=== PATIENT | female | born 1960 | race Caucasian/White ===

== ENCOUNTER → 2017-08-13 09:32 | Outpatient (CLI) | payer BC, SELFPAY ==
[2017-08-13 12:37] LABS: AST(SGOT) 30 U/L (15-37); Alanine Aminotransfer ALT/SGPT 33 U/L (13-56); Albumin, Serum 3.1 g/dL (3.2-5.0); Alkaline Phosphatase 60 U/L (45-117); Anion Gap 9 (5-15); BUN 27 mg/dL (7-18); BUN/Creat Ratio 25.5 RATIO (10-20); Bilirubin, Direct 0.12 mg/dL (0.00-0.30); Calcium,Total 9.6 mg/dL (8.5-10.1); Chloride 101 mmol/L (98-107); Cholesterol 169 mg/dL (200); Creatinine, Serum 1.06 mg/dL (0.55-1.02); EST Glomerular Filtration Rate 57 mL/min (>60); Est Glom Filt Rate - Afr Amer 69 mL/min (>60); Globulin 4.3 g/dL (2.2-4.2); Glucose 114 mg/dL (74-106); High Density Lipoprotein 41 mg/dL; Protein, Total 7.4 g/dL (6.4-8.2); Sodium Level 136 mmol/L (136-145); Triglycerides 311 mg/dL; Very Low Density Lipoprotein 62 mg/dL (5-40)
[2017-08-13 12:42] LABS: Hemoglobin A1c 8.9 % (4.2-6.3)
== END ==
PROVIDERS: Visit Provider Family Medicine
DX: E11.9 Type 2 diabetes mellitus without complications (principal)
CPT/HCPCS: 36415; 80048; 80061; 80076; 82043; 82570; 83036

== ENCOUNTER → 2018-07-22 12:45 | Outpatient (CLI) | payer BC, SELFPAY ==
[2018-07-24 10:36] LABS: HPV Reflexed? NOT INDICATED
== END ==
PROVIDERS: Family Provider Family Medicine; PCP Family Medicine; Referring Provider Family Medicine; Visit Provider Family Medicine
DX: Z12.4 Encounter for screening for malignant neoplasm of cervix (principal)
CPT/HCPCS: 88175; G0145

== ENCOUNTER → 2020-07-30 10:46 | Outpatient (CLI) | payer BC, SELFPAY ==
[2020-07-30 12:55] LABS: AST(SGOT) 14 U/L (15-37); Alanine Aminotransfer ALT/SGPT 18 U/L (13-56); Anion Gap 7 (5-15); BUN 24 mg/dL (7-18); BUN/Creat Ratio 14.9 RATIO (10-20); Chloride 106 mmol/L (98-107); Cholesterol 184 mg/dL (200); Creatinine, Serum 1.61 mg/dL (0.55-1.02); EST Glomerular Filtration Rate 35 mL/min (>60); Est Glom Filt Rate - Afr Amer 42 mL/min (>60); Glucose 109 mg/dL (74-106); High Density Lipoprotein 53 mg/dL; Potassium 4.5 mmol/L (3.5-5.1); Sodium Level 140 mmol/L (136-145); Thyroid Stim Hormone (TSH) 1.75 uIU/mL (0.358-3.74); Triglycerides 218 mg/dL; Very Low Density Lipoprotein 44 mg/dL (5-40)
== END ==
PROVIDERS: PCP Family Medicine; Referring Provider Family Medicine; Visit Provider Family Medicine
DX: E11.69 Type 2 diabetes mellitus with other specified complication (principal)
CPT/HCPCS: 36415; 80048; 80061; 84443; 84450; 84460

== ENCOUNTER → 2020-08-09 11:19 | Outpatient (CLI) | payer BC, SELFPAY | PROVIDERS: PCP Family Medicine; Visit Provider Family Medicine | DX: L03.313 Cellulitis of chest wall (principal) | CPT/HCPCS: 87070; 87077; 87205 ==

== ENCOUNTER → 2020-08-26 14:21 | Outpatient (CLI) | payer BC, SELFPAY | PROVIDERS: PCP Family Medicine; Referring Provider Surgery; Visit Provider Surgery | DX: L03.818 Cellulitis of other sites (principal); L02.818 Cutaneous abscess of other sites | CPT/HCPCS: 87070; 87075; 87205 ==

== ENCOUNTER → 2021-05-02 09:57 | Outpatient (CLI) | payer BC, SELFPAY ==
[2021-05-02 13:36] LABS: AST(SGOT) 13 U/L (15-37); Alanine Aminotransfer ALT/SGPT 20 U/L (13-56); Anion Gap 8 (5-15); BUN 50 mg/dL (7-18); BUN/Creat Ratio 18.5 RATIO (10-20); Calcium,Total 8.7 mg/dL (8.5-10.1); Chloride 111 mmol/L (98-107); Cholesterol 164 mg/dL (200); Creatinine, Serum 2.71 mg/dL (0.55-1.02); EST Glomerular Filtration Rate 19 mL/min (>60); Est Glom Filt Rate - Afr Amer 23 mL/min (>60); Glucose 82 mg/dL (74-106); High Density Lipoprotein 36 mg/dL; Potassium 4.4 mmol/L (3.5-5.1); Sodium Level 138 mmol/L (136-145); Thyroid Stim Hormone (TSH) 1.77 uIU/mL (0.358-3.74); Triglycerides 334 mg/dL; Very Low Density Lipoprotein 67 mg/dL (5-40)
== END ==
PROVIDERS: PCP Family Medicine; Visit Provider Family Medicine
DX: E11.9 Type 2 diabetes mellitus without complications (principal)
CPT/HCPCS: 36415; 80048; 80061; 84443; 84450; 84460

== ENCOUNTER 2021-09-05 09:21 | Outpatient (CLI) | payer BC, SELFPAY ==
[2021-09-05 12:22] LABS: ALB/GLOB Ratio 0.8 RATIO (0.9-2.4); AST(SGOT) 17 U/L (15-37); Alanine Aminotransfer ALT/SGPT 23 U/L (13-56); Albumin, Serum 3.2 g/dL (3.2-5.0); Alkaline Phosphatase 78 U/L (45-117); Anion Gap 8 (5-15); BUN 47 mg/dL (7-18); BUN/Creat Ratio 12.8 RATIO (10-20); Calcium,Total 9.6 mg/dL (8.5-10.1); Chloride 111 mmol/L (98-107); Creatinine, Serum 3.66 mg/dL (0.55-1.02); EST Glomerular Filtration Rate 14 mL/min (>60); Est Glom Filt Rate - Afr Amer 16 mL/min (>60); Globulin 3.9 g/dL (2.2-4.2); Glucose 120 mg/dL (74-106); Potassium 4.4 mmol/L (3.5-5.1); Protein, Total 7.1 g/dL (6.4-8.2); Sodium Level 140 mmol/L (136-145)
[2021-09-05 12:32] LABS: Vitamin D,25 Hydroxy 21.1 ng/mL
== END 2021-09-05 23:59 | disposition home or self-care (01) ==
LOC: BIMLAB 09:22
PROVIDERS: PCP Family Medicine; Referring Provider Nurse Practitioner Family; Visit Provider Nurse Practitioner Family
DX: I12.9 Hypertensive chronic kidney disease with stage 1 through stage 4 chronic kidney disease, or unspecified chronic kidney disease (principal); E11.22 Type 2 diabetes mellitus with diabetic chronic kidney disease; N18.4 Chronic kidney disease, stage 4 (severe); Z79.4 Long term (current) use of insulin
CPT/HCPCS: 36415; 80053; 82306

== ENCOUNTER → 2021-09-19 | Outpatient (CLI) | payer BC, SELFPAY ==
--- NOTE | 2021-09-19 15:00 | US_ITS ---
STUDY: RENAL ULTRASOUND - COMPLETE REASON FOR EXAM: Female, 60 years old. CKD STAGE 4 TECHNIQUE: Ultrasound evaluation of the kidneys was performed with real-time and static amor-scale imaging. COMPARISON: Comparison is made with prior examination dated 03/17/2016. FINDINGS: RIGHT KIDNEY: Normal location of the right kidney, which is normal in size. The right kidney measures 13.5 cm x 5.8 cm x 5.9 cm. There is a normal cortex of the right kidney. The renal cortex measures 1.6 cm. There is no right renal mass or cyst. There are no right renal calculi. There is no right hydronephrosis. DISTAL RIGHT URETER: There is non-visualization of the distal right ureter. There is no demonstrated right ureterovesical junction calculus. There is a visualized right ureteral jet. LEFT KIDNEY: Normal location of the left kidney, which is normal in size. The left kidney measures 12.6 cm x 5.3 cm x 5.6 cm. There is a normal cortex of the left kidney. The renal cortex measures 1.7 cm. There is no left renal mass or cyst. There are no left renal calculi. There is no left hydronephrosis. DISTAL LEFT URETER: There is non-visualization of the distal left ureter. There is no demonstrated left ureterovesical junction calculus. There is a visualized left ureteral jet. BLADDER: The distended urinary bladder has a volume of 183 ml. There is a normal wall thickness of the distended urinary bladder. There is no demonstrated mass within the urinary bladder. There are no demonstrated bladder calculi. US/Kidney and Bladder IMPRESSION: Normal ultrasound of the kidneys and urinary bladder. Electronically Signed: Matias Ashford MD at 15:48 EDT ,
[2021-09-19 16:19] LABS: Hematocrit 36.2 % (37-47); Hemoglobin 11.7 g/dL (12.0-15.0); Mean Corp Hgb Conc 32.3 g/dL (32-36); Mean Corpuscular Hgb 27.1 pg (27.0-32.0); Mean Platelet Vol. 10.8 fl (6.2-12.0); Platelet Count 334 K/mm3 (150-450); RBC Distribution Width CV 14.1 % (11.6-14.6); RBC Distribution Width SD 43.3 fl (35.1-43.9); Red Blood Count 4.31 M/mm3 (4.2-5.4); White Blood Count 11.1 K/mm3 (4.4-11.0)
[2021-09-19 16:49] LABS: Protein, Urine (Random) 208.1 mg/dL (<11.9); Protein:Creat Ratio 6735 mg/g CRE (0-200)
[2021-09-19 16:50] LABS: Albumin, Serum 3.3 g/dL (3.2-5.0); BUN 53 mg/dL (7-18); BUN/Creat Ratio 15.1 RATIO (10-20); Calcium,Total 9.9 mg/dL (8.5-10.1); Chloride 107 mmol/L (98-107); Creatinine, Serum 3.52 mg/dL (0.55-1.02); EST Glomerular Filtration Rate 14 mL/min (>60); Est Glom Filt Rate - Afr Amer 17 mL/min (>60); Glucose 106 mg/dL (74-106); Phosphorus 4.5 mg/dL (2.5-4.9); Potassium 4.4 mmol/L (3.5-5.1); Sodium Level 136 mmol/L (136-145)
[2021-09-19 16:56] LABS: Vitamin D,25 Hydroxy 20.7 ng/mL
[2021-09-20 08:04] LABS: PTHIN 26.9 pg/mL (18.4-80.1)
[2021-09-21 17:07] LABS: Anti-dsDNA Ab <1 IU/mL (0-9)
[2021-09-21 18:07] LABS: Cytoplasmic Ab (C-ANCA) <1:20 titer (Neg:<1:20); PROEL- A/G Ratio 0.8 (0.7-1.7); PROEL- Albumin 3.3 g/dL (2.9-4.4); PROEL- Alpha-1 Globulin 0.3 g/dL (0.0-0.4); PROEL- Alpha-2 Globulin 1.4 g/dL (0.4-1.0); PROEL- Beta Globulin 1.1 g/dL (0.7-1.3); PROEL- Gamma Globulin 1.3 g/dL (0.4-1.8); PROEL- TOTAL PROTEIN 7.3 g/dL (6.0-8.5)
[2021-09-21 20:41] LABS: Complement C3 163 mg/dL (82-167); Perinuclear Ab (P-ANCA) <1:20 titer (Neg:<1:20)
== END | disposition home or self-care (01) ==
PROVIDERS: PCP Family Medicine; Visit Provider Internal Medicine Nephrology
DX: N18.4 Chronic kidney disease, stage 4 (severe) (principal)
CPT/HCPCS: 36415; 76770; 80069; 82306; 82570; 83970; 84156; 84165; 85027; 86160; 86225; 86256

== ENCOUNTER → 2021-12-28 | Outpatient (CLI) | payer BC, SELFPAY ==
[2021-12-28 10:26] LABS: Protein, Urine (Random) 274.7 mg/dL (<11.9); Protein:Creat Ratio 5933 mg/g CRE (0-200)
[2021-12-28 10:42] LABS: Anion Gap 8 (5-15); BUN 55 mg/dL (7-18); BUN/Creat Ratio 13.6 RATIO (10-20); Calcium,Total 10.9 mg/dL (8.5-10.1); Chloride 105 mmol/L (98-107); Creatinine, Serum 4.03 mg/dL (0.55-1.02); EST Glomerular Filtration Rate 12 mL/min (>60); Est Glom Filt Rate - Afr Amer 15 mL/min (>60); Glucose 156 mg/dL (74-106); Potassium 4.6 mmol/L (3.5-5.1); Sodium Level 135 mmol/L (136-145)
== END | disposition home or self-care (01) ==
PROVIDERS: PCP Family Medicine; Visit Provider Internal Medicine Nephrology
DX: N18.4 Chronic kidney disease, stage 4 (severe) (principal)
CPT/HCPCS: 36415; 80048; 82570; 84156

== ENCOUNTER → 2022-04-17 | Outpatient (CLI) | payer BC, SELFPAY ==
[2022-04-17 10:19] LABS: Protein, Urine (Random) 301.1 mg/dL (<11.9); Protein:Creat Ratio 4856 mg/g CRE (0-200)
[2022-04-17 10:39] LABS: Anion Gap 8 (5-15); BUN 65 mg/dL (7-18); BUN/Creat Ratio 16.1 RATIO (10-20); Chloride 110 mmol/L (98-107); Creatinine, Serum 4.03 mg/dL (0.55-1.02); EST Glomerular Filtration Rate 12 mL/min (>60); Est Glom Filt Rate - Afr Amer 15 mL/min (>60); Glucose 121 mg/dL (74-106); Potassium 4.6 mmol/L (3.5-5.1); Sodium Level 137 mmol/L (136-145)
== END | disposition home or self-care (01) ==
LOC: LAB 09:33
PROVIDERS: PCP Family Medicine; Referring Provider Internal Medicine Nephrology; Visit Provider Internal Medicine Nephrology
DX: N18.4 Chronic kidney disease, stage 4 (severe) (principal)
CPT/HCPCS: 36415; 80048; 82570; 84156

== ENCOUNTER → 2022-05-31 | Outpatient (CLI) | payer BC, SELFPAY ==
[2022-05-31 11:06] LABS: ALB/GLOB Ratio 0.7 RATIO (0.9-2.4); AST(SGOT) 12 U/L (15-37); Alanine Aminotransfer ALT/SGPT 19 U/L (13-56); Albumin, Serum 3.3 g/dL (3.2-5.0); Alkaline Phosphatase 69 U/L (45-117); Anion Gap 7 (5-15); BUN 55 mg/dL (7-18); BUN/Creat Ratio 15.4 RATIO (10-20); Calcium,Total 11.1 mg/dL (8.5-10.1); Chloride 112 mmol/L (98-107); Cholesterol 150 mg/dL (200); Creatinine, Serum 3.56 mg/dL (0.55-1.02); EST Glomerular Filtration Rate 14 mL/min (>60); Est Glom Filt Rate - Afr Amer 17 mL/min (>60); Globulin 4.8 g/dL (2.2-4.2); Glucose 96 mg/dL (74-106); High Density Lipoprotein 35 mg/dL; Potassium 4.1 mmol/L (3.5-5.1); Protein, Total 8.1 g/dL (6.4-8.2); Sodium Level 138 mmol/L (136-145); Triglycerides 220 mg/dL; Very Low Density Lipoprotein 44 mg/dL (5-40)
[2022-05-31 12:48] LABS: PTHIN 27.7 pg/mL (18.4-80.1)
[2022-05-31 12:49] LABS: Vitamin D,25 Hydroxy 27.6 ng/mL
== END | disposition home or self-care (01) ==
LOC: LAB 09:36
PROVIDERS: PCP Family Medicine; Referring Provider Nurse Practitioner Family; Visit Provider Nurse Practitioner Family
DX: E11.9 Type 2 diabetes mellitus without complications (principal); E55.9 Vitamin D deficiency, unspecified
CPT/HCPCS: 36415; 80053; 80061; 82306; 83970

== ENCOUNTER → 2022-06-12 | Outpatient (CLI) | payer BC, SELFPAY ==
--- NOTE | 2022-06-12 12:00 | RAD_ITS ---
STUDY: X-RAY CHEST REASON FOR EXAM: Female, 61 years old. Renal transplant clearance TECHNIQUE: Single frontal view of the chest. COMPARISON: None. FINDINGS: The lungs are clear and expanded. There is no demonstrated pleural abnormality. Normal size heart. Normal mediastinum and jerry. Normal visualized pulmonary arteries. Normal visualized aortic arch and descending thoracic aorta. Normal visualized thoracic spine. Normal visualized ribs, clavicles, and shoulders. There is no demonstrated abnormality of the visualized soft tissue structures of the upper abdomen. RAD/Chest PA and Lateral IMPRESSION: Normal x-ray examination of the chest. Electronically Signed: Trey Bonilla MD at 23:44 EST ,
== END | disposition home or self-care (01) ==
PROVIDERS: PCP Family Medicine; Referring Provider Family Medicine; Visit Provider Family Medicine
DX: Z01.818 Encounter for other preprocedural examination (principal)
CPT/HCPCS: 71046

== ENCOUNTER → 2022-06-12 | Outpatient (CLI) | payer BC, SELFPAY ==
[2022-06-16 18:43] LABS: HPV HC, High Risk Negative
== END | disposition home or self-care (01) ==
LOC: LABSPEC 15:09
PROVIDERS: PCP Family Medicine; Visit Provider Family Medicine
DX: Z12.4 Encounter for screening for malignant neoplasm of cervix (principal)
CPT/HCPCS: 87624; 88175; G0145

== ENCOUNTER → 2022-06-21 | Outpatient (CLI) | payer BC, SELFPAY ==
--- NOTE | 2022-06-21 09:02 | BI_ITS ---
MAMMOGRAPHY - BILATERAL SCREENING REASON FOR EXAM: Female, 61 years old. Routine annual screening examination. PERTINENT HISTORY: Grandmother with breast cancer. Aunt with breast cancer. TECHNIQUE: Digital bilateral breast didier (3D mammographic acquisition) in the CC and MLO projections. 2-D mediolateral oblique (MLO) and craniocaudad (CC) views of both breasts were obtained. CAD: Full Field Digital Mammography with Computer Added Detection was performed. COMPARISON: Comparison is made with prior examination of 02/17/2015. FINDINGS: Breast Composition: There are scattered areas of fibroglandular density. There are no dominant masses or suspicious calcifications. No other significant abnormalities are identified. There has been no significant change since the prior study. BI/SCRN MAMM (CAD)W/DIDIER BILAT IMPRESSION: Stable bilateral screening mammogram. Yearly follow-up mammogram recommended. (A) ASSESSMENT CATEGORY: BIRADS Category 1: Negative. A letter regarding these results will be sent to the patient by the facility within 30 days. Approximately 10% of breast cancers are not detected by mammography. A normal mammogram should not delay biopsy of a clinically suspicious abnormality. [id number] Electronically Signed: Matias Ashford MD at 10:37 EST ,
== END | disposition home or self-care (01) ==
PROVIDERS: PCP Family Medicine; Referring Provider Family Medicine; Visit Provider Family Medicine
DX: Z12.31 Encounter for screening mammogram for malignant neoplasm of breast (principal); Z80.3 Family history of malignant neoplasm of breast
CPT/HCPCS: 77063; 77067

== ENCOUNTER → 2022-07-21 | Outpatient (CLI) | payer BC, SELFPAY ==
[2022-07-21 10:27] LABS: Hematocrit 36.8 % (37-47); Mean Corp Hgb Conc 32.6 g/dL (32-36); Mean Corpuscular Hgb 27.8 pg (27.0-32.0); Mean Corpuscular Volume 85.4 fL (81-99); Mean Platelet Vol. 10.7 fl (6.2-12.0); Platelet Count 289 K/mm3 (150-450); RBC Distribution Width CV 14.6 % (11.6-14.6); RBC Distribution Width SD 45.7 fl (35.1-43.9); Red Blood Count 4.31 M/mm3 (4.2-5.4); White Blood Count 9.2 K/mm3 (4.4-11.0)
[2022-07-21 10:47] LABS: Albumin, Serum 3.2 g/dL (3.2-5.0); BUN 51 mg/dL (7-18); BUN/Creat Ratio 12.6 RATIO (10-20); Calcium,Total 11.8 mg/dL (8.5-10.1); Chloride 103 mmol/L (98-107); Creatinine, Serum 4.05 mg/dL (0.55-1.02); EST Glomerular Filtration Rate 12 mL/min (>60); Est Glom Filt Rate - Afr Amer 15 mL/min (>60); Glucose 181 mg/dL (74-106); Potassium 4.7 mmol/L (3.5-5.1); Sodium Level 137 mmol/L (136-145)
[2022-07-21 10:54] LABS: PTHIN 26.5 pg/mL (18.4-80.1)
[2022-07-21 10:57] LABS: Vitamin D,25 Hydroxy 26.5 ng/mL
== END | disposition home or self-care (01) ==
LOC: LAB 09:51
PROVIDERS: PCP Family Medicine; Referring Provider Internal Medicine Nephrology; Visit Provider Internal Medicine Nephrology
DX: N18.4 Chronic kidney disease, stage 4 (severe) (principal)
CPT/HCPCS: 36415; 80069; 82306; 82570; 83970; 84156; 85027

== ENCOUNTER → 2022-07-27 | Outpatient (CLI) | payer BC, SELFPAY ==
[2022-07-27 11:05] LABS: PTHIN 30.6 pg/mL (18.4-80.1)
[2022-07-28 17:07] LABS: Free Kappa Light Chains 122.8 mg/L (3.3-19.4); Free Lambda Light Chains 69.3 mg/L (5.7-26.3); Immunoglobulin A 283 mg/dL (87-352); Immunoglobulin G 1333 mg/dL (586-1602); Immunoglobulin M 76 mg/dL (26-217); PROEL- A/G Ratio 0.8 (0.7-1.7); PROEL- Albumin 3.2 g/dL (2.9-4.4); PROEL- Alpha-1 Globulin 0.3 g/dL (0.0-0.4); PROEL- Alpha-2 Globulin 1.2 g/dL (0.4-1.0); PROEL- Beta Globulin 1.1 g/dL (0.7-1.3); PROEL- Gamma Globulin 1.3 g/dL (0.4-1.8); PROEL- Globulin, Total 3.8 g/dL (2.2-3.9)
== END | disposition home or self-care (01) ==
PROVIDERS: PCP Family Medicine; Referring Provider Internal Medicine Nephrology; Visit Provider Internal Medicine Nephrology
DX: N18.5 Chronic kidney disease, stage 5 (principal)
CPT/HCPCS: 36415; 82784; 83883; 83970; 84165; 86334

== ENCOUNTER → 2022-11-22 | Outpatient (CLI) | payer BC, SELFPAY ==
[2022-11-22 10:59] LABS: PTHIN 48.3 pg/mL (18.4-80.1)
[2022-11-23 16:09] LABS: Free Kappa Light Chains 143.7 mg/L (3.3-19.4); Free Lambda Light Chains 126.3 mg/L (5.7-26.3); Immunoglobulin A 294 mg/dL (87-352); Immunoglobulin G 1769 mg/dL (586-1602); Immunoglobulin M 66 mg/dL (26-217); PROEL- A/G Ratio 0.8 (0.7-1.7); PROEL- Albumin 3.3 g/dL (2.9-4.4); PROEL- Alpha-1 Globulin 0.3 g/dL (0.0-0.4); PROEL- Alpha-2 Globulin 1.1 g/dL (0.4-1.0); PROEL- Gamma Globulin 1.6 g/dL (0.4-1.8); PROEL- Globulin, Total 3.9 g/dL (2.2-3.9); PROEL- TOTAL PROTEIN 7.2 g/dL (6.0-8.5)
== END | disposition home or self-care (01) ==
PROVIDERS: PCP Family Medicine; Referring Provider Internal Medicine Nephrology; Visit Provider Internal Medicine Nephrology
DX: N18.5 Chronic kidney disease, stage 5 (principal)
CPT/HCPCS: 36415; 82784; 83883; 83970; 84165; 86334

== ENCOUNTER → 2022-11-27 | Outpatient (CLI) | payer BC, SELFPAY ==
[2022-11-27 10:57] LABS: ALB/GLOB Ratio 0.6 RATIO (0.9-2.4); AST(SGOT) 14 U/L (15-37); Alanine Aminotransfer ALT/SGPT 16 U/L (13-56); Albumin, Serum 3.3 g/dL (3.2-5.0); Alkaline Phosphatase 59 U/L (45-117); Anion Gap 3 (5-15); BUN 60 mg/dL (7-18); BUN/Creat Ratio 14.6 RATIO (10-20); Calcium,Total 10.7 mg/dL (8.5-10.1); Chloride 111 mmol/L (98-107); Creatinine, Serum 4.11 mg/dL (0.55-1.02); EST Glomerular Filtration Rate 12 mL/min (>60); Est Glom Filt Rate - Afr Amer 14 mL/min (>60); Globulin 5.4 g/dL (2.2-4.2); Glucose 100 mg/dL (74-106); Potassium 4.7 mmol/L (3.5-5.1); Protein, Total 8.7 g/dL (6.4-8.2); Sodium Level 138 mmol/L (136-145); Vitamin D,25 Hydroxy 33.7 ng/mL
== END | disposition home or self-care (01) ==
LOC: LAB 10:06
PROVIDERS: PCP Family Medicine; Referring Provider Nurse Practitioner Family; Visit Provider Nurse Practitioner Family
DX: E83.52 Hypercalcemia (principal)
CPT/HCPCS: 36415; 80053; 82306

== ENCOUNTER → 2023-01-24 | Outpatient (CLI) | payer BC, SELFPAY ==
--- NOTE | 2023-01-24 15:50 | RAD_ITS ---
INDICATION: pain, left facial trauma EXAMINATION/TECHNIQUE: X-RAY - XR Nasal Bones Min 3 Views COMPARISON: None. FINDINGS: SOFT TISSUES: No soft tissue swelling. No free air. No radiopaque foreign body. BONES: No fracture. NASAL SEPTUM: Midline. RAD/Nasal Bones min 3 Views IMPRESSION: No evidence of a nasal bone fracture. Electronically Signed: Jose Alejandro Castro DO at 23:17 EDT ,
== END | disposition home or self-care (01) ==
LOC: MTRAD 15:47
PROVIDERS: PCP Family Medicine; Referring Provider Family Medicine; Visit Provider Family Medicine
DX: S09.93XA Unspecified injury of face, initial encounter (principal)
CPT/HCPCS: 70160

== ENCOUNTER → 2023-02-12 | Outpatient (CLI) | payer BC, SELFPAY ==
[2023-02-12 10:27] LABS: Hematocrit 38.2 % (37-47); Hemoglobin 12.3 g/dL (12.0-15.0); Mean Corp Hgb Conc 32.2 g/dL (32-36); Mean Corpuscular Hgb 28.7 pg (27.0-32.0); Mean Corpuscular Volume 89.3 fL (81-99); Mean Platelet Vol. 10.8 fl (6.2-12.0); Platelet Count 294 K/mm3 (150-450); RBC Distribution Width CV 14.4 % (11.6-14.6); RBC Distribution Width SD 46.2 fl (35.1-43.9); Red Blood Count 4.28 M/mm3 (4.2-5.4)
[2023-02-12 10:54] LABS: PTHIN 52.9 pg/mL (18.4-80.1)
[2023-02-12 10:57] LABS: Vitamin D,25 Hydroxy 37.3 ng/mL
[2023-02-12 11:12] LABS: Albumin, Serum 3.3 g/dL (3.2-5.0); BUN 53 mg/dL (7-18); Calcium,Total 10.6 mg/dL (8.5-10.1); Chloride 110 mmol/L (98-107); Creatinine, Serum 4.41 mg/dL (0.55-1.02); EST Glomerular Filtration Rate 11 mL/min (>60); Est Glom Filt Rate - Afr Amer 13 mL/min (>60); Glucose 103 mg/dL (74-106); Phosphorus 4.9 mg/dL (2.5-4.9); Potassium 4.5 mmol/L (3.5-5.1); Sodium Level 138 mmol/L (136-145)
[2023-02-12 11:44] LABS: Protein, Urine (Random) 244.8 mg/dL (<11.9); Protein:Creat Ratio 5287 mg/g CRE (0-200)
[2023-02-15 12:09] LABS: Vitamin D 1,25-Dihydroxy 23.6 pg/mL (24.8-81.5)
== END | disposition home or self-care (01) ==
LOC: LAB 10:08
PROVIDERS: PCP Family Medicine; Referring Provider Internal Medicine Nephrology; Visit Provider Internal Medicine Nephrology
DX: N18.5 Chronic kidney disease, stage 5 (principal)
CPT/HCPCS: 36415; 80069; 82306; 82570; 82652; 83970; 84156; 85027

== ENCOUNTER → 2023-04-16 | Outpatient (CLI) | payer BC, SELFPAY ==
[2023-04-16 11:20] LABS: Protein, Urine (Random) 303.1 mg/dL (<11.9); Protein:Creat Ratio 6422 mg/g CRE (0-200)
[2023-04-16 11:27] LABS: BUN 74 mg/dL (7-18); BUN/Creat Ratio 15.1 RATIO (10-20); Calcium,Total 10.3 mg/dL (8.5-10.1); Chloride 111 mmol/L (98-107); EST Glomerular Filtration Rate 10 mL/min (>60); Est Glom Filt Rate - Afr Amer 12 mL/min (>60); Glucose 105 mg/dL (74-106); Phosphorus 6.5 mg/dL (2.5-4.9); Potassium 4.8 mmol/L (3.5-5.1); Sodium Level 136 mmol/L (136-145)
== END | disposition home or self-care (01) ==
LOC: LAB 09:23
PROVIDERS: PCP Family Medicine; Referring Provider Internal Medicine Nephrology; Visit Provider Internal Medicine Nephrology
DX: N18.4 Chronic kidney disease, stage 4 (severe) (principal)
CPT/HCPCS: 36415; 80069; 82570; 84156

== ENCOUNTER → 2023-06-21 | Outpatient (CLI) | payer BC, SELFPAY ==
[2023-06-21 11:20] LABS: Hematocrit 36.1 % (37-47); Hemoglobin 11.4 g/dL (12.0-15.0); Mean Corp Hgb Conc 31.6 g/dL (32-36); Mean Corpuscular Hgb 28.2 pg (27.0-32.0); Mean Corpuscular Volume 89.4 fL (81-99); Mean Platelet Vol. 10.5 fl (6.2-12.0); Platelet Count 292 K/mm3 (150-450); RBC Distribution Width CV 13.9 % (11.6-14.6); RBC Distribution Width SD 45.4 fl (35.1-43.9); Red Blood Count 4.04 M/mm3 (4.2-5.4); White Blood Count 13.5 K/mm3 (4.4-11.0)
[2023-06-21 11:53] LABS: Albumin, Serum 3.1 g/dL (3.2-5.0); BUN 63 mg/dL (7-18); BUN/Creat Ratio 13.4 RATIO (10-20); Calcium,Total 11.1 mg/dL (8.5-10.1); Chloride 112 mmol/L (98-107); EST Glomerular Filtration Rate 10 mL/min (>60); Est Glom Filt Rate - Afr Amer 12 mL/min (>60); Glucose 69 mg/dL (74-106); Phosphorus 4.5 mg/dL (2.5-4.9); Potassium 4.3 mmol/L (3.5-5.1); Sodium Level 136 mmol/L (136-145)
--- OUTSIDE RECORDS SUMMARY | 2023-06-21 13:04 | XMS RPT_ITS | CCD ---
Author Name Unknown Address [facility] [address] [place] [address] Organization [facility] Care Team Providers Care Director Of Veterans Affairs Name Role Phone Pcp, No Primary Care Provider Unavailabl e Unavailable Primary Care Provider Unavailabl e FATICA, BRITTNEY Referring Unavailable FATICA, BRITTNEY Referring Unavailable FATICA, BRITTNEY Referring Unavailable POGGIO, MAREK D Referring Unavailable POGGIO, MAREK D Referring Unavailable MUKESHPHOENIX Referring Unavailabl e FATICA, BRITTNEY Referring Unavailable FATICA, BRITTNEY Referring Unavailable FATICA, BRITTNEY Referring Unavailable CRTALICGEENA Attending Unavailable FATICA, BRITTNEY Referring Unavailable MUKESH, PHOEN[place] Jimenez Referring Unavailabl e MUKESHJESSIE CLOUDKAMACY Jimenez Referring Unavailabl e Mukesh WILKINSON, [place] Jimenez Primary Care Provider SHER FONSECA Attending Unavailable SHER FONSECA Referring Unavailable MUKESHJESSIE CLOUDKAMACY Jimenez Primary Care Unavailabl e Medications Current Medications Medication Drug Class(es) Dates Sig (Normalized) Sig (Original) allopurinol 100 mg oral tablet (17 sources) Xanthine Oxidase Inhibitor Start: 06-02-2023 take 1 tablet by mouth once daily allopurinol (Zyloprim) 100 mg tablet Take 1 tablet (100 mg) by mouth once daily. 0 06/02/2023 Active Completed/Discontinued Medications Medication Drug Class(es) Dates Sig (Normalized) Sig (Original) calcium chloride 0.0014 meq/ml / potassium chloride 0.004 meq/ml / sodium chloride 0.103 meq/ml / sodium lactate 0.028 meq/ml injectable solution (2 sources) Start: 06-15-2023 End: 06-16-2023 lactated Ringer's infusion candesartan cilexetil 32 mg / hydroCHLOROthiazide 12.5 mg oral tablet (15 sources) Thiazide Diuretic, Angiotensin 2 Receptor Felisha Start: 04-25-2007 candesartan/hydr ochlorothiazid(A TACAND HCT 32 MG-12.5 MG TAB) glimepiride 2 mg oral tablet (11 sources) Sulfonylurea take 1 tablet by mouth once daily at breakfast glimepiride (AMARYL) 2 mg tablet Take 2 mg by mouth daily with breakfast. 0 Active Problems Active Problems Problem Classification Problem Date Documented Da te Episodic/Chronic Acute and unspecified renal failure (1 source) Unspecified kidney failure; Translations: [Renal failure, unspecified chronicity] Onset: 05-10-2022 Chronic Administrative/social admission (3 sources) Patient encounter status; Translations: [Dietary counseling and surveillance] Episodic Chronic kidney disease (8 sources) Chronic kidney disease stage 4; Translations: [Chronic kidney disease, stage 4 (severe)] Onset: 05-10-2022 Chronic Diabetes mellitus with complications (2 sources) Type 2 diabetes mellitus; Translations: [Type 2 diabetes mellitus with unspecified complications] Onset: 05-10-2022 Chronic Essential hypertension (1 source) Hypertensive disorder; Translations: [Essential (primary) hypertension] Chronic Other nutritional; endocrine; and metabolic disorders (1 source) Severe obesity; Translations: [Morbid (severe) obesity due to excess calories] Chronic Other nutritional; endocrine; and metabolic disorders (1 source) Morbid (severe) obesity due to excess calories; Translations: [Class 3 severe obesity in adult, unspecified BMI, unspecified obesity type, unspecified whether serious comorbidity present (HCC)] Onset: 05-10-2022 Chronic Residual codes; unclassified (1 source) Awaiting transplantation; Translations: [Awaiting organ transplant status] Chronic Past or Other Problems Problem Classification Problem Date Documented Date Episodic/Chronic Calculus of urinary tract (20 sources) Kidney stone; Translations: [Calculus of kidney] Onset: 04-10-2005 04-10-2005 Episodic Genitourinary symptoms and ill-defined conditions (15 sources) Extravasation of urine; Translations: [Extravasation of urine] Onset: 04-28-2005 04-28-2005 Episodic Immunizations and screening for infectious disease (1 source) Encounter for screening for infections with a predominantly sexual mode of transmission; Translations: [Screening for venereal disease] Onset: 05-10-2022 Episodic Other diseases of kidney and ureters (15 sources) Hydronephrosis; Translations: [Unspecified hydronephrosis] Onset: 04-10-2005 04-10-2005 Episodic Other screening for suspected conditions (not mental disorders or infectious disease) (1 source) Encounter for screening for cardiovascular disorders; Translations: [Encounter for screening for cardiovascular disorders] Onset: 08-09-2022 Episodic Results Test Name Value Interpretation Reference Range Facil ity Vital Signs Date Time Vital Sign Value Performing Clinician Facility 06-15-2023 16:20-0500 Diastolic blood pressure 80 mm[Hg] Sher Thomae DO Work Phone: [facility] 06-15-2023 16:20-0500 Heart rate 77 /min Sher Thomae DO Work Phone: [facility] 06-15-2023 16:20-0500 Respiratory rate 18 /min Sher Thomae DO Work Phone: [facility] 06-15-2023 16:20-0500 SaO2% (BldA) [Mass fraction] 96 % Sher Thomae DO Work Phone: [facility] 06-15-2023 16:20-0500 Systolic blood pressure 170 mm[Hg] Sher Thomae DO Work Phone: [facility] 06-15-2023 15:47-0500 Body temperature 97.9 [degF] Sher Thomae DO Work Phone: [facility] 06-15-2023 13:44-0500 Body height 162.6 cm Sher Thomae DO Work Phone: [facility] 06-15-2023 13:44-0500 Body mass index (BMI) [Ratio] 40.53 kg/m2 Sher Thomae DO Work Phone: [facility] 06-15-2023 13:44-0500 Body weight 107.1 kg Sher Thomae DO Work Phone: [facility] 05-10-2022 12:54-0500 Body height 162.6 cm [facility] Work Phone: [facility] 05-10-2022 12:54-0500 Body temperature 98.6 [degF] [facility] Work Phone: [facility] 05-10-2022 12:54-0500 Body weight 105.92 kg [facility] Work Phone: [facility] 05-10-2022 12:54-0500 Diastolic blood pressure 62 mm[Hg] [facility] Work Phone: [facility] 05-10-2022 12:54-0500 Heart rate 74 /min [facility] Work Phone: [facility] 05-10-2022 12:54-0500 SaO2% (BldA) [Mass fraction] 99 % [facility] Work Phone: [facility] 05-10-2022 12:54-0500 Systolic blood pressure 142 mm[Hg] [facility] Work Phone: [facility] 05-10-2022 12:52-0500 Body height 162.6 cm [facility] Work Phone: [facility] 05-10-2022 12:52-0500 Body temperature 98.6 [degF] [facility] Work Phone: [facility] 05-10-2022 12:52-0500 Body weight 105.92 kg [facility] Work Phone: [facility] 05-10-2022 12:52-0500 Diastolic blood pressure 62 mm[Hg] [facility] Work Phone: [facility] 05-10-2022 12:52-0500 Heart rate 74 /min [facility] Work Phone: [facility] 05-10-2022 12:52-0500 SaO2% (BldA) [Mass fraction] 99 % [facility] Work Phone: [facility] 05-10-2022 12:52-0500 Systolic blood pressure 142 mm[Hg] [facility] Work Phone: [facility] 05-10-2022 10:0500 Body height 162.[address] Work Phone: [facility] 05-10-2022 10:0500 Body weight 104.[address] Work Phone: [facility] Encounters Encounter Date Encounter Type Care Provider Facility Start: 06-15-2023 End: 06-16-2023 ambulatory SHER FONSECA [facility] Start: 06-15-2023 End: 06-15-2023 Subsequent hospital visit by physician Sher Fonseca DO Work Phone: [facility] Procedures Date Procedure Procedure Detail Performing Clinician Start: 06-15-2023 DISCHARGE PATIENT SHER FONSECA Start: 06-15-2023 PLACE IN OUTPATIENT/HOSPITAL AMBULATORY SURGERY SHER FONSECA Start: 06-15-2023 Colonoscopy flx dx w /collj spec when pfrmd Sher Fonseca DO Work Phone: Start: 06-15-2023 Colonoscopy Sher fournier DO Work Phone: Start: 08-09-2022 Myocardial spect mul tiple studies Marek Roberson MD Work Phone: Start: 05-10-2022 Antibody screen BRITTNEY DE LA CRUZ Plan of Treatment Date Care Activity Detail Author Start: 06-13-2028 Screening for malignant neoplasm of colon [facility] Start: 01-19-2023 Covid-19 Vaccine ( season) Covid-19 Vaccine ( season) [facility] Start: 01-19-2023 Influenza vaccination [facility] Start: 2022 Hepatitis B Vaccine (1 of 3 - Risk 3-dose series) Hepatitis B Vaccine (1 of 3 - Risk 3-dose series) [facility] Start: 2022 RSV Vaccine (1 - 1-dose 60+ series) RSV Vaccine (1 - 1-dose 60+ series) [facility] Start: 05-21-2022 DEPRESSION ASSESSMENT DEPRESSION ASSESSMENT [facility] Start: 01-19-2022 Influenza vaccination INFLUENZA (#1) [facility] Start: 07-13-2021 COVID-19 VACCINE (4 - Booster for Moderna series) COVID-19 VACCINE (4 - Booster for Moderna series) [facility] Start: 05-21-2021 DEPRESSION ASSESSMENT DEPRESSION ASSESSMENT [facility] Start: 2012 Zoster Vaccines (1 of 2) Zoster Vaccines (1 of 2) [facility] Start: 10-18-2007 COLOGUARD (FIT-DNA) COLOGUARD (FIT-DNA) [facility] Start: 10-18-2007 Colonoscopy COLONOSCOPY [facility] Start: 10-18-2007 COLORECTAL CANCER SCREENING COLORECTAL CANCER SCREENING [facility] Start: 10-18-[address] COLONOGRAPHY [facility] Start: 10-18-2007 FECAL OCCULT BLOOD FECAL OCCULT BLOOD [facility] Start: 10-18-2007 SIGMOIDOSCOPY SIGMOIDOSCOPY [facility] Start: 2002 Mammography [facility] Start: 2002 Screening for malignant neoplasm of breast Mammogram [facility] Start: 1992 HPV TESTING HPV TESTING [facility] Start: 1984 DTaP/Tdap/Td Vaccines (1 - Tdap) DTaP/Tdap/Td Vaccines (1 - Tdap) [facility] Start: 10-18-1983 PAP TESTING PAP TESTING [facility] Start: 10-18-1983 Screening for malignant neoplasm of cervix [facility] Start: 1981 Hepatitis A Vaccine (1 of 2 - Risk 2-dose series) Hepatitis A Vaccine (1 of 2 - Risk 2-dose series) [facility] Start: 1981 SHINGRIX VACCINE (1 of 2) SHINGRIX VACCINE (1 of 2) [facility] Start: 1981 Urine microalbumin profile [facility] Start: 1980 ANNUAL PCP TEAM CHRONIC DISEASE VISIT ANNUAL PCP TEAM CHRONIC DISEASE VISIT [facility] Start: 1980 Hepatitis B surface antibody level LDL CHOLESTEROL [facility] Start: 1980 HEPATITIS C SCREENING HEPATITIS C SCREENING [facility] Start: 1980 Hepatitis C screening Hepatitis C Screening [facility] Start: 1980 HIV SCREENING HIV SCREENING [facility] Start: 1974 Adult depression screening assessment DEPRESSION SCREENING [facility] Start: 1972 3 comp foot exam completed DIABETIC FOOT EXAM [facility] Start: 1972 Hepatitis B screening URINE ALBUMIN:CREATININE RATIO [facility] Start: 1972 Hepatitis C antibody, confirmatory test DILATED RETINAL EXAM [facility] Start: 1968 PNEUMOCOCCAL (1 - PCV) PNEUMOCOCCAL (1 - PCV) [facility] Start: 1968 Pneumococcal vaccination Pneumococcal Vaccine (1 - PCV) [facility] Start: 10-18-1967 Hemoglobin A1c/Hemoglobin.total in Blood HBA1C [facility] Start: 10-18-1963 HEPATITIS A (1 of 2 - Risk 2-dose series) HEPATITIS A (1 of 2 - Risk 2-dose series) [facility] Start: 10-18-1963 MMR Vaccines (1 of 1 - Standard series) MMR Vaccines (1 of 1 - Standard series) [facility] Start: 04-19-1963 COVID-19 VACCINE (#1) COVID-19 VACCINE (#1) [facility] Start: 1962 HIV screening HIV Screening [facility] Start: 1962 Lipid panel Lipid Panel [facility] Start: 1962 Screening for malignant neoplasm of colon [facility] Start: 1962 Yearly Adult Physical Yearly Adult Physical [facility] End: 05-11-2022 ALLOGEN SOT REC RPT [facility] Immunizations Immunization Date Immunization Notes Care Provider Mallory stacy 02-18-2018 influenza, seasonal, injectable Clara Treviño RN [facility] 02-18-2018 influenza virus vacc ine, unspecified formulation Edward Nieto RN [facility] 02-12-2017 influenza, injectabl e, quadrivalent, contains preservative Clara Treviño RN [facility] 02-07-2016 influenza, seasonal, injectable Clara Treviño RN [facility] Payers Date Payer Category Payer Unknown [id number] 2022 Unknown [id number] 1960 Unknown [id number] Social History Date Type Detail Facility Start: 05-10-2022 End: 06-15-2023 Tobacco smoking status NHIS Never smoked tobacco [facility] Start: 02-26-2006 End: 05-10-2022 Alcohol intake Current drinker of alcohol (finding) [facility] Start: 1960 Sex Assigned At Not on file [facility] Start: 05-10-2022 End: 06-15-2023 Tobacco use and exposure Smokeless tobacco non-user [facility] Start: 05-10-2022 Education 13 [facility] Start: 05-10-2022 End: 06-15-2023 History of Social function [facility] Start: 05-10-2022 End: 06-15-2023 Tobacco use panel [facility] National Score (1-100), lower number is lower risk 51 [facility] Start: 06-15-2023 Alcohol intake Lifetime non-d asim (finding) [facility] Work Phone: Start: 06-05-2023 End: 06-15-2023 Exposure to SARS-CoV-2 (event) Not sure [facility] Clinical Notes 01-12-2022 to 06-15-2023 Discharge InstructionsSher Fonseca DO - 06/15/2023 2:40 PM ESTDajude Fonseca, DO - 06/15/2023 2:40 PM ESTTelephone Encounter - Edward Nieto RN - 04/02/2023 11:24 AM EST Note Date & Type Note Facility 06-15-2023 Hospital Discharge instructions Shakira Sykes RN - 06/15/2023 4:04 PM EST Patient Instructions after a Colonoscopy The anesthetics, sedatives or narcotics which were given to you today will be acting in your body for the next 24 hours, so you might feel a little sleepy or groggy. This feeling should slowly wear off. Carefully read and follow the instructions. You received sedation today: - Do not drive or operate any machinery or power tools of any kind. - No alcoholic beverages today, not even beer or wine. - Do not make any important decisions or sign any legal documents. - No over the counter medications that contain alcohol or that may cause drowsiness. - Do not make any important decisions or sign any legal documents. While it is common to experience mild to moderate abdominal distention, gas, or belching after your procedure, if any of these symptoms occur following discharge from the GI Lab or within one week of having your procedure, call the [facility] to be advised whether a visit to your nearest Urgent Care or Emergency Department is indicated. Take this paper with you if you go. - If you develop an allergic reaction to the medications that were given during your procedure such as difficulty breathing, rash, hives, severe nausea, vomiting or lightheadedness. - If you experience chest pain, shortness of breath, severe abdominal pain, fevers and chills. -If you develop signs and symptoms of bleeding such as blood in your spit, if your stools turn black, tarry, or bloody - If you have not urinated within 8 hours following your procedure. - If your IV site becomes painful, red, inflamed, or looks infected. Your physician recommends the additional following instructions: -You have a contact number available for emergencies. The signs and symptoms of potential delayed complications were discussed with you. You may return to normal activities tomorrow. -Resume your previous diet. -Continue your present medications. -We are waiting for your pathology results. -Your physician has recommended a repeat colonoscopy (date to be determined after pending pathology results are reviewed) for surveillance based on pathology results. -The findings and recommendations have been discussed with you. -The findings and recommendations were discussed with your family. - Please see Medication Reconciliation Form for new medication/medications prescribed. If you experience any problems or have any questions following discharge from the GI Lab, please call: Nurse Signature Date Patient/Responsible [employer] Signature Date documented in this encounter [facility] Work Phone: 06-15-2023 History and physical note History Of Present Illness Florina Corbin is a 62 y.o. female presenting with for colon cancer screening for transplant evaluation. Past Medical History Past Medical History: Diagnosis Date Delayed emergence from general anesthesia Diabetes mellitus (CMS/HCC) Hyperlipidemia Hypertension Nephrolithiasis PONV (postoperative nausea and vomiting) Surgical History Past Surgical History: Procedure Laterality Date ANTERIOR CRUCIATE LIGAMENT REPAIR KIDNEY STONE SURGERY WISDOM TOOTH EXTRACTION Social History She reports that she has never smoked. She has never used smokeless tobacco. She reports that she does not drink alcohol and does not use drugs. Family History No family history on file. Allergies No Known Allergies Review of Systems Pre-sedation Evaluation: ASA Classification - ASA 2 - Patient with mild systemic disease with no functional limitations Mallampati Score - II (hard and soft palate, upper portion of tonsils anduvula visible) Physical Exam Vitals and nursing note reviewed. Constitutional: Appearance: Normal appearance. HENT: Head: Normocephalic. Mouth/Throat: Mouth: Mucous membranes are moist. Pharynx: Oropharynx is clear. Eyes: Conjunctiva/sclera: Conjunctivae normal. Pupils: Pupils are equal, round, and reactive to light. Cardiovascular: Pulses: Normal pulses. Heart sounds: Normal heart sounds. Pulmonary: Effort: Pulmonary effort is normal. Breath sounds: Normal breath sounds. Abdominal: General: Abdomen is flat. Bowel sounds are normal. Palpations: Abdomen is soft. Musculoskeletal: Cervical back: Normal range of motion and neck supple. Skin: General: Skin is warm and dry. Neurological: General: No focal deficit present. Mental Status: She is alert and oriented to person, place, and time. Psychiatric: Behavior: Behavior normal. Last Recorded Vitals Blood pressure (!) 185/89, pulse 79, temperature 36.2 C (97.2 F), temperature source Temporal, resp. rate 14, height 1.626 m (5' 4 ), weight 107 kg (236 lb 1.8 oz), SpO2 98 %. 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 amitriptyline (Elavil) 25 mg tablet Take 1 tablet (25 mg) by mouth once daily at bedtime. amLODIPine (Norvasc) 10 mg tablet Take 1 tablet (10 mg) by mouth once daily. desipramine (Norpramin) 10 mg tablet Take 1 tablet (10 mg) by mouth. Farxiga 10 mg Take 1 tablet (10 mg) by mouth once daily. furosemide (Lasix) 40 mg tablet Januvia 100 mg tablet Take 1 tablet (100 mg) by mouth once daily. metoprolol tartrate (Lopressor) 75 mg tablet Take 1 tablet (75 mg) by mouth. NovoLIN 70/30 U-100 Insulin 100 unit/mL (70-30) injection simvastatin (Zocor) 20 mg tablet Take 1 tablet (20 mg) by mouth once daily at bedtime. telmisartan (MIcarDIS) 80 mg tablet Take 1 tablet (80 mg) by mouth once daily. aspirin 81 mg EC tablet Take 1 tablet (81 mg) by mouth once daily. Current Facility-Administered Medications Medication Dose Route Frequency Provider Last Rate Last Admin lactated Ringer's infusion 20 mL/hr intravenous Continuous Sher Fonseca DO 20 mL/hr at 06/15/23 1436 20 mL/hr at 06/15/23 1436 Sher Fonseca DO [facility] Work Phone: 06-15-2023 History and physical note History Of Present Illness Florina Corbin is a 62 y.o. female presenting with for colon cancer screening for transplant evaluation. Past Medical History Past Medical History: Diagnosis Date Delayed emergence from general anesthesia Diabetes mellitus (CMS/HCC) Hyperlipidemia Hypertension Nephrolithiasis PONV (postoperative nausea and vomiting) Surgical History Past Surgical History: Procedure Laterality Date ANTERIOR CRUCIATE LIGAMENT REPAIR KIDNEY STONE SURGERY WISDOM TOOTH EXTRACTION Social History She reports that she has never smoked. She has never used smokeless tobacco. She reports that she does not drink alcohol and does not use drugs. Family History No family history on file. Allergies No Known Allergies Review of Systems Pre-sedation Evaluation: ASA Classification - ASA 2 - Patient with mild systemic disease with no functional limitations Mallampati Score - II (hard and soft palate, upper portion of tonsils anduvula visible) Physical Exam Vitals and nursing note reviewed. Constitutional: Appearance: Normal appearance. HENT: Head: Normocephalic. Mouth/Throat: Mouth: Mucous membranes are moist. Pharynx: Oropharynx is clear. Eyes: Conjunctiva/sclera: Conjunctivae normal. Pupils: Pupils are equal, round, and reactive to light. Cardiovascular: Pulses: Normal pulses. Heart sounds: Normal heart sounds. Pulmonary: Effort: Pulmonary effort is normal. Breath sounds: Normal breath sounds. Abdominal: General: Abdomen is flat. Bowel sounds are normal. Palpations: Abdomen is soft. Musculoskeletal: Cervical back: Normal range of motion and neck supple. Skin: General: Skin is warm and dry. Neurological: General: No focal deficit present. Mental Status: She is alert and oriented to person, place, and time. Psychiatric: Behavior: Behavior normal. Last Recorded Vitals Blood pressure (!) 185/89, pulse 79, temperature 36.2 C (97.2 F), temperature source Temporal, resp. rate 14, height 1.626 m (5' 4 ), weight 107 kg (236 lb 1.8 oz), SpO2 98 %. 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 amitriptyline (Elavil) 25 mg tablet Take 1 tablet (25 mg) by mouth once daily at bedtime. amLODIPine (Norvasc) 10 mg tablet Take 1 tablet (10 mg) by mouth once daily. desipramine (Norpramin) 10 mg tablet Take 1 tablet (10 mg) by mouth. Farxiga 10 mg Take 1 tablet (10 mg) by mouth once daily. furosemide (Lasix) 40 mg tablet Januvia 100 mg tablet Take 1 tablet (100 mg) by mouth once daily. metoprolol tartrate (Lopressor) 75 mg tablet Take 1 tablet (75 mg) by mouth. NovoLIN 70/30 U-100 Insulin 100 unit/mL (70-30) injection simvastatin (Zocor) 20 mg tablet Take 1 tablet (20 mg) by mouth once daily at bedtime. telmisartan (MIcarDIS) 80 mg tablet Take 1 tablet (80 mg) by mouth once daily. aspirin 81 mg EC tablet Take 1 tablet (81 mg) by mouth once daily. Current Facility-Administered Medications Medication Dose Route Frequency Provider Last Rate Last Admin lactated Ringer's infusion 20 mL/hr intravenous Continuous Sher Fonseca DO 20 mL/hr at 06/15/23 1436 20 mL/hr at 06/15/23 1436 Sher Fonseca DO documented in this encounter [facility] Work Phone: 04-02-2023 Miscellaneous Notes Nurse called and spoke with Florina for updates. Pt states that nobody called her for an appt. Nurse explained that perhaps you should call the appointment line at [facility] and provided pt with the appointment line number and hospital number to [facility]. Florina verbalized her understanding and says that she has not started dialysis as of yet. Edward Nieto RN documented in this encounter [facility] 08-23-2022 Note HNO ID: [id number] Author: MERCEDEZ Bishop Service: ? Author Type: Professor Of Anthropology Type: Progress Notes Filed: 08/23/2022 2:52 PM Note Text: Psychosocial Abstract: Social Supports: Pt's will be primary support and pt's sister will be backup support. Financial Concerns: [place] Compliance: Pt is not dialysis dependent at this time. Pt reports compliance with taken all medication as prescribed. Mental Health: No mental health concerns at this time. Substance Use: No current concerns regarding ETOH abuse, street drug use or tobacco use. SIPAT: 13 At this time, pt is a suitable psychosocial candidate. MERCEDEZ Bishop-S Transplant Professor Of Anthropology [facility] 08-23-2022 Miscellaneous Notes KRISTEN returned phone call from pt's sister Maci ([phone]) regarding backup support. KRISTEN reviewed the follow up care sequence, including lab work twice a week and weekly post transplant clinic appointments. KRISTEN also discussed the need to have a caregiver full time paramedic for 2 weeks post transplant. Maci verbalized understanding. Maci stated she does work, however, there will be no issues with her taking time off in order to assist with caregiver/transportation support. Maci stated she has enough personal time and sick time in order to help the pt.. Maci stated she will absolutely help the pt post transplant. Maci verified her commitment to help with backup support. At this time, pt is a suitable psychosocial candidate. ANH Bishop Transplant Professor Of Anthropology documented in this encounter [facility] 08-17-2022 Miscellaneous Notes SW called pt in preparation of selection committee. SW reminded pt that her backup support still needs to be verified. SW requested that she have her backup support contact SW. Pt verbalized understanding. SW will await phone call. ANH Bishop Transplant Professor Of Anthropology documented in this encounter [facility] 08-16-2022 Note HNO ID: [id number] Author: Deneen Castro RPh Service: ? Author Type: Pharmacist Type: Progress Notes Filed: 08/16/2022 5:05 PM Note Text: I have reviewed the patient?s medication profile and there are no identified medication issues that would preclude transplant in this patient. Deneen Castro RPh [facility] 08-16-2022 History of Present illness Narrative I have reviewed the patient s medication profile and there are no identified medication issues that would preclude transplant in this patient. Deneen Castro RPh documented in this encounter [facility] 08-09-2022 Note HNO ID: [id number] Author: Lima Pinto RN Service: Radiology Author Type: Registered Nurse Type: Progress Notes Filed: 08/09/2022 10:57 AM Note Text: RADIOLOGY SERVICE PROGRESS NOTE SERVICE DATE: 08/09/2022 SERVICE TIME: 10:57 AM PATIENT IDENTITY VERIFICATION COMPLETED USING TWO (2) STANDARD IDENTIFIERS: Name and Date of confirmed by patient verbally and Name and Date of confirmed by identification band PATIENT GENDER DATA: female ALLERGIES: Reviewed and unchanged MEDICATIONS REVIEWED BY: Armament Installer PROCEDURE TYPE: NM STRESS: 0.4 mg of Lexiscan was administered IV at 1055 by Lima Pinto RN. Reversal agent used: None. Expiration date: 19Dec2025 Lot#: [id number] IV SITE: Ambulatory: A Saline lock was inserted per protocol POST EXAM PIV STATUS: Discontinued PATIENT DISCHARGED TO: Ambulatory patient, left NM department area. A Diagnostic radioactive procedure has taken place, with no further precautions necessary other than routine body substance precautions. More information regarding radiation safety can be found using this link: [email or web address]%20Nuclear%20Me dicine%20Procedures.[email or web address] SIGNATURE: Lima Pinto RN PATIENT NAME: Florina Corbin DATE: August 09, 2022 TIME: 10:57 AM PAGER/CONTACT #: [facility] 08-09-2022 Note HNO ID: [id number] Author: RT Julia(R) Service: Nuclear Medicine Author Type: Pest Control Applicator Type: Progress Notes Filed: 08/09/2022 10:57 AM Note Text: RADIOLOGY SERVICE PROGRESS NOTE SERVICE DATE: 08/09/2022 SERVICE TIME: 9:45 AM PATIENT IDENTITY VERIFICATION COMPLETED USING TWO (2) STANDARD IDENTIFIERS: Name and Date of confirmed by patient verbally FALL SCREENING: Has the patient had 2 falls in the last year or 1 fall with injury or currently using an Ambulatory Assistive Device (Walker, Cane, Wheelchair, Crutches, etc.)? No PATIENT GENDER DATA: .female : No ALLERGIES: Reviewed and unchanged MEDICATIONS REVIEWED: Yes PATIENT RELEVANT IMPLANT DATA REVIEWED: Not Applicable IV SITE: Ambulatory: A peripheral IV was started in the Right antecubital site with a Angio cath: 22 gauge. POST EXAM PIV STATUS: Discontinued PROCEDURE TYPE: NM Stress: 16.8mCi [id number] was administered IV for Rest Imaging at 0944 by RT Jessie(R). 33 mCi [id number]-Kekyont was administered IV for Stress Imaging at 1055 by heather. PATIENT DISCHARGED TO: Ambulatory patient, left NM department area. A Diagnostic radioactive procedure has taken place, with no further precautions necessary other than routine body substance precautions. More information regarding radiation safety can be found using this link: [email or web address] %[email or web address]-%20Diagnostic%20Nuclear%20Me dicine%20Procedures.pdf SIGNATURE: RT Jessie(R) PATIENT NAME: Florina Corbin DATE: August 09, 2022 TIME: 9:45 AM PAGER/CONTACT #: [phone] [facility] 08-09-2022 History of Present illness Narrative RADIOLOGY SERVICE PROGRESS NOTE SERVICE DATE: 08/09/2022 SERVICE TIME: 9:45 AM PATIENT IDENTITY VERIFICATION COMPLETED USING TWO (2) STANDARD IDENTIFIERS: Name and Date of confirmed by patient verbally FALL SCREENING: Has the patient had 2 falls in the last year or 1 fall with injury or currently using an Ambulatory Assistive Device (Walker, Cane, Wheelchair, Crutches, etc.)? No PATIENT GENDER DATA: .female : No ALLERGIES: Reviewed and unchanged MEDICATIONS REVIEWED: Yes PATIENT RELEVANT IMPLANT DATA REVIEWED: Not Applicable IV SITE: Ambulatory: A peripheral IV was started in the Right antecubital site with a Angio cath: 22 gauge. POST EXAM PIV STATUS: Discontinued PROCEDURE TYPE: NM Stress: 16.8mCi [id number]-Kcdjclg was administered IV for Rest Imaging at 0944 by RT Jessie(R). 33 mCi [id number]-Tbjzruy was administered IV for Stress Imaging at 1055 by heather. PATIENT DISCHARGED TO: Ambulatory patient, left NM department area. A Diagnostic radioactive procedure has taken place, with no further precautions necessary other than routine body substance precautions. More information regarding radiation safety can be found using this link: [email or web address] [email or web address]-%20Diagnostic%20N uclear%20Medicine%20Procedures.p df SIGNATURE: Nadine Jaffe (R) PATIENT NAME: Florina Corbin DATE: August 09, 2022 TIME: 9:45 AM PAGER/CONTACT #: [phone] RADIOLOGY SERVICE PROGRESS NOTE SERVICE DATE: 08/09/2022 SERVICE TIME: 10:57 AM PATIENT IDENTITY VERIFICATION COMPLETED USING TWO (2) STANDARD IDENTIFIERS: Name and Date of confirmed by patient verbally and Name and Date of confirmed by identification band PATIENT GENDER DATA: female ALLERGIES: Reviewed and unchanged MEDICATIONS REVIEWED BY: Armament Installer PROCEDURE TYPE: NM STRESS: 0.4 mg of Lexiscan was administered IV at 1055 by Lima Pinto RN. Reversal agent used: None. Expiration date: 19Dec2025 Lot#: [id number] IV SITE: Ambulatory: A Saline lock was inserted per protocol POST EXAM PIV STATUS: Discontinued PATIENT DISCHARGED TO: Ambulatory patient, left NM department area. A Diagnostic radioactive procedure has taken place, with no further precautions necessary other than routine body substance precautions. More information regarding radiation safety can be found using this link: [email or web address]%20N uclear%20Medicine%20Procedures.p df SIGNATURE: Lima Pinto RN PATIENT NAME: Florina Corbin DATE: August 09, 2022 TIME: 10:57 AM PAGER/CONTACT #: documented in this encounter [facility] 05-10-2022 Note HNO ID: [id number] Author: Ayush Adler APRN.PACKING INSPECTOR Service: ? Author Type: Nurse Practitioner Type: Progress Notes Filed: 05/10/2022 2:48 PM Note Text: [facility] Transplant Evaluation CC: Consultation for Kidney transplant evaluation. Referred by: [facility] [id number] [place] [id number] I will communicate with the referring provider by letter and/or shared electronic medical record. HPI: 61yo female here for ktxp evaluation. CKD IV sec possibly DM/HTN. eGFR 12, CR 1.3 BUN 16. Long standing diabetes since 2011 insulin dependent for 2 years. Hx kidney stone extraction in 2004, HLD, hematuria, cellulitis, obesity, anxiety, abscess and migraines. Pre emptive eGFR 18 T2DM most recent a1c 7.5 (August 2021) LD-Not at this time UOP-WNL Cardiovascular Disease: Denies Peripheral Arterial Disease: (TIA non-embolic, CVA non-embolic, amputation, carotid artery stenosis, abnormal PVRs, claudication history, decreased pulses, etc.):No Stroke: NO Claudication: NO Carotid Artery Stenosis: NO DM: Yes Diagnosed at age 40's, Type 2, and Therapies: insulin injections (Insulin start date: 2019) Prior transplant: No CKD: Yes: Cause of CKD: DM Advanced CKD, not on dialysis, current GFR: 18 Living Donors: No Residual UO: WNL Hypercoagulable (history of DVT/PE, miscarriages, prior use of anticoagulation, etc.):Other Malignancy (including skin cancer): No PAST MEDICAL HISTORY Diagnosis Date Calculus of kidney Diabetes mellitus without mention of complication Diabetes mellitus PAST SURGICAL HISTORY Procedure Laterality Date LITHOTRIPSY XTRCORP SHOCK WAVE 04/14/2005 REPAIR OF KNEE Current Outpatient Medications Medication Sig SITagliptin phosphate (JANUVIA) 100 mg tablet Take 100 mg by mouth once daily. dapagliflozin (FARXIGA) 10 mg tablet Take by mouth daily with breakfast. amLODIPine (NORVASC) 10 mg tablet Take 10 mg by mouth once daily. telmisartan (MICARDIS) 80 mg tablet Take 80 mg by mouth once daily. simvastatin (ZOCOR) 20 mg tablet Take 20 mg by mouth daily at bedtime. glimepiride (AMARYL) 2 mg tablet Take 2 mg by mouth daily with breakfast. aspirin, enteric coated (ASPIRIN, ENTERIC COATED) 81 mg EC tablet Take 81 mg by mouth once daily. furosemide (LASIX) 40 mg tablet Take 40 mg by mouth twice daily. insulin detemir (LEVEMIR FLEXPEN SUBCUTANEOUS) Inject subcutaneously. METOPROLOL 50 MG TAB Take one(1) tablet twice daily. ALLOPURINOL 100 MG TAB Take one(1) tablet PO daily with Food candesartan/hydrochlorothiazid(A TACAND HCT 32 MG-12.5 MG TAB) (Patient not taking: Reported on 05/10/2022) ACTOS 30 MG TAB Take one(1) tablet daily. (Patient not taking: Reported on 05/10/2022) GLUCOPHAGE 1,000 MG TAB Take 1 tab twice daily (Patient not taking: Reported on 05/10/2022) GLUCOTROL XL 10 MG TAB Take 1 tab twice daily (Patient not taking: Reported on 05/10/2022) No current facility-administered medications for this visit. FAMILY HISTORY Problem Relation Age of Onset Cancer Mother pancreatic Kidney Disease Father Heart Father Diabetes Father No family status information on file. Social History Tobacco Use Smoking status: Never Smokeless tobacco: Never Substance Use Topics Alcohol use: Yes Comment: occasional Drug use: No Pre-transplant testing: Cardiac: EKG: Today CXR: Today CT A/P 05/10/2022 MILD-MODERATE AORTIC AND ILIAC VASCULAR CALCIFICATION, DESCRIBED. NO ACUTE PROCESS IN THE ABDOMEN OR PELVIS. US Renal 09/19/2021 FINDINGS: RIGHT KIDNEY: Normal location of the right kidney, which is normal in size. The right kidney measures 13.5 cm x 5.8 cm x 5.9 cm. There is a normal cortex of the right kidney. The renal cortex measures 1.6 cm. There is no right renal mass or cyst. There are no right renal calculi. There is no right hydronephrosis. DISTAL RIGHT URETER: There is non-visualization of the distal right ureter. There is no demonstrated right ureterovesical junction calculus. There is a visualized right ureteral jet. LEFT KIDNEY: Normal location of the left kidney, which is normal in size. The left kidney measures 12.6 cm x 5.3 cm x 5.6 cm. There is a normal cortex of the left kidney. The renal cortex measures 1.7 cm. There is no left renal mass or cyst. There are no left renal calculi. There is no left hydronephrosis. DISTAL LEFT URETER: There is non-visualization of the distal left ureter. There is no demonstrated left ureterovesical junction calculus. There is a visualized left ureteral jet. BLADDER: The distended urinary bladder has a volume of 183 ml. There is a normal wall thickness of the distended urinary bladder. There is no demonstrated mass within the urinary bladder. There are no demonstrated bladder calculi. PAP Test: Needs Mammogram: Needs Colonoscopy: Needs Sensitizations: Prior transplant: No Blood (more content not included)... [facility] 05-10-2022 Note HNO ID: [id number] Author: MERCEDEZ Bishop Service: ? Author Type: Professor Of Anthropology Type: Progress Notes Filed: 05/16/2022 1:02 PM Note Text: PSYCHOSOCIAL EVALUATION FOR KIDNEY TRANSPLANT (Assessment Via Telephone) Social Supports: Pt's will be primary support. Pt's backup support needs to be verified. Financial Concerns: [place] Compliance: Pt is not dialysis dependent at this time. Pt reports compliance with taken all medication as prescribed. Mental Health: No mental health concerns at this time. Substance Use: No current concerns regarding ETOH abuse, street drug use or tobacco use. SIPAT: 13 At this time, pt is not yet a suitable psychosocial candidate. __ REFERRAL: Florina Corbin was referred to Social Work for a psychosocial evaluation to establish if she would be a suitable candidate to receive a kidney transplant. Pt is not dialysis dependent at this time. DIALYSIS START DATE: N/A This social work psychosocial evaluation was completed with Florina Corbin via telephone on May 10, 2022. Pt's Jean Paul was also on the call. Pt was at at the time of this assessment. Race/Gender: White / Female [place] Citizen: Yes IDENTIFYING INFORMATION/LIVING SITUATION Florina Corbin resides at [address] [place] [address]. This home is about 1hr [place] 18min (73 miles) away from . Pt has lived in this [facility] home for the past 34yrs.. Pt denies any architectural barriers in the home. Pt reports she is independent with all ADL's, she has a drivers licenses and a vehicle. Pt denies receiving any home health care or home health aide services at this time. Others in household are: Pt's . Jean Paul-age 64; reports being in good health and he works full time paramedic as a material science vehicle calibration engineer. Jean Paul reports he is independent with all ADL's, he has a drivers licenses and a vehicle. There are 2 licensed drivers in the home and 2 working vehicles. Caregiver responsibilities: None Pets in the home: None TRANSPLANT LODGING PLANS FOR PATIENTS WHO LIVE 2.5 OR MORE HOURS AWAY FROM [facility]: Do you have the financial means to stay in the area for four weeks or more post-transplant? N/A COMPREHENSION OF MEDICAL SITUATION Florina Corbin reports that her kidney disease is due to type 2 diabetes. Pt stated she has been a diabetic for at least 20yrs.. Florina Corbin was able to recall information that was presented to her today during the kidney transplant educational class. Florina Corbin has basic knowledge of the transplant process, the risks of transplant, and transplant medications. Missed doctor appointments: Pt currently has a CC No Show rate of 0% (0 of 17.) Missed/shortened/rescheduled dialysis appointments: N/A Knowledge of medications: Pt was able to tell SW the name and purpose of her medication. Medication Compliance: Pt stated she takes all medication as prescribed and she uses a pill box organizer that she arranges once a week. Pt is insulin dependent, she checks her sugars once every morning and she doesn't recall her last A1C. Have you ever stopped taking any medication because you lost your insurance you could not afford it? Denies Have you stopped taking medication because you felt you didn't need it or because of side-effects? Denies Do you have any moral, jehovah's witness, or ethical views against transplants or blood transfusions: No Have you ever been transplanted, evaluated, or listed at another center: No Potential donor: None identified at this time. SUBSTANCE USE/ABUSE Alcohol: Pt stated she may have 1-2 alcohol drinks a year. Pt denies any past alcohol abuse / over use. Tobacco: Pt denies ever using. Exposure to second hand smoke: No Illegal substances: Pt denies ever using. Over the Counter Medications: None Opioids/Controlled Substances: None CAGE Questionnaire Have you ever felt you should cut down on your drinking? No Have people annoyed you by criticizing your drinking? No Have you ever felt bad or guilty about your drinking? No Have you ever had a drink first thing in the morning to steady your nerves or to get rid of a hangover (eye ingot header)? No LEGAL ENCOUNTERS Currently on probation or parole: No Past or current warrants for arrest: No Substance related legal problems: No Valid drivers license: Yes History of any legal issues not previously mentioned: No MENTAL HEALTH HISTORY Affect: Appropriate/Consistent Alert: Alert Orientation: person, place and time Cognitive Function: Cognition appears relatively intact Mood: Euthymic Are you having thoughts that you would be better off , or of hurting yourself in some way? Denies Current mental health diagnoses / current feelings of anxiety or depression: Pt denies any current or past mental health diagnoses. Pt denies any current symptoms/feel (more content not included)... [facility] 05-10-2022 Note HNO ID: [id number] Author: Marek Roberson MD Service: ? Author Type: Physician Type: Progress Notes Filed: 05/10/2022 3:27 PM Note Text: [facility] Transplant Evaluation CC: Consultation for Kidney transplant evaluation. Referred by: [facility] [id number] [place] [id number] I will communicate with the referring provider by letter and/or shared electronic medical record. HPI: 61yo female here for ktxp evaluation. CKD IV sec possibly DM/HTN. eGFR 12, CR 1.3 BUN 16. Long standing diabetes since 2011 insulin dependent for 2 years. Hx kidney stone extraction in 2004, HLD, hematuria, cellulitis, obesity, anxiety, abscess and migraines. Pre emptive eGFR 18 T2DM most recent a1c 7.5 (August 2021) LD-Not at this time UOP-WNL Cardiovascular Disease: none Peripheral Arterial Disease: (TIA non-embolic, CVA non-embolic, amputation, carotid artery stenosis, abnormal PVRs, claudication history, decreased pulses, etc.):No Stroke: NO Claudication: NO Carotid Artery Stenosis: NO DM: Yes Diagnosed at age 40's, Type 2, and Therapies: insulin injections (Insulin start date: 2019) Prior transplant: No CKD: Yes: Cause of CKD: DM Advanced CKD, not on dialysis, current GFR: 18 Living Donors: No Residual UO: WNL Hypercoagulable (history of DVT/PE, miscarriages, prior use of anticoagulation, etc.):No Malignancy (including skin cancer): No PAST MEDICAL HISTORY Diagnosis Date Calculus of kidney Diabetes mellitus without mention of complication Diabetes mellitus PAST SURGICAL HISTORY Procedure Laterality Date LITHOTRIPSY XTRCORP SHOCK WAVE 04/14/2005 REPAIR OF KNEE Current Outpatient Medications Medication Sig SITagliptin phosphate (JANUVIA) 100 mg tablet Take 100 mg by mouth once daily. dapagliflozin (FARXIGA) 10 mg tablet Take by mouth daily with breakfast. amLODIPine (NORVASC) 10 mg tablet Take 10 mg by mouth once daily. telmisartan (MICARDIS) 80 mg tablet Take 80 mg by mouth once daily. simvastatin (ZOCOR) 20 mg tablet Take 20 mg by mouth daily at bedtime. glimepiride (AMARYL) 2 mg tablet Take 2 mg by mouth daily with breakfast. aspirin, enteric coated (ASPIRIN, ENTERIC COATED) 81 mg EC tablet Take 81 mg by mouth once daily. furosemide (LASIX) 40 mg tablet Take 40 mg by mouth twice daily. insulin detemir (LEVEMIR FLEXPEN SUBCUTANEOUS) Inject subcutaneously. METOPROLOL 50 MG TAB Take one(1) tablet twice daily. candesartan/hydrochlorothiazid(A TACAND HCT 32 MG-12.5 MG TAB) (Patient not taking: Reported on 05/10/2022) ALLOPURINOL 100 MG TAB Take one(1) tablet PO daily with Food ACTOS 30 MG TAB Take one(1) tablet daily. (Patient not taking: Reported on 05/10/2022) GLUCOPHAGE 1,000 MG TAB Take 1 tab twice daily (Patient not taking: Reported on 05/10/2022) GLUCOTROL XL 10 MG TAB Take 1 tab twice daily (Patient not taking: Reported on 05/10/2022) No current facility-administered medications for this visit. FAMILY HISTORY Problem Relation Age of Onset Cancer Mother pancreatic Kidney Disease Father Heart Father Diabetes Father No family status information on file. Social History Tobacco Use Smoking status: Never Smokeless tobacco: Never Substance Use Topics Alcohol use: Yes Comment: occasional Drug use: No Pre-transplant testing: Cardiac: EKG: Today CXR: Today CT A/P 05/10/2022 In process US Renal 09/19/2021 FINDINGS: RIGHT KIDNEY: Normal location of the right kidney, which is normal in size. The right kidney measures 13.5 cm x 5.8 cm x 5.9 cm. There is a normal cortex of the right kidney. The renal cortex measures 1.6 cm. There is no right renal mass or cyst. There are no right renal calculi. There is no right hydronephrosis. DISTAL RIGHT URETER: There is non-visualization of the distal right ureter. There is no demonstrated right ureterovesical junction calculus. There is a visualized right ureteral jet. LEFT KIDNEY: Normal location of the left kidney, which is normal in size. The left kidney measures 12.6 cm x 5.3 cm x 5.6 cm. There is a normal cortex of the left kidney. The renal cortex measures 1.7 cm. There is no left renal mass or cyst. There are no left renal calculi. There is no left hydronephrosis. DISTAL LEFT URETER: There is non-visualization of the distal left ureter. There is no demonstrated left ureterovesical junction calculus. There is a visualized left ureteral jet. BLADDER: The distended urinary bladder has a volume of 183 ml. There is a normal wall thickness of the distended urinary bladder. There is no demonstrated mass within the urinary bladder. There are no demonstrated bladder calculi. PAP Test: Needs Mammogram: Needs Colonoscopy: Needs Sensitizations: Prior transplant: No Blood transfusions: No : Yes Rabbit: Yes: PET Immunizations: HBV series: Not received, patient encouraged to (more content not included)... [facility] 05-10-2022 Note HNO ID: [id number] Author: RT Micha(R) Service: Radiology Author Type: Technologist Type: Progress Notes Filed: 05/10/2022 11:01 AM Note Text: Radiology Service Progress Note PATIENT NAME: Florina Corbin DATE OF SERVICE: May 10, 2022 TIME: 11:01 AM PATIENT IDENTITY VERIFICATION COMPLETED USING TWO (2) IDENTIFIERS: Name and Date of confirmed by patient verbally and Name and Date of confirmed by identification band. FALL SCREENING: Has the patient had 2 falls in the last year or 1 fall with injury or currently using an Ambulatory Assistive Device (Walker, Cane, Wheelchair, Crutches, etc.)? No PATIENT GENDER DATA: Female. status: : No status: NO. PATIENT RELEVANT IMPLANT DATA REVIEWED: Yes RADIOLOGY DEPARTMENT: CT; Exam(s) Completed: Abdomen/Pelvis PERIPHERAL IV DATA: Not applicable SIGNED BY: RT Micha(R) May 10, 2022 11:01 AM [facility] 05-10-2022 History of Present illness Narrative [facility] Transplant Evaluation CC: Consultation for Kidney transplant evaluation. Referred by: Phoenix English [address] [place] [address] I will communicate with the referring provider by letter and/or shared electronic medical record. HPI: 61yo female here for ktxp evaluation. CKD IV sec possibly DM/HTN. eGFR 12, CR 1.3 BUN 16. Long standing diabetes since 2011 insulin dependent for 2 years. Hx kidney stone extraction in 2004, HLD, hematuria, cellulitis, obesity, anxiety, abscess and migraines. Pre emptive eGFR 18 T2DM most recent a1c 7.5 (August 2021) LD-Not at this time UOP-WNL Cardiovascular Disease: Denies Peripheral Arterial Disease: (TIA non-embolic, CVA non-embolic, amputation, carotid artery stenosis, abnormal PVRs, claudication history, decreased pulses, etc.):No Stroke: NO Claudication: NO Carotid Artery Stenosis: NO DM: Yes Diagnosed at age 40's, Type 2, and Therapies: insulin injections (Insulin start date: 2019) Prior transplant: No CKD: Yes: Cause of CKD: DM Advanced CKD, not on dialysis, current GFR: 18 Living Donors: No Residual UO: WNL Hypercoagulable (history of DVT/PE, miscarriages, prior use of anticoagulation, etc.):Other Malignancy (including skin cancer): No PAST MEDICAL HISTORY Diagnosis Date Calculus of kidney Diabetes mellitus without mention of complication Diabetes mellitus PAST SURGICAL HISTORY Procedure Laterality Date LITHOTRIPSY XTRCORP SHOCK WAVE 04/14/2005 REPAIR OF KNEE Current Outpatient Medications Medication Sig SITagliptin phosphate (JANUVIA) 100 mg tablet Take 100 mg by mouth once daily. dapagliflozin (FARXIGA) 10 mg tablet Take by mouth daily with breakfast. amLODIPine (NORVASC) 10 mg tablet Take 10 mg by mouth once daily. telmisartan (MICARDIS) 80 mg tablet Take 80 mg by mouth once daily. simvastatin (ZOCOR) 20 mg tablet Take 20 mg by mouth daily at bedtime. glimepiride (AMARYL) 2 mg tablet Take 2 mg by mouth daily with breakfast. aspirin, enteric coated (ASPIRIN, ENTERIC COATED) 81 mg EC tablet Take 81 mg by mouth once daily. furosemide (LASIX) 40 mg tablet Take 40 mg by mouth twice daily. insulin detemir (LEVEMIR FLEXPEN SUBCUTANEOUS) Inject subcutaneously. METOPROLOL 50 MG TAB Take one(1) tablet twice daily. ALLOPURINOL 100 MG TAB Take one(1) tablet PO daily with Food candesartan/hydrochlorothiazid(A TACAND HCT 32 MG-12.5 MG TAB) (Patient not taking: Reported on 05/10/2022) ACTOS 30 MG TAB Take one(1) tablet daily. (Patient not taking: Reported on 05/10/2022) GLUCOPHAGE 1,000 MG TAB Take 1 tab twice daily (Patient not taking: Reported on 05/10/2022) GLUCOTROL XL 10 MG TAB Take 1 tab twice daily (Patient not taking: Reported on 05/10/2022) No current facility-administered medications for this visit. FAMILY HISTORY Problem Relation Age of Onset Cancer Mother pancreatic Kidney Disease Father Heart Father Diabetes Father No family status information on file. Social History Tobacco Use Smoking status: Never Smokeless tobacco: Never Substance Use Topics Alcohol use: Yes Comment: occasional Drug use: No Pre-transplant testing: Cardiac: EKG: Today CXR: Today CT A/P 05/10/2022 MILD-MODERATE AORTIC AND ILIAC VASCULAR CALCIFICATION, DESCRIBED. NO ACUTE PROCESS IN THE ABDOMEN OR PELVIS. US Renal 09/19/2021 FINDINGS: RIGHT KIDNEY: Normal location of the right kidney, which is normal in size. The right kidney measures 13.5 cm x 5.8 cm x 5.9 cm. There is a normal cortex of the right kidney. The renal cortex measures 1.6 cm. There is no right renal mass or cyst. There are no right renal calculi. There is no right hydronephrosis. DISTAL RIGHT URETER: There is non-visualization of the distal right ureter. There is no demonstrated right ureterovesical junction calculus. There is a visualized right ureteral jet. LEFT KIDNEY: Normal location of the left kidney, which is normal in size. The left kidney measures 12.6 cm x 5.3 cm x 5.6 cm. There is a normal cortex of the left kidney. The renal cortex measures 1.7 cm. There is no left renal mass or cyst. There are no left renal calculi. There is no left hydronephrosis. DISTAL LEFT URETER: There is non-visualization of the distal left ureter. There is no demonstrated left ureterovesical junction calculus. There is a visualized left ureteral jet. BLADDER: The distended urinary bladder has a volume of 183 ml. There is a normal wall thickness of the distended urinary bladder. There is no demonstrated mass within the urinary bladder. There are no demonstrated bladder calculi. PAP Test: Needs Mammogram: Needs Colonoscopy: Needs Sensitizations: Prior transplant: No Blood transfusions: No : Yes Rabbit: Yes: PET Immunizations: HBV series: Not received, patient encouraged to obtain Pneumovax: Not received, patient encouraged to obtain Influenza vaccine: Received, date 02/18/2018 Covid vaccine: Received, date 05/18/2021 , 09/03/2020 , 08/06/2020 Edward Nieto RN REVIEW OF SYSTEMS: GENERAL: No weight loss, malaise or fevers HEENT: Negative for frequent or significant headaches, No changes in hearing or vision, no nose bleeds or other nasal problems NECK: Negative for lumps, goiter, pain and significant neck swelling RESPIRATORY: Negative for cough, hemoptysis, wheezing, COPD, dyspnea or shortness of breath CARDIOVASCULAR: BLE edema GI: No nausea, vomiting, or diarrhea : No history of dysuria, frequency or incontinence MUSCULOSKELETAL: Negative for joint pain or swelling, back pain or muscle pain SKIN: Negative for lesions, rash, and itching PSYCH: Negative for sleep disturbance, mood disorder and recent psychosocial stressors HEMATOLOGY/LYMPHOLOGY: Negative for prolonged bleeding, bruising easily or swollen nodes ENDOCRINE: Positive for diabetes mellitus on insulin NEURO: No history of headaches, syncope, paralysis, seizures or tremors All other systems were reviewed and negative. PHYSICAL EXAM: BP 142/62 (BP Site: Right Arm, BP Position: Sitting, BP Cuff Size: Large Adult) Pulse 74 Temp 37 C (98.6 F) (Temporal) Ht 162.6 cm (5' 4 ) Wt 105.9 kg (233 lb 8 oz) SpO2 99% BMI 40.08 kg/m General appearance: Well appearing, alert, in no acute distress, well-hydrated, well nourished. Skin: Skin color, texture, turgor normal, no suspicious rashes or lesions Head: Normocephalic, no masses, lesions, tenderness or abnormalities Eyes: Anicteric sclera. Extraocular movements are intact. Ears: External ears normal Back: Normal exam Cardiac: RRR, no murmurs rubs or gallops Lungs:Respirations unlabored Abdomen: Normal abdominal exam, Abdomen soft, non-tender. Bowel sounds normal. No masses, organomegaly Extremities: No deformities, edema, skin discoloration, clubbing or cyanosis. Good capillary refill. Musculoskeletal: No joint swelling, deformity, or tenderness Peripheral pulses: Normal Neuro: Gait normal. Sensation grossly intact. Dialysis Access: N/A History of hunting rabbits as a child. ASSESSMENT: HPI: 61yo female here for ktxp evaluation. CKD IV sec possibly DM/HTN. eGFR 12, CR 1.3 BUN 16. Long standing diabetes since 2011 insulin dependent for 2 years. Hx kidney stone extraction in 2004, HLD, hematuria, cellulitis, obesity, anxiety, abscess and migraines. No h/o DVT, PE, OK, or CVA Midodrine No No h/o malignancy No anticoagulation -The kidney transplant and kidney/pancreas transplant operations were discussed with the patient at length, and all questions were answered to the patient's satisfaction. Risks, benefits, and alternatives discussed. Risks discussed include but are not limited to: bleeding, infection, , OK, DVT, PE, CVA, risk of damage to surrounding structures, risk of lymphocele, urine leak, stricture, lower extremity complications, risk of bowel complications, bowel obstruction, and anastomotic leak. Also discussed the need for immunosuppressant medications for the lifetime of the allograft and the associated risks of infection and malignancy over time. PLAN: - CT to be reviewed by surgeon. - Patient is an optimal surgical candidate for renal transplantation pending acceptable findings on the remainder of pre transplant evaluation Ayush Adler APRN.PACKING INSPECTOR documented in this encounter [facility] 05-10-2022 History of Present illness Narrative PSYCHOSOCIAL EVALUATION FOR KIDNEY TRANSPLANT (Assessment Via Telephone) Social Supports: Pt's will be primary support. Pt's backup support needs to be verified. Financial Concerns: [place] Compliance: Pt is not dialysis dependent at this time. Pt reports compliance with taken all medication as prescribed. Mental Health: No mental health concerns at this time. Substance Use: No current concerns regarding ETOH abuse, street drug use or tobacco use. SIPAT: 13 At this time, pt is not yet a suitable psychosocial candidate. __ REFERRAL: Florina Corbin was referred to Social Work for a psychosocial evaluation to establish if she would be a suitable candidate to receive a kidney transplant. Pt is not dialysis dependent at this time. DIALYSIS START DATE: N/A This social work psychosocial evaluation was completed with Florina Corbin via telephone on May 10, 2022. Pt's Jean Paul was also on the call. Pt was at at the time of this assessment. Race/Gender: White / Female [place] Citizen: Yes IDENTIFYING INFORMATION/LIVING SITUATION Florina Corbin resides at [address] [place] [address]. This home is about 1[place] 18[place] (73 miles) away from . Pt has lived in this [facility] [place] home for the past 34yrs.. Pt denies any architectural barriers in the home. Pt reports she is independent with all ADL's, she has a drivers licenses and a vehicle. Pt denies receiving any home health care or home health aide services at this time. Others in household are: Pt's . Jean Paul-age 64; reports being in good health and he works full time paramedic as a material science vehicle calibration engineer. Jean Paul reports he is independent with all ADL's, he has a drivers licenses and a vehicle. There are 2 licensed drivers in the home and 2 working vehicles. Caregiver responsibilities: None Pets in the home: None TRANSPLANT LODGING PLANS FOR PATIENTS WHO LIVE 2.5 OR MORE HOURS AWAY FROM [facility]: Do you have the financial means to stay in the area for four weeks or more post-transplant? N/A COMPREHENSION OF MEDICAL SITUATION Florina Corbin reports that her kidney disease is due to type 2 diabetes. Pt stated she has been a diabetic for at least 20yrs.. Florina Corbin was able to recall information that was presented to her today during the kidney transplant educational class. Florina Corbin has basic knowledge of the transplant process, the risks of transplant, and transplant medications. Missed doctor appointments: Pt currently has a CC No Show rate of 0% (0 of 17.) Missed/shortened/rescheduled dialysis appointments: N/A Knowledge of medications: Pt was able to tell SW the name and purpose of her medication. Medication Compliance: Pt stated she takes all medication as prescribed and she uses a pill box organizer that she arranges once a week. Pt is insulin dependent, she checks her sugars once every morning and she doesn't recall her last A1C. Have you ever stopped taking any medication because you lost your insurance you could not afford it? Denies Have you stopped taking medication because you felt you didn't need it or because of side-effects? Denies Do you have any moral, jehovah's witness, or ethical views against transplants or blood transfusions: No Have you ever been transplanted, evaluated, or listed at another center: No Potential donor: None identified at this time. SUBSTANCE USE/ABUSE Alcohol: Pt stated she may have 1-2 alcohol drinks a year. Pt denies any past alcohol abuse / over use. Tobacco: Pt denies ever using. Exposure to second hand smoke: No Illegal substances: Pt denies ever using. Over the Counter Medications: None Opioids/Controlled Substances: None CAGE Questionnaire Have you ever felt you should cut down on your drinking? No Have people annoyed you by criticizing your drinking? No Have you ever felt bad or guilty about your drinking? No Have you ever had a drink first thing in the morning to steady your nerves or to get rid of a hangover (eye ingot header)? No LEGAL ENCOUNTERS Currently on probation or parole: No Past or current warrants for arrest: No Substance related legal problems: No Valid drivers license: Yes History of any legal issues not previously mentioned: No MENTAL HEALTH HISTORY Affect: Appropriate/Consistent Alert: Alert Orientation: person, place and time Cognitive Function: Cognition appears relatively intact Mood: Euthymic Are you having thoughts that you would be better off , or of hurting yourself in some way? Denies Current mental health diagnoses / current feelings of anxiety or depression: Pt denies any current or past mental health diagnoses. Pt denies any current symptoms/feelings of anxiety or depression. Christopher denies any current concerns regarding pt's mental health. Psychiatric medication: Pt denies ever being prescribed psychiatric medication. Counseling: Pt denies ever receiving counseling services. Psychiatric services: Pt denies ever receiving psychiatric services. History of suicide attempt(s) or ideation: Pt denies any current or past suicide attempt(s) or ideation. History of harming self: Denies History of harming others: Denies History of psychiatric hospitalization: Denies Any family history of mental health diagnoses: Denies Is a referral to Transplant Psychiatry indicated for further evaluation or screening: No COPING Hobbies/Interests: Plastic canvas, reading, baking cookies and spending time with grandchildren. SOCIAL NARRATIVE Florina Corbin was born in [place], [place] and raised in [place], [place]. She is 61 years of age. Florina Corbin was raised by her biological mother and father. Parental Information: Father: Passed in 2019 at the age of 78. Pt stated her father fell and broke his neck. Mother: Passed in 2013 at the age of 74 of pancreatic cancer. Sibling Information: Pt has 1 younger sister. Relationship History & Current Status: Pt has been since 1987 and this is her first marriage. Pregnancies: 1 Children: 1 son; age 32 and he lives in [place], [place]. EDUCATION Highest Educational Level: High school diploma. Florina Corbin denies academic problems in school. 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 Current Employment Status: Pt's last employment was in 1999. Paid Status for Recovery: Pt doesn't have a source of income at this time and she rely solely on her husbands income. HEALTH INSURANCE/FINANCIAL Medical Insurance: [place] Payer of Insurance Premium: Pt's via his employer. Prescription Coverage: [employer] Rx Insurance Policy [place]: Pt Medicare Status: Pt doesn't have Medicare at this time. KRISTEN reviewed ESRD Medicare and the coordination of benefits period. Disability: N/A Household Income: The yearly household income is $90,000. Savings: Pt stated they have at least $5,000 in savings. Do you have credit cards that could be used to pay for transplant medications in the event that you have an $800 to $3000 co-pay? Yes Fund Raising: None at this time. Pt was given a list of the medications for Kidney [place] recipients to learn how her insurance coverage applies. SW informed pt that she must be prepared to cover the copays of her immunosuppression and anti viral medications. Pt was also provided with information about fund raising. CAREGIVER/SUPPORT PLAN Primary Caregiver: Jean Paul (pt's ) - Jean Paul verified his commitment. Contact Number: [phone] Health Status and Availability of Caregiver: Jean Paul reports being in good health. / Brandoner stated he will take off at least 2 weeks to help with caregiver/transportation support. Valid Development Officer's License/Working Vehicle: Yes / Yes Caregiver Substance Use: Denies Caregiver Mental Health: Denies Secondary Caregiver: Maci Locke (pt's sister) - Maci's commitment needs to be verified. Contact Number: [phone] Health Status and Availability: Maci is reported to be in good health and she is 57yrs old. / Pt stated Maci works full time paramedic, however, she could probably take time off to help care for the pt post transplant if and when needed. Maci lives about 15min away from the pt.. Valid Development Officer's License/Working Vehicle: Yes / Yes Caregiver Substance Use: Per pt, no. Caregiver Mental Health: Per pt, no. PSYCHOSOCIAL RISKS Adherence to Treatment Protocols: Yes Ability to Understand Transplant Center's System of Care: Yes Active Psychiatric Diagnosis: No Financial Resources or Support: Pt identified backup support and her commitment needs to be verified. Body Image/Scar: No IMPRESSIONS/RECOMMENDATIONS Transplant hospital social worker spoke with Florina Juanita Corbin via telephone. Pt's Jean Paul was also on the call. At this time, pt is not yet a suitable psychosocial candidate. -Pt identified backup support and her commitment needs to be verified. Pt needs to have her backup support contact KRISTEN in order for SW to verify her commitment. SW will await phone call. Once backup support is verified, pt will be a suitable psychosocial candidate. There are no current psychosocial concerns that could have a negative impact on the successful and sustained outcome of a kidney transplant. Pt has no current barriers such as ETOH abuse, street drug use, tobacco use or mental health instability. Pt's primary support has been verified. Pt will need to contact her prescription provider to check the copays of the anti-viral and anti-rejection medication. Pt is not dialysis dependent at this time. If and when pt starts dialysis then her compliance will be monitored. If and when listed, the patient should be scheduled for yearly visits or phone contact with social work for the following purposes: to review health insurance, changes of caregiver support, changes in financial/employment status, and to discuss any other updates/changes. We reviewed the follow up care sequence, including lab work twice a week and weekly post transplant clinic appointments. We discussed the precautions to take because of being immunosuppressed. We also discussed the need to have a caregiver full time paramedic for 2 weeks post transplant. Florina Corbin was advised that it is imperative to adhere to the medical regimen and recovery restrictions. Florina Corbin indicated understanding of this information. Florina Corbin had the opportunity to discuss any issues and questions. Patient was given information about the kidney transplant process and fund raising options. The patient was given the phone number of the transplant hospital social worker to address future concerns. MERCEDEZ Bishop-S Transplant Professor Of Anthropology documented in this encounter [facility] 05-10-2022 Note HNO ID: [id number] Author: Geena Saxena RD Service: ? Author Type: Registered Dietitian Type: Progress Notes Filed: 05/10/2022 5:00 PM Note Text: Nutrition Therapy Initial Assessment Nutrition Diagnosis: Behavioral-Environmental: Food and nutrition related knowledge deficit, related to, lack of prior exposure to information , as evidenced by client has no prior knowledge of need for food and nutrition - related information. RECOMMENDED MALNUTRITION DIAGNOSIS: NO MALNUTRITION IDENTIFIED NUTRITION CARE PLAN Nutrition Intervention 05/10/2022: Plate method for Lunch/Dinner 1/2 plate vegetables, 1/4 plate starch or whole grains, 1/4 plate lean sources of protein Limit daily protein intake to 63-75g per day (0.6-0.8g/kg CBW) Low-Sodium Diet <2000mg/day -Follow mg NOT %DV -choose low-sodium products when able -opt for less convenience foods Low-Potassium Diet 2000mg/day Low-Phosphorus Diet 800-1000mg/day Use https://www.kidney.org/recipes-s earch and https://www.[employer]Sofea/diet-nutr ition/recipes Nutrition Pre-Transplant Assessment No contraindications Nutrition Monitoring AND Evaluation: Monitor weight status and labs as available. Monitor diet recall for adherence to recommendations. Need for Follow up: PRN Patient presents for evaluation prior to consideration for kidney transplant. Patient is not on dialysis. Stage 4 CKD. 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 Resting Metabolic Rate: 1611 Malnutrition Screening Significant unintentional weight loss? No Eating less than 75% of usual intake for more than 2 weeks? No Potential Signs of Inflammation: unable to determine at this time Education Materials Provided: Healthy Lunch/Dinner Plate and Your Sodium-Controlled Diet READINESS TO LEARN Cognitive ability: Alert and oriented Motivation to learn: Interested Family support: Unable to assess - Family not present Instruction provided to: Patient Patient learns best by: Unable to Assess Factors affecting learning: Unable to assess Physical limitations affecting learning: None Referred/Supervised by: Charli/Derrick WAY Billing Type: Initial Assess/15 min 2 units SIGNATURE: Geena Saxena RD PATIENT NAME: Florina Corbin DATE: May 10, 2022 TIME: 10:24 AM PAGER: N/A [facility] 05-10-2022 Note Education (DTBAMN) EMERALDFLORINA BROTHERS ([id number]) 1960 F TRN Date Time Provider Department 05/10/22 10:15 AM GEENA SAXENA Reason for Visit: Patient Education [91] Assessment [673] Primary Visit Diagnosis:Dietary counseling and surveillance [Z71.3] Other Visit Diagnosis:Awaiting organ transplant [Z76.82] During your visit today, we recorded the following information about you: Weight Height 104.8 kg 1.626 m Allergies As of Date: 05/10/2022 (No Known Allergies) Date Reviewed: 05/10/2022 Reviewed by: Fela Olivarez MA - Fully Assessed Prescriptions as of 05/10/2022 - SITagliptin phosphate (JANUVIA) 100 mg tablet Take 100 mg by mouth once daily. - dapagliflozin (FARXIGA) 10 mg tablet Take by mouth daily with breakfast. - amLODIPine (NORVASC) 10 mg tablet Take 10 mg by mouth once daily. - telmisartan (MICARDIS) 80 mg tablet Take 80 mg by mouth once daily. - simvastatin (ZOCOR) 20 mg tablet Take 20 mg by mouth daily at bedtime. - glimepiride (AMARYL) 2 mg tablet Take 2 mg by mouth daily with breakfast. - aspirin, enteric coated (ASPIRIN, ENTERIC COATED) 81 mg EC tablet Take 81 mg by mouth once daily. - furosemide (LASIX) 40 mg tablet Take 40 mg by mouth twice daily. - insulin detemir (LEVEMIR FLEXPEN SUBCUTANEOUS) Inject subcutaneously. - METOPROLOL 50 MG TAB Take one(1) tablet twice daily. - candesartan/hydrochlorothiazid(A TACAND HCT 32 MG-12.5 MG TAB) - ALLOPURINOL 100 MG TAB Take one(1) tablet PO daily with Food - ACTOS 30 MG TAB Take one(1) tablet daily. - GLUCOPHAGE 1,000 MG TAB Take 1 tab twice daily - GLUCOTROL XL 10 MG TAB Take 1 tab twice daily Disposition: Return if symptoms worsen or fail to improve. Follow-up and Disposition History for Encounter Date Provider Department Center 05/10/2022 [id number] SAXENA Bldg Encounter Status:Closed by GEENA SAXENA on 05/10/22 [facility] 05-10-2022 History of Present illness Narrative [facility] Transplant Evaluation CC: Consultation for Kidney transplant evaluation. Referred by: Phoenix English [address] [place] [address] I will communicate with the referring provider by letter and/or shared electronic medical record. HPI: 61yo female here for ktxp evaluation. CKD IV sec possibly DM/HTN. eGFR 12, CR 1.3 BUN 16. Long standing diabetes since 2011 insulin dependent for 2 years. Hx kidney stone extraction in 2004, HLD, hematuria, cellulitis, obesity, anxiety, abscess and migraines. Pre emptive eGFR 18 T2DM most recent a1c 7.5 (August 2021) LD-Not at this time UOP-WNL Cardiovascular Disease: none Peripheral Arterial Disease: (TIA non-embolic, CVA non-embolic, amputation, carotid artery stenosis, abnormal PVRs, claudication history, decreased pulses, etc.):No Stroke: NO Claudication: NO Carotid Artery Stenosis: NO DM: Yes Diagnosed at age 40's, Type 2, and Therapies: insulin injections (Insulin start date: 2019) Prior transplant: No CKD: Yes: Cause of CKD: DM Advanced CKD, not on dialysis, current GFR: 18 Living Donors: No Residual UO: WNL Hypercoagulable (history of DVT/PE, miscarriages, prior use of anticoagulation, etc.):No Malignancy (including skin cancer): No PAST MEDICAL HISTORY Diagnosis Date Calculus of kidney Diabetes mellitus without mention of complication Diabetes mellitus PAST SURGICAL HISTORY Procedure Laterality Date LITHOTRIPSY XTRCORP SHOCK WAVE 04/14/2005 REPAIR OF KNEE Current Outpatient Medications Medication Sig SITagliptin phosphate (JANUVIA) 100 mg tablet Take 100 mg by mouth once daily. dapagliflozin (FARXIGA) 10 mg tablet Take by mouth daily with breakfast. amLODIPine (NORVASC) 10 mg tablet Take 10 mg by mouth once daily. telmisartan (MICARDIS) 80 mg tablet Take 80 mg by mouth once daily. simvastatin (ZOCOR) 20 mg tablet Take 20 mg by mouth daily at bedtime. glimepiride (AMARYL) 2 mg tablet Take 2 mg by mouth daily with breakfast. aspirin, enteric coated (ASPIRIN, ENTERIC COATED) 81 mg EC tablet Take 81 mg by mouth once daily. furosemide (LASIX) 40 mg tablet Take 40 mg by mouth twice daily. insulin detemir (LEVEMIR FLEXPEN SUBCUTANEOUS) Inject subcutaneously. METOPROLOL 50 MG TAB Take one(1) tablet twice daily. candesartan/hydrochlorothiazid(A TACAND HCT 32 MG-12.5 MG TAB) (Patient not taking: Reported on 05/10/2022) ALLOPURINOL 100 MG TAB Take one(1) tablet PO daily with Food ACTOS 30 MG TAB Take one(1) tablet daily. (Patient not taking: Reported on 05/10/2022) GLUCOPHAGE 1,000 MG TAB Take 1 tab twice daily (Patient not taking: Reported on 05/10/2022) GLUCOTROL XL 10 MG TAB Take 1 tab twice daily (Patient not taking: Reported on 05/10/2022) No current facility-administered medications for this visit. FAMILY HISTORY Problem Relation Age of Onset Cancer Mother pancreatic Kidney Disease Father Heart Father Diabetes Father No family status information on file. Social History Tobacco Use Smoking status: Never Smokeless tobacco: Never Substance Use Topics Alcohol use: Yes Comment: occasional Drug use: No Pre-transplant testing: Cardiac: EKG: Today CXR: Today CT A/P 05/10/2022 In process US Renal 09/19/2021 FINDINGS: RIGHT KIDNEY: Normal location of the right kidney, which is normal in size. The right kidney measures 13.5 cm x 5.8 cm x 5.9 cm. There is a normal cortex of the right kidney. The renal cortex measures 1.6 cm. There is no right renal mass or cyst. There are no right renal calculi. There is no right hydronephrosis. DISTAL RIGHT URETER: There is non-visualization of the distal right ureter. There is no demonstrated right ureterovesical junction calculus. There is a visualized right ureteral jet. LEFT KIDNEY: Normal location of the left kidney, which is normal in size. The left kidney measures 12.6 cm x 5.3 cm x 5.6 cm. There is a normal cortex of the left kidney. The renal cortex measures 1.7 cm. There is no left renal mass or cyst. There are no left renal calculi. There is no left hydronephrosis. DISTAL LEFT URETER: There is non-visualization of the distal left ureter. There is no demonstrated left ureterovesical junction calculus. There is a visualized left ureteral jet. BLADDER: The distended urinary bladder has a volume of 183 ml. There is a normal wall thickness of the distended urinary bladder. There is no demonstrated mass within the urinary bladder. There are no demonstrated bladder calculi. PAP Test: Needs Mammogram: Needs Colonoscopy: Needs Sensitizations: Prior transplant: No Blood transfusions: No : Yes Rabbit: Yes: PET Immunizations: HBV series: Not received, patient encouraged to obtain Pneumovax: Not received, patient encouraged to obtain Influenza vaccine: Received, date 02/18/2018 Covid vaccine: Received, date 05/18/2021 , 09/03/2020 , 08/06/2020 Edward Nieto RN Staff: I have interviewed the patient and confirmed the historical details above. REVIEW OF SYSTEMS: All other reviewed and negative other than HPI. ID: none Hepatitis: No Malignancy (including skin cancer): No PAOD (TIA non-embolic, CVA non-embolic, amputation, carotid artery stenosis, abnormal PVRs, claudication history, decreased pulses, etc.):No Hypercoagulable (history of DVT/PE, miscarriages, prior use of anticoagulation, etc.):No Functional capacity: > 8.0 running 5mph or climbing steps briskly KARNOFSKY INDEX SCALE (Adult patients aged 18 and older) - Used to rate a patient's functional status before and after a medical procedure: 100 - Normal, no complaints, no evidence of disease. PHYSICAL EXAMINATION: BP 142/62 (BP Site: Right Arm, BP Position: Sitting, BP Cuff Size: Large Adult) Pulse 74 Temp 37 C (98.6 F) (Temporal) Ht 162.6 cm (5' 4 ) Wt 105.9 kg (233 lb 8 oz) SpO2 99% BMI 40.08 kg/m Body mass index is 40.08 kg/m . Physical exam: General: NAD, able to speak in full sentences, obese female HEENT: non-icteric Cardio: s1,s2+, RRR Resp: no crackles or wheezing b/l, lungs are clear Abd: bs+, soft Peripheral: 3+ pitting edema of LE b/l Neuro: awake and alert, normal affect Labs/Studies: Impression: 61 year old female with past medical history of CKD 5 (GFR of 12) in setting of presumed HTN/DM (never had a kidney biopsy), DM2 for 20 years without neuropathy or retinopathy, HTN for 10-15 years, kidney stone 2015 s/p lithotripsy, morbidly obese, HLD, cellulutis, obesity here for evaluation of candidacy for transplantation. Currently independent on all her daily activities. Currently not working. Lives with her . We had the opportunity to discuss the following, specific for this patient: Risks and benefits of transplantation including overall average increase in life expectancy and higher quality of life with transplantation for most recipients; Types of donor organs discussed with patient, including Living donor (if appropriate), , expanded criteria, donor cardiac (DCD) and CDC-High risk donor types, with relative benefit of living donation over donor transplantation explained. Exploration of potential donors done with patient; Lengthy discussion regarding Immunosuppression following transplantation. I explained our usual protocols, drugs involved, administration and monitoring. This included the risks of infection, possibly life threatening, and malignancy; Patient expresses understanding of the information discussed. Given her current issues, we plan: Patient currently is a good candidate for a kidney transplant. Will need pre-transplant work up as below. Colonoscopy Mammogram PAP Cardiac stress test Echocardiogram Weight loss (BMI <40) Rabbit allergen Pre-transplant protocol labs Cancer Screening: Type of Cancer: Screening Criteria: Cervical Females age 21-29: PAP Q3yrs; HPV if PAP abnormal Females age 30-65: PAP & HPV Q5yrs; OR PAP only Q3yrs Breast Females age 20-39: Clinical Breast Exam Q3yrs Females age 40+: Mammogram & Clinical Breast Exam Q1yr Prostate Males age 40+: PSA will be checked at evaluation Colon All patients age 50+: colonoscopy Q10yrs or as recommended based on results Lung Patients meeting all of the following criteria will be scheduled for a Chest CT without Contrast at evaluation if they have not had a Chest CT within the past year: 1. Age 55-74 2. Have at least a 30 pack-year smoking history 3. Are still smoking OR have quit smoking within the last 15 yrs Patients that do not meet the criteria above or who had a Chest CT within the past year will have a CXR PA & Lat at evaluation. Skin All patients: Skin will be examined at evaluation Based upon the above screening criteria, the patient will require: No additional testing is needed at this time. Patient is up to date with cancer screening. Pharmacy Consult: Not needed at this time Opportunity to ask questions given. Appears to understand. Communication with referring provider done by letter. Tammy Siddiqui MD Kidney Transplant Staff Note I have reviewed the consult note obtained and documented by the fellow and I personally participated in the bradford components. I have discussed the case and management of the patient's care. The text in bold revises or confirms relevant bradford components of their note. All other text, while not edited has been reviewed. 61 year old female with past medical history of CKD 5 (GFR of 12) in setting of presumed HTN/DM2 (never had a kidney biopsy), DM2 for 20 years without neuropathy or retinopathy, HTN for 10-15 years, kidney stone 2015 s/p lithotripsy, morbidly obese, HLD, cellulutis, obesity. Currently independent on all her daily activities. Currently not working. Lives with her . She denies [place], CVA/TIA, DVT/PE, malignancies. She is a good kidney transplant candidate but needs to lose weight and complete evaluation as follows: Colonoscopy Mammogram PAP Cardiac stress test Echocardiogram Weight loss (BMI <40) Rabbit allergen SIGNATURE: Marek Roberson MD PAGER: [phone] documented in this encounter [facility] 05-10-2022 Note HNO ID: [id number] Author: Seferino Morrissey RN Service: ? Author Type: Registered Nurse Type: Progress Notes Filed: 05/10/2022 9:54 AM Note Text: PRE-TRANSPLANT PATIENT EDUCATION NOTE Type of Transplant: Kidney Informed Consent for Evaluation signed: Yes Multiple Listing Form signed: Yes READINESS TO LEARN: Cognitive Ability: Alert and oriented Motivation to Learn: Eager Family Support: High - Very involved in pt care Instruction Provided to: Patient Patient Learns Best by: Multiple Methods Factors Affecting Learning: None Physical Limitations Affecting Learning: None LEARNING RESPONSE: Diagnosis: DM2/HTN Education Topics/Teaching Points: -Discussed living donor evaluation and approval process. -Discussed the evaluation and listing process. -Discussed the different types of donors (KDPI scoring, DCD, High Risk). -Explained EPTS scoring and how it is calculated. -Explained the surgical procedure and potential complications, surgeons, hospital stay at the time of transplant. -Explained lifetime immunosuppression therapy and frequency of blood draws/labs post-op and post-op course of treatment. -Reviewed National and CCF outcomes from the most recent [facility] center-specific report; a copy of the program summary was given to the patient. -Explained that if the transplant is not performed at a Medicare-approved transplant center it could affect the ability to have immunosuppressive medications paid under Medicare Part B. Supplemental Material: -Pre-Transplant Patient Education Folder -UNOS: Questions AND Answers for Transplant Candidates about Multiple Listing and Waiting Time Transfer -UNOS: Questions AND Answers for Transplant Candidates about Kidney Allocation Policy -Directions to access [facility]'s data through the [facility] website. -Informed Consent for Transplant Program Participation patient education packet -National Kidney Registry pamphlet -Covid-19 Vaccination for Transplant Candidates Method of Instruction: Group class instruction Written instruction - handouts Verbal instruction Computer Patient/Family Response: Patient and family member asked appropriate questions, which were answered satisfactorily. Follow-Up Plan: Complete - No need for follow-up Referral/Recommendation: None Seferino Morrissey RN Pre-Children'S Author [facility] 05-10-2022 History of Present illness Narrative Radiology Service Progress Note PATIENT NAME: Florina Corbin DATE OF SERVICE: May 10, 2022 TIME: 11:01 AM PATIENT IDENTITY VERIFICATION COMPLETED USING TWO (2) IDENTIFIERS: Name and Date of confirmed by patient verbally and Name and Date of confirmed by identification band. FALL SCREENING: Has the patient had 2 falls in the last year or 1 fall with injury or currently using an Ambulatory Assistive Device (Walker, Cane, Wheelchair, Crutches, etc.)? No PATIENT GENDER DATA: Female. status: : No status: NO. PATIENT RELEVANT IMPLANT DATA REVIEWED: Yes RADIOLOGY DEPARTMENT: CT; Exam(s) Completed: Abdomen/Pelvis PERIPHERAL IV DATA: Not applicable SIGNED BY: RT Micha(R) May 10, 2022 11:01 AM documented in this encounter [facility] 05-10-2022 History of Present illness Narrative Nutrition Therapy Initial Assessment Nutrition Diagnosis: Behavioral-Environmental: Food and nutrition related knowledge deficit, related to, lack of prior exposure to information , as evidenced by client has no prior knowledge of need for food and nutrition - related information. RECOMMENDED MALNUTRITION DIAGNOSIS: NO MALNUTRITION IDENTIFIED NUTRITION CARE PLAN Nutrition Intervention 05/10/2022: Plate method for Lunch/Dinner 1/2 plate vegetables, 1/4 plate starch or whole grains, 1/4 plate lean sources of protein Limit daily protein intake to 63-75g per day (0.6-0.8g/kg CBW) Low-Sodium Diet <2000mg/day -Follow mg NOT %DV -choose low-sodium products when able -opt for less convenience foods Low-Potassium Diet 2000mg/day Low-Phosphorus Diet 800-1000mg/day Use https://www.kidney.org/recipes-s earch and https://www.[employer]/diet-nutr ition/recipes Nutrition Pre-Transplant Assessment No contraindications Nutrition Monitoring & Evaluation: Monitor weight status and labs as available. Monitor diet recall for adherence to recommendations. Need for Follow up: PRN Patient presents for evaluation prior to consideration for kidney transplant. Patient is not on dialysis. Stage 4 CKD. 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 Resting Metabolic Rate: 1611 Malnutrition Screening Significant unintentional weight loss? No Eating less than 75% of usual intake for more than 2 weeks? No Potential Signs of Inflammation: unable to determine at this time Education Materials Provided: Healthy Lunch/Dinner Plate and Your Sodium-Controlled Diet READINESS TO LEARN Cognitive ability: Alert and oriented Motivation to learn: Interested Family support: Unable to assess - Family not present Instruction provided to: Patient Patient learns best by: Unable to Assess Factors affecting learning: Unable to assess Physical limitations affecting learning: None Referred/Supervised by: Charli/Derrick WAY Billing Type: Initial Assess/15 min 2 units SIGNATURE: Geena Saxena RD PATIENT NAME: Florina Corbin DATE: May 10, 2022 TIME: 10:24 AM PAGER: N/A documented in this encounter [facility] 05-10-2022 History of Present illness Narrative PRE-TRANSPLANT PATIENT EDUCATION NOTE Type of Transplant: Kidney Informed Consent for Evaluation signed: Yes Multiple Listing Form signed: Yes READINESS TO LEARN: Cognitive Ability: Alert and oriented Motivation to Learn: Eager Family Support: High - Very involved in pt care Instruction Provided to: Patient Patient Learns Best by: Multiple Methods Factors Affecting Learning: None Physical Limitations Affecting Learning: None LEARNING RESPONSE: Diagnosis: DM2/HTN Education Topics/Teaching Points: -Discussed living donor evaluation and approval process. -Discussed the evaluation and listing process. -Discussed the different types of donors (KDPI scoring, DCD, High Risk). -Explained EPTS scoring and how it is calculated. -Explained the surgical procedure and potential complications, surgeons, hospital stay at the time of transplant. -Explained lifetime immunosuppression therapy and frequency of blood draws/labs post-op and post-op course of treatment. -Reviewed National and CCF outcomes from the most recent [facility] center-specific report; a copy of the program summary was given to the patient. -Explained that if the transplant is not performed at a Medicare-approved transplant center it could affect the ability to have immunosuppressive medications paid under Medicare Part B. Supplemental Material: -Pre-Transplant Patient Education Folder -UNOS: Questions & Answers for Transplant Candidates about Multiple Listing and Waiting Time Transfer -UNOS: Questions & Answers for Transplant Candidates about Kidney Allocation Policy -Directions to access [facility]'s data through the [facility] website. -Informed Consent for Transplant Program Participation patient education packet -National Kidney Registry pamphlet -Covid-19 Vaccination for Transplant Candidates Method of Instruction: Group class instruction Written instruction - handouts Verbal instruction Computer Patient/Family Response: Patient and family member asked appropriate questions, which were answered satisfactorily. Follow-Up Plan: Complete - No need for follow-up Referral/Recommendation: None Seferino Morrissey RN Pre-Children'S Author documented in this encounter [facility] 02-14-2022 History of Present illness Narrative Summary: Kidney Pretransplant Evaluation New Referral Referring Physician Dr Medrano Type Transplant Kidney ESRD No DM2/HTN Dialysis Dependant? No eGFR 18% (per pt) Diabetes Type 2 Insulin Smoking never Current BMI 38.3 Previous Transplant no Date of Last Transplant N/a Currently Listed? no Willing to accept blood transfusion? yes Potential Living Donor? no Full Transplant Evaluation? Yes (Requesting outside records; nothing in CE) Malnutrition Screening Tool (MST) 1. Have you lost weight without trying? No- 0 Weight loss score: 0 2. Have you been eating poorly in the last week because of a decreased appetite? No- 0 Appetite score: 0 Total MST score (weight loss + appetite scores): 0 Score of 2 or more = referral to registered dietitian for an individual appointment Clara Treviño RN Pre-Kidney & Pancreas Children'S Author [facility] documented in this encounter [facility] 01-12-2022 Miscellaneous Notes MARJAN Thomason documented in this encounter [facility]* Diagnosis Pre-transplant evaluation for kidney transplant- Primary Other specified pre-operative examination [facility]* Diagnosis Pre-transplant evaluation for kidney transplant- Primary Other specified pre-operative examination [facility]* Diagnosis Pre-transplant evaluation for ESRD (end stage renal disease)- Primary Other specified pre-operative examination [facility]* Diagnosis CKD (chronic kidney disease) stage 4, GFR 15-29 ml/min ([facility])- Primary Chronic kidney disease, Stage IV (severe) Type II diabetes mellitus with complication (HCC) Type II or unspecified type diabetes mellitus with unspecified complication, not stated as uncontrolled Class 3 severe obesity in adult, unspecified BMI, unspecified obesity type, unspecified whether serious comorbidity present (HCC) Pre-transplant evaluation for CKD (chronic kidney disease) Other specified pre-operative examination [facility]* Diagnosis Pre-transplant evaluation for end stage renal disease- Primary Other specified pre-operative examination [facility]* Diagnosis Dietary counseling and surveillance- Primary Dietary surveillance and counseling Awaiting organ transplant Awaiting organ transplant status [facility]* Diagnosis Chronic renal failure, stage 4 (severe) (HCC) Pre-transplant evaluation for kidney transplant Other specified pre-operative examination documented in this encounter [facility] note* Diagnosis Pre-transplant evaluation for end stage renal disease Other specified pre-operative examination Pre-operative cardiovascular examination Encounter for screening for cardiovascular disorders Screening for other and unspecified cardiovascular conditions documented in this encounter [facility] note* Diagnosis Encounter for medication review- Primary Encounter for long-term (current) use of other medications documented in this encounter [facility] note* Diagnosis Chronic kidney disease (CKD), stage V (CMS/HCC)- Primary Chronic kidney disease, Stage V documented in this encounter [facility] Work Phone: Evaluation note* Diagnosis Chronic kidney disease (CKD), stage V (CMS/HCC)- Primary Chronic kidney disease, Stage V documented in this encounter [facility] Work Phone: Reason for referral (narrative)* Diagnostic Procedure Only (Urgent) - Closed Specialty Diagnoses / Procedures Referred By Contac t Referred To Contact MOLECULAR & FUNCTIONAL IMAGING Diagnoses Pre-transplant evaluation for end stage renal disease Pre-operative cardiovascular examination Encounter for screening for cardiovascular disorders Procedures NM CARDIAC PERF STRESS/PHARM MYOCARDIAL SPECT MULTIPLE STUDIES Marek Roberson MD [address] [place] [address] Molecular & Functional Imaging [address] [place] [address] Referral ID Status Reason Start Date Expiration Date V isits Requested Visits Authorized [id number] Closed Auto-Generated Referral Patient Cleared - INN Insurance Found 07/26/2022 07/27/2023 1 1 [facility] Reason for Referral Specialty Diagnoses / Procedures Referred By Kate braden Referred To Contact TRANSPLANT Diagnoses Hypertension, unspecified type Procedures CONSULT TO TRANSPLANT CENTER OFFICE/OUTPATIENT NEW HIGH MDM 60-74 MINUTES CHEST X-RAY, FRONT&LAT ECG ROUTINE ECG W/LEAST 12 LDS TRCG ONLY W/O I&R CT ANGIOGRAPHY CHEST W/CONTRAST/NONCONTRAST CT ABDOMEN W & W/O CONTRAST Phoenix English MD [address] [place] [address] [facility] [address] [place], [place] [id number] Referral ID Status Reason Start Date Expiration Date Visits Requested Visits Authorized [id number] Pending Review Financial Clearance Required - [employer] Payor 02/01/2022 02/01/2023 99 [phone] Specialty Diagnoses / Procedures Referred By Kate braden Referred To Contact CT IMAGING Diagnoses Chronic renal failure, stage 4 (severe) (HCC) Pre-transplant evaluation for kidney transplant Procedures CT ABD/PEL WO IVCON CT ABD & PELVIS W/O CONTRAST Roel Padron MD [address] [address] [address] Imaging Referral ID Status Reason Start Date Expiration Date V isits Requested Visits Authorized [id number] Closed Auto-Generated Referral Patient Cleared - INN Insurance Found 04/28/2022 03/16/2023 1 1 Specialty Diagnoses / Procedures Referred By Kate braden Referred To Contact Gastroenterology Diagnoses Chronic kidney disease (CKD), stage V (CMS/HCC) Procedures Colonoscopy Screening; High Risk Patient DE COLONOSCOPY FLX DX W/COLLJ SPEC WHEN PFRMD DE COLON CA SCRN NOT HI RSK IND DE COLORECTAL SCRN; HI RISK IND DE COLONOSCOPY W/BIOPSY SINGLE/MULTIPLE DE COLSC FLX W/RMVL OF TUMOR POLYP LESION SNARE TQ DE COLSC FLX W/REMOVAL LESION BY HOT BX FORCEPS Sher Fonseca, DO [address] [facility], [address] [place] [address] Referral ID Status Reason Start Date Expiration Date V isits Requested Visits Authorized [id number] Authorized 04/27/2023 04/26/2024 1 1 Summary Purpose Family History No Family History Records FoundNo Family History Records Found Advance Directives No Advanced Directives Records FoundNo Advanced Directives Records Found Additional Source Comments Source Comments (unrecognize d section and content) In the event this informatio n is protected by the Federal Confidentiality of Alcohol and Drug Abuse Patient Records regulations: The Federal rules restrict any use of the information to criminally investigate or prosecute any alcohol or drug abuse patient.[facility] the event this information is protected by the Federal Confidentiality of Alcohol and Drug Abuse Patient Records regulations: The Federal rules restrict any use of the information to criminally investigate or prosecute any alcohol or drug abuse patient.[facility] the event this information is protected by the Federal Confidentiality of Alcohol and Drug Abuse Patient Records regulations: The Federal rules restrict any use of the information to criminally investigate or prosecute any alcohol or drug abuse patient.[facility] the event this information is protected by the Federal Confidentiality of Alcohol and Drug Abuse Patient Records regulations: The Federal rules restrict any use of the information to criminally investigate or prosecute any alcohol or drug abuse patient.[facility] the event this information is protected by the Federal Confidentiality of Alcohol and Drug Abuse Patient Records regulations: The Federal rules restrict any use of the information to criminally investigate or prosecute any alcohol or drug abuse patient.[facility] the event this information is protected by the Federal Confidentiality of Alcohol and Drug Abuse Patient Records regulations: The Federal rules restrict any use of the information to criminally investigate or prosecute any alcohol or drug abuse patient.[facility] the event this information is protected by the Federal Confidentiality of Alcohol and Drug Abuse Patient Records regulations: The Federal rules restrict any use of the information to criminally investigate or prosecute any alcohol or drug abuse patient.[facility] the event this information is protected by the Federal Confidentiality of Alcohol and Drug Abuse Patient Records regulations: The Federal rules restrict any use of the information to criminally investigate or prosecute any alcohol or drug abuse patient.[facility] the event this information is protected by the Federal Confidentiality of Alcohol and Drug Abuse Patient Records regulations: The Federal rules restrict any use of the information to criminally investigate or prosecute any alcohol or drug abuse patient.[facility] the event this information is protected by the Federal Confidentiality of Alcohol and Drug Abuse Patient Records regulations: The Federal rules restrict any use of the information to criminally investigate or prosecute any alcohol or drug abuse patient.[facility] the event this information is protected by the Federal Confidentiality of Alcohol and Drug Abuse Patient Records regulations: The Federal rules restrict any use of the information to criminally investigate or prosecute any alcohol or drug abuse patient.[facility] the event this information is protected by the Federal Confidentiality of Alcohol and Drug Abuse Patient Records regulations: The Federal rules restrict any use of the information to criminally investigate or prosecute any alcohol or drug abuse patient.[facility] the event this information is protected by the Federal Confidentiality of Alcohol and Drug Abuse Patient Records regulations: The Federal rules restrict any use of the information to criminally investigate or prosecute any alcohol or drug abuse patient.[facility] the event this information is protected by the Federal Confidentiality of Alcohol and Drug Abuse Patient Records regulations: The Federal rules restrict any use of the information to criminally investigate or prosecute any alcohol or drug abuse patient.[facility] the event this information is protected by the Federal Confidentiality of Alcohol and Drug Abuse Patient Records regulations: The Federal rules restrict any use of the information to criminally investigate or prosecute any alcohol or drug abuse patient.[facility] Reason for Visit (unrecogniz ed section and content) Reason Comments Patient Education Reason Comments Transplant Evaluation Reason Comments Patient Education Assessment Specialty Diagnoses / Procedures Referred By Kate t Referred To Contact CT IMAGING Diagnoses Chronic renal failure, stage 4 (severe) (HCC) Pre-transplant evaluation for kidney transplant Procedures CT ABD/PEL WO IVCON CT ABD & PELVIS W/O CONTRAST Roel Padron MD [address], [place] [address] Ct Imaging Referral ID Status Reason Start Date Expiration Date V isits Requested Visits Authorized [id number] Closed Auto-Generated Referral Patient Cleared - INN Insurance Found 04/28/2022 03/16/2023 1 1 Reason Comments Radiology NM Specialty Diagnoses / Procedures Referred By Kate t Referred To Contact MOLECULAR & FUNCTIONAL IMAGING Diagnoses Pre-transplant evaluation for end stage renal disease Pre-operative cardiovascular examination Encounter for screening for cardiovascular disorders Procedures NM CARDIAC PERF STRESS/PHARM MYOCARDIAL SPECT MULTIPLE STUDIES Marek Roberson MD [address] [place] [address] Molecular & Functional Imaging [address] [place] [address] Referral ID Status Reason Start Date Expiration Date V isits Requested Visits Authorized [id number] Closed Auto-Generated Referral Patient Cleared - INN Insurance Found 07/26/2022 07/27/2023 1 1 Reason Comments Follow Up Reason Comments Caregiver Support Reason Comments Patient Update Specialty Diagnoses / Procedures Referred By Kate t Referred To Contact Diagnoses Chronic kidney disease, stage 5 (CMS/HCC) Procedures DE COLONOSCOPY FLX DX W/COLLJ SPEC WHEN PFRMD DE COLONOSCOPY W/BIOPSY SINGLE/MULTIPLE DE COLSC FLX W/RMVL OF TUMOR POLYP LESION SNARE TQ DE COLSC FLX W/REMOVAL LESION BY HOT BX FORCEPS [id number] [address] [facility] [address] [place] [address] [phone] Referral ID Status Reason Start Date Expiration Date Visits Re quested Visits Authorized [id number] 1 1 Care Teams (unrecognized sec tion and content) Director Of Veterans Affairs Relationship Specialty Start Date End Date Pcp, No PCP - General 12/03/21 06/20/22 Director Of Veterans Affairs Relationship Specialty Start Date End Date Pcp, No PCP - General 12/03/21 06/20/22 Director Of Veterans Affairs Relationship Specialty Start Date End Date Pcp, No PCP - General 12/03/21 06/20/22 Director Of Veterans Affairs Relationship Specialty Start Date End Date Pcp, No PCP - General 12/03/21 06/20/22 Director Of Veterans Affairs Relationship Specialty Start Date End Date Pcp, No PCP - General 12/03/21 06/20/22 Director Of Veterans Affairs Relationship Specialty Start Date End Date Pcp, No PCP - General 12/03/21 06/20/22 Director Of Veterans Affairs Relationship Specialty Start Date End Date Pcp, No PCP - General 12/03/21 06/20/22 Director Of Veterans Affairs Relationship Specialty Start Date End Date Phoenix English MD [address] [place] [address] PCP - General Nephrology 04/27/23 Director Of Veterans Affairs Relationship Specialty Start Date End Date Phoenix English MD [address] [place] [address] PCP - General Nephrology 04/27/23 INFORMATION SOURCE (unrecogn ized section and content) DATE CREATED AUTHOR AUTHOR'S ORGANIZ ATION 06/20/2023 [facility] FOR RECORDS PERTAINING TO PATIENTS WHO ARE OR HAVE BEEN ENROLLED IN A CHEMICAL DEPENDENCY/SUBSTANCEABUSE PROGRAM, SOME INFORMATION MAY BE OMITTED. This clinical summary was aggregated from multiple sources. Caution should be exercised in using it in the provision of clinical care. This summary normalizes information from multiple sources, and as a consequence, information in this document may materially change the coding, format and clinical context of patient data. In addition, data may be omitted in some cases. CLINICAL DECISIONS SHOULD BE BASED ON THE PRIMARY CLINICAL RECORDS. [facility]. provides no warranty or guarantee of the accuracy or completeness of information in this document.
[2023-06-21 13:14] LABS: Protein, Urine (Random) 311.1 mg/dL (<11.9); Protein:Creat Ratio 5948 mg/g CRE (0-200)
== END | disposition home or self-care (01) ==
LOC: LAB 10:59
PROVIDERS: PCP Family Medicine; Referring Provider Internal Medicine Nephrology; Visit Provider Internal Medicine Nephrology
DX: N18.4 Chronic kidney disease, stage 4 (severe) (principal)
CPT/HCPCS: 36415; 80069; 82570; 84156; 85027

== ENCOUNTER → 2023-08-03 | Outpatient (CLI) | payer BC, SELFPAY ==
--- NOTE | 2023-08-03 08:31 | BI_ITS ---
MAMMOGRAPHY - BILATERAL SCREENING REASON FOR EXAM: Female, 62 years old. Routine annual screening examination. PERTINENT HISTORY: Grandmother with breast cancer. Aunt with breast cancer. TECHNIQUE: Digital bilateral breast didier (3D mammographic acquisition) in the CC and MLO projections. 2-D mediolateral oblique (MLO) and craniocaudad (CC) views of both breasts were obtained. CAD: Full Field Digital Mammography with Computer Added Detection was performed. COMPARISON: Comparison is made with prior study dated June 21, 2022 and February 17, 2015. FINDINGS: Breast Composition: There are scattered areas of fibroglandular density. There are no dominant masses or suspicious calcifications. No other significant abnormalities are identified. There has been no significant change since the prior study. BI/SCRN MAMM (CAD)W/DIDIER BILAT IMPRESSION: Stable bilateral screening mammogram. Yearly follow-up mammogram recommended. (A) ASSESSMENT CATEGORY: BIRADS Category 1: Negative. A letter regarding these results will be sent to the patient by the facility within 30 days. Approximately 10% of breast cancers are not detected by mammography. A normal mammogram should not delay biopsy of a clinically suspicious abnormality. [id number] Electronically Signed: Matias Ashford MD at 9:14 EDT ,
--- OUTSIDE RECORDS SUMMARY | 2023-08-03 08:51 | XMS RPT_ITS | CCD ---
Author Name Unknown Address [address] [place] [address] Organization [facility] Care Team Providers Care Band Director Name Role Phone Pcp, No Primary Care Provider Unavailabl e Unavailable Primary Care Provider Chu Mayorga MD, [place] Jimenez Primary Care Provider SHER FONSECA Attending Unavailable SHER FONSECA Referring Unavailable PHOENIX MAYORGA Primary Care Unavailabl e POGGIO, MAREK D Referring Unavailable POGGIO, MAREK D Referring Unavailable POGGIO, MAREK D Referring Unavailable POGGIO, MAREK D Referring Unavailable PHOENIX MAYORGA Referring Unavailabl e POGGIO, MAREK D Referring Unavailable POGGIO, MAREK D Referring Unavailable POGGIO, MAREK D Referring Unavailable POGGIO, MAREK D Referring Unavailable POGGIO, MAREK D Referring Unavailable POGGIO, MAREK D Referring Unavailable POGGIO, MAREK D Referring Unavailable Medications Current Medications Medication Drug Class(es) Dates Sig (Normalized) Sig (Original) amitriptyline hydrochloride 25 mg oral tablet (2 sources) Tricyclic Antidepressant Start: 01-24-2023 take 1 tablet by mouth once daily at bedtime amitriptyline (Elavil) 25 mg tablet Take 1 tablet (25 mg) by mouth once daily at bedtime. 0 01/24/2023 Active amLODIPine 10 mg oral tablet (20 sources) Dihydropyridine Calcium Channel Felisha Start: 03-24-2023 take 1 tablet by mouth once daily amLODIPine (Norvasc) 10 mg tablet Take 1 tablet (10 mg) by mouth once daily. 0 03/24/2023 Active Completed/Discontinued Medications Medication Drug Class(es) Dates Sig (Normalized) Sig (Original) allopurinol 100 mg oral tablet (20 sources) Xanthine Oxidase Inhibitor Start: 04-17-2007 take 1 tablet by mouth once daily at mealtime ALLOPURINOL 100 MG TAB Take one(1) tablet PO daily with Food 90 3 04/17/2007 Active Problems Active Problems Problem Classification Problem Date Documented Da te Episodic/Chronic Administrative/social admission (3 sources) Patient encounter status; Translations: [Dietary counseling and surveillance] Episodic Calculus of urinary tract (20 sources) Kidney stone; Translations: [Calculus of kidney] Onset: 04-10-2005 04-10-2005 Episodic Chronic kidney disease (8 sources) Chronic kidney disease stage 4; Translations: [Chronic kidney disease, stage 4 (severe)] Onset: 06-15-2023 Chronic Diabetes mellitus with complications (3 sources) Type 2 diabetes mellitus; Translations: [Type 2 diabetes mellitus with unspecified complications] Onset: 08-02-2023 Chronic Essential hypertension (1 source) Hypertensive disorder; Translations: [Essential (primary) hypertension] Chronic Other nutritional; endocrine; and metabolic disorders (1 source) Severe obesity; Translations: [Morbid (severe) obesity due to excess calories] Chronic Residual codes; unclassified (1 source) Awaiting transplantation; Translations: [Awaiting organ transplant status] Chronic Past or Other Problems Problem Classification Problem Date Documented Date Episodic/Chronic Genitourinary symptoms and ill-defined conditions (20 sources) Extravasation of urine; Translations: [Extravasation of urine] Onset: 04-28-2005 04-28-2005 Episodic Other diseases of kidney and ureters (20 sources) Hydronephrosis; Translations: [Unspecified hydronephrosis] Onset: 04-10-2005 04-10-2005 Episodic Other screening for suspected conditions (not mental disorders or infectious disease) (1 source) Encounter for screening for cardiovascular disorders; Translations: [Encounter for screening for cardiovascular disorders] Onset: 08-09-2022 Episodic Results Test Name Value Interpretation Reference Range Facil ity Vital Signs Date Time Vital Sign Value Performing Clinician Facility 08-01-2023 10: Body height 162.6 cm [facility] Work Phone: [facility] 08-01-2023 10:040 Body temperature 97.7 [degF] [facility] Work Phone: [facility] 08-01-2023 10:21-0400 Body weight 112.3 kg [facility] Work Phone: [facility] 08-01-2023 10:21-0400 Diastolic blood pressure 62 mm[Hg] [facility] Work Phone: [facility] 08-01-2023 10:21-0400 Heart rate 62 /min [facility] Work Phone: [facility] 08-01-2023 10:21-0400 SaO2% (BldA) [Mass fraction] 100 % [facility] Work Phone: [facility] 08-01-2023 10:21-0400 Systolic blood pressure 141 mm[Hg] [facility] Work Phone: [facility] 06-15-2023 16:20-0500 Diastolic blood pressure 80 mm[Hg] Sher Thomae DO Work Phone: [facility] 06-15-2023 16:20-0500 Heart rate 77 /min Sher Thomae DO Work Phone: [facility] 06-15-2023 16:20-0500 Respiratory rate 18 /min Sher Thomae DO Work Phone: [facility] 06-15-2023 16:20-0500 SaO2% (BldA) [Mass fraction] 96 % Sher Thomae DO Work Phone: [facility] 06-15-2023 16:20-0500 Systolic blood pressure 170 mm[Hg] Sher Thomae DO Work Phone: [facility] 06-15-2023 15:47-0500 Body temperature 97.9 [degF] Sher Thomae DO Work Phone: [facility] 06-15-2023 13:44-0500 Body height 162.6 cm Sher Thomae DO Work Phone: [facility] 06-15-2023 13:44-0500 Body mass index (BMI) [Ratio] 40.53 kg/m2 Sher Thomae DO Work Phone: [facility] 06-15-2023 13:44-0500 Body weight 107.1 kg Sher Fonseca DO Work Phone: [facility] 05-10-2022 12:54-0500 Body height 162.6 cm [facility] Work Phone: [facility] 05-10-2022 12:54-0500 Body temperature 98.6 [degF] [facility] Work Phone: [facility] 05-10-2022 12:54-0500 Body weight 105.92 kg [facility] Work Phone: [facility] 05-10-2022 12:54-0500 Diastolic blood pressure 62 mm[Hg] [facility] Work Phone: [facility] 05-10-2022 12:54-0500 Heart rate 74 /min [facility] Work Phone: [facility] 05-10-2022 12:54-0500 SaO2% (BldA) [Mass fraction] 99 % [facility] Work Phone: [facility] 05-10-2022 12:54-0500 Systolic blood pressure 142 mm[Hg] [facility] Work Phone: [facility] 05-10-2022 12:52-0500 Body height 162.6 cm [facility] Work Phone: [facility] 05-10-2022 12:52-0500 Body temperature 98.6 [degF] [facility] Work Phone: [facility] 05-10-2022 12:52-0500 Body weight 105.92 kg [facility] Work Phone: [facility] 05-10-2022 12:52-0500 Diastolic blood pressure 62 mm[Hg] [facility] Work Phone: [facility] 05-10-2022 12:52-0500 Heart rate 74 /min [facility] Work Phone: [facility] 05-10-2022 12:52-0500 SaO2% (BldA) [Mass fraction] 99 % [facility] Work Phone: [facility] 05-10-2022 12:52-0500 Systolic blood pressure 142 mm[Hg] [facility] Work Phone: [facility] 05-10-2022 10:21-0500 Body height 162.[address] Work Phone: [facility] 05-10-2022 10:21-0500 Body weight 104.[address] Work Phone: [facility] Encounters Encounter Date Encounter Type Care Provider Facility Start: 08-01-2023 End: 08-02-2023 Orders Only Marek Roberson MD Work Phone[facility] Procedures Date Procedure Procedure Detail Performing Clinician Start: 08-01-2023 Radiologic exam ches t 2 views Marek Roberson MD Work Phone: Start: 06-15-2023 DISCHARGE PATIENT SHER FONSECA Start: 06-15-2023 PLACE IN OUTPATIENT/HOSPITAL AMBULATORY SURGERY SHER FONSECA Start: 06-15-2023 Colonoscopy flx dx w /collj spec when pfrmd Sher Jimenez Marian DO Work Phone: Start: 06-15-2023 Colonoscopy Sher Liconapietro fournier DO Work Phone: Start: 08-09-2022 Myocardial spect mul tiple studies Marek Roberson MD Work Phone: Start: 05-10-2022 Ct abdomen & pelvis w/o contrast material Roel Padron MD Work Phone: Plan of Treatment Date Care Activity Detail Author Start: 06-13-2028 Screening for malign ant neoplasm of colon [facility] Start: 07-31-2024 Creatinine measurement Serum Creatin ine [facility] Start: 06-15-2024 Screening for malign ant neoplasm of colon [facility] Start: 08-01-2023 End: 10-31-2023 ALGN RABBIT EPITHELIUM IGE [facility] Work Phone: Immunizations Immunization Date Immunization Notes Care Provider Mallory stacy 02-18-2018 influenza, seasonal, injectable Jesenia Treviño RN [facility] 02-18-2018 influenza virus vacc ine, unspecified formulation Edward Nieto RN [facility] 02-12-2017 influenza, injectabl e, quadrivalent, contains preservative Jesenia Treviño RN [facility] 02-07-2016 influenza, seasonal, injectable Jesenia Treviño RN [facility] Payers Date Payer Category Payer Unknown [id number] 2022 Unknown [id number] 1960 Unknown [id number] Social History Date Type Detail Facility Start: 05-10-2022 End: 06-15-2023 Tobacco smoking status NHIS Never smoked tobacco [facility] Start: 02-26-2006 End: 08-01-2023 Alcohol intake Current drinker of alcohol (finding) [facility] Start: 1960 Sex Assigned At Not on file [facility] Start: 05-10-2022 End: 06-15-2023 Tobacco use and exposure Smokeless tobacco non-user [facility] Start: 05-10-2022 Education 13 [facility] Start: 05-10-2022 End: 06-12-2022 History of Social function [facility] Start: 05-10-2022 End: 06-12-2022 Tobacco use panel [facility] National Score (1-100), lower number is lower risk 51 [facility] Start: 06-15-2023 Alcohol intake Lifetime non-d asim (finding) [facility] Work Phone: Start: 06-05-2023 End: 06-15-2023 Exposure to SARS-CoV-2 (event) Not sure [facility] Start: 1960 Sex Assigned At Female [facility] Start: 08-01-2023 Gender identity Identifies as female gender (finding) [facility] Notes 01-12-2022 to 08-01-2023 Xi Ross LISW - 08/01/2023 1:56 PM EDTPatient InstructionsXi Ross LISW - 08/01/2023 11:11 AM EDTBcarlosMallorie hernandez RT(R) - 08/01/2023 10:00 AM EDTDischarge Instructions Note Date & Type Note Facility 08-01-2023 Note HNO ID: [id number] Author: XI ROSS LISW Service: ? Author Type: Wireless Internet Installer Type: Progress Notes Filed: 08/01/2023 13:56 Note Text: SW sent pt the social work education packet via email. Pt is aware that she must contact her insurance provider in order to check the copays of the anti-viral and anti-rejection medication. [facility] [employer] [facility] 08-01-2023 History of Present illness Narrative KRISTEN sent pt the social work education packet via email. Pt is aware that she must contact her insurance provider in order to check the copays of the anti-viral and anti-rejection medication. [facility] [employer] documented in this encounter [facility] 08-01-2023 Note HNO ID: [id number] Author: XI ROSS LISW Service: ? Author Type: Wireless Internet Installer Type: Progress Notes Filed: 08/01/2023 13:55 Note Text: ONGOING PSYCHOSOCIAL EVALUATION FOR KIDNEY TRANSPLANT (Via Telephone Contact) Social Supports: Pt's will be primary support and pt's sister will be backup support. Financial Concerns: [place] Compliance: Pt is not dialysis dependent at this time. Pt reports compliance with taken all medication as prescribed. Mental Health: Pt needs be scheduled for a virtual visit with psychiatry to assess her mental health. Pt has a past history of anxiety. Substance Use: No current concerns regarding ETOH abuse, street drug use or tobacco use. SIPAT: 17 At this time, pt is not yet a suitable psychosocial candidate. Florina Alvarez was initially evaluated by this SW on 05/10/22. At the time of initial assessment, Florina Alvarez was not yet a suitable psychosocial candidate for kidney transplant. At the time of the assessment, pt's backup support needed to be verified. Pt's backup support was later verified and pt was deemed to be a suitable psychosocial candidate. DIALYSIS START DATE: N/A This ongoing social work psychosocial evaluation was completed with Florina Alvarez via telephone on August 01, 2023. Pt's Jean Paul was also on the call. Race/Gender: Female White [] Descent [][place] or []North (non-Black) []White: Other [x]White: Not Specified/Unknown [place] Citizen: Yes IDENTIFYING INFORMATION/LIVING SITUATION Florina Alvarez continues to live at [address] [place] [address]. This home is about 1hr [place] 18min (73 miles) away from . Pt has lived in this [facility] home for the past 35yrs.. Pt denies any architectural barriers in the home. Pt reports she is independent with all ADL's, she has a drivers license and a vehicle. Pt denies receiving any home health care or home health aide services at this time. Others in household are: Pt's . Jean Paul-age 65; reports being in good health and he works global safety officer as a material science customer equipment engineer. Jean Paul reports he is independent with all ADL's, he has a drivers licenses and a vehicle. There are 2 licensed drivers in the home and 2 working vehicles. Caregiver responsibilities: None Pets in the home: None TRANSPLANT LODGING PLANS FOR PATIENTS WHO LIVE 2.5 OR MORE HOURS AWAY FROM [facility]: Do you have the financial means to stay in the area for four weeks or more post-transplant? N/A COMPLIANCE Missed doctor appointments: Pt currently has a No Show rate of 3% (1 of 30.) Missed/shortened/rescheduled dialysis appointments: N/A Knowledge of medications: Pt was able to tell SW the name and purpose of her medication. Medication Compliance: Pt stated she takes all medication as prescribed and she uses a pill box organizer that she arranges once a week. Pt is insulin dependent and she checks her sugars 1-2 times a day. Have you ever stopped taking any medication because you lost your insurance you could not afford it? Denies Have you stopped taking medication because you felt you didn't need it or because of side-effects? Denies Have you ever been transplanted, evaluated, or listed at another center: No. Pt stated she is still in the evaluation phase at for kidney transplant because she had difficulties with scheduling her colonoscopy. Potential donor: None identified at this time. SW discussed the importance of attending all medical appointments as scheduled, taking all medication as prescribed and following recommendations from her medical providers. SW discussed possible outcomes of non-compliance. Pt verbalized understanding. SUBSTANCE USE/ABUSE Alcohol: Pt stated she doesn't drink alcohol. Pt denies any past alcohol abuse / over use. Tobacco: Pt denies ever using. Exposure to second hand smoke: No Cocaine, THC, Heroin, or Other Recreational Drug Use: Pt denies ever using. Over the Counter Medications: Vitamin D and Baby Asprin Opioids/Controlled Substances: None CAGE Questionnaire Have you ever felt you should cut down on your drinking? No Have people annoyed you by criticizing your drinking? No Have you ever felt bad or guilty about your drinking? No Have you ever had a drink first thing in the morning to steady your nerves or to get rid of a hangover (eye case aide)? No LEGAL ENCOUNTERS Currently on probation or parole: No Past or current warrants for arrest: No Substance related legal problems: No Valid drivers license: Yes History of any legal issues not previously mentioned: No MENTAL HEALTH HISTORY Affect: Flat Alert: Alert Orientation: person, place and time Cognitive Function: Cognition appears relatively intact Are you having thoughts that you would be better off , or of hurting yourself in some way? Denies Cur (more content not included)... [facility] 08-01-2023 Note HNO ID: [id number] Author: MALLORIE LOPEZ RT(R) Service: Radiology Author Type: Technologist Type: Progress Notes Filed: 08/01/2023 09:51 Note Text: Radiology Service Progress Note PATIENT NAME: Florina Alvarez DATE OF SERVICE: August 01, 2023 TIME: 9:50 AM PATIENT IDENTITY VERIFICATION COMPLETED USING TWO (2) IDENTIFIERS: Name and Date of confirmed by patient verbally. FALL SCREENING: Has the patient had 2 falls in the last year or 1 fall with injury or currently using an Ambulatory Assistive Device (Walker, Cane, Wheelchair, Crutches, etc.)? No PATIENT GENDER DATA: Female. status: : No status: NO. PATIENT RELEVANT IMPLANT DATA REVIEWED: Not Applicable PATIENT PRESENTS WITH AN IMPLANTABLE OR ATTACHED CAMPAIGN SPECIALIST: No RADIOLOGY DEPARTMENT: General X-ray: Exam(s) Completed: Chest X-Ray PERIPHERAL IV DATA: Not applicable SIGNED BY: Mallorie Lopez RT(R) August 01, 2023 9:50 AM [facility] 08-01-2023 Instructions Julia Hernandez RN - 08/01/2023 11:40 AM EDT As part of your transplant evaluation you are required to complete the following additional items. Please be aware that your evaluation will not be considered complete until all testing has been submitted. YOU WILL NOT BE LISTED ON THE TRANSPLANT LIST until these results have been received by our office, reviewed by the transplant committee and approved for transplant. You will be contacted with the decision of the transplant committee at a future date. The following will be scheduled for you at a [facility] facility: CARDIAC: No additional testing required at this time. CANCER SCREENING: Mammogram - Scheduled 08/03/23. Please have results sent to fax number listed below. ADDITIONAL CONSULTS Nutrition - Order placed today, can be virtual visit if you activate MyChart. If MyChart is not activated, you will be scheduled for an in-person visit. Imaging Studies: No additional testing required at this time. Miscellaneous Items: CT Abdomen/Pelvis - Due 05/10/24 Stress test - Due 08/09/24 Echo - Due 08/09/24 EKG - Due 07/31/24 Chest X-ray - Due 07/31/24 PAP - Done 06/12/22, due 3-5 years per recommendation of artificial stone setter (May 2025-2028). Colonoscopy - Due 06/15/28 Outside test results should be faxed to [phone]. Please review the kidney transplant educational materials on line at [email or web address] Sign-in: Kidney To check on your status of your evaluation, please contact your coordinator, Edwrad Nieto RN [phone]. BRITT Davis, RN Kidney/Pancreas Pre-[employer] [facility] documented in this encounter [facility] 08-01-2023 History of Present illness Narrative ONGOING PSYCHOSOCIAL EVALUATION FOR KIDNEY TRANSPLANT (Via Telephone Contact) Social Supports: Pt's will be primary support and pt's sister will be backup support. Financial Concerns: [place] Compliance: Pt is not dialysis dependent at this time. Pt reports compliance with taken all medication as prescribed. Mental Health: Pt needs be scheduled for a virtual visit with psychiatry to assess her mental health. Pt has a past history of anxiety. Substance Use: No current concerns regarding ETOH abuse, street drug use or tobacco use. SIPAT: 17 At this time, pt is not yet a suitable psychosocial candidate. Florina Alvarze was initially evaluated by this SW on 05/10/22. At the time of initial assessment, Florina Alvarez was not yet a suitable psychosocial candidate for kidney transplant. At the time of the assessment, pt's backup support needed to be verified. Pt's backup support was later verified and pt was deemed to be a suitable psychosocial candidate. DIALYSIS START DATE: N/A This ongoing social work psychosocial evaluation was completed with Florina Alvarez via telephone on August 01, 2023. Pt's Jean Paul was also on the call. Race/Gender: Female White [] Descent [][place] or [][place] (non-Black) []White: Other [x]White: Not Specified/Unknown [place] Citizen: Yes IDENTIFYING INFORMATION/LIVING SITUATION Florina Alvarez continues to live at [address] [place] [id number]. This home is about 1hr & 18min (73 miles) away from . Pt has lived in this [facility] home for the past 35yrs.. Pt denies any architectural barriers in the home. Pt reports she is independent with all ADL's, she has a drivers license and a vehicle. Pt denies receiving any home health care or home health aide services at this time. Others in household are: Pt's . Jean Paul-age 65; reports being in good health and he works global safety officer as a material science customer equipment engineer. Jean Paul reports he is independent with all ADL's, he has a drivers licenses and a vehicle. There are 2 licensed drivers in the home and 2 working vehicles. Caregiver responsibilities: None Pets in the home: None TRANSPLANT LODGING PLANS FOR PATIENTS WHO LIVE 2.5 OR MORE HOURS AWAY FROM [facility]: Do you have the financial means to stay in the area for four weeks or more post-transplant? N/A COMPLIANCE Missed doctor appointments: Pt currently has a No Show rate of 3% (1 of 30.) Missed/shortened/rescheduled dialysis appointments: N/A Knowledge of medications: Pt was able to tell SW the name and purpose of her medication. Medication Compliance: Pt stated she takes all medication as prescribed and she uses a pill box organizer that she arranges once a week. Pt is insulin dependent and she checks her sugars 1-2 times a day. Have you ever stopped taking any medication because you lost your insurance you could not afford it? Denies Have you stopped taking medication because you felt you didn't need it or because of side-effects? Denies Have you ever been transplanted, evaluated, or listed at another center: No. Pt stated she is still in the evaluation phase at for kidney transplant because she had difficulties with scheduling her colonoscopy. Potential donor: None identified at this time. SW discussed the importance of attending all medical appointments as scheduled, taking all medication as prescribed and following recommendations from her medical providers. SW discussed possible outcomes of non-compliance. Pt verbalized understanding. SUBSTANCE USE/ABUSE Alcohol: Pt stated she doesn't drink alcohol. Pt denies any past alcohol abuse / over use. Tobacco: Pt denies ever using. Exposure to second hand smoke: No Cocaine, THC, Heroin, or Other Recreational Drug Use: Pt denies ever using. Over the Counter Medications: Vitamin D and Baby Asprin Opioids/Controlled Substances: None CAGE Questionnaire Have you ever felt you should cut down on your drinking? No Have people annoyed you by criticizing your drinking? No Have you ever felt bad or guilty about your drinking? No Have you ever had a drink first thing in the morning to steady your nerves or to get rid of a hangover (eye case aide)? No LEGAL ENCOUNTERS Currently on probation or parole: No Past or current warrants for arrest: No Substance related legal problems: No Valid drivers license: Yes History of any legal issues not previously mentioned: No MENTAL HEALTH HISTORY Affect: Flat Alert: Alert Orientation: person, place and time Cognitive Function: Cognition appears relatively intact Are you having thoughts that you would be better off , or of hurting yourself in some way? Denies Current mental health diagnoses / current feelings of anxiety or depression: Pt denies any current mental health diagnoses. Pt denies any current symptoms/feelings of anxiety or depression. Past mental health diagnoses: Pt stated in the past I had anxiety, but I don't have that anymore. Pt wouldn't clarify when she was diagnosed with anxiety and how long the symptoms lasted. Pt denies any other previous mental health diagnoses. (At the time of initial assessment, pt denied any previous mental health diagnoses.) Psychiatric medication: Pt stated she was prescribed amitriptyline for margines however, she doesn't take the medication. Pt reports she was prescribed desipramine for anxiety, however, she never took the medication because one of the side effects was hair lost. Counseling: Pt denies ever receiving counseling services. [...] Psychiatry indicated for further evaluation or screening: Yes, pt needs be scheduled for a virtual visit with psychiatry to assess her mental health. Pt has a past history of anxiety. COPING Hobbies/Interests: Camping, fishing, watching her grandchildren and baking. EMPLOYMENT Current Employment Status: Pt's last employment was in 1999. Paid Status for Recovery: Pt doesn't have a source of income and she rely solely on her husbands income. HEALTH INSURANCE/FINANCIAL Medical Insurance: [place] Payer of Insurance Premium: Pt's via his employer. Prescription Coverage: [employer] Insurance Policy [place]: Pt Medicare Status: Pt doesn't have Medicare at this time. SW reviewed ESRD Medicare and the coordination of [...] Jean Paul (pt's ) - Jean Paul re-verified his commitment. Contact Number: [phone] Health Status and Availability of Caregiver: Jean Paul reports being in good health. / Deltakillian stated he will take off at least 2 weeks to help with caregiver/transportation support. Valid Director Of Employee Development's License/Working Vehicle: Yes / Yes Caregiver Substance Use: Denies Caregiver Mental Health: Denies Secondary Caregiver: Maci Locke (pt's sister) - Maci's commitment was previously verified. Contact Number: [phone] Health Status and Availability: Maci reported being in good health. / Maci stated she does work, however, there will be no issues with her taking time off in order to assist with caregiver/transportation support. Maci stated she has enough personal time and sick time in order to help the pt.. Maci lives about 15min away from the pt.. Valid Director Of Employee Development's License/Working Vehicle: Yes / Yes Caregiver Substance Use: Denies Caregiver Mental Health: Denies PSYCHOSOCIAL RISKS Adherence to Treatment Protocols: Yes Ability to Understand Transplant Center's System of Care: Yes Active Psychiatric Diagnosis: Pt needs be scheduled for a virtual visit with psychiatry to assess her mental health. Pt has a past history of anxiety. Financial Resources or Support: Yes Body Image/Scar: No IMPRESSIONS/RECOMMENDATIONS Transplant social media sr strategy manager spoke with Florina Alvarez via telephone. Pt's Jean Paul was also on the call. At this time, pt is not yet a suitable psychosocial candidate. -Pt needs be scheduled for a virtual visit with psychiatry to assess her mental health. Pt has a past history of anxiety. Once cleared by psychiatry then pt will be a suitable psychosocial candidate. There are no other current psychosocial concerns that could have a negative impact on the successful and sustained outcome of a kidney transplant. Pt's has no current barriers such as ETOH abuse, street drug use or tobacco use. Pt has support from her and sister. Pt is aware that she must contact her insurance provider in order to check the copays of the anti-viral and anti-rejection medication. Pt is not dialysis dependent at this time. If pt was to start dialysis then her compliance will be monitored. If list the patient should be scheduled for yearly visits and/or phone contact with social work for the following purposes: to review health insurance, changes of caregiver support, changes in financial status, and to discuss any other updates/changes. We reviewed the follow up care sequence, including lab work twice a week and twice a week post transplant clinic appointments. We discussed the precautions to take because of being immunosuppressed. We also discussed the need to have a caregiver global safety officer for 2 weeks post transplant. Florina Alvarez was advised that it is imperative to adhere to the medical regimen and recovery restrictions. Florina Alvarez indicated understanding of this information. Florina Alvarez had the opportunity to discuss any issues and questions. Patient was given information about the kidney transplant process and fund raising options. The patient was given the phone number of the transplant social media sr strategy manager to address future concerns. ANH Bishop Transplant Wireless Internet Installer documented in this encounter [facility] 08-01-2023 Note HNO ID: [id number] Author: JULIA HERNANDEZ RN Service: ? Author Type: Fellow Type: Progress Notes Filed: 08/01/2023 12:30 Note Text: [facility] [place] [facility] Transplant Evaluation CC: Consultation for Kidney transplant evaluation. Referred by: Phoenix Mayorga [id number] [place] [address] I will communicate with the referring provider by letter and/or shared electronic medical record. HPI: Patient is a 62 year old female presenting today for ongoing pre-emptive kidney transplant evaluation, last seen in office on 05/10/22. Past medical history of CKD 5 (GFR 9), presumed to be secondary to HTN/DM2 (never had a kidney biopsy), DM2 for 12 years without neuropathy or retinopathy with insulin dependence for approximately 5 years, HTN for 10-15 years, kidney stone s/p lithotripsy 2004, HLD, cellulitis/abscess of L breast, obesity, anxiety, and migraines. Pre-emptive eGFR (08/01/23): 9 T2DM most recent a1c 7.5 (August 2021) per previous charting Patient presents via wheelchair for long distances with cane, temporary due to fall ~2-3 weeks ago (missed a step on the stairs). No wounds or abrasions, taking acetaminophen PRN. Does patient work?: No Past medical history significant for: HTN HLD DM2 Anxiety Obesity UTI: No Kidney stones: Yes - last 2004 Pregnancies: Yes If yes, how many?: 1 Miscarriages: No Chronic anti-coagulation: No Abdominal surgeries: No Cardiovascular Disease?: No Peripheral Arterial Disease (TIA non-embolic, CVA non-embolic, amputation, abnormal PVRs, decreased pulses, etc): No Stroke: No Claudication: No Carotid Artery Stenosis: No DM: Yes Diagnosed at age 50, Type 2, Therapies: oral agents and insulin injections (Insulin start date: 2018), Secondary complications: hypertension, hyperlipidemia, and nephropathy, Blood glucose monitorin/day, Hypoglycemia: No, Unawareness: No, and Frequency: 0 Only when initially starting insulin, nothing since Diabetic ulcers or chronic wounds: No Prior transplant: No CKD: Yes: Cause of CKD: DM2/HTN Living Donors: Yes Residual UO: WNL *Living donor - Patient's daughter in law, but DIL was told her BMI too high to be a living donor Hypercoagulable (hx of DVT/PE, miscarriages, prior use of anticoagulation, etc): No Malignancy (including skin cancer): No Last hospital admission: No overnight stays/admissions that she can recall PAST MEDICAL HISTORY Diagnosis Date Calculus of kidney 2004 Diabetes mellitus without mention of complication DM2 Generalized anxiety disorder HLD (hyperlipidemia) HTN (hypertension) Migraines Obesity PAST SURGICAL HISTORY Procedure Laterality Date ARTHROTOMY W/MENISCUS REPAIR KNEE Right 02/02/2011 Arthroscopy, Partial medial meniscectomy, Chondroplasty medial femoral condyle, Removal of synovial plica LITHOTRIPSY XTRCORP SHOCK WAVE 04/14/2005 Current Outpatient Medications Medication Sig SITagliptin phosphate [...] daily (Patient not taking: Reported on 05/10/2022) Current Facility-Administered Medications Medication Dose Route Frequency perflutren lipid microspheres 1.3 mL in NaCl (PF) 0.9% 10 mL injection (DEFINITY) INTRAVENOUS DIRECTED PRN sodium chloride 0.9 % (flush) 10 mL (BD POSIFLUSH) 10 mL INTRAVENOUS DIRECTED PRN FAMILY HISTORY Problem Relation Age of Onset Cancer Mother pancreatic Kidney Disease Father Heart Father Diabetes Father No Known Problems Sister No Known Problems Son Family Status Relation Name Status Mo Fa Social History Tobacco Use Smoking status: Never Smokeless tobacco: Never Substance Use Topics Alcohol use: Yes Comment: occasional Drug use: No Pre-transplant testing: Cardiac: Echocardiogram: Completed on 08/09/22, results (more content not included)... [facility] 08-01-2023 History of Present illness Narrative Radiology Service Progress Note PATIENT NAME: Florina Alvarez DATE OF SERVICE: August 01, 2023 TIME: 9:50 AM PATIENT IDENTITY VERIFICATION COMPLETED USING TWO (2) IDENTIFIERS: Name and Date of confirmed by patient verbally. FALL SCREENING: Has the patient had 2 falls in the last year or 1 fall with injury or currently using an Ambulatory Assistive Device (Walker, Cane, Wheelchair, Crutches, etc.)? No PATIENT GENDER DATA: Female. status: : No status: NO. PATIENT RELEVANT IMPLANT DATA REVIEWED: Not Applicable PATIENT PRESENTS WITH AN IMPLANTABLE OR ATTACHED CAMPAIGN SPECIALIST: No RADIOLOGY DEPARTMENT: General X-ray: Exam(s) Completed: Chest X-Ray PERIPHERAL IV DATA: Not applicable SIGNED BY: RT Emelyn(R) August 01, 2023 9:50 AM documented in this encounter [facility] 08-01-2023 Note HNO ID: [id number] Author: JESENIA TREVIÑO RN Service: ? Author Type: Registered Nurse Type: Progress Notes Filed: 08/01/2023 10:14 Note Text: PRE-TRANSPLANT PATIENT EDUCATION NOTE Type of Transplant: Kidney Informed Consent for Evaluation signed: Yes Multiple Listing Form signed: Yes READINESS TO LEARN: Cognitive Ability: Alert and oriented Motivation to Learn: Interested Family Support: High - Very involved in pt care Instruction Provided to: Patient and Spouse Patient Learns Best by: Multiple Methods Factors Affecting Learning: None Physical Limitations Affecting Learning: None LEARNING RESPONSE: Diagnosis: CKD Education Topics/Teaching Points: -Discussed living donor evaluation [...] about Kidney Allocation Policy -Directions to access [facility]'s data through the [facility] website. -Informed Consent for Transplant Program Participation patient education packet -National Kidney Registry pamphlet -Covid-19 Vaccination for Transplant Candidates Method of Instruction: Group class instruction Written instruction - handouts Verbal instruction Computer Patient/Family Response: Patient asked appropriate questions, which were answered satisfactorily. Follow-Up Plan: Complete - No need for follow-up Referral/Recommendation: None Jesenia Treviño RN Pre-[employer] [facility] 08-01-2023 History of Present illness Narrative Images from the original note were not included. [facility] [place] [facility] Transplant Evaluation CC: Consultation for Kidney transplant evaluation. Referred by: Phoenix Mayorga [phone] [place] [id number] I will communicate with the referring provider by letter and/or shared electronic medical record. HPI: Patient is a 62 year old female presenting today for ongoing pre-emptive kidney transplant evaluation, last seen in office on 05/10/22. Past medical history of CKD 5 (GFR 9), presumed to be secondary to HTN/DM2 (never had a kidney biopsy), DM2 for 12 years without neuropathy or retinopathy with insulin dependence for approximately 5 years, HTN for 10-15 years, kidney stone s/p lithotripsy 2004, HLD, cellulitis/abscess of L breast, obesity, anxiety, and migraines. Pre-emptive eGFR (08/01/23): 9 T2DM most recent a1c 7.5 (August 2021) per previous charting Patient presents via wheelchair for long distances with cane, temporary due to fall ~2-3 weeks ago (missed a step on the stairs). No wounds or abrasions, taking acetaminophen PRN. Does patient work?: No Past medical history significant for: HTN HLD DM2 Anxiety Obesity UTI: No Kidney stones: Yes - last 2004 Pregnancies: Yes If yes, how many?: 1 Miscarriages: No Chronic anti-coagulation: No Abdominal surgeries: No Cardiovascular Disease?: No Peripheral Arterial Disease (TIA non-embolic, CVA non-embolic, amputation, abnormal PVRs, decreased pulses, etc): No Stroke: No Claudication: No Carotid Artery Stenosis: No DM: Yes Diagnosed at age 50, Type 2, Therapies: oral agents and insulin injections (Insulin start date: 2018), Secondary complications: hypertension, hyperlipidemia, and nephropathy, Blood glucose monitorin/day, Hypoglycemia: No, Unawareness: No, and Frequency: 0 Only when initially starting insulin, nothing since Diabetic ulcers or chronic wounds: No Prior transplant: No CKD: Yes: Cause of CKD: DM2/HTN Living Donors: Yes Residual UO: WNL *Living donor - Patient's daughter in law, but DIL was told her BMI too high to be a living donor Hypercoagulable (hx of DVT/PE, miscarriages, prior use of anticoagulation, etc): No Malignancy (including skin cancer): No Last hospital admission: No overnight stays/admissions that she can recall PAST MEDICAL HISTORY Diagnosis Date Calculus of kidney 2004 Diabetes mellitus without mention of complication DM2 Generalized anxiety disorder HLD (hyperlipidemia) HTN (hypertension) Migraines Obesity PAST SURGICAL HISTORY Procedure Laterality Date ARTHROTOMY W/MENISCUS REPAIR KNEE Right 02/02/2011 Arthroscopy, Partial medial meniscectomy, Chondroplasty medial femoral condyle, Removal of synovial plica LITHOTRIPSY XTRCORP SHOCK WAVE 04/14/2005 Current Outpatient Medications Medication Sig SITagliptin phosphate [...] daily (Patient not taking: Reported on 05/10/2022) Current Facility-Administered Medications Medication Dose Route Frequency perflutren lipid microspheres 1.3 mL in NaCl (PF) 0.9% 10 mL injection (DEFINITY) INTRAVENOUS DIRECTED PRN sodium chloride 0.9 % (flush) 10 mL (BD POSIFLUSH) 10 mL INTRAVENOUS DIRECTED PRN FAMILY HISTORY Problem Relation Age of Onset Cancer Mother pancreatic Kidney Disease Father Heart Father Diabetes Father No Known Problems Sister No Known Problems Son Family Status Relation Name Status Mo Fa Social History Tobacco Use Smoking status: Never Smokeless tobacco: Never Substance Use Topics Alcohol use: Yes Comment: occasional Drug use: No Pre-transplant testing: Cardiac: Echocardiogram: Completed on 08/09/22, results Normal. Impression CONCLUSIONS: - Technically difficult exam due to body habitus. - Exam indication: Pre-kidney tx - The left ventricle is normal in size. Left ventricular systolic function is normal. EF = 61 5% (2D biplane) Left ventricular diastolic function was not evaluated due to inconsistent or technically suboptimal data. - The right ventricle is normal in size. Right ventricular systolic function is normal. There are no significant valvular abnormalities. - The patient has not had a prior CC echocardiographic exam for comparison. Nuclear Stress Test: Completed on 08/09/22, results Normal. CONCLUSIONS: 1. SPECT Perfusion Study: Normal. 2. There is no scintigraphic evidence for inducible ischemia. 3. No evidence of scarred myocardium. 4. Left ventricle is normal in size. The left ventricle systolic function is normal. 5. This is a low risk scan. Gated Stress FBP LVEF % 71 EKG: Completed on 08/01/23, results CXR: Completed on 08/01/23, results PAP Test: Completed on 06/12/22, results Normal. Mammogram: Completed on 06/21/22, results Normal. Colonoscopy: Completed on 06/15/23, results Normal. Impression Normal. Findings All observed locations appeared normal.; Recommendation Follow up with PCP Repeat colonoscopy in [address] Abd/Pel: Completed on 05/10/22, results: IMPRESSION: MILD-MODERATE AORTIC AND ILIAC VASCULAR CALCIFICATION, DESCRIBED. NO ACUTE PROCESS IN THE ABDOMEN OR PELVIS. RESULT: Vascular Calcifications: Aortic and iliac arteries and vascular calcifications: No abdominal aortic or iliac artery aneurysm. Abdominal aorta: Mild (less than 50% circumferential) atherosclerotic calcification Right iliac: Common iliac artery: Mild (less than 50% circumferential) atherosclerotic calcification External iliac artery: Mild (less than 50% circumferential) atherosclerotic calcification Internal iliac artery: Moderate (greater than 50% circumference) atherosclerotic calcification Left iliac: Common iliac artery: Mild (less than 50% circumferential) atherosclerotic calcification External iliac artery: Mild (less than 50% circumferential) atherosclerotic calcification Internal iliac artery: Mild (less than 50% circumferential) atherosclerotic calcification Sensitizations: Prior transplant: No Blood transfusions: No : Yes Rabbit: Yes: PET Immunizations: HBV series: Not received, patient encouraged to obtain Pneumovax: Not received, patient encouraged to obtain Influenza vaccine: Not received, patient encouraged to obtain Covid vaccine: Received, date 05/18/21, 09/03/20, 08/06/[address] Padron, once patient is listed, will be marked as Inactive until BMI <40. If patient doesn't lose weight in 1 year, or if she gains weight, she will be removed from the list. CHETAN DavisN, TELEVISION OPERATOR OF SYSTEMS Constitutional: No chills and fever. HENT: No congestion, hearing loss and sinus pressure. Eyes: No pain and visual disturbance. Respiratory: No cough, chest tightness or shortness of breath. Cardiovascular: No chest pain and leg swelling. Gastrointestinal: No abdominal pain, constipation, nausea or vomiting. Genitourinary: No dysuria and frequency. Musculoskeletal: No joint swelling and myalgias. Neurological: No focal weakness or numbness Functional capacity: >4.0, <8.0 moderate effort such as carrying 15lb KARNOFSKY INDEX SCALE (Adult patients aged 18 and older) - Used to rate a patient's functional status before and after a medical procedure: 90 - Able to carry on normal activity: minor signs or symptoms of disease. PHYSICAL EXAMINATION: BP 141/62 Pulse 62 Temp 36.5 C (97.7 F) (Temporal) Ht 162.6 cm (5' 4.02 ) Wt 112.3 kg (247 lb 9.2 oz) SpO2 100% BMI 42.48 kg/m HEENT: anicteric, conj noninflamed NECK: supple, no JVP Lungs: CTA Bilaterally, no wheezes CV: Normal S1, S2. no pathologic murmurs, rubs, gallops ABD: soft, Non tender Ext: ++ edema Neuro - Alert and oriented Skin dry no cancerous lesions Able to ambulate across the room Labs/Studies: Creatinine Date Value 08/01/2023 5.03 mg/dL 05/10/2022 3.81 mg/dL 01/30/2011 0.6 MG/DL BUN Date Value 08/01/2023 74 mg/dL 05/10/2022 59 mg/dL 01/30/2011 14 MG/DL eGFR-All Other Races (no units) Date Value 01/30/2011 >60 Estimated Glomerular Filtration Rate (mL/min/1.73m ) Date Value 08/01/2023 9 05/10/2022 13 CO2 Date Value 08/01/2023 16 mmol/L 05/10/2022 19 mmol/L 01/30/2011 26 MMOL/L Potassium Date Value 08/01/2023 4.8 mmol/L 05/10/2022 4.8 mmol/L 01/30/2011 4.2 MMOL/L Hemoglobin Date Value 05/10/2022 11.6 g/dL 01/30/2011 12.0 G/DL Platelet Count Date Value 05/10/2022 352 k/uL 01/30/2011 253 x10-3/UL WBC Date Value 05/10/2022 11.55 k/uL 01/30/2011 8.7 x10-3/UL 03/28/2006 7 to 15 /hpf Albumin (g/dL) Date Value 08/01/2023 3.9 05/10/2022 4.0 Phosphorus (mg/dL) Date Value 08/01/2023 6.2 05/10/2022 5.0 Calcium (MG/DL) Date Value 01/30/2011 9.6 Calcium, Total (mg/dL) Date Value 08/01/2023 11.7 05/10/2022 10.9 Impression: 62 year old female here for evaluation of candidacy for transplantation. We had the opportunity to discuss the [...] Patient expresses understanding of the information discussed. Summary 62 year old female proteinuric CKD 5 (GFR 9 today) presumed to be from DM diagnosed in 2011 no retinopathy, kidney stone s/p lithotripsy 2004, HLD, anxiety and migraines presented for kidney transplant evaluation. Planning to do PD. Her dad was on dialysis for about 10 years. Echo and stress from 07/2022 - EF 61% and Normal stress test No ME, stroke, cancer, DVT/PE or recurrent infections No functional impairment She is good candidate for kidney transplant. Given her current issues, we plan: 1. Serology per protocol 2. Mammogram 3. Advised her to loose weight 4. Check monoclonal proteins if Cancer Screening: Type of Cancer: Screening Criteria: [...] patients: Skin will be examined at evaluation Pharmacy Consult: Not needed at this time Opportunity to ask questions given. Patient expresses understanding of the information discussed. Communication with referring provider done by letter. Patient seen , discussed and examined with Transplant Nephrology Staff Momo Kirby MD Transplant Nephrology Fellow P#[id number] 08/01/23 11:22 AM Staff documentation of personal involvement in care: August 02, 2023 I have seen and examined the patient and confirmed the above. I have reviewed relevant labs and imaging pertinent to the care. I have assisted in generating the final recommendations. In addition: Impressive abdominal adiposity, asked her to consider medical or surgical therapy for weight loss. Signed: Yong Hung MD documented in this encounter [facility] 08-01-2023 History of Present illness Narrative PRE-TRANSPLANT PATIENT EDUCATION NOTE Type of Transplant: Kidney Informed Consent for Evaluation signed: Yes Multiple Listing Form signed: Yes READINESS TO LEARN: Cognitive Ability: Alert and oriented Motivation to Learn: Interested Family Support: High - Very involved in pt care Instruction Provided to: Patient and Spouse Patient Learns Best by: Multiple Methods Factors Affecting Learning: None Physical Limitations Affecting Learning: None LEARNING RESPONSE: Diagnosis: CKD Education Topics/Teaching Points: -Discussed living donor evaluation [...] about Kidney Allocation Policy -Directions to access [facility]'s data through the [facility]. -Informed Consent for Transplant Program Participation patient education packet -National Kidney Registry pamphlet -Covid-19 Vaccination for Transplant Candidates Method of Instruction: Group class instruction Written instruction - handouts Verbal instruction Computer Patient/Family Response: Patient asked appropriate questions, which were answered satisfactorily. Follow-Up Plan: Complete - No need for follow-up Referral/Recommendation: None Jesenia Treviño RN Pre-[employer] documented in this encounter [facility] 07-27-2023 Miscellaneous Notes Spoke with patient to confirm scheduled kidney transplant evaluation for next week. Did they receive their schedule? Yes Remind the patient to sign up for MyChart if they have not already - Yes. I asked patient if she wanted a new code she stated yes, I sent code and let patient know its good for 24hr. Tara [place] documented in this encounter [facility] 06-15-2023 Hospital Discharge instructions Shakira Sykes RN [...] having your procedure, call the [facility] [place] to be advised whether a visit to [...] Lab, please call: Nurse Signature Date Patient/Responsible Republican Signature Date documented in this encounter [facility] Work Phone: 06-15-2023 History and physical note History Of Present Illness Florina Alvarez is a 62 y.o. female presenting with [...] Relevant Orders Colonoscopy Screening; High Risk Patient BRUSH OR BROOM CUTTER/Current Medications: (Not in a hospital admission) Current [...] mL/hr at 06/15/23 1436 Sher Fonseca DO [facility] Work Phone: 06-15-2023 History and physical note History Of Present Illness Florina Alvarez is a 62 y.o. female presenting with [...] Relevant Orders Colonoscopy Screening; High Risk Patient BRUSH OR BROOM CUTTER/Current Medications: (Not in a hospital admission) Current [...] Sher Fonseca DO documented in this encounter [facility] Work Phone: 04-02-2023 Miscellaneous Notes Nurse called and spoke with Florina for updates. Pt states that nobody called her for an appt. Nurse explained that perhaps you should call the appointment line at [facility] and provided pt with the appointment line number and hospital number to [facility]. Florina verbalized her understanding and says that she has not started dialysis as of yet. Edward Nieto RN documented in this encounter [facility] 08-23-2022 Note HNO ID: [id number] Author: MERCEDEZ Bishop Service: ? Author Type: Wireless Internet Installer Type: Progress Notes Filed: 08/23/2022 2:52 PM Note Text: Psychosocial Abstract: Social Supports: Pt's will be primary support and pt's sister will be backup support. Financial Concerns: [place] Compliance: Pt is not dialysis dependent at this time. Pt reports compliance with taken all medication as prescribed. Mental Health: No mental health concerns at this time. Substance Use: No current concerns regarding ETOH abuse, street drug use or tobacco use. SIPAT: 13 At this time, pt is a suitable psychosocial candidate. ANH Bishop Transplant Wireless Internet Installer [facility] 08-23-2022 Miscellaneous Notes SW returned phone call from pt's sister Maci ([phone]) regarding backup support. KRISTEN reviewed the follow up care sequence, including lab work twice a week and weekly post transplant clinic appointments. KRISTEN also discussed the need to have a caregiver global safety officer for 2 weeks post transplant. Maci verbalized [...] a suitable psychosocial candidate. ANH Bishop Transplant Wireless Internet Installer documented in this encounter [facility] 08-17-2022 Miscellaneous Notes SW called pt in preparation of selection committee. SW reminded pt that her backup support still needs to be verified. SW requested that she have her backup support contact SW. Pt verbalized understanding. SW will await phone call. MERCEDEZ Bishop-S Transplant Wireless Internet Installer documented in this encounter [facility] 08-16-2022 Note HNO ID: [id number] Author: Deneen Castro RPh Service: ? Author Type: Pharmacist Type: Progress Notes Filed: 08/16/2022 5:05 PM Note Text: I have reviewed the patient?s medication profile and there are no identified medication issues that would preclude transplant in this patient. Deneen Castro RPh [facility] 08-16-2022 History of Present illness Narrative I have reviewed the patient s medication profile and there are no identified medication issues that would preclude transplant in this patient. Deneen Castro RPh documented in this encounter [facility] 08-09-2022 Note HNO ID: [id number] Author: Lima Pinto RN Service: Radiology Author [...] ALLERGIES: Reviewed and unchanged MEDICATIONS REVIEWED BY: Neuro Urologist PROCEDURE TYPE: NM STRESS: 0.4 mg of Lexiscan was administered IV at 1055 by Lima Pinto RN. Reversal agent used: None. Expiration date: 19Dec2025 Lot#: [id number] IV SITE: Ambulatory: A Saline lock was inserted per protocol POST EXAM PIV STATUS: Discontinued PATIENT DISCHARGED TO: Ambulatory patient, left NM department area. A Diagnostic radioactive procedure has taken place, with no further precautions necessary other than routine body substance precautions. More information regarding radiation safety can be found using this link: [email or web address]%2 0Protection %20-%20Diagnostic%20Nuclear%20Me dicine%20Procedures.pdf SIGNATURE: Lima Pinto RN PATIENT NAME: Florina Alvarez DATE: August 09, 2022 TIME: 10:57 AM PAGER/CONTACT #: [facility] 08-09-2022 Note HNO ID: [id number] Author: RT Julia(R) Service: Nuclear Medicine Author Type: Record Maker Type: Progress Notes Filed: 08/09/2022 10:57 AM [...] STATUS: Discontinued PROCEDURE TYPE: NM Stress: 16.8mCi Zg79j-Dpuuduy was administered IV for Rest Imaging at 0944 by RT Jessie(R). 33 mCi Ur77v-Fvybsmg was administered IV for Stress Imaging at 1055 by heather. PATIENT DISCHARGED TO: Ambulatory patient, left NM department area. A Diagnostic radioactive procedure has taken place, with no further precautions necessary other than routine body substance precautions. More information regarding radiation safety can be found using this link: [email or web address]%[email or web address] 0Protection %20-%20Diagnostic%20Nuclear%20Me dicine%20Procedures.pdf SIGNATURE: RT Jessie(R) PATIENT NAME: Florina Alvarez DATE: August 09, 2022 TIME: 9:45 AM PAGER/CONTACT #: [phone] [facility] 08-09-2022 History of Present illness Narrative RADIOLOGY [...] STATUS: Discontinued PROCEDURE TYPE: NM Stress: 16.8mCi Ln92m-Vssclsq was administered IV for Rest Imaging at 0944 by LEOPOLDO Roman). 33 mCi Vz02h-Oaxqnes was administered IV for Stress Imaging at 1055 by heather. PATIENT DISCHARGED TO: Ambulatory patient, left NM department area. A Diagnostic radioactive procedure has taken place, with no further precautions necessary other than routine body substance precautions. More information regarding radiation safety can be found using this link: [email or web address]%2 0Protection%20-%20Diagnostic%20N uclear%20Medicine%20Procedures.p df SIGNATURE: RT Jessie(R) PATIENT NAME: Florina Alvarez DATE: August 09, 2022 TIME: 9:45 AM PAGER/CONTACT #: [phone] RADIOLOGY SERVICE PROGRESS NOTE SERVICE DATE: 08/09/2022 SERVICE TIME: 10:57 AM PATIENT IDENTITY VERIFICATION COMPLETED USING TWO (2) STANDARD IDENTIFIERS: Name and Date of confirmed by patient verbally and Name and Date of confirmed by identification band PATIENT GENDER DATA: female ALLERGIES: Reviewed and unchanged MEDICATIONS REVIEWED BY: Neuro Urologist PROCEDURE TYPE: NM STRESS: 0.4 mg of Lexiscan was administered IV at 1055 by Lima Pinto RN. Reversal agent used: None. Expiration date: 19Dec2025 Lot#: [id number] IV SITE: Ambulatory: A Saline lock was inserted per protocol POST EXAM PIV STATUS: Discontinued PATIENT DISCHARGED TO: Ambulatory patient, left NM department area. A Diagnostic radioactive procedure has taken place, with no further precautions necessary other than routine body substance precautions. More information regarding radiation safety can be found using this link: [email or web address]%2 0Protection%20-%20Diagnostic%20N uclear%20Medicine%20Procedures.p df SIGNATURE: Lima Pinto RN PATIENT NAME: Florina Alvarez DATE: August 09, 2022 TIME: 10:57 AM PAGER/CONTACT #: documented in this encounter [facility] 05-10-2022 History of Present illness Narrative [facility] [place] [facility] Transplant Evaluation CC: Consultation for Kidney transplant evaluation. Referred by: Phoenix Mayorga [address] [facility] [id number] I will communicate with the referring provider [...] 1.3 BUN 16. Long standing diabetes since 2012 insulin dependent for 2 years. Hx kidney stone extraction in 2004, HLD, hematuria, cellulitis, obesity, anxiety, abscess and migraines. No h/o DVT, PE, ME, or CVA Midodrine No No h/o malignancy No anticoagulation -The kidney transplant and kidney/pancreas transplant operations were discussed with the patient at length, and all questions were answered to the patient's satisfaction. Risks, benefits, and alternatives discussed. Risks discussed include but are not limited to: bleeding, infection, , ME, DVT, PE, CVA, risk of damage to [...] remainder of pre transplant evaluation Ayush Adler APRN.SPAR MACHINE OPERATOR documented in this encounter [facility] 05-10-2022 History of Present illness Narrative PSYCHOSOCIAL EVALUATION FOR KIDNEY TRANSPLANT (Assessment Via Telephone) Social Supports: Pt's will be primary support. Pt's backup support needs to be verified. Financial Concerns: [place] Compliance: Pt is not dialysis dependent at this time. Pt reports compliance with taken all medication as prescribed. Mental Health: No mental health concerns at this time. Substance Use: No current concerns regarding ETOH abuse, street drug use or tobacco use. SIPAT: 13 At this time, pt is not yet a suitable psychosocial candidate. __ REFERRAL: Florina Alvarez was referred to Social Work for a psychosocial evaluation to establish if she would be a suitable candidate to receive a kidney transplant. Pt is not dialysis dependent at this time. DIALYSIS START DATE: N/A This social work psychosocial evaluation was completed with Florina Alvarez via telephone on May 10, 2022. Pt's Jean Paul was also on the call. Pt was at at the time of this assessment. Race/Gender: White / Female [place] Citizen: Yes IDENTIFYING INFORMATION/LIVING SITUATION Florina Alvarez resides at [address] [place] [address]. This home is about 1hr & 18min (73 miles) away from . Pt has lived in this [facility] home for the past 34yrs.. Pt denies any architectural barriers in the home. Pt reports she is independent with all ADL's, she has a drivers licenses and a vehicle. Pt denies receiving any home health care or home health aide services at this time. Others in household are: Pt's . Jean Paul-age 64; reports being in good health and he works global safety officer as a material science customer equipment engineer. Jean Paul reports he is independent with all ADL's, he has a drivers licenses and a vehicle. There are 2 licensed drivers in the home and 2 working vehicles. Caregiver responsibilities: None Pets in the home: None TRANSPLANT LODGING PLANS FOR PATIENTS WHO LIVE 2.5 OR MORE [address] AWAY FROM [facility]: Do you have the financial means to stay in the area for four weeks or more post-transplant? N/A COMPREHENSION OF MEDICAL SITUATION Florina Alvarez reports that her kidney disease is due to type 2 diabetes. Pt stated she has been a diabetic for at least 20yrs.. Florina Alvarez was able to recall information that was presented to her today during the kidney transplant educational class. Florina Alvarez has basic knowledge of the transplant process, [...] side-effects? Denies Do you have any moral, gnosticism, or ethical views against transplants or blood [...] to get rid of a hangover (eye case aide)? No LEGAL ENCOUNTERS Currently on probation or [...] spending time with grandchildren. SOCIAL NARRATIVE Florina Alvarez was born in [place], [place] and raised in [place], [place]. She is 61 years of age. Florina Alvarez was raised by her biological mother and [...] son; age 32 and he lives in [place], [place]. EDUCATION Highest Educational Level: High school diploma. Florina Alvarez denies academic problems in school. 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 Current Employment Status: Pt's last employment was in 1999. Paid Status for Recovery: Pt doesn't have a source of income at this time and she rely solely on her husbands income. HEALTH INSURANCE/FINANCIAL Medical Insurance: [place] Payer of Insurance Premium: Pt's via his employer. Prescription Coverage: [employer] Rx Insurance Policy [place]: Pt Medicare Status: Pt doesn't have Medicare at this time. SW reviewed ESRD Medicare and the coordination of [...] Jean Paul verified his commitment. Contact Number: [phone] Health Status and Availability of Caregiver: Jean Paul reports being in good health. / Jean Paul stated he will take off at least 2 weeks to help with caregiver/transportation support. Valid Director Of Employee Development's License/Working Vehicle: Yes / Yes Caregiver Substance Use: Denies Caregiver Mental Health: Denies Secondary Caregiver: Maci Locke (pt's sister) - Maci's commitment needs to be verified. Contact Number: [phone] Health Status and Availability: Maci is reported to be in good health and she is 57yrs old. / Pt stated Maci works global safety officer, however, she could probably take time off to help care for the pt post transplant if and when needed. Maci lives about 15min away from the pt.. Valid Director Of Employee Development's License/Working Vehicle: Yes / Yes Caregiver Substance Use: Per pt, no. Caregiver Mental Health: Per pt, no. PSYCHOSOCIAL RISKS Adherence to Treatment Protocols: Yes Ability to Understand Transplant Center's System of Care: Yes Active Psychiatric Diagnosis: No Financial Resources or Support: Pt identified backup support and her commitment needs to be verified. Body Image/Scar: No IMPRESSIONS/RECOMMENDATIONS Transplant social media sr strategy manager spoke with Florina Alvarez via telephone. Pt's Jean Paul was also on the call. At this time, pt is not yet a suitable psychosocial candidate. -Pt identified backup support and her commitment needs to be verified. Pt needs to have her backup support contact SW in order for SW to verify her [...] discussed the need to have a caregiver global safety officer for 2 weeks post transplant. Florina Alvarez was advised that it is imperative to adhere to the medical regimen and recovery restrictions. Florina Alvarez indicated understanding of this information. Florina Alvarez had the opportunity to discuss any issues and questions. Patient was given information about the kidney transplant process and fund raising options. The patient was given the phone number of the transplant social media sr strategy manager to address future concerns. MERCEDEZ Bishop-S Transplant Wireless Internet Installer documented in this encounter [facility] 05-10-2022 History of Present illness Narrative [facility] [place] [facility] Transplant Evaluation CC: Consultation for Kidney transplant evaluation. Referred by: Phoenix Mayorga [address] [place] [address] I will communicate with the referring provider [...] retinopathy, HTN for 10-15 years, kidney stone 2014 s/p lithotripsy, morbidly obese, HLD, cellulutis, obesity [...] working. Lives with her . She denies ME, CVA/TIA, DVT/PE, malignancies. She is a good kidney transplant candidate but needs to lose weight and complete evaluation as follows: Colonoscopy Mammogram PAP Cardiac stress test Echocardiogram Weight loss (BMI <40) Rabbit allergen SIGNATURE: Marek Roberson MD PAGER: [phone] documented in this encounter [facility] 05-10-2022 History of Present illness Narrative Radiology Service Progress Note PATIENT NAME: Florina Alvarez DATE OF SERVICE: May 10, 2022 TIME: [...] 2022 11:01 AM documented in this encounter [facility] 05-10-2022 History of Present illness Narrative [...] Low-Phosphorus Diet 800-1000mg/day Use [email or web address].[email or web address]/recipes-s earch and [email or web address].Hot [email or web address]/diet-nutr ition/recipes Nutrition Pre-Transplant Assessment No contraindications Nutrition Monitoring & Evaluation: Monitor weight status and labs as available. Monitor diet recall for adherence to recommendations. Need for Follow up: PRN Patient presents for evaluation prior to consideration for kidney transplant. Patient is not on dialysis. Stage 4 CKD. Patient's symptoms are: None Diet History: Breakfast - pc of toast and tea Lunch - Alto (bologna and ketchup and mustard or other [...] Physical limitations affecting learning: None Referred/Supervised by: Jarrell WAY Billing Type: Initial Assess/15 min 2 units SIGNATURE: Geena Huggins RD PATIENT NAME: Florina Alvarez DATE: May 10, 2022 TIME: 10:24 AM PAGER: N/A documented in this encounter [facility] 05-10-2022 History of Present illness Narrative [...] about Kidney Allocation Policy -Directions to access [facility]'s data [facility]. -Informed Consent for Transplant Program Participation patient education packet -National Kidney Registry pamphlet -Covid-19 Vaccination for Transplant Candidates Method of Instruction: Group class instruction Written instruction - handouts Verbal instruction Computer Patient/Family Response: Patient and family member asked appropriate questions, which were answered satisfactorily. Follow-Up Plan: Complete - No need for follow-up Referral/Recommendation: None Seferino Morrissey RN Pre-[employer] documented in this encounter [facility] 02-14-2022 History of Present illness Narrative [...] to registered dietitian for an individual appointment Jesenia Treviño RN Pre-Kidney & Pancreas [employer] [facility] documented in this encounter [facility] 01-12-2022 Miscellaneous Notes First MARJAN jacobsen documented in this encounter [facility] Diagnosis Pre-transplant evaluation for kidney transplant- Primary Other specified pre-operative examination [facility] Diagnosis Pre-transplant evaluation for kidney transplant- Primary Other specified pre-operative examination [facility] Diagnosis Pre-transplant evaluation for ESRD (end stage renal disease)- Primary Other specified pre-operative examination [facility] Diagnosis CKD (chronic kidney disease) stage 4, GFR 15-29 ml/min ([facility])- Primary Chronic kidney disease, Stage IV (severe) Type II diabetes mellitus with complication ([facility]) Type II or unspecified type diabetes mellitus with unspecified complication, not stated as uncontrolled Class 3 severe obesity in adult, unspecified BMI, unspecified obesity type, unspecified whether serious comorbidity present ([facility]) Pre-transplant evaluation for CKD (chronic kidney disease) Other specified pre-operative examination [facility] Diagnosis Pre-transplant evaluation for end stage renal disease- Primary Other specified pre-operative examination [facility] Diagnosis Dietary counseling and surveillance- Primary Dietary surveillance and counseling Awaiting organ transplant Awaiting organ transplant status [facility] Diagnosis Chronic renal failure, stage 4 (severe) ([facility]) Pre-transplant evaluation for kidney transplant Other specified pre-operative examination [facility] Diagnosis Pre-transplant evaluation for end stage renal disease Other specified pre-operative examination Pre-operative cardiovascular examination Encounter for screening for cardiovascular disorders Screening for other and unspecified cardiovascular conditions [facility] Diagnosis Encounter for medication review- Primary Encounter for long-term (current) use of other medications [facility]* Diagnosis Chronic kidney disease (CKD), stage V ([facility])- Primary Chronic kidney disease, Stage V documented in this encounter [facility] Work Phone: Evaluation note* Diagnosis Chronic kidney disease (CKD), stage V (CMS/HCC)- Primary Chronic kidney disease, Stage V documented in this encounter [facility] Work Phone: Evaluation note* Diagnosis Pre-transplant evaluation for kidney transplant- Primary Other specified pre-operative examination Pre-transplant evaluation for CKD (chronic kidney disease) Other specified pre-operative examination Pre-transplant evaluation for kidney transplant- Primary Other specified pre-operative examination Pre-transplant evaluation for CKD (chronic kidney disease) Other specified pre-operative examination [facility] Diagnosis Pre-transplant evaluation for kidney transplant- Primary Other specified pre-operative examination [facility] Diagnosis Pre-transplant evaluation for kidney transplant- Primary Other specified pre-operative examination [facility] Pre-transplant evaluation for kidney transplant- Primary Other specified pre-operative examination Pre-transplant evaluation for CKD (chronic kidney disease) Other specified pre-operative examination [facility] Diagnosis Pre-transplant evaluation for kidney transplant- Primary Other specified pre-operative examination [facility] Diagnosis Pre-transplant evaluation for kidney transplant- Primary Other specified pre-operative examination Pre-transplant evaluation for CKD (chronic kidney disease) Other specified pre-operative examination [facility] Pre-transplant evaluation for kidney transplant- Primary Other specified pre-operative examination [facility] Diagnosis Pre-transplant evaluation for chronic kidney disease Other specified pre-operative examination [facility] Diagnosis Encounter for pre-transplant evaluation for chronic kidney disease- Primary Pre-transplant evaluation for kidney transplant Other specified pre-operative examination CKD (chronic kidney disease) stage 5, GFR less than 15 ml/min (HCC) Chronic kidney disease, Stage V Nephrolithiasis Calculus of kidney Type II diabetes mellitus with complication (HCC) Type II or unspecified type diabetes mellitus with unspecified complication, not stated as uncontrolled [facility] Diagnostic Procedure Only (Urgent) - Closed Specialty Diagnoses / Procedures Referred By Kate braden Referred To Contact MOLECULAR & FUNCTIONAL IMAGING Diagnoses Pre-transplant evaluation for end stage renal disease Pre-operative cardiovascular examination Encounter for screening for cardiovascular disorders Procedures NM CARDIAC PERF STRESS/PHARM MYOCARDIAL SPECT MULTIPLE STUDIES Marek Roberson MD [address] [place] [address] Molecular & Functional Imaging [address] [place] [address] Referral ID Status Reason Start Date Expiration Date V isits Requested Visits Authorized [id number] Closed Auto-Generated Referral Patient Cleared - INN Insurance Found 07/26/2022 07/27/2023 1 1 [facility] Reason for Referral Specialty Diagnoses / Procedures Referred By Kate braden Referred To Contact TRANSPLANT Diagnoses Hypertension, unspecified type Procedures CONSULT TO TRANSPLANT CENTER OFFICE/OUTPATIENT [facility] HIGH MDM 60-74 MINUTES CHEST X-RAY, FRONT&LAT ECG ROUTINE ECG W/LEAST 12 LDS TRCG ONLY W/O I&R CT ANGIOGRAPHY CHEST W/CONTRAST/NONCONTRAST CT ABDOMEN W & W/O CONTRAST Phoenix Mayorga MD [address] [place] [address] Trac Txp Ctr [facility] [address] [place], [place] [id number] Referral ID Status Reason Start Date Expiration Date Visits Requested Visits Authorized [id number] Pending Review Financial Clearance Required - OON Payor 02/01/2022 02/01/2023 99 99 Specialty Diagnoses / Procedures Referred By Contac t Referred To Contact CT IMAGING Diagnoses Chronic renal failure, stage 4 (severe) (HCC) Pre-transplant evaluation for kidney transplant Procedures CT ABD/PEL WO IVCON CT ABD & PELVIS W/O CONTRAST Roel Padron MD [id number] Imaging Referral ID Status Reason Start Date Expiration Date V isits Requested Visits Authorized [id number] Closed Auto-Generated Referral Patient Cleared - INN Insurance Found 04/28/2022 03/16/2023 1 1 Specialty Diagnoses / Procedures Referred By Kate t Referred To Contact Gastroenterology Diagnoses Chronic kidney disease (CKD), stage V (CMS/HCC) Procedures Colonoscopy Screening; High Risk Patient LA COLONOSCOPY FLX DX W/COLLJ SPEC WHEN PFRMD LA COLON CA SCRN NOT HI RSK IND LA COLORECTAL SCRN; HI RISK IND LA COLONOSCOPY W/BIOPSY SINGLE/MULTIPLE LA COLSC FLX W/RMVL OF TUMOR POLYP LESION SNARE TQ LA COLSC FLX W/REMOVAL LESION BY HOT BX FORCEPS Sher Fonseca, DO [address] [facility] [place] [address] Referral ID Status Reason Start Date Expiration Date V isits Requested Visits Authorized [id number] Authorized 04/27/2023 04/26/2024 1 1 Specialty Diagnoses / Procedures Referred By Contac t Referred To Contact Diagnoses Pre-transplant evaluation for kidney transplant Procedures CONSULT TO PSYCHIATRY OFFICE/OUTPATIENT [facility] 60 MINUTES Yong Hung MD [address] [place] [address] Referral ID Status Reason Start Date Expiration Date Visits Requested Visits Authorized [id number] Pending Review PCP Requested Referral 08/08/2023 07/31/2024 1 1 Summary Purpose Family History No [...] or prosecute any alcohol or drug abuse patient.[facility] the event this information is protected by the Federal Confidentiality of Alcohol and Drug Abuse Patient Records regulations: The Federal rules restrict any use of the information to criminally investigate or prosecute any alcohol or drug abuse patient.[facility] HospitalIn the event this information is protected by the Federal Confidentiality of Alcohol and Drug Abuse Patient Records regulations: The Federal rules restrict any use of the information to criminally investigate or prosecute any alcohol or drug abuse patient.[facility] HospitalIn the event this information is protected by the Federal Confidentiality of Alcohol and Drug Abuse Patient Records regulations: The Federal rules restrict any use of the information to criminally investigate or prosecute any alcohol or drug abuse patient.[facility] HospitalIn the event this information is protected by the Federal Confidentiality of Alcohol and Drug Abuse Patient Records regulations: The Federal rules restrict any use of the information to criminally investigate or prosecute any alcohol or drug abuse patient.[facility] HospitalIn the event this information is protected by the Federal Confidentiality of Alcohol and Drug Abuse Patient Records regulations: The Federal rules restrict any use of the information to criminally investigate or prosecute any alcohol or drug abuse patient.[facility] HospitalIn the event this information is protected by the Federal Confidentiality of Alcohol and Drug Abuse Patient Records regulations: The Federal rules restrict any use of the information to criminally investigate or prosecute any alcohol or drug abuse patient.[facility] HospitalIn the event this information is protected by the Federal Confidentiality of Alcohol and Drug Abuse Patient Records regulations: The Federal rules restrict any use of the information to criminally investigate or prosecute any alcohol or drug abuse patient.[facility] HospitalIn the event this information is protected by the Federal Confidentiality of Alcohol and Drug Abuse Patient Records regulations: The Federal rules restrict any use of the information to criminally investigate or prosecute any alcohol or drug abuse patient.[facility] HospitalIn the event this information is protected by the Federal Confidentiality of Alcohol and Drug Abuse Patient Records regulations: The Federal rules restrict any use of the information to criminally investigate or prosecute any alcohol or drug abuse patient.[facility] HospitalIn the event this information is protected by the Federal Confidentiality of Alcohol and Drug Abuse Patient Records regulations: The Federal rules restrict any use of the information to criminally investigate or prosecute any alcohol or drug abuse patient.[facility] HospitalIn the event this information is protected by the Federal Confidentiality of Alcohol and Drug Abuse Patient Records regulations: The Federal rules restrict any use of the information to criminally investigate or prosecute any alcohol or drug abuse patient.[facility] HospitalIn the event this information is protected by the Federal Confidentiality of Alcohol and Drug Abuse Patient Records regulations: The Federal rules restrict any use of the information to criminally investigate or prosecute any alcohol or drug abuse patient.[facility] HospitalIn the event this information is protected by the Federal Confidentiality of Alcohol and Drug Abuse Patient Records regulations: The Federal rules restrict any use of the information to criminally investigate or prosecute any alcohol or drug abuse patient.[facility] HospitalIn the event this information is protected by the Federal Confidentiality of Alcohol and Drug Abuse Patient Records regulations: The Federal rules restrict any use of the information to criminally investigate or prosecute any alcohol or drug abuse patient.[facility] HospitalIn the event this information is protected by the Federal Confidentiality of Alcohol and Drug Abuse Patient Records regulations: The Federal rules restrict any use of the information to criminally investigate or prosecute any alcohol or drug abuse patient.[facility] HospitalIn the event this information is protected by the Federal Confidentiality of Alcohol and Drug Abuse Patient Records regulations: The Federal rules restrict any use of the information to criminally investigate or prosecute any alcohol or drug abuse patient.[facility] HospitalIn the event this information is protected by the Federal Confidentiality of Alcohol and Drug Abuse Patient Records regulations: The Federal rules restrict any use of the information to criminally investigate or prosecute any alcohol or drug abuse patient.[facility] HospitalIn the event this information is protected by the Federal Confidentiality of Alcohol and Drug Abuse Patient Records regulations: The Federal rules restrict any use of the information to criminally investigate or prosecute any alcohol or drug abuse patient.[facility] HospitalIn the event this information is protected by the Federal Confidentiality of Alcohol and Drug Abuse Patient Records regulations: The Federal rules restrict any use of the information to criminally investigate or prosecute any alcohol or drug abuse patient.[facility] HospitalIn the event this information is protected by the Federal Confidentiality of Alcohol and Drug Abuse Patient Records regulations: The Federal rules restrict any use of the information to criminally investigate or prosecute any alcohol or drug abuse patient.[facility] HospitalIn the event this information is protected by the Federal Confidentiality of Alcohol and Drug Abuse Patient Records regulations: The Federal rules restrict any use of the information to criminally investigate or prosecute any alcohol or drug abuse patient.[facility] HospitalIn the event this information is protected by the Federal Confidentiality of Alcohol and Drug Abuse Patient Records regulations: The Federal rules restrict any use of the information to criminally investigate or prosecute any alcohol or drug abuse patient.[facility] HospitalIn the event this information is protected by the Federal Confidentiality of Alcohol and Drug Abuse Patient Records regulations: The Federal rules restrict any use of the information to criminally investigate or prosecute any alcohol or drug abuse patient.[facility] HospitalIn the event this information is protected by the Federal Confidentiality of Alcohol and Drug Abuse Patient Records regulations: The Federal rules restrict any use of the information to criminally investigate or prosecute any alcohol or drug abuse patient.[facility] HospitalIn the event this information is protected by the Federal Confidentiality of Alcohol and Drug Abuse Patient Records regulations: The Federal rules restrict any use of the information to criminally investigate or prosecute any alcohol or drug abuse patient.[facility] HospitalIn the event this information is protected by the Federal Confidentiality of Alcohol and Drug Abuse Patient Records regulations: The Federal rules restrict any use of the information to criminally investigate or prosecute any alcohol or drug abuse patient.[facility] Reason for Visit (unrecogniz ed section and content) Reason Comments Patient Education Reason Comments Transplant Evaluation Reason Comments Patient Education Assessment Specialty Diagnoses / Procedures Referred By Contac t Referred To Contact CT IMAGING Diagnoses Chronic renal failure, stage 4 (severe) (HCC) Pre-transplant evaluation for kidney transplant Procedures CT ABD/PEL WO IVCON CT ABD & PELVIS W/O CONTRAST Roel Padron MD [address] [place] [address] Ct Imaging Referral ID Status Reason Start Date Expiration Date V isits Requested Visits Authorized [id number] Closed Auto-Generated Referral Patient Cleared - INN Insurance Found 04/28/2022 03/16/2023 1 1 Reason Comments Radiology NM Specialty Diagnoses / Procedures Referred By Contac t Referred To Contact MOLECULAR & FUNCTIONAL IMAGING Diagnoses Pre-transplant evaluation for end stage renal disease Pre-operative cardiovascular examination Encounter for screening for cardiovascular disorders Procedures NM CARDIAC PERF STRESS/PHARM MYOCARDIAL SPECT MULTIPLE STUDIES Marek Roberson MD [address] [place] [address] Molecular & Functional Imaging [address] [place] [address] Referral ID Status Reason Start Date Expiration Date V isits Requested Visits Authorized [id number] Closed Auto-Generated Referral Patient Cleared - INN Insurance Found 07/26/2022 07/27/2023 1 1 Reason Comments Follow Up Reason Comments Caregiver Support Reason Comments Patient Update Specialty Diagnoses / Procedures Referred By Contac t Referred To Contact Diagnoses Chronic kidney disease, stage 5 (CMS/HCC) Procedures LA COLONOSCOPY FLX DX W/COLLJ SPEC WHEN PFRMD LA COLONOSCOPY W/BIOPSY SINGLE/MULTIPLE LA COLSC FLX W/RMVL OF TUMOR POLYP LESION SNARE TQ LA COLSC FLX W/REMOVAL LESION BY HOT BX FORCEPS [id number] [address] [place] [address] [phone] Referral ID Status Reason Start Date Expiration Date Visits Re quested Visits Authorized [id number] 1 1 Reason Comments Radio Main J1 Care Teams (unrecognized sec tion and content) Band Director Relationship Specialty Start Date End Date Pcp, No PCP - General 12/03/21 06/20/22 Band Director Relationship Specialty Start Date End Date Pcp, No PCP - General 12/03/21 06/20/22 Band Director Relationship Specialty Start Date End Date Pcp, No PCP - General 12/03/21 06/20/22 Band Director Relationship Specialty Start Date End Date Pcp, No PCP - General 12/03/21 06/20/22 Band Director Relationship Specialty Start Date End Date Pcp, No PCP - General 12/03/21 06/20/22 Band Director Relationship Specialty Start Date End Date Pcp, No PCP - General 12/03/21 06/20/22 Band Director Relationship Specialty Start Date End Date Pcp, No PCP - General 12/03/21 06/20/22 Band Director Relationship Specialty Start Date End Date Phoenix Mayorga MD [address] [place] [address] PCP - General Nephrology 04/27/23 Band Director Relationship Specialty Start Date End Date Phoenix Mayorga MD [address] [place] [address] PCP - General Nephrology 04/27/23 INFORMATION SOURCE (unrecogn ized section and content) DATE CREATED AUTHOR 'S ORGANIZ ATION 08/02/2023 [facility] FOR RECORDS PERTAINING TO PATIENTS WHO ARE [...] BE BASED ON THE PRIMARY CLINICAL RECORDS. [facility] provides no warranty or guarantee of the accuracy or completeness of information in this document.
== END | disposition home or self-care (01) ==
LOC: OPBI 08:29
PROVIDERS: PCP Family Medicine; Referring Provider Family Medicine; Visit Provider Family Medicine
DX: Z12.31 Encounter for screening mammogram for malignant neoplasm of breast (principal)
CPT/HCPCS: 77063; 77067

== ENCOUNTER → 2023-08-10 | Outpatient (CLI) | payer BC, SELFPAY ==
[2023-08-10 12:23] LABS: Cholesterol 95 mg/dL (200); High Density Lipoprotein 39 mg/dL; Triglycerides 152 mg/dL; Very Low Density Lipoprotein 30 mg/dL (5-40)
[2023-08-10 12:28] LABS: Protein, Urine (Random) 202.5 mg/dL (<11.9); Protein:Creat Ratio 8036 mg/g CRE (0-200)
== END | disposition home or self-care (01) ==
LOC: MFPLAB 10:31
PROVIDERS: PCP Family Medicine; Visit Provider Family Medicine
DX: E11.59 Type 2 diabetes mellitus with other circulatory complications (principal)
CPT/HCPCS: 36415; 80061; 82570; 84156

== ENCOUNTER → 2023-09-05 | Outpatient (CLI) | payer BC, SELFPAY ==
[2023-09-05 11:05] LABS: Hemoglobin 11.6 g/dL (12.0-15.0); Mean Corp Hgb Conc 32.2 g/dL (32-36); Mean Corpuscular Hgb 28.6 pg (27.0-32.0); Mean Corpuscular Volume 88.7 fL (81-99); Mean Platelet Vol. 10.9 fl (6.2-12.0); Platelet Count 271 K/mm3 (150-450); RBC Distribution Width CV 15.6 % (11.6-14.6); RBC Distribution Width SD 50.6 fl (35.1-43.9); Red Blood Count 4.06 M/mm3 (4.2-5.4); White Blood Count 11.5 K/mm3 (4.4-11.0)
[2023-09-05 11:41] LABS: PTHIN 65.9 pg/mL (18.4-80.1)
[2023-09-05 11:42] LABS: BUN 63 mg/dL (7-18); BUN/Creat Ratio 13.6 RATIO (10-20); Calcium,Total 11.2 mg/dL (8.5-10.1); Chloride 113 mmol/L (98-107); Creatinine, Serum 4.63 mg/dL (0.55-1.02); EST Glomerular Filtration Rate 10 mL/min (>60); Est Glom Filt Rate - Afr Amer 12 mL/min (>60); Glucose 71 mg/dL (74-106); Phosphorus 4.9 mg/dL (2.5-4.9); Potassium 4.3 mmol/L (3.5-5.1); Sodium Level 138 mmol/L (136-145)
[2023-09-05 11:44] LABS: Vitamin D,25 Hydroxy 34.9 ng/mL
[2023-09-05 12:07] LABS: Protein, Urine (Random) 222.1 mg/dL (<11.9); Protein:Creat Ratio 4736 mg/g CRE (0-200)
== END | disposition home or self-care (01) ==
LOC: LAB 10:11
PROVIDERS: PCP Family Medicine; Referring Provider Nurse Practitioner Adult Health; Visit Provider Nurse Practitioner Adult Health
DX: N18.4 Chronic kidney disease, stage 4 (severe) (principal)
CPT/HCPCS: 36415; 80069; 82306; 82570; 83970; 84156; 85027

== ENCOUNTER → 2023-10-22 | Outpatient (CLI) | payer BC, SELFPAY ==
[2023-10-22 11:31] LABS: Hematocrit 36.5 % (37-47); Hemoglobin 11.5 g/dL (12.0-15.0); Mean Corp Hgb Conc 31.5 g/dL (32-36); Mean Corpuscular Hgb 27.7 pg (27.0-32.0); Platelet Count 295 K/mm3 (150-450); RBC Distribution Width CV 14.6 % (11.6-14.6); Red Blood Count 4.15 M/mm3 (4.2-5.4); White Blood Count 12.2 K/mm3 (4.4-11.0)
[2023-10-22 12:16] LABS: PTHIN 59.5 pg/mL (18.4-80.1)
[2023-10-22 12:21] LABS: Vitamin D,25 Hydroxy 37.1 ng/mL
[2023-10-22 12:32] LABS: Albumin, Serum 3.3 g/dL (3.2-5.0); BUN 73 mg/dL (7-18); BUN/Creat Ratio 14.2 RATIO (10-20); Calcium,Total 11.4 mg/dL (8.5-10.1); Chloride 112 mmol/L (98-107); Creatinine, Serum 5.15 mg/dL (0.55-1.02); EST Glomerular Filtration Rate 9 mL/min (>60); Est Glom Filt Rate - Afr Amer 11 mL/min (>60); Glucose 105 mg/dL (74-106); Phosphorus 5.2 mg/dL (2.5-4.9); Potassium 4.3 mmol/L (3.5-5.1); Sodium Level 137 mmol/L (136-145)
== END | disposition home or self-care (01) ==
LOC: LAB 10:23
PROVIDERS: PCP Family Medicine; Referring Provider Internal Medicine Nephrology; Visit Provider Internal Medicine Nephrology
DX: N18.5 Chronic kidney disease, stage 5 (principal)
CPT/HCPCS: 36415; 80069; 82306; 83970; 85027

== ENCOUNTER → 2023-12-13 | Outpatient (CLI) | payer BC, SELFPAY ==
[2023-12-13 10:27] LABS: Hematocrit 35.4 % (37-47); Hemoglobin 11.1 g/dL (12.0-15.0); Mean Corp Hgb Conc 31.4 g/dL (32-36); Mean Corpuscular Volume 89.4 fL (81-99); Mean Platelet Vol. 10.9 fl (6.2-12.0); Platelet Count 265 K/mm3 (150-450); RBC Distribution Width CV 14.9 % (11.6-14.6); RBC Distribution Width SD 47.7 fl (35.1-43.9); Red Blood Count 3.96 M/mm3 (4.2-5.4); White Blood Count 11.3 K/mm3 (4.4-11.0)
[2023-12-13 11:05] LABS: PTHIN 67.2 pg/mL (18.4-80.1)
[2023-12-13 11:07] LABS: Albumin, Serum 3.2 g/dL (3.2-5.0); BUN 63 mg/dL (7-18); BUN/Creat Ratio 11.9 RATIO (10-20); Calcium,Total 10.4 mg/dL (8.5-10.1); Chloride 112 mmol/L (98-107); Creatinine, Serum 5.31 mg/dL (0.55-1.02); EST Glomerular Filtration Rate 9 mL/min (>60); Est Glom Filt Rate - Afr Amer 11 mL/min (>60); Glucose 85 mg/dL (74-106); Phosphorus 6.2 mg/dL (2.5-4.9); Potassium 5.2 mmol/L (3.5-5.1); Sodium Level 138 mmol/L (136-145)
[2023-12-13 11:09] LABS: Vitamin D,25 Hydroxy 34.8 ng/mL
== END | disposition home or self-care (01) ==
LOC: LAB 09:45
PROVIDERS: PCP Family Medicine; Referring Provider Internal Medicine Nephrology; Visit Provider Internal Medicine Nephrology
DX: N18.5 Chronic kidney disease, stage 5 (principal)
CPT/HCPCS: 36415; 80069; 82306; 83970; 85027

== ENCOUNTER → 2024-02-25 | Outpatient (CLI) | payer BC, SELFPAY ==
[2024-02-25 10:25] LABS: Hematocrit 35.1 % (37-47); Hemoglobin 11.1 g/dL (12.0-15.0); Mean Corp Hgb Conc 31.6 g/dL (32-36); Mean Corpuscular Hgb 28.5 pg (27.0-32.0); Mean Platelet Vol. 11.5 fl (6.2-12.0); Platelet Count 276 K/mm3 (150-450); RBC Distribution Width SD 49.1 fl (35.1-43.9); White Blood Count 12.5 K/mm3 (4.4-11.0)
[2024-02-25 10:36] LABS: PTHIN 98.3 pg/mL (18.4-80.1)
[2024-02-25 10:42] LABS: Vitamin D,25 Hydroxy 51.3 ng/mL
[2024-02-25 11:25] LABS: Albumin, Serum 2.9 g/dL (3.2-5.0); BUN 58 mg/dL (7-18); BUN/Creat Ratio 10.9 RATIO (10-20); Calcium,Total 10.5 mg/dL (8.5-10.1); Chloride 109 mmol/L (98-107); Creatinine, Serum 5.32 mg/dL (0.55-1.02); EST Glomerular Filtration Rate 9 mL/min (>60); Est Glom Filt Rate - Afr Amer 11 mL/min (>60); Glucose 114 mg/dL (74-106); Phosphorus 6.7 mg/dL (2.5-4.9); Potassium 4.3 mmol/L (3.5-5.1); Sodium Level 136 mmol/L (136-145)
== END | disposition home or self-care (01) ==
PROVIDERS: PCP Family Medicine; Referring Provider Nurse Practitioner Adult Health; Visit Provider Nurse Practitioner Adult Health
DX: N18.5 Chronic kidney disease, stage 5 (principal)
CPT/HCPCS: 36415; 80069; 82306; 83970; 85027

== ENCOUNTER → 2024-05-19 | Outpatient (CLI) | payer BC, SELFPAY ==
[2024-05-19 15:12] LABS: Hematocrit 35.6 % (37-47); Hemoglobin 11.5 g/dL (12.0-15.0); Mean Corp Hgb Conc 32.3 g/dL (32-36); Mean Corpuscular Hgb 29.2 pg (27.0-32.0); Mean Corpuscular Volume 90.4 fL (81-99); Mean Platelet Vol. 11.1 fl (6.2-12.0); Platelet Count 268 K/mm3 (150-450); RBC Distribution Width CV 15.1 % (11.6-14.6); Red Blood Count 3.94 M/mm3 (4.2-5.4); White Blood Count 11.2 K/mm3 (4.4-11.0)
[2024-05-19 15:26] LABS: PTHIN 62.3 pg/mL (18.4-80.1)
[2024-05-19 15:30] LABS: Vitamin D,25 Hydroxy 40.6 ng/mL
[2024-05-19 15:39] LABS: Albumin, Serum 3.1 g/dL (3.2-5.0); BUN 62 mg/dL (7-18); BUN/Creat Ratio 10.3 RATIO (10-20); Calcium,Total 11.2 mg/dL (8.5-10.1); Chloride 108 mmol/L (98-107); Creatinine, Serum 6.01 mg/dL (0.55-1.02); EST Glomerular Filtration Rate 8 mL/min (>60); Est Glom Filt Rate - Afr Amer 9 mL/min (>60); Glucose 102 mg/dL (74-106); Potassium 4.5 mmol/L (3.5-5.1); Sodium Level 136 mmol/L (136-145)
== END | disposition home or self-care (01) ==
PROVIDERS: PCP Family Medicine; Referring Provider Internal Medicine Nephrology; Visit Provider Internal Medicine Nephrology
DX: N18.5 Chronic kidney disease, stage 5 (principal)
CPT/HCPCS: 36415; 80069; 82306; 83970; 85027

== ENCOUNTER → 2024-08-19 | Outpatient (CLI) | payer BC, SELFPAY ==
[2024-08-19 12:26] LABS: Absolute Lymphocyte Count 2.38 X10^3/uL (0.83-4.51); Absolute Neutrophil Count 8.9 X10^3/uL (2.0-7.7); Basophil# 0.11 X10^3/uL; Basophil% 0.8 % (0-1); Eosinophil# 0.62 X10^3/uL; Eosinophils% 4.8 % (0-5); Hematocrit 37.6 % (37-47); Hemoglobin 12.1 g/dL (12.0-15.0); Lymphocyte # 2.38 X10^3/ul (0.83-4.51); Lymphocyte % 18.3 % (19-41); Mean Corp Hgb Conc 32.2 g/dL (32-36); Mean Corpuscular Hgb 29.4 pg (27.0-32.0); Mean Corpuscular Volume 91.3 fL (81-99); Mean Platelet Vol. 11.2 fl (6.2-12.0); Monocyte# 0.93 X10^3/uL; Monocyte% 7.2 % (0-10); NRBC Flagged by Analyzer 0 % (0-5); Neutrophil # 8.87 X10^3/uL (2.7-7.7); Neutrophil % 68.4 % (47-70); Platelet Count 306 K/mm3 (150-450); RBC Distribution Width CV 14.6 % (11.6-14.6); RBC Distribution Width SD 48.3 fl (35.1-43.9); Red Blood Count 4.12 M/mm3 (4.2-5.4)
[2024-08-19 12:50] LABS: PTHIN 79 pg/mL (11-61)
[2024-08-19 13:09] LABS: Cholesterol 113 mg/dL (<=200); High Density Lipoprotein 42 mg/dL; Low Density Lipoprotein Calc. 36 mg/dL; Phosphorus 5.8 mg/dL (2.7-4.5); Triglycerides 172 mg/dL; Very Low Density Lipoprotein 34 mg/dL (5-40); Vitamin D,25 Hydroxy 44.8 ng/mL (30-100); cholesterol:hdl ratio screen 2.67
[2024-08-19 13:20] LABS: AST(SGOT) 14 U/L (<=31); Alanine Aminotransfer ALT/SGPT 8 U/L (<=34); Albumin, Serum 3.9 g/dL (3.4-4.8); Alkaline Phosphatase 60 U/L (35-104); Anion Gap 13 (5-15); BUN 52 mg/dL (4-19); BUN/Creat Ratio 8.8 RATIO (10-20); Bilirubin, Direct 0.12 mg/dL (0.00-0.30); Calcium,Total 12.3 mg/dL (7.6-11.0); Chloride 103 mmol/L (98-108); Creatinine, Serum 5.93 mg/dL (0.70-1.20); EST Glomerular Filtration Rate 8 (>60); Globulin 3.7 g/dL (2.2-4.2); Glucose 94 mg/dL (70-99); Potassium 4.9 mmol/L (3.3-5.1); Protein, Total 7.6 g/dL (5.9-8.4); Sodium Level 135 mmol/L (133-145); Total Bilirubin 0.35 mg/dL (0.00-1.30)
== END | disposition home or self-care (01) ==
PROVIDERS: PCP Family Medicine; Referring Provider Family Medicine; Visit Provider Family Medicine
DX: N18.5 Chronic kidney disease, stage 5 (principal)
CPT/HCPCS: 36415; 80048; 80061; 80076; 82306; 83970; 84100; 84443; 85025

== ENCOUNTER → 2024-11-12 | Outpatient (CLI) | payer BC, SELFPAY ==
[2024-11-12 12:39] LABS: Hematocrit 34.9 % (37-47); Hemoglobin 11.3 g/dL (12.0-15.0); Mean Corp Hgb Conc 32.4 g/dL (32-36); Mean Corpuscular Hgb 29.2 pg (27.0-32.0); Mean Corpuscular Volume 90.2 fL (81-99); Platelet Count 252 K/mm3 (150-450); RBC Distribution Width CV 14.6 % (11.6-14.6); Red Blood Count 3.87 M/mm3 (4.2-5.4); White Blood Count 12.9 K/mm3 (4.4-11.0)
[2024-11-12 13:36] LABS: Albumin, Serum 3.6 g/dL (3.4-4.8); Anion Gap 15 (5-15); BUN 59 mg/dL (4-19); BUN/Creat Ratio 10.3 RATIO (10-20); Calcium,Total 10.9 mg/dL (7.6-11.0); Carbon Dioxide 14.6 mmol/L (21.0-32.0); Chloride 106 mmol/L (98-108); Creatinine, Serum 5.74 mg/dL (0.70-1.20); EST Glomerular Filtration Rate 8 (>60); Glucose 93 mg/dL (70-99); Phosphorus 5.7 mg/dL (2.7-4.5); Sodium Level 135 mmol/L (133-145)
[2024-11-12 13:48] LABS: Vitamin D,25 Hydroxy 18.3 ng/mL (30-100)
[2024-11-12 14:05] LABS: PTHIN 124 pg/mL (11-61)
== END | disposition home or self-care (01) ==
LOC: MTLAB 10:18
PROVIDERS: PCP Family Medicine; Referring Provider Internal Medicine Endocrinology, Diabetes & Metabolism; Visit Provider Internal Medicine Endocrinology, Diabetes & Metabolism
DX: E83.52 Hypercalcemia (principal); N18.5 Chronic kidney disease, stage 5
CPT/HCPCS: 36415; 80069; 82306; 82570; 83970; 84156; 85027

== ENCOUNTER → 2025-02-23 | Outpatient (CLI) | payer BC, SELFPAY ==
[2025-02-23 15:46] LABS: Creatinine, Urine (random) 66.20 mg/dL (28.00-217.00)
[2025-02-23 15:49] LABS: Hematocrit 34.1 % (37-47); Hemoglobin 11.2 g/dL (12.0-15.0); Mean Corp Hgb Conc 32.8 g/dL (32-36); Mean Corpuscular Volume 88.3 fL (81-99); Mean Platelet Vol. 11.7 fl (6.2-12.0); Platelet Count 257 K/mm3 (150-450); RBC Distribution Width CV 15.2 % (11.6-14.6); RBC Distribution Width SD 48.4 fl (35.1-43.9); Red Blood Count 3.86 M/mm3 (4.2-5.4); White Blood Count 12.7 K/mm3 (4.4-11.0)
[2025-02-23 15:57] LABS: Protein, Urine (Random) 291.0 mg/dL (0.0-12.0); Protein:Creat Ratio 4396 mg/g CRE (0-200)
[2025-02-23 16:15] LABS: PTHIN 121 pg/mL (11-61)
[2025-02-23 16:28] LABS: Albumin, Serum 3.9 g/dL (3.4-4.8); Anion Gap 15 (5-15); BUN 60 mg/dL (4-19); BUN/Creat Ratio 9.6 RATIO (10-20); Calcium,Total 10.8 mg/dL (7.6-11.0); Carbon Dioxide 14.2 mmol/L (21.0-32.0); Chloride 108 mmol/L (98-108); Glucose 92 mg/dL (70-99); Potassium 4.5 mmol/L (3.3-5.1); Vitamin D,25 Hydroxy 14.6 ng/mL (30-100)
== END | disposition home or self-care (01) ==
LOC: MTLAB 11:30
PROVIDERS: PCP Family Medicine; Referring Provider Internal Medicine Nephrology; Visit Provider Internal Medicine Nephrology
DX: N18.5 Chronic kidney disease, stage 5 (principal)
CPT/HCPCS: 36415; 80069; 82306; 82570; 83970; 84156; 85027

== ENCOUNTER → 2025-04-10 | Outpatient (CLI) | payer BC, SELFPAY ==
--- OUTSIDE RECORDS SUMMARY | 2025-04-10 10:14 | XMS RPT_ITS | CCD ---
Author Organization [facility] Care Team Providers Care Certified Home Health Aide Name Role Phone Dr. Lima Pollard Primary Care Provider [phone] Lima Pollard Referring Provider [phone] RODRIGO Tran Attending Provider Pcp, No Primary Care Provider Dr. Lima Galan Primary Care Provider Dr. Lima Pollard Referring Provider [phone] RODRIGO Tran Attending Provider Unavailable Primary Care Provider Dr. Lima Galan Primary Care Provider Dr. Lima Pollard Referring Provider [phone] RODRIGO Tran Attending Provider [phone] Tiarra Mayorga MD Primary Care Provider MARCUS FONSECA Attending Unavailable MARCUS FONSECA Referring Unavailable TIARRA MAYORGA Primary Care UnavailDr. Lima Cavazos Primary Care Provider [phone] Lima Pollard Referring Provider [phone] RODRIGO Tran Attending Provider [phone] Lima Pollard Primary Care Provider [phone] Lima Pollard Referring Provider [phone] RODRIGO Tran Attending Provider [phone] Unavailable Primary Care Provider TIARRA Tracy Referring Unavailabl e POGGIO, MAREK D Referring Unavailable POGGIO, MAREK D Referring Unavailable POGGIO, MAREK D Referring Unavailable POGGIO, MAREK D Referring Unavailable POGGIO, MAREK D Referring Unavailable POGGIO, MAREK D Referring Unavailable POGGIO, MAREK D Referring Unavailable MUKESH, JAYAPRAKASH R Referring Unavailabl e Atul WILKINSON, Dr. Lima Garvey Primary Care Provider Atul WILKINSON, Dr. Lima Garvey Referring Provider King JAJA, Dr. Montgomery Attending Provider Mukesh WILKINSON, Dr. Medley Attending Provider Mukesh WILKINSON, Dr. Medley Referring Provider Atul WILKINSON, Dr. Lima Garvey Attending Provider Mukesh WILKINSON, Dr. Medley Other Provider Atul WILKINSON, Dr. Lima Garvey Primary Care Provider Atul WILKINSON, Dr. Lima Garvey Referring Provider King JAJA, Dr. Montgomery Attending Provider King JAJA, Dr. Montgomery Referring Provider Mukesh, Jayaprakas Attending Unavailable Jolliff, Lima S Primary Care Unavailable Mukesh, Jayaprakas Referring Unavailable Jolliff, Lima S Primary Care Unavailable Arpit, Ulises Attending Unavailable Jolliff, Lima S Referring Unavailable Jolliff, Lima S Primary Care Unavailable Arpit, Ulises Attending Unavailable Jolliff, Lima S Referring Unavailable Jolliff, Lima S Primary Care Unavailable Arpit, Ulises Attending Unavailable Jolliff, Lima S Referring Unavailable Mukesh, Jayaprakas Attending Unavailable Mukesh, Jayaprakas Referring Unavailable Jolliff, Lima S Primary Care Unavailable Mukesh, Jayaprakas Consulting Unavailable Jolliff, Lima S Primary Care Unavailable Jolliff, Lima S Attending Unavailable Jolliff, Lima S Referring Unavailable Jolliff, Lima S Primary Care Unavailable Arpit, Ulises Attending Unavailable Arpit, Ulises Referring Unavailable Mukesh, Jayaprakas Consulting Unavailable Atul WILKINSON, Dr. Lima Garvey Primary Care Physician Mukesh MD, Dr. Medley Attending Physician [phone] Mukesh WILKINSON, Dr. Medley Referring Provider [phone] Atul WILKINSON, Dr. Lima Garvey Referring Provider King JAJA, Dr. Montgomery Attending Physician Allergies Allergy Classification Reported Allergen(s) Allergy Type Date of Onset Reaction(s) Facility (18 sources) Lisinopril Drug Allergy 09-05-2021 [facility] (18 sources) Ramipril Drug Allergy 09-05-2021 [facility] (1 source) Lisinopril Drug Allergy 03-02-2025 [facility] (1 source) Ramipril Drug Allergy 03-02-2025 [facility] Medications Current Medications Medication Drug Class(es) Dates Sig (Normalized) Sig (Original) allopurinol 100 mg oral tablet (20 sources) Xanthine Oxidase Inhibitor Start: 04-17-2007 take 1 tablet by mouth once daily Allopurinol 100 mg tablet Active 100 mg PO DAILY August 18, 2020 12:00am Complies with drug therapy Comment on above: Take one(1) tablet P O daily with Food amitriptyline hydrochloride 25 mg oral tablet (2 sources) Tricyclic Antidepressant Start: 01-24-2023 take 1 tablet by mouth once daily at bedtime amitriptyline (Elavil) 25 mg tablet Take 1 tablet (25 mg) by mouth once daily at bedtime. 0 01/24/2023 Active amLODIPine 10 mg oral tablet (20 sources) Dihydropyridine Calcium Channel Felisha Start: 07-06-2021 End: 03-02-2025 take 1 tablet by mouth once daily Amlodipine 10 mg tablet Active 10 mg PO DAILY 90 3 March 02, 2025 9:04am Complies with drug therapy Start: 07-06-2021 End: 07-06-2021 Amlodipine 5 mg tablet Disco ntinued NMA PO July 06, 2021 1:00am July 06, 2021 10:46am Start: 07-06-2021 End: 07-06-2021 Amlodipine Discontinued TAB PO July 06, 2021 1:00am July 06, 2021 10:46am Comment on above: Take 10 mg by mouth once daily. aspirin 81 mg delayed release oral tablet (20 sources) Platelet Aggregation Inhibitor, Nonsteroidal Anti-inflammatory Drug Start: 021 take 1 tablet by mouth once daily Aspirin 81 mg tablet,delayed release (DR/EC) Active 81 mg PO DAILY August 18, 2020 12:00am Complies with drug therapy Comment on above: Take 81 mg by mouth once daily. candesartan cilexetil 32 mg / hydroCHLOROthiazide 12.5 mg oral tablet (20 sources) Thiazide Diuretic, Angiotensin 2 Receptor Felisha Start: 007 candesartan/hydroch lorothiazid(ATACAND HCT 32 MG-12.5 MG TAB) 0 04/25/2007 Active dapagliflozin 10 mg oral tablet (20 sources) Sodium-Glucose Cotransporter 2 Inhibitor Start: 022 End: 025 take 1 tablet by mouth once daily Dapagliflozin Propanediol (Farxiga) 10 mg tablet Active 10 mg PO DAILY 90 March 02, 2025 9:04am Complies with drug therapy Start: 07-06-2021 End: 09-05-2021 take 1 tablet by mouth once daily Dapagliflozin Propanediol (Farxiga) 5 mg tablet Discontinued 5 mg PO DAILY 90 July 06, 2021 1:00am September 05, 2021 9:11am Comment on above: Take by mouth daily with breakfast. furosemide 40 mg oral tablet (20 sources) Loop Diuretic Start: 11-28-2023 take 1 tablet by mouth once daily Furosemide 40 mg tablet Active 40 mg PO DAILY November 28, 2023 8:16am Complies with drug therapy Start: 12-05-2021 End: 11-28-2023 Furosemide 40 mg tablet Disc ontinued NMA PO December 05, 2021 12:00am November 28, 2023 8:17am Start: 12-05-2021 Furosemide Act jose luis TAB PO December 05, 2021 12:00am Comment on above: Take 40 mg by mouth twice daily. glipiZIDE er 10 mg 24 hr extended release oral tablet (20 sources) Sulfonylurea Start: 04-10-2005 GLUCOTROL XL 10 MG TAB Take 1 tab twice daily 0 04/10/2005 Active Comment on above: Take 1 tab twice kasia ly insulin isophane, human 70 unt/ml / insulin, regular, human 30 unt/ml injectable suspension (20 sources) Insulin Start: 03-02-2025 Insulin Nph And Regular Human (Novolin 70/30 U-100 Insulin) 100 unit/mL (70-30) suspension Active 0 SC .bidcm 40 3 March 02, 2025 9:04am Diabetes mellitus Type 2 diabetes mellitus with diabetic chronic kidney disease Chronic kidney disease, stage 4 (severe) shelter (current) use of insulin 25 units at breakfast 18 units at supper subcutaneously BIDCM; Complies with drug therapy Start: 09-01-2024 End: 03-02-2025 Insulin Nph And Regular Amara n (Novolin 70/30 U-100 Insulin) 100 unit/mL (70-30) suspension Discontinued 0 SC .bidcm 50 2 December 15, 2024 8:00am March 02, 2025 9:06am Diabetes mellitus Type 2 diabetes mellitus with diabetic chronic kidney disease Chronic kidney disease, stage 4 (severe) shelter (current) use of insulin 28 units at breakfast 26 units at supper subcutaneously BIDCM; Start: 03-13-2024 End: 09-01-2024 Insulin Nph And Regular Amara n (Novolin 70/30 U-100 Insulin) 100 unit/mL (70-30) suspension Discontinued 0 SC .bidcm 70 1 March 13, 2024 9:26am September 01, 2024 9:13am Diabetes mellitus Type 2 diabetes mellitus with diabetic chronic kidney disease Chronic kidney disease, stage 4 (severe) shelter (current) use of insulin 40 units at breakfast 38 units at supper subcutaneously BIDCM; Start: 05-28-2023 NovoLIN 70/30 U-100 Insulin 100 unit/mL (70-30) injection Start: 09-27-2022 End: 03-13-2024 Insulin Nph And Regular Amara n (Novolin 70/30 U-100 Insulin) 100 unit/mL (70-30) suspension Discontinued 44 U SC .bidcm 80 1 December 28, 2023 2:42pm March 13, 2024 9:27am Diabetes mellitus Type 2 diabetes mellitus with diabetic chronic kidney disease Chronic kidney disease, stage 4 (severe) shelter (current) use of insulin metFORMIN hydrochloride 1000 mg oral tablet (20 sources) Biguanide Start: 04-10-2005 GLUCOPHAGE 1,0 00 MG TAB Take 1 tab twice daily 0 04/10/2005 Active Comment on above: Take 1 tab twice kasia ly metoprolol tartrate 75 mg oral tablet (20 sources) beta-Adrenergic Felisha Start: 07-06-2021 End: 11-28-2023 take 1 tablet by mouth twice daily Metoprolol Tartrate 75 mg tablet Active 75 mg PO TWICE A DAY November 28, 2023 8:16am Complies with drug therapy Start: 04-25-2007 End: 05-31-2022 take 1 tablet by mouth twice daily Metoprolol Tartrate 50 mg tablet Discontinued 50 mg PO TWICE A DAY August 18, 2020 12:00am May 31, 2022 9:55am Comment on above: Take one(1) tablet t wice daily. omeprazole 20 mg delayed release oral capsule (2 sources) Proton Pump Inhibitor Start: take 1 capsule by mouth once daily Omeprazole 20 mg capsule,delayed release(DR/EC) Active 20 mg PO daily 90 September 01, 2024 12:00am Complies with drug therapy perflutren lipid microspheres 1.3 mL in NaCl (PF) 0.9% 10 mL injection (DEFINBioGreen Teck) (18 sources) Start: 023 End: perflutren lipid microspheres 1.3 mL in NaCl (PF) 0.9% 10 mL injection (DEFINITY) pioglitazone 30 mg oral tablet (20 sources) Peroxisome Proliferator Receptor alpha Agonist, Peroxisome Proliferator Receptor gamma Agonist, Thiazolidinedione Start: 005 ACTOS 30 MG TAB Take one(1) tablet daily. 0 04/28/2005 Active Comment on above: Take one(1) tablet d aily. sevelamer hydrochloride 800 mg oral tablet (7 sources) Phosphate Binder Start: take 1 tablet by mouth once daily Sevelamer Hcl 800 mg tablet Active 800 mg PO DAILY May 28, 2023 1:00am Complies with drug therapy simvastatin 20 mg oral tablet (20 sources) HMG-CoA Reductase Inhibitor Start: 021 take 1 tablet by mouth once daily Simvastatin 20 mg tablet Active 20 mg PO DAILY August 18, 2020 12:00am Complies with drug therapy Comment on above: Take 20 mg by mouth daily at bedtime. 125 ml sodium chloride 9 mg/ml prefilled syringe (18 sources) Start: 023 End: 024 sodium chloride 0.9 % (flush) 10 mL (BD POSIFLUSH) telmisartan 80 mg oral tablet (20 sources) Angiotensin 2 Receptor Felisha Start: 021 take 1 tablet by mouth once daily Telmisartan 80 mg tablet Active 80 mg PO DAILY August 18, 2020 12:00am Complies with drug therapy Comment on above: Take 80 mg by mouth once daily. Tirzepatide (1 source) Start: Tirzepatide (Mounjaro) 10 mg/0.5 mL pen injector Active 10 mg SC EVERY WEEK 6 March 02, 2025 12:00am Complies with drug therapy Tirzepatide (Mounjaro) 7.5 mg/0.5 mL pen injector (2 sources) Start: Tirzepatide (Mounjaro) 7.5 mg/0.5 mL pen injector Active 7.5 mg SC EVERY WEEK 6 September 01, 2024 5:04pm Start: 09-01-2024 End: 09-01-2024 Tirzepatide (Mounjaro) 7.5 m g/0.5 mL pen injector Discontinued 7.5 mg SC EVERY WEEK 6 September 01, 2024 12:00am September 01, 2024 5:04pm Completed/Discontinued Medications Medication Drug Class(es) Dates Sig (Normalized) Sig (Original) amoxicillin 875 mg / clavulanate 125 mg oral tablet (20 sources) Penicillin-class Antibacterial Start: 08-18-2020 End: 05-31-2022 Amoxicillin-Pot Clavulanate (Augmentin) 875-125 mg tablet Discontinued 1 {tbl} PO TWICE A DAY 10 0 August 26, 2020 9:18am May 31, 2022 9:54am 24 hr calcifediol 0.03 mg extended release oral capsule (9 sources) Start: 05-20-2024 End: 09-01-2024 take 1 capsule by mouth once daily Calcifediol (Rayaldee) 30 mcg capsule,extended release 24 hr Discontinued 30 ug PO DAILY 30 May 20, 2024 8:40am September 01, 2024 8:57am Start: 05-20-2024 take 1 capsule by mo gah once daily Calcifediol (Rayaldee) 30 mcg capsule,extended release 24 hr Active 30 ug PO DAILY May 20, 2024 8:40am Start: 11-29-2023 End: 09-01-2024 take 1 capsule by mouth once daily Calcifediol (Rayaldee) 30 mcg capsule,extended release 24 hr Discontinued 30 ug PO DAILY 17 09May 20, 2024 8:40am September 01, 2024 8:57am calcium chloride 0.0014 meq/ml / potassium chloride 0.004 meq/ml / sodium chloride 0.103 meq/ml / sodium lactate 0.028 meq/ml injectable solution (2 sources) Start: 06-15-2023 End: 06-16-2023 lactated Ringer's infusion cholecalciferol 1.25 mg oral capsule (18 sources) Vitamin D Start: 09-05-2021 End: 11-27-2022 take 1 capsule by mouth every week Cholecalciferol (Vitamin D3) 1,250 mcg (50,000 unit) capsule Discontinued 1250 ug PO EVERY WEEK September 05, 2021 12:00am November 27, 2022 9:12am Vitamin d deficiency Vitamin D deficiency, unspecified desipramine hydrochloride 10 mg oral tablet (12 sources) Tricyclic Antidepressant Start: 11-27-2022 End: 03-13-2024 take 1 tablet by mouth at bedtime Desipramine 10 mg tablet Discontinued 10 mg PO AT BEDTIME 17 10November 27, 2022 12:00am March 13, 2024 9:01am Neuropathy Polyneuropathy, unspecified 0.5 ml dulaglutide 1.5 mg/ml auto-injector (14 sources) GLP-1 Receptor Agonist Start: 05-31-2022 End: 09-25-2022 Dulaglutide (Trulicity) 0.75 mg/0.5 mL pen injector Discontinued 0.75 mg SC EVERY WEEK 2 May 31, 2022 1:00am September 25, 2022 3:51pm Diabetes mellitus Type 2 diabetes mellitus without complications glimepiride 2 mg oral tablet (20 sources) Sulfonylurea Start: 12-05-2021 End: 06-05-2022 take 1 tablet by mouth twice daily Glimepiride 2 mg tablet Discontinued 2 mg PO TWICE A DAY 180 1 December 05, 2021 9:06am June 05, 2022 1:38pm Start: 08-01-2021 End: 12-05-2021 take 1 tablet by mouth once daily Glimepiride 2 mg tablet Discontinued 2 mg PO DAILY 90 3 August 01, 2021 12:00am December 05, 2021 9:06am Comment on above: Take 2 mg by mouth d aily with breakfast. glucagon (rdna) 1 mg injection (2 sources) Antihypoglycemic Agent Start : 06-15 End: 06-15 glucagon (Glucagen) injection hydroCHLOROthiazide 25 mg oral tablet (18 sources) Thiazide Diuretic Start : 08-18 End: 07-06 take 1 tablet by mouth once daily Hydrochlorothiazide 25 mg tablet Discontinued 25 mg PO DAILY August 18, 2020 12:00am July 06, 2021 10:46am 3 ml insulin detemir 100 unt/ml pen injector (20 sources) Insulin Analog Start : 12-05 End: 11-27 Insulin Detemir U-100 100 unit/mL (3 mL) insulin pen Discontinued 50 U SC TWICE A DAY 90 1 June 13, 2022 12:16pm November 27, 2022 9:33am Start: 07-06-2021 End: 12-05-2021 Insulin Detemir U-100 100 un it/mL (3 mL) insulin pen Discontinued 40 U SC July 06, 2021 10:00am December 05, 2021 9:06am Start: 08-18-2020 End: 07-06-2021 Insulin Detemir U-100 100 un it/mL (3 mL) insulin pen Discontinued U SC August 18, 2020 12:00am July 06, 2021 10:00am Start: 08-18-2020 End: 07-06-2021 Insulin Detemir U-100 Discon tinued UNIT SC August 18, 2020 12:00am July 06, 2021 10:00am insulin detemir (LEVEMIR FLEXPEN SUBCUTANEOUS) Inject subcutaneously. Active insulin detemir (LEVEMIR FLEXPEN SUBCUTANEOUS) Inject subcutaneously. 0 Active Comment on above: Inject subcutaneousl y. Meperidine (2 sources) Opioid Agonist Start: 06-15-2023 End: 06-15-2023 meperidine PF (Demerol) injection metFORMIN hydrochloride 1000 mg / SITagliptin 50 mg oral tablet (18 sources) Biguanide, Dipeptidyl Peptidase 4 Inhibitor Start: 08-18-2020 End: 07-06-2021 Sitagliptin Phos-Metformin 50-1,000 mg tablet Discontinued 1 {tbl} PO TWICE A DAY August 18, 2020 12:00am July 06, 2021 10:46am Start: 08-18-2020 End: 07-06-2021 take 1 tablet by mouth twice daily Sitagliptin Phos-Metformin Discontinued 1 TABLET PO TWICE A DAY August 18, 2020 12:00am July 06, 2021 10:46am 2 ml midazolam 5 mg/ml injection (2 sources) Benzodiazepine Start: 06-15-2023 End: 06-15-2023 midazolam PF (Versed) injection SITagliptin 100 mg oral tablet (20 sources) Dipeptidyl Peptidase 4 Inhibitor Start: 07-06-2021 End: 03-13-2024 take 1 tablet by mouth once daily Sitagliptin Phosphate (Januvia) 100 mg tablet Discontinued 100 mg PO DAILY 90 February 27, 2024 1:04pm March 13, 2024 9:26am Comment on above: Take 100 mg by mouth once daily. Tirzepatide (2 sources) Start: 03-13-2024 End: 05-01-2024 Tirzepatide (Mounjaro) 2.5 mg/0.5 mL pen injector Discontinued 2.5 mg SC EVERY WEEK March 13, 2024 9:14am May 01, 2024 10:32am Diabetes mellitus Type 2 diabetes mellitus with diabetic chronic kidney disease Chronic kidney disease, stage 5 emt intermediate (current) use of insulin Start: 11-29-2023 End: 03-13-2024 Tirzepatide (Mounjaro) 2.5 m g/0.5 mL pen injector Discontinued 2.5 mg SC EVERY WEEK November 29, 2023 12:00am March 13, 2024 9:15am Diabetes mellitus Type 2 diabetes mellitus with diabetic chronic kidney disease Chronic kidney disease, stage 5 shelter (current) use of insulin Tirzepatide (2 sources) Start: 08-15-2024 End: 09-01-2024 Tirzepatide (Mounjaro) 5 mg/ 0.5 mL pen injector Discontinued 5 mg SC EVERY WEEK 2 3 August 15, 2024 7:39am September 01, 2024 9:08am Start: 05-01-2024 End: 08-15-2024 Tirzepatide (Mounjaro) 5 mg/ 0.5 mL pen injector Discontinued 5 mg SC EVERY WEEK 2 May 01, 2024 1:00am August 15, 2024 7:40am Tirzepatide (2 sources) Start: 09-01-2024 End: 03-02-2025 Tirzepatide (Mounjaro) 7.5 m g/0.5 mL pen injector Discontinued 7.5 mg SC EVERY WEEK 6 September 01, 2024 5:04pm March 02, 2025 9:06am Start: 09-01-2024 End: 09-01-2024 Tirzepatide (Mounjaro) 7.5 m g/0.5 mL pen injector Discontinued 7.5 mg SC EVERY WEEK 6 September 01, 2024 12:00am September 01, 2024 5:04pm Tirzepatide (Mounjaro) 2.5 mg/0.5 mL pen injector (4 sources) Start: 03-13-2024 End: 05-01-2024 Tirzepatide (Mounjaro) 2.5 mg/0.5 mL pen injector Discontinued 2.5 mg SC EVERY WEEK March 13, 2024 9:14am May 01, 2024 10:32am Diabetes mellitus Type 2 diabetes mellitus with diabetic chronic kidney disease Chronic kidney disease, stage 5 emt intermediate (current) use of insulin Start: 03-13-2024 End: 05-01-2024 Tirzepatide (Mounjaro) 2.5 m g/0.5 mL pen injector Discontinued 2.5 mg SC EVERY WEEK 2 March 13, 2024 9:14am May 01, 2024 10:32am Start: 11-29-2023 End: 03-13-2024 Tirzepatide (Mounjaro) 2.5 m g/0.5 mL pen injector Discontinued 2.5 mg SC EVERY WEEK 2 18 07November 29, 2023 12:00am March 13, 2024 9:15am Diabetes mellitus Type 2 diabetes mellitus with diabetic chronic kidney disease Chronic kidney disease, stage 5 emt intermediate (current) use of insulin Start: 11-29-2023 End: 03-13-2024 Tirzepatide (Mounjaro) 2.5 m g/0.5 mL pen injector Discontinued 2.5 mg SC EVERY WEEK 2 November 29, 2023 12:00am March 13, 2024 9:15am Tirzepatide (Mounjaro) 5 mg/ 0.5 mL pen injector (4 sources) Start: 08-15-2024 End: 09-01-2024 Tirzepatide (Mounjaro) 5 mg/ 0.5 mL pen injector Discontinued 5 mg SC EVERY WEEK 2 August 15, 2024 7:39am September 01, 2024 9:08am Start: 08-15-2024 Tirzepatide (M ounjaro) 5 mg/0.5 mL pen injector Active 5 mg SC EVERY WEEK 2 August 15, 2024 7:39am Start: 05-01-2024 End: 08-15-2024 Tirzepatide (Mounjaro) 5 mg/ 0.5 mL pen injector Discontinued 5 mg SC EVERY WEEK 2 May 01, 2024 1:00am August 15, 2024 7:40am Start: 05-01-2024 End: 08-15-2024 Tirzepatide (Mounjaro) 5 mg/ 0.5 mL pen injector Discontinued 5 mg SC EVERY WEEK 2 May 01, 2024 1:00am August 15, 2024 7:40am Problems Active Problems Problem Classification Problem Date Documented Date Episodic/Chronic Acute and unspecified renal failure (18 sources) Injury of kidney; Translations: [Acute kidney failure, unspecified] 09-02-2020 Episodic Administrative/socia l admission (3 sources) Patient encounter status; Translations: [Dietary counseling and surveillance] Episodic Anxiety disorders (18 sources) Anxiety; Translations: [Anxiety disorder, unspecified] 09-02-2020 Chronic Chronic kidney disease (20 sources) Chronic kidney disease stage 4; Translations: [Chronic kidney disease, stage 4 (severe)] Onset: 01-26-202 4 Chronic Diabetes mellitus with complications (11 sources) Type 2 diabetes mellitus; Translations: [Type 2 diabetes mellitus with unspecified complications] Onset: 4 Chronic Diabetes mellitus without complication (20 sources) Diabetes mellitus; Translations: [Type 2 diabetes mellitus without complications] Chronic Disorders of lipid metabolism (3 sources) Hypercholesterolemia; Translations: [Pure hypercholesterolemia, unspecified] 11-29-2023 Chronic Disorders of teeth and jaw (18 sources) Loss of teeth due to extraction; Translations: [Partial loss of teeth, unspecified cause, unspecified class] 09-02-2020 Episodic Essential hypertension (20 sources) Hypertensive disorder; Translations: [Essential (primary) hypertension] Onset: 4 Chronic Headache; including migraine (18 sources) Migraine; Translations: [Migraine, unspecified, not intractable, without status migrainosus] 09-02-2020 Chronic Nutritional deficiencies (20 sources) Vitamin D deficiency; Translations: [Vitamin D deficiency, unspecified] Onset: 5 05-31-2022 Chronic Other aftercare (1 source) shelter (current) use of insulin; Translations: [emt intermediate (current) use of insulin] Onset: 5 Episodic Other diseases of kidney and ureters (5 sources) Hyperparathyroidism due to renal insufficiency; Translations: [Secondary hyperparathyroidism of renal origin] 11-29-2023 Chronic Other diseases of kidney and ureters (1 source) Secondary hyperparathyroidism of renal origin; Translations: [Secondary hyperparathyroidism of renal origin] Onset: 5 Chronic Other diseases of kidney and ureters (18 sources) Kidney disease; Translations: [Disorder of kidney and ureter, unspecified] 12-05-2021 Episodic Other diseases of kidney and ureters (1 source) Disorder of kidney and ureter, unspecified; Translations: [Unspecified disorder of kidney and ureter] Episodic Other nervous system disorders (10 sources) Neuropathy; Translations: [Polyneuropathy, unspecified] 11-27-2022 Chronic Other nervous system disorders (2 sources) Polyneuropathy, unspecified; Translations: [Mononeuritis of unspecified site] 11-27-2022 Chronic Other nutritional; endocrine; and metabolic disorders (20 sources) Body mass index 30+ - obesity; Translations: [Obesity, unspecified] 07-06-2021 Chronic Other nutritional; endocrine; and metabolic disorders (13 sources) Obesity, unspecified; Translations: [Obesity, unspecified] Onset: 4 Chronic Other nutritional; endocrine; and metabolic disorders (1 source) Severe obesity; Translations: [Morbid (severe) obesity due to excess calories] Chronic Other nutritional; endocrine; and metabolic disorders (16 sources) Hypercalcemia; Translations: [Hypercalcemia] 05-31-2022 Chronic Other nutritional; endocrine; and metabolic disorders (9 sources) Hypercalcemia; Translations: [Hypercalcemia] Onset: 5 05-31-2022 Chronic Other nutritional; endocrine; and metabolic disorders (5 sources) Body mass index 40+ - severely obese; Translations: [Morbid (severe) obesity due to excess calories] Onset: 4 08-03-2023 Chronic Other nutritional; endocrine; and metabolic disorders (1 source) Morbid (severe) obesity due to excess calories; Translations: [Obesity, Class III, BMI 40-49.9 (morbid obesity) ([facility])] Onset: 4 Chronic Residual codes; unclassified (1 source) Awaiting transplantation; Translations: [Awaiting organ transplant status] Chronic Residual codes; unclassified (18 sources) Past history of procedure; Translations: [Other specified postprocedural states] 09-02-2020 Episodic Comment on above: Left Lateral chest- 08/26/20 Skin and subcutaneous tissue infections (18 sources) Pyoderma; Translations: [Cellulitis of other sites] 09-15-2020 Episodic Comment on above: Left chest/adjacent to inframammary lateral breast fold Past or Other Problems Problem Classification Problem Date Documented Date Episodic/Chronic Calculus of urinary tract (20 sources) Kidney stone; Translations: [Calculus of kidney] Onset: 04-10-2005 04-10-2005 Episodic Genitourinary symptoms and ill-defined conditions (20 sources) Extravasation of urine; Translations: [Extravasation of urine] Onset: 04-28-2005 04-28-2005 Episodic Other diseases of kidney and ureters (20 sources) Hydronephrosis; Translations: [Unspecified hydronephrosis] Onset: 04-10-2005 04-10-2005 Episodic Results Test Name Value Interpretation [facility] Endocrinology Visit Reporton 03-02-2025 Endocrinology Visit Report [facility] [address] [place] [address] OFFICE VISIT Date of Service: 03/02/25 MR#: [id number] Acct: [id number] Name: TERESA CORBIN Rep #: [id number] : 1960 Provider: Shira Ray Age/Sex: 64/F [place] [facility] [place]: S[place] Intake Vital Signs 09/01/24 08:55 03/02/25 08:51 Height 5 ft 5 in 5 ft 5 in Weight: 226 lb 6 oz 215 lb BMI 37.6 35.7 BP 179/94 H 170/84 H Blood Pressure Location Lt brachial Rt brachial Position Sitting Sitting Pulse 79 76 Pulse Source Monitor Monitor Pulse Oximetry (%) 98 98 Oxygen Delivery Method room air room air Intake Visit Reasons: 6 M FU Chief Complaint: f/u diabetes Is patient in pain?: No Allergies lisinopril (From Zestril) Adverse Reaction (Mild, Verified 03/02/25 08:54) cough ramipril (From Altace) Adverse Reaction (Mild, Verified 03/02/25 08:54) cough Medications ???Medication ???Instructions ???Recorded ???Confirmed ???Type allopurinol 100 mg tablet 100 mg PO DAILY 08/18/20 03/02/25 History aspirin 81 mg tablet,delayed 81 mg PO DAILY 08/18/20 03/02/25 H istory release simvastatin 20 mg tablet 20 mg PO DAILY 08/18/20 03/02/25 H istory telmisartan 80 mg tablet 80 mg PO DAILY 08/18/20 03/02/25 H istory insulin syringe-needle U-100 0.5 #100 ea 11/27/22 03/02/25 Rx mL 31 gauge x 5/16 (BD Insulin Syringe Ultra-Fine) pen needle, diabetic 32 gauge x #100 ea 11/27/22 03/02/25 Rx 5/32 (BD Ultra-Fine Susan Pen Needle) sevelamer HCl 800 mg tablet 800 mg PO DAILY 05/28/23 03/02/25 History furosemide 40 mg tablet 40 mg PO DAILY 11/28/23 03/02/25 H istory metoprolol tartrate 75 mg tablet 75 mg PO BID 11/28/23 03/02/25 His tory insulin syringe-needle U-100 0.5 #100 ea 03/13/24 03/02/25 Rx mL 31 gauge x 5/16 (BD Insulin Syringe Ultra-Fine) omeprazole 20 mg capsule,delayed 20 mg PO QDAY #90 caps 09/01/24 Rx release Farxiga 10 mg tablet 10 mg PO DAILY #90 tabs 03/02/25 1 Rx (dapagliflozin propanediol) Mounjaro 10 mg/0.5 mL subcutaneous 10 mg (0.5 mL) subcut QWEEK #6 m L 03/02/25 03/02/25 Rx pen injector (tirzepatide) Novolin 70/30 U-100 Insulin 100 See Rx Instructions subcut .bidcm 03/02/25 03/02/25 Rx unit/mL subcutaneous suspension #40 mL (insulin NPH and regular human) amlodipine 10 mg tablet 10 mg PO DAILY #90 tabs 03/02/25 1 Rx PFSH Medical History Hypercalcemia CKD (chronic kidney disease) stage 4, GFR 15-29 ml/min Kidney disease High cholesterol Headache Cellulitis and abscess of other specified site SIMIN (acute kidney injury) Anxiety Migraine Diabetes mellitus HTN (hypertension) Surgical History History of incision and drainage History of extraction of renal calculus History of medial meniscus repair of right knee History of wisdom tooth extraction Family History Father Diabetes Heart disease Kidney disease Mother Cancer pancreas Other Myocardial infarction Social History Smoking Status: Never smoker alcohol intake: current alcohol intake frequency: 0-2 drinks per day substance use type: does not use what type of physical activity do you participate in: walking HPI HPI Chief Complaint: f/u diabetes Details: TERESA CORBIN, is a 64 F who presents to the office today for follow up. A1C is 5.3% She is taking 70/30 premix insulin bid, Farxiga, and Mounjaro 7.5mg She is having lows at 2 am. Her other sugars are under 110. She is down 16 pounds. Vitamin D level is 14.6 She has stage 5 CKD. She has history of hypercalcemia. She isn't taking any supplement at this time. She is on statin ROS Const Constitutional: No fatigue or weight change ENT ENT: No dizziness/vertigo Cardio Cardiology: No chest pain at rest, chest pain with exertion, shortness of breath or palpitations Skin Skin: No wounds Endo Endocrine: No fatigue or weight change Exam Const General: cooperative, healthy appearing, comfortable, no acute distress, well developed and not cushingoid Nutritional Appearance: well nourished Orientation: alert, awake and oriented x3 HENMT Head: normal to inspection Ears: hearing grossly normal bilaterally Nose: external nose normal Mouth: oral mucosae normal Eyes General: appearance normal, both eyes and all related structures Alignment and Position: alignment normal Periorbital: periorbital findings normal Eyelids: eyelids normal Conjunctivae: conjunctivae normal Neck Neck: normal visual inspection Neck mass: No (more content not included)... Normal [facility] - Hematology and Cell countsOrdered By: Ulises Munson on 03-02-2025 HbA1c (Bld) [Mass fraction] 5.3 % 4.2-6.3 [facility] Anion gap in Serum or Plasma Ordered By: Jasmyne Mayorga on 02-23-2025 Anion gap [Moles/Vol] 15 mmol/L - [facility] BUN/creatinine ratioOrdered By: Jasmyne Mayorga on 02-23-2025 Urea nitrogen/Creatinine [Mass ratio] 9.6 mg/mg Low - [facility] CBC-Complete Blood Cnt No Di ffon 02-23-2025 Erythrocyte distribution width (RBC) [Ratio] 15.2 % High 11.6-14.6 [facility] Comment on above: Performed By: #### L 100.0500, L509.1000, L506.1001, L501.0900, L500.3600 #### [facility] [place], [address] Hematocrit (Bld) [Volume fraction] 34.1 % Low 37-47 [facility] Comment on above: Performed By: #### L 100.0500, L509.1000, L506.1001, L501.0900, L500.3600 #### [facility] [address] [place], [address] Hemoglobin (Bld) [Mass/Vol] 11.2 g/dL Low 12.0-15.0 [facility] Comment on above: Performed By: #### L 100.0500, L509.1000, L506.1001, L501.0900, L500.3600 #### [facility] [address] [place], [address] MCH (RBC) [Entitic mass] 29.0 pg Normal 27.0-32.0 [facility] Comment on above: Performed By: #### L 100.0500, L509.1000, L506.1001, L501.0900, L500.3600 #### [facility] [address] [place], [address] MCHC (RBC) [Mass/Vol] 32.8 g/dL Normal 32-[address] [facility] Comment on above: Performed By: #### L 100.0500, L509.1000, L506.1001, L501.0900, L500.3600 #### [facility] [address] [place], [address] MCV (RBC) [Entitic vol] 88.3 fL Normal 81-99 [facility] Comment on above: Performed By: #### L 100.0500, L509.1000, L506.1001, L501.0900, L500.3600 #### [facility] [address] [place], [address] Platelet mean volume (Bld) [Entitic vol] 11.7 fL Normal 6.2-12.0 [facility] Comment on above: Performed By: #### L 100.0500, L509.1000, L506.1001, L501.0900, L500.3600 #### [facility] [address] [place], [address] Platelets (Bld) [#/Vol] 257 10*3/uL Normal 150-450 [facility] Comment on above: Performed By: #### L 100.0500, L509.1000, L506.1001, L501.0900, L500.3600 #### [facility] [address] [place], [address] RBC (Bld) [#/Vol] 3.86 10*6/uL Low 4.2-5.4 [facility] Comment on above: Performed By: #### L 100.0500, L509.1000, L506.1001, L501.0900, L500.3600 #### [facility] [address] [place], [address] RDW SD 48.4 fl High 35.1-43.9 [facility] Comment on above: Performed By: #### L 100.0500, L509.1000, L506.1001, L501.0900, L500.3600 #### [facility] [address] [place], [address] WBC (Bld) [#/Vol] 12.7 10*3/uL High 4.4-11.0 [facility] Comment on above: Performed By: #### L 100.0500, L509.1000, L506.1001, L501.0900, L500.3600 #### [facility] [address] [place], [address] Carbon dioxide, total [Moles /volume] in Central venous bloodOrdered By: Jasmyne Mayorga on 02-23-2025 CO2 [Moles/Vol] 14.2 mmol/L Low 21.0-32.0 [facility] Chloride assayOrdered By: David Mayorga on 02-23-2025 Chloride [Moles/Vol] 108 mmol/L 98-108 [facility] Erythrocyte distribution wid th ratioOrdered By: Jasmyne Mayorga on 02-23-2025 Erythrocyte distribution width (RBC) [Ratio] 15.2 % High 11.6-14.6 [facility] Erythrocyte distribution wid th standard deviationOrdered By: Jasmyne Mayorga on 02-23-2025 Erythrocyte distribution width (RBC) [Ratio] 48.4 fl High 35.1-43.9 [facility] Glomerular filtration rate ( GFR) estimation/1.73 sq m using serum, plasma, or whole bOrdered By: Jasmyne Mayorga on 02-23-2025 GFR/1.73 sq M.predicted among non-blacks MDRD (S/P/Bld) [Vol rate/Area] 7 mL/min/{1.73_m2} Low >60 [facility] Comment on above: mL/min/1.73m2 CKD-EP I Creatinine Equation (2020) Hematocrit Auto (Bld) [Volum e fraction]Ordered By: Jasmyne Mayorga on 02-23-2025 Hematocrit (Bld) [Volume fraction] 34.1 % Low 37-47 [facility] Hemoglobin measurementOrdere d By: Jasmyne Mayorga on 02-23-2025 Hemoglobin (Bld) [Mass/Vol] 11.2 g/dL Low 12.0-15.0 [facility] MCV (mean corpuscular volume ) determinationOrdered By: Jasmyne Mayorga on 02-23-2025 MCV (RBC) [Entitic vol] 88.3 fL 81-99 [facility] Mean corpuscular hemoglobin (MCH) determinationOrdered By: Jasmyne Mayorga on 02-23-2025 MCH (RBC) [Entitic mass] 29.0 pg 27.0-32.0 [facility] Mean corpuscular hemoglobin concentration (MCHC) determinationOrdered By: Jasmyne Mayorga on 02-23-2025 MCHC (RBC) [Mass/Vol] 32.8 g/dL 32-[address] [facility] Mean platelet volume determi nationOrdered By: Jasmyne Mayorga on 02-23-2025 Platelet mean volume (Bld) [Entitic vol] 11.7 fL 6.2-12.0 [facility] PTHINon 02-23-2025 PTH 121 pg/mL High 11-61 [facility] Comment on above: Performed By: #### L 100.0500, L509.1000, L506.1001, L501.0900, L500.3600 ####[facility] [address] [place], [address] Platelet countOrdered By: Daivd Mayorga on 02-23-2025 Platelets (Bld) [#/Vol] 257 10*3/uL 150-450 [facility] Potassium measurement (mass/ volume)Ordered By: Jasmyne Mayorga on 02-23-2025 Potassium (Unsp spec) [Mass/Vol] 4.5 mmol/L 3.3-5.1 [facility] Protein+Creatinine Ratio,Uri neon 02-23-2025 PROT:CRE RATIO 4396 mg/g CRE High 0-200 [facility] Comment on above: Performed By: #### L 100.0500, L509.1000, L506.1001, L501.0900, L500.3600 #### [facility] [address] [place], [address] Protein (U) [Mass/Vol] 291.0 mg/dL High 0.0-12.0 [facility] Comment on above: Performed By: #### L 100.0500, L509.1000, L506.1001, L501.0900, L500.3600 #### [facility] [address] [place], [address] RBC Auto (Bld) [#/Vol]Ordere d By: Jasmyne Mayorga on 02-23-2025 RBC (Bld) [#/Vol] 3.86 10*6/uL Low 4.2-5.4 [facility] Random urine creatinine walter urement (mass/volume)Ordered By: Jasmyne Mayorga on 02-23-2025 Creatinine Unsp time (U) [Mass/Vol] 66.20 mg/dL 28.00-217.00 [facility] Renal Profileon 02-23-2025 Albumin [Mass/Vol] 3.9 g/dL Normal 3.4-4.8 [facility] Comment on above: Performed By: #### L 100.0500, L509.1000, L506.1001, L501.0900, L500.3600 ####[facility] [address] [place], [address] BUN/CRE 9.6 RATIO Low 10-20 [facility] Comment on above: Performed By: #### L 100.0500, L509.1000, L506.1001, L501.0900, L500.3600 ####[facility] [address] [place], [address] Calcium [Mass/Vol] 10.8 mg/dL Normal 7.6-11.0 [facility] Comment on above: Performed By: #### L 100.0500, L509.1000, L506.1001, L501.0900, L500.3600 ####[facility] [address] [place], [address] Chloride [Moles/Vol] 108 mmol/L Normal 98-108 [facility] Comment on above: Performed By: #### L 100.0500, L509.1000, L506.1001, L501.0900, L500.3600 ####[facility] [address] [place], [address] CO2 [Moles/Vol] 14.2 mmol/L Low 21.0-32.0 [facility] Comment on above: Performed By: #### L 100.0500, L509.1000, L506.1001, L501.0900, L500.3600 ####[facility] [address] [place], [address] Creatinine [Mass/Vol] 6.27 mg/dL High 0.70-1.[address] [facility] Comment on above: Performed By: #### L 100.0500, L509.1000, L506.1001, L501.0900, L500.3600 ####[facility] [address] [place], [address] GAP 15 Normal 5-15 [facility] Comment on above: Performed By: #### L 100.0500, L509.1000, L506.1001, L501.0900, L500.3600 ####[facility] [address] [place], [address] GFR/1.73 sq M.predicted among non-blacks MDRD (S/P/Bld) [Vol rate/Area] 7 mL/min/{1.73_m2} Low >60 [facility] Comment on above: Result Comment: mL/m in/1.73m2 CKD-EPI Creatinine Equation (2020) Performed By: #### L 100.0500, L509.1000, L506.1001, L501.0900, L500.3600 ####[facility] [address] [place], [address] Glucose [Mass/Vol] 92 mg/dL Normal 70-99 [facility] Comment on above: Performed By: #### L 100.0500, L509.1000, L506.1001, L501.0900, L500.3600 ####[facility] [address] [place], [address] Phosphate [Mass/Vol] 6.2 mg/dL High 2.7-4.5 [facility] Comment on above: Performed By: #### L 100.0500, L509.1000, L506.1001, L501.0900, L500.3600 ####[facility] [address] [place], [address] Potassium [Moles/Vol] 4.5 mmol/L Normal 3.3-5.[address] [facility] Comment on above: Performed By: #### L 100.0500, L509.1000, L506.1001, L501.0900, L500.3600 ####[facility] [address] [place], [address] Sodium [Moles/Vol] 138 mmol/L Normal 133-145 [facility] Comment on above: Performed By: #### L 100.0500, L509.1000, L506.1001, L501.0900, L500.3600 ####[facility] [address] [place], [address] Urea nitrogen [Mass/Vol] 60 mg/dL High 4-19 [facility] Comment on above: Performed By: #### L 100.0500, L509.1000, L506.1001, L501.0900, L500.3600 ####[facility] [address] [place], [address] Serum creatinine measurement (mass/volume)Ordered By: Jasmyne Mayorga on 02-23-2025 Creatinine [Mass/Vol] 6.27 mg/dL High 0.70-1.[address] [facility] Serum glucose measurement (m ass/volume)Ordered By: Jasmyne Mayorga on 02-23-2025 Glucose [Mass/Vol] 92 mg/dL 70-99 [facility] Serum or plasma albumin walter urement (mass/volume)Ordered By: Jasmyne Mayorga on 02-23-2025 Albumin [Mass/Vol] 3.9 g/dL 3.4-4.8 [facility] Serum or plasma calcium walter urement (mass/volume)Ordered By: Jasmyne Mayorga on 02-23-2025 Calcium [Mass/Vol] 10.8 mg/dL 7.6-11.0 [facility] Serum or plasma urea nitroge n measurement (mass/volume)Ordered By: Jasmyne Mayorga on 02-23-2025 Urea nitrogen [Mass/Vol] 60 mg/dL High 4-19 [facility] Sodium levelOrdered By: Darrius Mayorga on 02-23-2025 Sodium [Moles/Vol] 138 mmol/L 133-145 [facility] Urine protein measurement (m ass/volume)Ordered By: Jasmyne Mayorga on 02-23-2025 Protein (U) [Mass/Vol] 291.0 mg/dL High 0.0-12.0 [facility] Urine protein/creatinine mas s ratioOrdered By: Jasmyne Mayorga on 02-23-2025 Protein/Creatinine (U) [Mass ratio] 4396 mg/g CRE High 0-200 [facility] Vitamin D,25 Hydroxyon 02-23 Vitamin D 25-OH 14.6 ng/mL Low 30-100 [facility] Comment on above: Result Comment: Maricruz min D Status Deficiency: <20 ng/mL (50nmol/L) Insufficiency: 20-30 ng/mL (50-75 nmol/L) Sufficiency: 30-100 ng/mL (75-250 nmol/L) Toxicity: >100 ng/mL (>250 nmol/L) Performed By: #### L 100.0500, L509.1000, L506.1001, L501.0900, L500.3600 ####[facility] [address] [place], [place], [id number] White blood cell (WBC) count Ordered By: Jasmyne Mayorga on 02-23-2025 WBC (Bld) [#/Vol] 12.7 10*3/uL High 4.4-11.0 [facility] Anion gap in Serum or Plasma Ordered By: Ulises Munson on 11-12-2024 Anion gap [Moles/Vol] 15 mmol/L 5-[address] [facility] BUN/creatinine ratioOrdered By: Ulises Munson on 11-12-2024 Urea nitrogen/Creatinine [Mass ratio] 10.3 mg/mg 10-20 [facility] CBC-Complete Blood Cnt No Di ffon 11-12-2024 Erythrocyte distribution width (RBC) [Ratio] 14.6 % Normal 11.6-14.6 [facility] Comment on above: Performed By: #### L 501.0900, L100.0500, L509.1000, L500.3600, L506.1001 #### [facility] [address] [place], [address] Hematocrit (Bld) [Volume fraction] 34.9 % Low 37-47 [facility] Comment on above: Performed By: #### L 501.0900, L100.0500, L509.1000, L500.3600, L506.1001 #### [facility] [address] [place], [address] Hemoglobin (Bld) [Mass/Vol] 11.3 g/dL Low 12.0-15.0 [facility] Comment on above: Performed By: #### L 501.0900, L100.0500, L509.1000, L500.3600, L506.1001 #### [facility] [address] [place], [address] MCH (RBC) [Entitic mass] 29.2 pg Normal 27.0-32.0 [facility] Comment on above: Performed By: #### L 501.0900, L100.0500, L509.1000, L500.3600, L506.1001 #### [facility] [address] [place], [address] MCHC (RBC) [Mass/Vol] 32.4 g/dL Normal 32-[address] [facility] Comment on above: Performed By: #### L 501.0900, L100.0500, L509.1000, L500.3600, L506.1001 #### [facility] [address] [place], [address] MCV (RBC) [Entitic vol] 90.2 fL Normal 81-99 [facility] Comment on above: Performed By: #### L 501.0900, L100.0500, L509.1000, L500.3600, L506.1001 #### [facility] [address] [place], [address] Platelet mean volume (Bld) [Entitic vol] 12.0 fL Normal 6.2-12.0 [facility] Comment on above: Performed By: #### L 501.0900, L100.0500, L509.1000, L500.3600, L506.1001 #### [facility] [address] [place], [address] Platelets (Bld) [#/Vol] 252 10*3/uL Normal 150-450 [facility] Comment on above: Performed By: #### L 501.0900, L100.0500, L509.1000, L500.3600, L506.1001 #### [facility] [address] [place], [address] RBC (Bld) [#/Vol] 3.87 10*6/uL Low 4.2-5.4 [facility] Comment on above: Performed By: #### L 501.0900, L100.0500, L509.1000, L500.3600, L506.1001 #### [facility] [address] [place], [address] RDW SD 48.0 fl High 35.1-43.9 [facility] Comment on above: Performed By: #### L 501.0900, L100.0500, L509.1000, L500.3600, L506.1001 #### [facility] [address] [place], [address] WBC (Bld) [#/Vol] 12.9 10*3/uL High 4.4-11.0 [facility] Comment on above: Performed By: #### L 501.0900, L100.0500, L509.1000, L500.3600, L506.1001 #### [facility] [address] [place], [address] Carbon dioxide, total [Moles /volume] in Central venous bloodOrdered By: Ulises Munson on 11-12-2024 CO2 [Moles/Vol] 14.6 mmol/L Low 21.0-32.0 [facility] Chloride assayOrdered By: Timothy Munson on 11-12-2024 Chloride [Moles/Vol] 106 mmol/L 98-108 [facility] Erythrocyte distribution wid th ratioOrdered By: Ulises Munson on 11-12-2024 Erythrocyte distribution width (RBC) [Ratio] 14.6 % 11.6-14.6 [facility] Erythrocyte distribution wid th standard deviationOrdered By: Ulises Munson on 11-12-2024 Erythrocyte distribution width (RBC) [Ratio] 48.0 fl High 35.1-43.9 [facility] Glomerular filtration rate ( GFR) estimation/1.73 sq m using serum, plasma, or whole bOrdered By: Ulises Munson on 11-12-2024 GFR/1.73 sq M.predicted among non-blacks MDRD (S/P/Bld) [Vol rate/Area] 8 mL/min/{1.73_m2} Low >60 [facility] Comment on above: mL/min/1.73m2 CKD-EP I Creatinine Equation (2020) Hematocrit Auto (Bld) [Volum e fraction]Ordered By: Ulises Munson on 11-12-2024 Hematocrit (Bld) [Volume fraction] 34.9 % Low 37-47 [facility] Hemoglobin measurementOrdere d By: Ulises Munson on 11-12-2024 Hemoglobin (Bld) [Mass/Vol] 11.3 g/dL Low 12.0-15.0 [facility] MCV (mean corpuscular volume ) determinationOrdered By: Ulises Munson on 11-12-2024 MCV (RBC) [Entitic vol] 90.2 fL 81-99 [facility] Mean corpuscular hemoglobin (MCH) determinationOrdered By: Ulises Munson 11-12-2024 MCH (RBC) [Entitic mass] 29.2 pg 27.0-32.0 [facility] Mean corpuscular hemoglobin concentration (MCHC) determinationOrdered By: Ulises Munson on 11-12-2024 MCHC (RBC) [Mass/Vol] 32.4 g/dL 32-[address] [facility] Mean platelet volume determi nationOrdered By: Ulises Munson on 11-12-2024 Platelet mean volume (Bld) [Entitic vol] 12.0 fL 6.2-12.0 [facility] PTHINon 11-12-2024 PTH 124 pg/mL High 11-61 [facility] Comment on above: Performed By: #### L 501.0900, L100.0500, L509.1000, L500.3600, L506.1001 #### [facility] [address] [place], [address] Platelet countOrdered By: Timothy Munson on 11-12-2024 Platelets (Bld) [#/Vol] 252 10*3/uL 150-450 [facility] Potassium measurement (mass/ volume)Ordered By: Ulises Munson on 11-12-2024 Potassium (Unsp spec) [Mass/Vol] 5.0 mmol/L 3.3-5.1 [facility] Protein+Creatinine Ratio,Uri neon 11-12-2024 PROT:CRE RATIO Normal 0-200 [facility] Comment on above: Result Comment: NO U RINE FOUND. EMAIL SENT TO LAB STAFF Performed By: #### L 501.0900, L100.0500, L509.1000, L500.3600, L506.1001 #### [facility] [address] [place], [address] PROTEIN,UR.RAN. Normal 0.0-12.0 [facility] Comment on above: Result Comment: NO U RINE FOUND. EMAIL SENT TO LAB STAFF Performed By: #### L 501.0900, L100.0500, L509.1000, L500.3600, L506.1001 #### [facility] [address] [place], [address] UR CREAT Normal 28.00-217.00 [facility] Comment on above: Result Comment: NO U RINE FOUND. EMAIL SENT TO LAB STAFF Performed By: #### L 501.0900, L100.0500, L509.1000, L500.3600, L506.1001 #### [facility] [address] [place], [address] RBC Auto (Bld) [#/Vol]Ordere d By: Ulises Munson on 11-12-2024 RBC (Bld) [#/Vol] 3.87 10*6/uL Low 4.2-5.4 [facility] Renal Profileon 11-12-2024 Albumin [Mass/Vol] 3.6 g/dL Normal 3.4-4.8 [facility] Comment on above: Order Comment: DR CELENA ZARATE ORDERED BMP Performed By: #### L 501.0900, L100.0500, L509.1000, L500.3600, L506.1001 #### [facility] [address] [place], [address] BUN/CRE 10.3 RATIO Normal 10-20 [facility] Comment on above: Order Comment: DR CELENA ZARATE ORDERED BMP Performed By: #### L 501.0900, L100.0500, L509.1000, L500.3600, L506.1001 #### [facility] [address] [place], [address] Calcium [Mass/Vol] 10.9 mg/dL Normal 7.6-11.0 [facility] Comment on above: Order Comment: DR CELENA ZARATE ORDERED BMP Performed By: #### L 501.0900, L100.0500, L509.1000, L500.3600, L506.1001 #### [facility] [address] [place], [address] Chloride [Moles/Vol] 106 mmol/L Normal 98-108 [facility] [facility] Comment on above: Order Comment: DR CELENA ZARATE ORDERED BMP Performed By: #### L 501.0900, L100.0500, L509.1000, L500.3600, L506.1001 #### [facility] [address] [place], [address] CO2 [Moles/Vol] 14.6 mmol/L Low 21.0-32.0 [facility] Comment on above: Order Comment: DR CELENA ZARATE ORDERED BMP Performed By: #### L 501.0900, L100.0500, L509.1000, L500.3600, L506.1001 #### [facility] [address] [place], [address] Creatinine [Mass/Vol] 5.74 mg/dL High 0.70-1.[address] [facility] Comment on above: Order Comment: DR CELENA ZARATE ORDERED BMP Performed By: #### L 501.0900, L100.0500, L509.1000, L500.3600, L506.1001 #### [facility] [address] [place], [address] GAP 15 Normal 5-15 [facility] Comment on above: Order Comment: DR CELENA ZARATE ORDERED BMP Performed By: #### L 501.0900, L100.0500, L509.1000, L500.3600, L506.1001 #### [facility] [address] [place], [address] GFR/1.73 sq M.predicted among non-blacks MDRD (S/P/Bld) [Vol rate/Area] 8 mL/min/{1.73_m2} Low >60 [facility] Comment on above: Order Comment: DR CELENA ZARATE ORDERED BMP Result Comment: mL/m in/1.73m2 CKD-EPI Creatinine Equation (2020) Performed By: #### L 501.0900, L100.0500, L509.1000, L500.3600, L506.1001 #### [facility] [address] [place], [address] Glucose [Mass/Vol] 93 mg/dL Normal 70-99 [facility] Comment on above: Order Comment: DR CELENA ZARATE ORDERED BMP Performed By: #### L 501.0900, L100.0500, L509.1000, L500.3600, L506.1001 #### [facility] [address] [place], [address] Phosphate [Mass/Vol] 5.7 mg/dL High 2.7-4.5 [facility] Comment on above: Order Comment: DR CELENA ZARATE ORDERED BMP Performed By: #### L 501.0900, L100.0500, L509.1000, L500.3600, L506.1001 #### [facility] [address] [place], [address] Potassium [Moles/Vol] 5.0 mmol/L Normal 3.3-5.[address] [facility] Comment on above: Order Comment: DR CELENA ZARATE ORDERED BMP Performed By: #### L 501.0900, L100.0500, L509.1000, L500.3600, L506.1001 #### [facility] [address] [place], [address] Sodium [Moles/Vol] 135 mmol/L Normal 133-145 [facility] Comment on above: Order Comment: DR CELENA ZARATE ORDERED BMP Performed By: #### L 501.0900, L100.0500, L509.1000, L500.3600, L506.1001 #### [facility] [address] [place], [address] Urea nitrogen [Mass/Vol] 59 mg/dL High 4-19 [facility] Comment on above: Order Comment: DR CELENA ZARATE ORDERED BMP Performed By: #### L 501.0900, L100.0500, L509.1000, L500.3600, L506.1001 #### [facility] [address] [place], [address] Serum creatinine measurement (mass/volume)Ordered By: Ulises Munson on 11-12-2024 Creatinine [Mass/Vol] 5.74 mg/dL High 0.70-1.[address] [facility] Serum glucose measurement (m ass/volume)Ordered By: Ulises Munson on 11-12-2024 Glucose [Mass/Vol] 93 mg/dL 70-99 [facility] Serum or plasma albumin walter urement (mass/volume)Ordered By: Ulises Munson on 11-12-2024 Albumin [Mass/Vol] 3.6 g/dL 3.4-4.8 [facility] Serum or plasma calcium walter urement (mass/volume)Ordered By: Ulises Munson on 11-12-2024 Calcium [Mass/Vol] 10.9 mg/dL 7.6-11.0 [facility] Serum or plasma urea nitroge n measurement (mass/volume)Ordered By: Ulises Munson on 11-12-2024 Urea nitrogen [Mass/Vol] 59 mg/dL High 4-19 [facility] Sodium levelOrdered By: Ulises Munson on 11-12-2024 Sodium [Moles/Vol] 135 mmol/L 133-145 [facility] Vitamin D,25 Hydroxyon 11-12 Vitamin D 25-OH 18.3 ng/mL Low 30-100 [facility] Comment on above: Order Comment: DR CELENA ZARATE ORDERED BMP Result Comment: Maricruz min D Status Deficiency: <20 ng/mL (50nmol/L) Insufficiency: 20-30 ng/mL (50-75 nmol/L) Sufficiency: 30-100 ng/mL (75-250 nmol/L) Toxicity: >100 ng/mL (>250 nmol/L) Performed By: #### L 501.0900, L100.0500, L509.1000, L500.3600, L506.1001 #### [facility] [address] [place], [address] White blood cell (WBC) count Ordered By: Ulises Munson on 11-12-2024 WBC (Bld) [#/Vol] 12.9 10*3/uL High 4.4-11.0 [facility] CNPNon 09-18-2024 CNPN Telephone (AGGENS3) -------- TERESA CORBIN ([id number]) 1960 F Date Time Provider Department 09/18/24 Marsha THAKUR AGGENS3 During your visit today, we recorded the following information about you: Trudi Hernandez 09/18/2024 1:58 PM Signed LM for cb to schedule pd cath consult with Dr. Thakur. Trudi Hernandez September 18, 2024 1:58 PM Allergies As of Date: 09/18/2024 (No Known Allergies) Date Reviewed: 08/02/2023 Reviewed by: Yong Hung MD - Fully Assessed Prescriptions as of 09/18/2024 - SITagliptin phosphate (JANUVIA) 100 mg tablet [...] TAB Take one(1) tablet twice daily. - candesartan/hydrochlorot hiazid(ATACAND HCT 32 MG-12.5 MG TAB) - ALLOPURINOL 100 MG TAB Take one(1) tablet PO daily with Food - ACTOS 30 MG TAB Take one(1) tablet daily. - GLUCOPHAGE 1,000 MG TAB Take 1 tab twice daily - GLUCOTROL XL 10 MG TAB Take 1 tab twice daily Problem List As Of Date 09/18/2024 Noted Resolved Nephrolithiasis [N20.0] 04/10/2005 HYDRONEPHROSIS [N13.30] 04/10/2005 RENAL COLIC [N23] 04/10/2005 EXTRAVASATION OF URINE [R39.0] 04/28/2005 CKD (chronic kidney disease) stage 5, GFR less *08/02/2023 Type II diabetes mellitus with complication (HC*08/02/2023 Obesity, Class III, BMI >= 40 [E66.813] 08/03/2023 Encounter Status:Closed by TRUDI HERNANDEZ on 09/18/24 Normal [facility] Endocrinology Visit Reporton 09-01-2024 Endocrinology Visit Report [facility] [address] [place] [address] OFFICE VISIT Date of Service: 09/01/24 MR#: [id number] Acct: [id number] Name: TERESA CORBIN Rep #: [id number] : 1960 Provider: Shira Ray Age/Sex: 63/F [place] [facility] [place] Status: Signed Intake Vital Signs 05/01/24 08:56 09/01/24 08:55 Height 5 ft 5 in 5 ft 5 in Weight: 240 lb 226 lb 6 oz BMI 39.9 37.6 BP 161/90 H 179/94 H Blood Pressure Location Lt brachial Lt brachial Position Sitting Sitting Pulse 63 79 Pulse Source Monitor Monitor Pulse Oximetry (%) 98 98 Oxygen Delivery Method room air room air Intake Visit Reasons: 4 M FU Chief Complaint: f/u diabetes Is patient in pain?: No Allergies lisinopril (From Zestril) Adverse Reaction (Mild, Verified 09/01/24 08:57) cough ramipril (From Altace) Adverse Reaction (Mild, Verified 09/01/24 08:57) cough Medications ???Medication ???Instructions ???Recorded ???Confirmed ???Type allopurinol 100 mg tablet 100 mg PO DAILY 08/18/20 09/01/24 History aspirin 81 mg tablet,delayed 81 mg PO DAILY 08/18/20 09/01/24 H istory release simvastatin 20 mg tablet 20 mg PO DAILY 08/18/20 09/01/24 H istory telmisartan 80 mg tablet 80 mg PO DAILY 08/18/20 09/01/24 H istory insulin syringe-needle U-100 0.5 #100 ea 11/27/22 09/01/24 Rx mL 31 gauge x 5/16 (BD Insulin Syringe Ultra-Fine) pen needle, diabetic 32 gauge x #100 ea 11/27/22 09/01/24 Rx 5/32 (BD Ultra-Fine Susan Pen Needle) sevelamer HCl 800 mg tablet 800 mg PO DAILY 05/28/23 09/01/24 History furosemide 40 mg tablet 40 mg PO DAILY 11/28/23 09/01/24 H istory metoprolol tartrate 75 mg tablet 75 mg PO BID 11/28/23 09/01/24 His tory insulin syringe-needle U-100 0.5 #100 ea 03/13/24 09/01/24 Rx mL 31 gauge x 5/16 (BD Insulin Syringe Ultra-Fine) amlodipine 10 mg tablet 10 mg PO DAILY #90 tabs 06/03/24 0 09/01/24 Rx Farxiga 10 mg tablet 10 mg PO DAILY #90 tabs 09/01/24 0 09/01/24 Rx (dapagliflozin propanediol) Novolin 70/30 U-100 Insulin 100 See Rx Instructions subcut .bidcm 09/01/24 09/01/24 Rx unit/mL subcutaneous suspension #50 mL (insulin NPH and regular human) omeprazole 20 mg capsule,delayed 20 mg PO QDAY #90 caps 09/01/24 Rx release tirzepatide 7.5 mg/0.5 mL 7.5 mg (0.5 mL) subcut QWEEK #6 mL 09/01/24 09/01/24 Rx subcutaneous pen injector (Mounjaro) [facility] Medical History Hypercalcemia CKD (chronic kidney disease) stage 4, GFR 15-29 ml/min Kidney disease High cholesterol Headache Cellulitis and abscess of other specified site SIMIN (acute kidney injury) Anxiety Migraine Diabetes mellitus HTN (hypertension) Surgical History History of incision and drainage History of extraction of renal calculus History of medial meniscus repair of right knee History of wisdom tooth extraction Family History Father Diabetes Heart disease Kidney disease Mother Cancer pancreas Other Myocardial infarction Social History Smoking Status: Never smoker alcohol intake: current alcohol intake frequency: 0-2 drinks per day substance use type: does not use what type of physical activity do you participate in: walking HPI HPI Chief Complaint: f/u diabetes Details: TERESA CORBIN, is a 63 F who presents to the office today for follow up. A1C is 5.9% She is taking 70-30 bid, Farxiga and Mounjaro. She has lost 11 pounds. She has CKD with secondary hyperparathyroidism. She has been on Rayaldee. She was also taking Rolaids every day. Her calcium was 12.3 She is having symptoms: headache, thirst, brain fog. She stopped the Rolaids and Rayaldee on Sunday. Symptoms have improved. She is on statin. ROS Const Constitutional: No fatigue or weight change ENT ENT: No dizziness/vertigo Cardio Cardiology: No chest pain at rest, chest pain with exertion, shortness of breath or palpitations Skin Skin: No wounds Endo Endocrine: No fatigue or weight change Exam Const General: cooperative, healthy appearing, comfortable, no acute distress, well developed and not cushingoid Nutritional Appearance: well nourished Orientation: alert, awake and oriented x3 HENMT Head: normal to inspection Ears: hearing grossly normal bilaterally Nose: external nose normal Mouth: oral mucosae normal Eyes General: appearance normal, both eyes and all related structures Alignment and Position: alignment normal Periorbital: periorbital findings normal Eyelids: eyelids normal Conjunctivae: conjunctivae barron (more content not included)... [facility] [facility] Telephone (AGGENS3) -------- EMERALDTERESA BROTHERS ([id number]) 1960 F Date Time Provider Department 08/29/24 Marsha THAKUR3 During your visit today, we recorded the following information about you: Trudi Hernandez 08/29/2024 1:20 PM Signed Lm to schedule pd consult with Dr. Thakur. Trudi Hernandez August 29, 2024 1:20 PM Allergies As of Date: 08/29/2024 (No Known Allergies) Date Reviewed: 08/02/2023 Reviewed by: Yong Hung MD - Fully Assessed Prescriptions as of 08/29/2024 - SITagliptin phosphate (JANUVIA) 100 mg tablet [...] TAB Take one(1) tablet twice daily. - candesartan/hydrochlorot hiazid(ATACAND HCT 32 MG-12.5 MG TAB) - ALLOPURINOL 100 MG TAB Take one(1) tablet PO daily with Food - ACTOS 30 MG TAB Take one(1) tablet daily. - GLUCOPHAGE 1,000 MG TAB Take 1 tab twice daily - GLUCOTROL XL 10 MG TAB Take 1 tab twice daily Problem List As Of Date 08/29/2024 Noted Resolved Nephrolithiasis [N20.0] 04/10/2005 HYDRONEPHROSIS [N13.30] 04/10/2005 RENAL COLIC [N23] 04/10/2005 EXTRAVASATION OF URINE [R39.0] 04/28/2005 CKD (chronic kidney disease) stage 5, GFR less *08/02/2023 Type II diabetes mellitus with complication (HC*08/02/2023 Obesity, Class III, BMI >= 40 [E66.01] 08/03/2023 Encounter Status:Closed by TRUDI HERNANDEZ on 08/29/24 [facility] Absolute lymphocyte countOrd ered By: Lima Pollard on 08-19-2024 Lymphocytes Auto (Unsp spec) [#/Vol] 2.38 10*3/uL 0.83-4.51 [facility] Absolute neutrophil countOrd ered By: Lima Pollard on 08-19-2024 Neutrophils (Bld) [#/Vol] 8.9 10*3/uL High 2.0-7.7 [facility] Anion gap in Serum or Plasma Ordered By: Lima Pollard on 08-19-2024 Anion gap [Moles/Vol] 13 mmol/L 5-[address] [facility] Automated lymphocyte count a s percentage of total leukocytesOrdered By: Lima Pollard on 08-19-2024 Lymphocytes/100 WBC Auto (Unsp spec) 18.3 % Low 19-41 [facility] BUN/creatinine ratioOrdered By: Lima Pollard on 08-19-2024 Urea nitrogen/Creatinine [Mass ratio] 8.8 mg/mg Low 10-20 [facility] Basic Metabolic Profile (BMP )on 08-19-2024 BUN/CRE 8.8 RATIO Low 10-20 [facility] Comment on above: Order Comment: Order Date: 08/19/24Order Info: [id number] - BMPDR SUKHJINDERARI ORDERED PTH CBCD VITD RENAL ONLYOrder Info: [id number] - LIVEROrder Info: [id number] - LIPIDOrder Info: [id number] - TSH Performed By: #### L 501.9520, L500.3400, L500.4100, L500.2500 ####[facility] [address] [place], [address] Calcium [Mass/Vol] 12.3 mg/dL High 7.6-11.0 [facility] Comment on above: Order Comment: Order Date: 08/19/24Order Info: 666- - BMPDR DESARI ORDERED PTH CBCD VITD RENAL ONLYOrder Info: [id number] - LIVEROrder Info: [id number] - LIPIDOrder Info: 3 - TSH Performed By: #### L 501.9520, L500.3400, L500.4100, L500.2500 ####[facility] [address] [place], [address] Chloride [Moles/Vol] 103 mmol/L Normal 98-108 [facility] Comment on above: Order Comment: Order Date: 08/19/24Order Info: 666- - BMPDR DESARI ORDERED PTH CBCD VITD RENAL ONLYOrder Info: [id number] - LIVEROrder Info: - LIPIDOrder Info: [id number] - TSH Performed By: #### L 501.9520, L500.3400, L500.4100, L500.2500 ####[facility] [address] [place], [address] CO2 [Moles/Vol] 19.0 mmol/L Low 21.0-32.0 [facility] Comment on above: Order Comment: Order Date: 08/19/24Order Info: [id number] - BMPDR DESARI ORDERED PTH CBCD VITD RENAL ONLYOrder Info: [id number] - LIVEROrder Info: [id number] - LIPIDOrder Info: [id number] - TSH Performed By: #### L 501.9520, L500.3400, L500.4100, L500.2500 ####[facility] [address] [place], [address] Creatinine [Mass/Vol] 5.93 mg/dL High 0.70-1.[address] [facility] Comment on above: Order Comment: Order Date: 08/19/24Order Info: 666- - BMPDR DESARI ORDERED PTH CBCD VITD RENAL ONLYOrder Info: [id number] - LIVEROrder Info: [id number] - LIPIDOrder Info: 3 - TSH Performed By: #### L 501.9520, L500.3400, L500.4100, L500.2500 ####[facility] [address] [place], [address] GAP 13 Normal 5-15 [facility] Comment on above: Order Comment: Order Date: 08/19/24Order Info: [id number] - BMPDR DESARI ORDERED PTH CBCD VITD RENAL ONLYOrder Info: [id number] - LIVEROrder Info: [id number] - LIPIDOrder Info: 3 - TSH Performed By: #### L 501.9520, L500.3400, L500.4100, L500.2500 ####[facility] [address] [place], [address] GFR/1.73 sq M.predicted among non-blacks MDRD (S/P/Bld) [Vol rate/Area] 8 mL/min/{1.73_m2} Low >60 [facility] Comment on above: Order Comment: Order Date: 08/19/24Order Info: [id number] - BMPDR DESARI ORDERED PTH CBCD VITD RENAL ONLYOrder Info: [id number] - LIVEROrder Info: - LIPIDOrder Info: [id number] - TSH Result Comment: mL/m in/1.73m2 CKD-EPI Creatinine Equation (2020) Performed By: #### L 501.9520, L500.3400, L500.4100, L500.2500 ####[facility] [address] [place], [address] Glucose [Mass/Vol] 94 mg/dL Normal 70-99 [facility] Comment on above: Order Comment: Order Date: 08/19/24Order Info: [id number] - BMPDR DESARI ORDERED PTH CBCD VITD RENAL ONLYOrder Info: [id number] - LIVEROrder Info: - LIPIDOrder Info: 3 - TSH Performed By: #### L 501.9520, L500.3400, L500.4100, L500.2500 ####[facility] [address] [place], [address] Potassium [Moles/Vol] 4.9 mmol/L Normal 3.3-5.[address] [facility] Comment on above: Order Comment: Order Date: 08/19/24Order Info: 666- - BMPDR DESARI ORDERED PTH CBCD VITD RENAL ONLYOrder Info: [id number] - LIVEROrder Info: [id number] - LIPIDOrder Info: [id number] - TSH Result Comment: Hemo lysis present, Results??could be affected. ?? Performed By: #### L 501.9520, L500.3400, L500.4100, L500.2500 ####[facility] [address] [place], [address] Sodium [Moles/Vol] 135 mmol/L Normal 133-145 [facility] Comment on above: Order Comment: Order Date: 08/19/24Order Info: [id number] - BMPDR DESARI ORDERED PTH CBCD VITD RENAL ONLYOrder Info: [id number] - LIVEROrder Info: [id number] - LIPIDOrder Info: [id number] - TSH Performed By: #### L 501.9520, L500.3400, L500.4100, L500.2500 ####[facility] [address] [place], [address] Urea nitrogen [Mass/Vol] 52 mg/dL High 4-19 [facility] Comment on above: Order Comment: Order Date: 08/19/24Order Info: [id number] - BMPDR DESARI ORDERED PTH CBCD VITD RENAL ONLYOrder Info: [id number] - LIVEROrder Info: [id number] - LIPIDOrder Info: [id number] - TSH Performed By: #### L 501.9520, L500.3400, L500.4100, L500.2500 ####[facility] [address] [place], [address] Basophil percentageOrdered B y: Lima Pollard on 08-19-2024 Basophils/100 WBC (Bld) 0.8 % 0-1 [facility] Bilirubin directOrdered By: Lima Pollard on 08-19-2024 Bilirubin.direct [Mass/Vol] 0.12 mg/dL 0.00-0.30 [facility] Comment on above: Hemolysis present, R esults could be affected. Bilirubin, totalOrdered By: Lima Atul on 08-19-2024 Bilirubin [Mass/Vol] 0.35 mg/dL 0.00-1.30 [facility] CBC W/Diff, Automatedon Absolute Lymph 2.38 X10 3/uL Normal 0.83-4.51 [facility] Comment on above: Performed By: #### L 506.1001, L501.2300, L509.1000, L100.0100 ####[facility] [address] [place], [address] Absolute Neut 8.9 X10 3/uL High 2.0-7.7 [facility] Comment on above: Performed By: #### L 506.1001, L501.2300, L509.1000, L100.0100 ####[facility] [address] [place], [address] Basophils/100 WBC (Bld) 0.8 % Normal 0-1 [facility] Comment on above: Performed By: #### L 506.1001, L501.2300, L509.1000, L100.0100 ####[facility] [address] [place], [address] Eosinophils/100 WBC (Bld) 4.8 % Normal 0-5 [facility] Comment on above: Performed By: #### L 506.1001, L501.2300, L509.1000, L100.0100 ####[facility] [address] [place], [address] Erythrocyte distribution width (RBC) [Ratio] 14.6 % Normal 11.6-14.6 [facility] Comment on above: Performed By: #### L 506.1001, L501.2300, L509.1000, L100.0100 ####[facility] [address] [place], [address] Hematocrit (Bld) [Volume fraction] 37.6 % Normal 37-47 [facility] Comment on above: Performed By: #### L 506.1001, L501.2300, L509.1000, L100.0100 ####[facility] [address] [place], [address] Hemoglobin (Bld) [Mass/Vol] 12.1 g/dL Normal 12.0-15.0 [facility] Comment on above: Performed By: #### L 506.1001, L501.2300, L509.1000, L100.0100 ####[facility] [address] [place], [address] IG% 0.500 Normal 0.0-0.9 [facility] Comment on above: Result Comment: IG% - Immature Granulocytes (promyelocytes, myelocytes and metamyelocytes) > 1% indicates that a LEFT SHIFT is Present. Performed By: #### L 506.1001, L501.2300, L509.1000, L100.0100 ####[facility] [address] [place], [address] Lymphocytes/100 WBC (Bld) 18.3 % Low 19-41 [facility] Comment on above: Performed By: #### L 506.1001, L501.2300, L509.1000, L100.0100 ####[facility] [address] [place], [address] MCH (RBC) [Entitic mass] 29.4 pg Normal 27.0-32.0 [facility] Comment on above: Performed By: #### L 506.1001, L501.2300, L509.1000, L100.0100 ####[facility] [address] [place], [address] MCHC (RBC) [Mass/Vol] 32.2 g/dL Normal 32-[address] [facility] Comment on above: Performed By: #### L 506.1001, L501.2300, L509.1000, L100.0100 ####[facility] [address] [place], [address] MCV (RBC) [Entitic vol] 91.3 fL Normal 81-99 [facility] Comment on above: Performed By: #### L 506.1001, L501.2300, L509.1000, L100.0100 ####[facility] [address] [place], [address] Monocytes/100 WBC (Bld) 7.2 % Normal 0-10 [facility] Comment on above: Performed By: #### L 506.1001, L501.2300, L509.1000, L100.0100 ####[facility] [address] [place], [address] Neutrophils/100 WBC (Bld) 68.4 % Normal 47-70 [facility] Comment on above: Performed By: #### L 506.1001, L501.2300, L509.1000, L100.0100 ####[facility] [address] [place], [address] Nucleated RBC (Bld) [#/Vol] 0 10*3/uL Normal 0-5 [facility] Comment on above: Performed By: #### L 506.1001, L501.2300, L509.1000, L100.0100 ####[facility] [address] [place], [address] Platelet mean volume (Bld) [Entitic vol] 11.2 fL Normal 6.2-12.0 [facility] Comment on above: Performed By: #### L 506.1001, L501.2300, L509.1000, L100.0100 ####[facility] [address] [place], [address] Platelets (Bld) [#/Vol] 306 10*3/uL Normal 150-450 [facility] Comment on above: Performed By: #### L 506.1001, L501.2300, L509.1000, L100.0100 ####[facility] [address] [place], [address] RBC (Bld) [#/Vol] 4.12 10*6/uL Low 4.2-5.4 [facility] Comment on above: Performed By: #### L 506.1001, L501.2300, L509.1000, L100.0100 ####[facility] [address] [place], [address] RDW SD 48.3 fl High 35.1-43.9 [facility] Comment on above: Performed By: #### L 506.1001, L501.2300, L509.1000, L100.0100 ####[facility] [address] [place], [address] WBC (Bld) [#/Vol] 13.0 10*3/uL High 4.4-11.0 [facility] Comment on above: Performed By: #### L 506.1001, L501.2300, L509.1000, L100.0100 ####[facility] [address] [place], [address] Calculated very low density lipoprotein (VLDL) cholesterol measurementOrdered By: Lima Pollard on 08-19-2024 Calculated very low density lipoprotein (VLDL) cholesterol measurement 34 mg/dL [facility] VLDL Cholesterol 34 mg/dL [facility] Carbon dioxide, total [Moles /volume] in Central venous bloodOrdered By: Lima Pollard on 08-19-2024 CO2 [Moles/Vol] 19.0 mmol/L Low 21.0-32.0 [facility] Chloride assayOrdered By: Antony Pollard on 08-19-2024 Chloride [Moles/Vol] 103 mmol/L 98-108 [facility] Eosinophil percentageOrdered By: Lima Pollard on 08-19-2024 Eosinophils/100 WBC (Bld) 4.8 % 0-5 [facility] Erythrocyte distribution wid th (RBC) [Ratio]Ordered By: Lima Pollard on 08-19-2024 Erythrocyte distribution width (RBC) [Entitic vol] 48.3 fL High 35.1-43.9 [facility] Erythrocyte distribution wid th ratioOrdered By: Lima Pollard on 08-19-2024 Erythrocyte distribution width (RBC) [Ratio] 14.6 % 11.6-14.6 [facility] Erythrocyte distribution wid th standard deviationOrdered By: Lima Pollard on 08-19-2024 Erythrocyte distribution width (RBC) [Ratio] 48.3 fl High 35.1-43.9 [facility] GFR/1.73 sq M.predicted landen g non-blacks MDRD (S/P/Bld) [Vol rate/Area]Ordered By: Lima Pollard on 08-19-2024 Estimated GFR (MDRD) Non-Af Amer 8 Low >60 [facility] Comment on above: mL/min/1.73m2 CKD-EP I Creatinine Equation (2020) Glomerular filtration rate ( GFR) estimation/1.73 sq m using serum, plasma, or whole bOrdered By: Lima Pollard on 08-19-2024 GFR/1.73 sq M.predicted among non-blacks MDRD (S/P/Bld) [Vol rate/Area] 8 mL/min/{1.73_m2} Low >60 [facility] Comment on above: mL/min/1.73m2 CKD-EP I Creatinine Equation (2020) Hematocrit Auto (Bld) [Volum e fraction]Ordered By: Lima Pollard on 08-19-2024 Hematocrit (Bld) [Volume fraction] 37.6 % 37-47 [facility] Hemoglobin measurementOrdere d By: Lima Pollard on 08-19-2024 Hemoglobin (Bld) [Mass/Vol] 12.1 g/dL 12.0-15.0 [facility] Immature granulocytes/100 WB C Auto (Bld)Ordered By: Lima Pollard on 08-19-2024 Immature granulocytes/100 WBC (Bld) 0.500 % 0.0-0.9 [facility] Comment on above: IG% - Immature Granu locytes (promyelocytes, myelocytes and metamyelocytes) > 1% indicates that a LEFT SHIFT is Present. L506.1001on 08-19-2024 Vitamin D 25-OH 44.8 ng/mL Normal 30-100 [facility] Comment on above: Order Comment: Order Date: 08/19/24Order Info: [id number] - BMPDR DESARI ORDERED PTH CBCD VITD RENAL ONLYOrder Info: [id number] - LIVEROrder Info: [id number] - LIPIDOrder Info: [id number] - TSH Result Comment: Maricruz min D Status Deficiency: <20 ng/mL (50nmol/L) Insufficiency: 20-30 ng/mL (50-75 nmol/L) Sufficiency: 30-100 ng/mL (75-250 nmol/L) Toxicity: >100 ng/mL (>250 nmol/L) Performed By: #### L 506.1001, L501.2300, L509.1000, L100.0100 ####[facility] [address] [place], [place], [id number] LDL calc ser/plasOrdered By: Lima Pollard on 08-19-2024 Cholesterol in LDL [Mass/Vol] 36 mg/dL [facility] Comment on above: Zhpurkdaon=560-663 m g/dL & Higher Ujan=152 mg/dL or greater LDL Cholesterol, Calculated 36 mg/dL [facility] Comment on above: Eeujldufvu=803-311 m g/dL & Higher Hrvs=067 mg/dL or greater Laboratory - Chemistry and C hemistry - challengeOrdered By: Lima Pollard on 08-19-2024 AST [Catalytic activity/Vol] 14 U/L <32 [facility] Comment on above: Hemolysis present, R esults could be affected. Lipid Profileon 08-19-2024 CHOL:HDL 2.67 Normal [facility] Comment on above: Order Comment: Order Date: 08/19/24Order Info: [id number] - BMPDR DESARI ORDERED PTH CBCD VITD RENAL ONLYOrder Info: [id number] - LIVEROrder Info: [id number] - LIPIDOrder Info: 3 - TSH Performed By: #### L 501.9520, L500.3400, L500.4100, L500.2500 ####[facility] [address] [place], [address] Cholesterol [Mass/Vol] 113 mg/dL Normal <=200 [facility] Comment on above: Order Comment: Order Date: 08/19/24Order Info: 666- - BMPDR DESARI ORDERED PTH CBCD VITD RENAL ONLYOrder Info: [id number] - LIVEROrder Info: [id number] - LIPIDOrder Info: 3 - TSH Result Comment: Chol esterol level, Desirable <200 mg/dL Borderline high cholesterol 200-239 mg/dL High cholesterol >=240 mg/dL Recommendations of the NCEP Adult Treatment Panel for the following risk-cutoff thresholds for the [place] population. Performed By: #### L 501.9520, L500.3400, L500.4100, L500.2500 ####[facility] [address] [place], [address] Cholesterol in HDL [Mass/Vol] 42 mg/dL Normal [facility] Comment on above: Order Comment: Order Date: 08/19/24Order Info: 06 - BMPDR DESARI ORDERED PTH CBCD VITD RENAL ONLYOrder Info: [id number] - LIVEROrder Info: - LIPIDOrder Info: 3 - TSH Result Comment: [place] onal Cholesterol Education Program (NCEP) guidelines: <40 mg/dL: Low HDL-cholesterol (major risk factor for CHD) >= 60 mg/dL: High HDL-cholesterol (negative risk factor for CHD) HDL-cholesterol is affected by a number of factors, e.g. smoking, exercise, hormones, sex and age. Performed By: #### L 501.9520, L500.3400, L500.4100, L500.2500 ####[facility] [address] [place], [address] Cholesterol in LDL [Mass/Vol] 36 mg/dL Normal [facility] Comment on above: Order Comment: Order Date: 08/19/24Order Info: 666- - BMPDR DESARI ORDERED PTH CBCD VITD RENAL ONLYOrder Info: [id number] - LIVEROrder Info: [id number] - LIPIDOrder Info: [id number] - TSH Result Comment: Bord guwgku=694-197 mg/dL Higher Kkte=229 mg/dL or greater Performed By: #### L 501.9520, L500.3400, L500.4100, L500.2500 ####[facility] [address] [place], [address] Cholesterol in VLDL [Mass/Vol] 34 mg/dL Normal 5-40 [facility] Comment on above: Order Comment: Order Date: 08/19/24Order Info: 666- - BMPDR DESARI ORDERED PTH CBCD VITD RENAL ONLYOrder Info: [id number] - LIVEROrder Info: [id number] - LIPIDOrder Info: [id number] - TSH Performed By: #### L 501.9520, L500.3400, L500.4100, L500.2500 ####[facility] [address] [place], [address] Triglyceride [Mass/Vol] 172 mg/dL Normal [facility] Comment on above: Order Comment: Order Date: 08/19/24Order Info: [id number] - BMPDR DESARI ORDERED PTH CBCD VITD RENAL ONLYOrder Info: [id number] - LIVEROrder Info: [id number] - LIPIDOrder Info: [id number] - TSH Result Comment: The drugs N-Acetylcysteine and Metamizole may falsely depress this assay. Normal range: <150 mg/dL Borderline High: 150-199 mg/dL High: 200-499 mg/dL Very High: >500 mg/dL Performed By: #### L 501.9520, L500.3400, L500.4100, L500.2500 ####[facility] [address] [place], [address] Liver Profileon 08-19-2024 Albumin [Mass/Vol] 3.9 g/dL Normal 3.4-4.8 [facility] Comment on above: Order Comment: Order Date: 08/19/24Order Info: 666- - BMPDR DESARI ORDERED PTH CBCD VITD RENAL ONLYOrder Info: [id number] - LIVEROrder Info: [id number] - LIPIDOrder Info: [id number] - TSH Performed By: #### L 501.9520, L500.3400, L500.4100, L500.2500 ####[facility] [address] [place], [address] ALK PHOS 60 U/L Normal 35-104 [facility] Comment on above: Order Comment: Order Date: 08/19/24Order Info: 666- - BMPDR DESARI ORDERED PTH CBCD VITD RENAL ONLYOrder Info: [id number] - LIVEROrder Info: [id number] - LIPIDOrder Info: [id number] - TSH Performed By: #### L 501.9520, L500.3400, L500.4100, L500.2500 ####[facility] [address] [place], [address] ALT [Catalytic activity/Vol] 8 U/L Normal <=34 [facility] Comment on above: Order Comment: Order Date: 08/19/24Order Info: 666- - BMPDR DESARI ORDERED PTH CBCD VITD RENAL ONLYOrder Info: [id number] - LIVEROrder Info: [id number] - LIPIDOrder Info: 3 - TSH Performed By: #### L 501.9520, L500.3400, L500.4100, L500.2500 ####[facility] [address] [place], [address] AST [Catalytic activity/Vol] 14 U/L Normal <=31 [facility] Comment on above: Order Comment: Order Date: 08/19/24Order Info: 666- - BMPDR DESARI ORDERED PTH CBCD VITD RENAL ONLYOrder Info: [id number] - LIVEROrder Info: [id number] - LIPIDOrder Info: [id number] - TSH Result Comment: Hemo lysis present, Results??could be affected. ?? Performed By: #### L 501.9520, L500.3400, L500.4100, L500.2500 ####[facility] [address] [place], [address] Bilirubin [Mass/Vol] 0.35 mg/dL Normal 0.00-1.30 [facility] Comment on above: Order Comment: Order Date: 08/19/24Order Info: 666-1 - BMPDR DESARI ORDERED PTH CBCD VITD RENAL ONLYOrder Info: [id number] - LIVEROrder Info: [id number] - LIPIDOrder Info: [id number] - TSH Performed By: #### L 501.9520, L500.3400, L500.4100, L500.2500 ####[facility] [address] [place], [address] Bilirubin.direct [Mass/Vol] 0.12 mg/dL Normal 0.00-0.30 [facility] Comment on above: Order Comment: Order Date: 08/19/24Order Info: 666- - BMPDR DESARI ORDERED PTH CBCD VITD RENAL ONLYOrder Info: [id number] - LIVEROrder Info: [id number] - LIPIDOrder Info: [id number] - TSH Result Comment: Hemo lysis present, Results??could be affected. ?? Performed By: #### L 501.9520, L500.3400, L500.4100, L500.2500 ####[facility] [address] [place], [address] Globulin (S) [Mass/Vol] 3.7 g/dL Normal 2.2-4.2 [facility] Comment on above: Order Comment: Order Date: 08/19/24Order Info: [id number] - BMPDR DESARI ORDERED PTH CBCD VITD RENAL ONLYOrder Info: 787- - LIVEROrder Info: [id number] - LIPIDOrder Info: [id number] - TSH Performed By: #### L 501.9520, L500.3400, L500.4100, L500.2500 ####[facility] [address] [place], [address] T PROT 7.6 g/dL Normal 5.9-8.4 [facility] Comment on above: Order Comment: Order Date: 08/19/24Order Info: [id number] - BMPDR DESARI ORDERED PTH CBCD VITD RENAL ONLYOrder Info: [id number] - LIVEROrder Info: [id number] - LIPIDOrder Info: [id number] - TSH Performed By: #### L 501.9520, L500.3400, L500.4100, L500.2500 ####[facility] [address] [place], [address] Lymphocytes Auto (Unsp spec) [#/Vol]Ordered By: Lima Pollard on 08-19-2024 Lymphocytes (Bld) [#/Vol] 2.38 10*3/uL 0.83-4.51 [facility] Lymphocytes/100 WBC Auto (Un sp spec)Ordered By: Lima Pollard on 08-19-2024 Lymphocytes/100 WBC (Bld) 18.3 % Low 19-41 [facility] MCV (mean corpuscular volume ) determinationOrdered By: Lima Pollard on 08-19-2024 MCV (RBC) [Entitic vol] 91.3 fL 81-99 [facility] Mean corpuscular hemoglobin (MCH) determinationOrdered By: Lima Pollard on 08-19-2024 MCH (RBC) [Entitic mass] 29.4 pg 27.0-32.0 [facility] Mean corpuscular hemoglobin concentration (MCHC) determinationOrdered By: Lima Pollard on 08-19-2024 MCHC (RBC) [Mass/Vol] 32.2 g/dL 32-[address] [facility] Mean platelet volume determi nationOrdered By: Lima Pollard on 08-19-2024 Platelet mean volume (Bld) [Entitic vol] 11.2 fL 6.2-12.0 [facility] Monocyte percentageOrdered B y: Lima Pollard on 08-19-2024 Monocytes/100 WBC (Bld) 7.2 % 0-10 [facility] Neutrophil percentageOrdered By: Lima Pollard on 08-19-2024 Neutrophils/100 WBC (Bld) 68.4 % 47-70 [facility] Nucleated red blood cell per centageOrdered By: Lima Pollard on 08-19-2024 Nucleated RBC/100 WBC (Bld) [Ratio] 0 % 0-5 [facility] PTH intactOrdered By: Lima templeton on 08-19-2024 Parathyroid Hormone (Intact) 79 pg/mL High - [facility] PTHINon 08-19-2024 PTH 79 pg/mL High [facility] Comment on above: Performed By: #### L 506.1001, L501.2300, L509.1000, L100.0100 ####[facility] [address] [place], [address] Phosphoruson 08-19-2024 Phosphate [Mass/Vol] 5.8 mg/dL High 2.7-4.5 [facility] Comment on above: Order Comment: Order Date: 08/19/24Order Info: [id number] - BMPDR DESARI ORDERED PTH CBCD VITD RENAL ONLYOrder Info: [id number] - LIVEROrder Info: [id number] - LIPIDOrder Info: [id number] - TSH Performed By: #### L 506.1001, L501.2300, L509.1000, L100.0100 ####[facility] [address] [place], [address] Platelet countOrdered By: Antony Pollard on 08-19-2024 Platelets (Bld) [#/Vol] 306 10*3/uL 150-450 [facility] Potassium (Unsp spec) [Mass/ Vol]Ordered By: Lima Pollard on 08-19-2024 Potassium [Moles/Vol] 4.9 mmol/L 3.3-5.[address] [facility] Comment on above: Hemolysis present, R esults could be affected. Potassium measurement (mass/ volume)Ordered By: Lima Pollard on 08-19-2024 Potassium (Unsp spec) [Mass/Vol] 4.9 mmol/L 3.3-5.1 [facility] Comment on above: Hemolysis present, R esults could be affected. RBC Auto (Bld) [#/Vol]Ordere d By: Lima Pollard on 08-19-2024 RBC (Bld) [#/Vol] 4.12 10*6/uL Low 4.2-5.4 [facility] Screening total cholesterol/ high density lipoprotein (HDL) cholesterol ratioOrdered By: Lima Pollard on 08-19-2024 Cholesterol.total/Aruna sterol in HDL [Mass ratio] 2.67 {ratio} [facility] Serum creatinine measurement (mass/volume)Ordered By: Lima Pollard on 08-19-2024 Creatinine [Mass/Vol] 5.93 mg/dL High 0.70-1.[address] [facility] Serum globulin measurementOr dered By: Lima Pollard on 08-19-2024 Globulin (S) [Mass/Vol] 3.7 g/dL 2.2-4.2 [facility] Serum glucose measurement (m ass/volume)Ordered By: Lima Pollard on 08-19-2024 Glucose [Mass/Vol] 94 mg/dL 70-99 [facility] Serum or plasma alanine machado otransferase (ALT) measurementOrdered By: Lima Pollard on 08-19-2024 ALT [Catalytic activity/Vol] 8 U/L <35 [facility] Serum or plasma albumin watler urement (mass/volume)Ordered By: Lima Pollard on 08-19-2024 Albumin [Mass/Vol] 3.9 g/dL 3.4-4.8 [facility] Serum or plasma alkaline melida sphatase measurementOrdered By: Lima Pollard on 08-19-2024 ALP [Catalytic activity/Vol] 60 U/L 35-104 [facility] Serum or plasma calcium walter urement (mass/volume)Ordered By: Lima Pollard on 08-19-2024 Calcium [Mass/Vol] 12.3 mg/dL High 7.6-11.0 [facility] Serum or plasma cholesterol in HDL measurement (mass/volume)Ordered By: Lima Pollard on 08-19-2024 Cholesterol in HDL [Mass/Vol] 42 mg/dL >40 [facility] Comment on above: National Cholesterol Education Program (NCEP) guidelines:<40 mg/dL: Low HDL-cholesterol (major risk factor for CHD)>= 60 mg/dL: High HDL-cholesterol (negative risk factor for CHD)HDL-cholesterol is affected by a number of factors, e.g. smoking, exercise, hormones, sex and age. Serum or plasma cholesterol measurement (mass/volume)Ordered By: Lima Pollard on 08-19-2024 Cholesterol [Mass/Vol] 113 mg/dL <201 [facility] Comment on above: Cholesterol level, D esirable <200 mg/dLBorderline high cholesterol 200-239 mg/dLHigh cholesterol >=240 mg/dLRecommendations of the NCEP Adult Treatment Panel for the following risk-cutoff thresholds for the [place] population. Serum or plasma urea nitroge n measurement (mass/volume)Ordered By: Lima Pollard on 08-19-2024 Urea nitrogen [Mass/Vol] 52 mg/dL High 4-19 [facility] Serum phosphorus measurement Ordered By: Lima Pollard on 08-19-2024 Phosphorus Level 5.8 mg/dL High 2.7-4.5 [facility] Sodium levelOrdered By: Lima Pollard on 08-19-2024 Sodium [Moles/Vol] 135 mmol/L 133-145 [facility] TSH DL <= 0.005 mIU/L QnOrde red By: Lima Pollard on 08-19-2024 Thyroid Stimulating Hormone (TSH) 2.150 uIU/mL 0.300-4.200 [facility] TSH Qn 2.150 uIU/mL 0.300-4.200 [facility] Thyroid Stim Hormone (TSH)on 08-19-2024 TSH 2.150 uIU/mL Normal 0.300-4.200 [facility] Comment on above: Order Comment: Order Date: 08/19/24Order Info: [id number] - BMPDR DESARI ORDERED PTH CBCD VITD RENAL ONLYOrder Info: [id number] - LIVEROrder Info: [id number] - LIPIDOrder Info: [id number] - TSH Performed By: #### L 501.9520, L500.3400, L500.4100, L500.2500 ####[facility] [address] [place], [address] Total proteinOrdered By: Lima Pollard on 08-19-2024 Protein [Mass/Vol] 7.6 g/dL 5.9-8.4 [facility] Triglycerides measurementOrd ered By: Lima Pollard on 08-19-2024 Triglyceride [Mass/Vol] 172 mg/dL <199 [facility] Comment on above: The drugs N-Acetylcy steine and Metamizole may falsely depress this assay. Normal range: <150 mg/dLBorderline High: 150-199 mg/dLHigh: 200-499 mg/dLVery High: >500 mg/dL Vitamin D, 25-hydroxyOrdered By: Lima Pollard on 08-19-2024 Vitamin D 25-Hydroxy 44.8 ng/mL 30- [facility] Comment on above: Vitamin D StatusDefi ciency: <20 ng/mL (50nmol/L)Insufficiency: 20-30 ng/mL (50-75 nmol/L)Sufficiency: 30-100 ng/mL (75-250 nmol/L)Toxicity: >100 ng/mL (>250 nmol/L) White blood cell (WBC) count Ordered By: Lima Pollard on 08-19-2024 WBC (Bld) [#/Vol] 13.0 10*3/uL High 4.4-11.0 [facility] 19-HF-Faudlvl DOrdered By: Mikey Mayorga on 05-19-2024 Vitamin D 25-Hydroxy 40.6 ng/mL [facility] Comment on above: Vitamin D 25(OH) Sta tus Range Deficiency <20 ng/mL (50nmol/L) Insufficiency 20 - 30 ng/mL (50 - 75 nmol/L) Sufficiency 30 - 100 ng/mL (75 - 250 nmol/L) Toxicity >100 ng/mL (>250 nmol/L) Blood urea nitrogen (BUN)/cr eatinine ratioOrdered By: Jasmyne Mayorga on 05-19-2024 Urea nitrogen/Creatinine [Mass ratio] 10.3 mg/mg 03-09 [facility] CBC-Complete Blood Cnt No Di ffon 05-19-2024 Erythrocyte distribution width (RBC) [Ratio] 15.1 % High 11.6-14.6 [facility] Comment on above: Performed By: #### L 506.1000, L500.3600, L509.1000, L100.0500 ####[facility] [address] [place], [address] Hematocrit (Bld) [Volume fraction] 35.6 % Low 37-47 [facility] Comment on above: Performed By: #### L 506.1000, L500.3600, L509.1000, L100.0500 ####[facility] [address] [place], [address] Hemoglobin (Bld) [Mass/Vol] 11.5 g/dL Low 12.0-15.0 [facility] Comment on above: Performed By: #### L 506.1000, L500.3600, L509.1000, L100.0500 ####[facility] [address] [place], [address] MCH (RBC) [Entitic mass] 29.2 pg Normal 27.0-32.0 [facility] Comment on above: Performed By: #### L 506.1000, L500.3600, L509.1000, L100.0500 ####[facility] [address] [place], [address] MCHC (RBC) [Mass/Vol] 32.3 g/dL Normal 32-[address] [facility] Comment on above: Performed By: #### L 506.1000, L500.3600, L509.1000, L100.0500 ####[facility] [address] [place], [address] MCV (RBC) [Entitic vol] 90.4 fL Normal 81-99 [facility] Comment on above: Performed By: #### L 506.1000, L500.3600, L509.1000, L100.0500 ####[facility] [address] [place], [address] Platelet mean volume (Bld) [Entitic vol] 11.1 fL Normal 6.2-12.0 [facility] Comment on above: Performed By: #### L 506.1000, L500.3600, L509.1000, L100.0500 ####[facility] [address] [place], [address] Platelets (Bld) [#/Vol] 268 10*3/uL Normal 150-450 [facility] Comment on above: Performed By: #### L 506.1000, L500.3600, L509.1000, L100.0500 ####[facility] [address] [place], [address] RBC (Bld) [#/Vol] 3.94 10*6/uL Low 4.2-5.4 [facility] Comment on above: Performed By: #### L 506.1000, L500.3600, L509.1000, L100.0500 ####[facility] [address] [place], [address] RDW SD 50.0 fl High 35.1-43.9 [facility] Comment on above: Performed By: #### L 506.1000, L500.3600, L509.1000, L100.0500 ####[facility] [address] [place], [address] WBC (Bld) [#/Vol] 11.2 10*3/uL High 4.4-11.0 [facility] Comment on above: Performed By: #### L 506.1000, L500.3600, L509.1000, L100.0500 ####[facility] [address] [place], [address] Carbon dioxide measurementOr dered By: Jasmyne Mayorga on 05-19-2024 CO2 [Moles/Vol] 19.0 mmol/L Low 21.0-32.0 [facility] Chloride measurementOrdered By: Jasmyne Mayorga on 05-19-2024 Chloride [Moles/Vol] 108 mmol/L High 98-107 [facility] Erythrocyte distribution wid th (RBC) [Ratio]Ordered By: Jasmyne Mayorga on 05-19-2024 Erythrocyte distribution width (RBC) [Entitic vol] 50.0 fL High 35.1-43.9 [facility] Erythrocyte distribution wid th ratioOrdered By: Jasmyne Mayorga on 05-19-2024 Erythrocyte distribution width (RBC) [Ratio] 15.1 % High 11.6-14.6 [facility] Estimated glomerular filtrat ion rate (GFR) AmericanOrdered By: Jasmyne Mayorga on 05-19-2024 Estimated GFR (MDRD) Amer 9 mL/min Low >60 [facility] Comment on above: GFR Calc Glomerular filtration rate ( GFR) estimationOrdered By: Jasmyne Mayorga on 05-19-2024 Estimated GFR (MDRD) Non-Af Amer 8 mL/min Low >60 [facility] Comment on above: Non- GFR Calc Glucose measurementOrdered B y: Jasmyne Mayorga on 05-19-2024 Glucose [Mass/Vol] 102 mg/dL 74-106 [facility] Comment on above: Fasting Glucose resu lt from 100 to 125 mg/dL suggests IMPAIRED HOMEOSTASIS per A.D.A. criteria. Hematocrit Auto (Bld) [Volum e fraction]Ordered By: Jasmyne Mayorga on 05-19-2024 Hematocrit (Bld) [Volume fraction] 35.6 % Low 37-47 [facility] Hemoglobin measurementOrdere d By: Jasmyne Mayorga on 05-19-2024 Hemoglobin (Bld) [Mass/Vol] 11.5 g/dL Low 12.0-15.0 [facility] Intact parathyroid hormone ( iPTH) measurementOrdered By: Jasmyne Mayorga on 05-19-2024 Parathyroid Hormone (Intact) 62.3 pg/mL 18.4-80.1 [facility] MCV (mean corpuscular volume ) determinationOrdered By: Jasmyne Mayorga on 05-19-2024 MCV (RBC) [Entitic vol] 90.4 fL 81-99 [facility] Mean corpuscular hemoglobin (MCH) determinationOrdered By: Jasmyne Mayorga on 05-19-2024 MCH (RBC) [Entitic mass] 29.2 pg 27.0-32.0 [facility] Mean corpuscular hemoglobin concentration (MCHC) determinationOrdered By: Jasmyne Mayorga on 05-19-2024 MCHC (RBC) [Mass/Vol] 32.3 g/dL 32-[address] [facility] Mean platelet volume determi nationOrdered By: Jasmyne Mayorga on 05-19-2024 Platelet mean volume (Bld) [Entitic vol] 11.1 fL 6.2-12.0 [facility] PTHINon 05-19-2024 PTH 62.3 pg/mL Normal 18.4-80.1 [facility] Comment on above: Performed By: #### L 506.1000, L500.3600, L509.1000, L100.0500 ####[facility] [address] [facility] [place], [place], [id number] Phosphorus measurementOrdere d By: Jasmyne Mayorga on 05-19-2024 Phosphorus Level 5.0 mg/dL High 2.5-4.9 [facility] Platelet countOrdered By: David Mayorga on 05-19-2024 Platelets (Bld) [#/Vol] 268 10*3/uL 150-450 [facility] Potassium measurementOrdered By: Jasmyne Mayorga on 05-19-2024 Potassium [Moles/Vol] 4.5 mmol/L 3.5-5.[address] [facility] RBC Auto (Bld) [#/Vol]Ordere d By: Jasmyne Mayorga on 05-19-2024 RBC (Bld) [#/Vol] 3.94 10*6/uL Low 4.2-5.4 [facility] Renal Profileon 05-19-2024 Albumin [Mass/Vol] 3.1 g/dL Low 3.2-5.0 [facility] Comment on above: Performed By: #### L 506.1000, L500.3600, L509.1000, L100.0500 ####[facility] [address] [place], [address] BUN/CRE 10.3 RATIO Normal 10-20 [facility] Comment on above: Performed By: #### L 506.1000, L500.3600, L509.1000, L100.0500 ####[facility] [address] [place], [address] CA,Total 11.2 mg/dL High 8.5-10.1 [facility] Comment on above: Performed By: #### L 506.1000, L500.3600, L509.1000, L100.0500 ####[facility] [address] [place], [address] Chloride [Moles/Vol] 108 mmol/L High 98-107 [facility] Comment on above: Performed By: #### L 506.1000, L500.3600, L509.1000, L100.0500 ####[facility] [address] [place], [address] CO2 [Moles/Vol] 19.0 mmol/L Low 21.0-32.0 [facility] Comment on above: Performed By: #### L 506.1000, L500.3600, L509.1000, L100.0500 ####[facility] [address] [place], [address] Creatinine [Mass/Vol] 6.01 mg/dL High 0.55-1.[address] [facility] Comment on above: Result Comment: The validity of the calculated GFR GFRAA in patients over 70 years has not been determined. Clinical correlation is essential. Performed By: #### L 506.1000, L500.3600, L509.1000, L100.0500 ####[facility] [address] [place], [address] EST GFR - AA 9 mL/min Low >60 [facility] Comment on above: Result Comment: Afri can Surinamese GFR Calc Performed By: #### L 506.1000, L500.3600, L509.1000, L100.0500 ####[facility] [address] [place], [address] GFR/1.73 sq M.predicted among non-blacks MDRD (S/P/Bld) [Vol rate/Area] 8 mL/min/{1.73_m2} Low >60 [facility] Comment on above: Result Comment: Non- GFR Calc Performed By: #### L 506.1000, L500.3600, L509.1000, L100.0500 ####[facility] [address] [place], [address] Glucose [Mass/Vol] 102 mg/dL Normal 74-106 [facility] Comment on above: Result Comment: Fast ing Glucose result from 100 to 125 mg/dL suggests IMPAIRED HOMEOSTASIS per A.D.A. criteria. Performed By: #### L 506.1000, L500.3600, L509.1000, L100.0500 ####[facility] [address] [place], [address] Phosphate [Mass/Vol] 5.0 mg/dL High 2.5-4.9 [facility] Comment on above: Performed By: #### L 506.1000, L500.3600, L509.1000, L100.0500 ####[facility] [address] [place], [address] Potassium [Moles/Vol] 4.5 mmol/L Normal 3.5-5.[address] [facility] Comment on above: Performed By: #### L 506.1000, L500.3600, L509.1000, L100.0500 ####[facility] [address] [place], [address] Sodium [Moles/Vol] 136 mmol/L Normal 136-145 [facility] Comment on above: Performed By: #### L 506.1000, L500.3600, L509.1000, L100.0500 ####[facility] [address] [place], [address] Urea nitrogen [Mass/Vol] 62 mg/dL High 12-05 [facility] Comment on above: Performed By: #### L 506.1000, L500.3600, L509.1000, L100.0500 ####[facility] [address] [place], [address] Serum or plasma albumin walter urement (mass/volume)Ordered By: Jasmyne Mayorga on 05-19-2024 Albumin [Mass/Vol] 3.1 g/dL Low 3.2-5.0 [facility] Serum or plasma calcium walter urement (mass/volume)Ordered By: Jasmyne Mayorga on 05-19-2024 Calcium [Mass/Vol] 11.2 mg/dL High 8.5-10.1 [facility] Serum or plasma creatinine m easurement (mass/volume)Ordered By: Jasmyne Mayorga on 05-19-2024 Creatinine [Mass/Vol] 6.01 mg/dL High 0.55-1.[address] [facility] Comment on above: The validity of the calculated GFR & GFRAA in patients over 70 years has not been determined. Clinical correlation is essential. Serum or plasma urea nitroge n measurement (mass/volume)Ordered By: Jasmyne Mayorga on 05-19-2024 Urea nitrogen [Mass/Vol] 62 mg/dL High 12-05 [facility] Sodium levelOrdered By: Darrius Mayorga on 05-19-2024 Sodium [Moles/Vol] 136 mmol/L 136-145 [facility] Vitamin D,25 Hydroxyon 05-19 Vitamin D 25-OH 40.6 ng/mL Normal [facility] Comment on above: Result Comment: Maricruz min D 25(OH) Status Range Deficiency <20 ng/mL (50nmol/L) Insufficiency 20 - 30 ng/mL (50 - 75 nmol/L) Sufficiency 30 - 100 ng/mL (75 - 250 nmol/L) Toxicity >100 ng/mL (>250 nmol/L) Performed By: #### L 506.1000, L500.3600, L509.1000, L100.0500 ####[facility] [address] [place], [address] White blood cell (WBC) count Ordered By: Jasmyne Mayorga on 05-19-2024 WBC (Bld) [#/Vol] 11.2 10*3/uL High 4.4-11.0 [facility] Endocrinology Visit Reporton 05-01-2024 Endocrinology Visit Report [facility] [address] [place], [place] [address] OFFICE VISIT Date of Service: 05/01/24 MR#: [id number] Acct: [id number] Name: TERESA CORBIN Rep #: [id number] : 1960 Provider: Shira Ray Age/Sex: 63/F [place] [facility] [place]: Signed Intake Vital Signs 03/13/24 08:54 05/01/24 08:56 Height 5 ft 5 in 5 ft 5 in Weight: 256 lb 4 oz 240 lb BMI 42.6 39.9 BP 173/81 H 161/90 H Blood Pressure Location Rt brachial Lt brachial Position Sitting Sitting Pulse 63 63 Pulse Source Monitor Monitor Pulse Oximetry (%) 94 98 Oxygen Delivery Method room air room air Intake Visit Reasons: 2 M FU Chief Complaint: f/u diabetes C D Still Operator Required: No Accompanied by: Self Is patient in pain?: No Allergies lisinopril (From Zestril) Adverse Reaction (Mild, Verified 05/01/24 09:03) cough ramipril (From Altace) Adverse Reaction (Mild, Verified 05/01/24 09:03) cough Medications ???Medication ???Instructions ???Recorded ???Confirmed ???Type allopurinol 100 mg tablet 100 mg PO DAILY 08/18/20 05/01/24 History aspirin 81 mg tablet,delayed 81 mg PO DAILY 08/18/20 05/01/24 History release simvastatin 20 mg tablet 20 mg PO DAILY 08/18/20 05/01/24 History telmisartan 80 mg tablet 80 mg PO DAILY 08/18/20 05/01/24 History insulin syringe-needle U-100 0.5 #100 ea 11/27/22 05/01/24 Rx mL 31 gauge x 5/16 (BD Insulin Syringe Ultra-Fine) pen needle, diabetic 32 gauge x #100 ea 11/27/22 05/01/24 Rx 5/32 (BD Ultra-Fine Susan Pen Needle) sevelamer HCl 800 mg tablet 800 mg PO DAILY 05/28/23 05/01/24 History amlodipine 10 mg tablet 10 mg PO DAILY #90 tabs 06/11/23 05/01/24 Rx furosemide 40 mg tablet 40 mg PO DAILY 11/28/23 05/01/24 History metoprolol tartrate 75 mg tablet 75 mg PO BID 11/28/23 05/01/24 History Farxiga 10 mg tablet 10 mg PO DAILY #90 tabs 03/13/24 05/01/24 Rx (dapagliflozin propanediol) calcifediol 30 mcg capsule,24 30 mcg PO QDAY 03/13/24 05/01/24 History hr,extended release (Rayaldee) insulin human U-100 NPH-regulr See Rx Instructions subcut .bidcm 03/13/24 05/01/24 Rx 70-30 mix 100 unit/mL subcutaneous #70 mL susp (Novolin 70/30 U-100 Insulin) insulin syringe-needle U-100 0.5 #100 ea 03/13/24 05/01/24 Rx mL 31 gauge x 5/16 (BD Insulin Syringe Ultra-Fine) Mounjaro 5 mg/0.5 mL subcutaneous 5 mg (0.5 mL) subcut QWEEK #2 mL 05/01/24 05/01/24 Rx pen injector (tirzepatide) [facility] Medical History CKD (chronic kidney disease) stage 4, GFR 15-29 ml/min Kidney disease High cholesterol Headache Cellulitis and abscess of other specified site SIMIN (acute kidney injury) Anxiety Migraine Diabetes mellitus HTN (hypertension) Surgical History History of incision and drainage History of extraction of renal calculus History of medial meniscus repair of right knee History of wisdom tooth extraction Family History Father Diabetes Heart disease Kidney disease Mother Cancer pancreas Other Myocardial infarction Social History Smoking Status: Never smoker alcohol intake: current alcohol intake frequency: 0-2 drinks per day substance use type: does not use what type of physical activity do you participate in: walking HPI HPI Chief Complaint: f/u diabetes Details: TERESA CORBIN, is a 63 F who presents to the office today for follow up. A1C is 6.4% She is taking Farxiga, Mounjaro and pre-mix bid. She is having an occasional blood sugar in the 70s. She feels it. 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 She is taking Rayaldee. She has lost 16 pounds. ROS Const Constitutional: No fatigue, weakness, weight change or change in appetite Eyes Eyes: No change in vision ENT ENT: No hearing loss, nasal congestion or difficulty swallowing Cardio Cardiology: No chest pain at rest, chest pain with exertion or shortness of breath Musc Musculoskeletal: No numbness Neuro Neurology: No weakness, memory loss or numbness Psych Psychiatric: No change in appetite, No memory loss and No Thoughts of harming yourself/Others Resp Respiratory: No cough, chest congestion or shortness of breath Gastro GI: No abdominal pain, constipation, diarrhea or difficulty swallowing Genitourinary-Female: No burning urination Skin Skin: No itchy eyes or wounds Endo Endocrine: No fatigue or weight change Aller/Imm Allergy/Immunologic: No itchy eyes Exam Const General: cooperative, healthy appearing, comfortable, no acute distress, well develope (more content not included)... [facility] 04-03-[address] [facility] Telephone (TXCTGL) -------- TERESA CORBIN ([id number]) 1960 F Date Time Provider Department 04/03/24 ARYAN CAMPA TXCTGL During your visit today, we recorded the following information about you: Aryan Campa RN 04/03/2024 2:19 PM Signed Voicemail identified as Alejandro. LVM for patient that her kidney transplant evaluation that has been open since 2021 is now closed. Per CE she is still above our BMI requirements and last three appointments were canceled. She canceled nutrition, and transplant psych. Also still needed mammogram. Left patient main number [phone] if she has any further questions. BRITT Trimble RN April 03, 2024 2:18 PM Allergies As of Date: 04/03/2024 (No Known Allergies) Date Reviewed: 08/02/2023 Reviewed by: Yong Hung MD - Fully Assessed Reason for Visit: Kidney Eval [[id number]] Prescriptions as of 04/03/2024 - SITagliptin phosphate (JANUVIA) 100 mg tablet [...] TAB Take one(1) tablet twice daily. - candesartan/hydrochlorot hiazid(ATACAND HCT 32 MG-12.5 MG TAB) - ALLOPURINOL 100 MG TAB Take one(1) tablet PO daily with Food - ACTOS 30 MG TAB Take one(1) tablet daily. - GLUCOPHAGE 1,000 MG TAB Take 1 tab twice daily - GLUCOTROL XL 10 MG TAB Take 1 tab twice daily Problem List As Of Date 04/03/2024 Noted Resolved Nephrolithiasis [N20.0] 04/10/2005 HYDRONEPHROSIS [N13.30] 04/10/2005 RENAL COLIC [N23] 04/10/2005 EXTRAVASATION OF URINE [R39.0] 04/28/2005 CKD (chronic kidney disease) stage 5, GFR less *08/02/2023 Type II diabetes mellitus with complication (HC*08/02/2023 Obesity, Class III, BMI >= 40 [E66.01] 08/03/2023 Encounter Status:Closed by ARYAN CAMPA on 04/03/24 Normal [facility] Basophil percentageOrdered B y: Cristal Shin on 09-05-2023 Basophil percentage 4.9 mg/dL 2.5-4.9 [facility] Chloride [Moles/Vol] 113 mmol/L 98-107 [facility] Glucose [Mass/Vol] 71 mg/dL 74-106 [facility] Hemoglobin (Bld) [Mass/Vol] 11.6 g/dL 12.0-15.0 [facility] Potassium [Moles/Vol] 4.3 mmol/L 3.5-5.[address] [facility] Sodium [Moles/Vol] 138 mmol/L 136-145 [facility] WBC (Bld) [#/Vol] 11.5 10*3/uL 4.4-11.0 [facility] Determination of erythrocyte mean corpuscular volume (MCV)Ordered By: Cristal Shin on 09-05-2023 MCV (RBC) [Entitic vol] 88.7 fL 81-99 [facility] Erythrocyte distribution wid th ratioOrdered By: Cristal Shin on 09-05-2023 Erythrocyte distribution width (RBC) [Ratio] 15.6 % 11.6-14.6 [facility] Erythrocyte distribution wid th standard deviationOrdered By: Cristal Shin on 09-05-2023 Erythrocyte distribution width (RBC) [Entitic vol] 50.6 fL 35.1-43.9 [facility] Hematocrit Auto (Bld) [Volum e fraction]Ordered By: Cristal Shin on 09-05-2023 Hematocrit (Bld) [Volume fraction] 36.0 % 37-47 [facility] Laboratory - Chemistry and C hemistry - challengeOrdered By: Cristal Shin on 09-05-2023 CO2 [Moles/Vol] 17.0 mmol/L 21.0-32.0 [facility] Urea nitrogen/Creatinine [Mass ratio] 13.6 mg/mg 10-20 [facility] Laboratory - Hematology and Cell countsOrdered By: Cristal Shin on 09-05-2023 MCH (RBC) [Entitic mass] 28.6 pg 27.0-32.0 [facility] MCHC (RBC) [Mass/Vol] 32.2 g/dL 32-[address] [facility] Platelet mean volume (Bld) [Entitic vol] 10.9 fL 6.2-12.0 [facility] Platelets (Bld) [#/Vol] 271 10*3/uL 150-450 [facility] No Panel InformationOrdered By: Cristal Shin on 09-05-2023 Estimated GFR (MDRD) Amer 12 mL/min >60 [facility] Comment on above: GFR Calc Estimated GFR (MDRD) Non-Af Amer 10 mL/min >60 [facility] Comment on above: Non- GFR Calc Parathyroid Hormone (Intact) 65.9 pg/mL 18.4-80.1 [facility] Vitamin D 25-Hydroxy 34.9 ng/mL [facility] Comment on above: Vitamin D 25(OH) Sta tus Range Deficiency <20 ng/mL (50nmol/L) Insufficiency 20 - 30 ng/mL (50 - 75 nmol/L) Sufficiency 30 - 100 ng/mL (75 - 250 nmol/L) Toxicity >100 ng/mL (>250 nmol/L) RBC Auto (Bld) [#/Vol]Ordere d By: Cristal Shin on 09-05-2023 RBC (Bld) [#/Vol] 4.06 10*6/uL 4.2-5.4 [facility] Serum or plasma calcium walter urement (mass/volume)Ordered By: Cristal Shin on 09-05-2023 Calcium [Mass/Vol] 11.2 mg/dL 8.5-10.1 [facility] Serum or plasma creatinine m easurement (mass/volume)Ordered By: Cristal Shin on 09-05-2023 Creatinine [Mass/Vol] 4.63 mg/dL 0.55-1.[address] [facility] Comment on above: The validity of the calculated GFR & GFRAA in patients over 70 years has not been determined. Clinical correlation is essential. Serum or plasma urea nitroge n measurement (mass/volume)Ordered By: Cristal Shin on 09-05-2023 Urea nitrogen [Mass/Vol] 63 mg/dL 7-18 [facility] Thin prep Papanicolaou smear with manual screeningOrdered By: Cristal Shin on 09-05-2023 Protein (U) [Mass/Vol] 222.1 mg/dL 0.0-11.8 [facility] Thin prep Papanicolaou smear with manual screening 3.0 g/dL 3.2-5.0 [facility] Urine creatinine measurement (mass/volume)Ordered By: Cristal Shin on 09-05-2023 Creatinine (U) [Mass/Vol] 46.90 mg/dL NO RANGE EST. [facility] Urine protein/creatinine mas s ratioOrdered By: Cristal Shin on 09-05-2023 Protein/Creatinine (U) [Mass ratio] 4736 mg/g CRE 0-200 [facility] Basophil percentageOrdered B y: Lima Pollard on 08-10-2023 Cholesterol [Mass/Vol] 95 mg/dL <200 [facility] Comment on above: <200 mg/dL Desirable 200-240 mg/dL Borderline >240 mg/dL High Risk Triglyceride [Mass/Vol] 152 mg/dL <199 [facility] Comment on above: The drugs N-Acetylcy steine and Metamizole may falsely depress this assay.Serum Triglycerides Reference Interval Normal <150 mg/dL Borderline high 150 - 199 mg/dL High 200 - 499 mg/dL Very High > or = 500 mg/dL Laboratory - Chemistry and C hemistry - challengeOrdered By: Lima Pollard on 08-10-2023 Cholesterol in HDL [Mass/Vol] 39 mg/dL >40 [facility] Comment on above: The drugs N-Acetylcy steine and Metamizole may falsely depress this assay. Reference Range HDL <40 mg/dL Low HDL Cholesterol HDL >or= 60 mg/dL High HDL Cholesterol Cholesterol in LDL [Mass/Vol] 26 mg/dL 0-130 [facility] No Panel InformationOrdered By: Lima Pollard on 08-10-2023 VLDL Cholesterol 30 mg/dL 5-40 [facility] Thin prep Papanicolaou smear with manual screeningOrdered By: Lima Pollard on 08-10-2023 Protein (U) [Mass/Vol] 202.5 mg/dL 0.0-11.8 [facility] Urine creatinine measurement (mass/volume)Ordered By: Lima Pollard on 08-10-2023 Creatinine (U) [Mass/Vol] 25.20 mg/dL NO RANGE EST. [facility] Urine protein/creatinine mas s ratioOrdered By: Lima Pollard on 08-10-2023 Protein/Creatinine (U) [Mass ratio] 8036 mg/g CRE 0-200 [facility] CNCOon 08-02-2023 CNCO Letter Text Normal [facility] KAPPA/JI,FREE,SERon 2023 Immunoglobulin light chains.kappa.free (S) [Mass/Vol] 112.3 mg/L High 3.3 - 19.4 mg/L [facility] Immunoglobulin light chains.kappa/Immunoglob ulin light chains.lambda (S) [Mass ratio] 1.26 0.26 - 1.65 [facility] Immunoglobulin light chains.lambda.free [Mass/Vol] 88.8 mg/L High 5.7 - 26.3 mg/L [facility] ALGN RABBIT EPITHELIUM IGEon 08-01-2023 RABBIT EPITHELIUM CLASS Class 0 Normal Class 0 C [facility] Comment on above: Order Comment: Speci men Type: BLOOD SPECIMENOrdering Facility: [facility] Address: [address] [place] [address] Performed By: #### R ABEPI ####[facility] LABCLIA [id number] [place] [id number] RABBIT EPITHELIUM IGE <0.35 Normal <0.35 [facility] Comment on above: Order Comment: Speci men Type: BLOOD SPECIMENOrdering Facility: [facility] Address: [address] [place] [address] Performed By: #### R ABEPI ####[facility] LABCLIA [id number] [address] OF [facility] BLOOD TB SCREENon 08-01-2023 M. tuberculosis tuberculin stim IFN-g Ql (Bld) Negative Normal [facility] Comment on above: Order Comment: Speci men Type: BLOOD SPECIMENOrdering Facility: [facility] Address: [address] [place] [address] Performed By: #### I NFTBP ####[facility] LABIA [id number] [place] [address] [place] MITOGEN MINUS NIL >9.97 Normal >=0.50 [facility] Comment on above: Order Comment: Speci men Type: BLOOD SPECIMENOrdering Facility: [facility] Address: [address] [place] [address] Performed By: #### I NFTBP ####[facility] LABIA [id number] [address] [place] TB GAMMA INTERPRETATION Infection with M . tuberculosis complex is unlikely. If latent tuberculosis infection is highly suspected, a negative result does not rule out the infection. Specimens from immunocompromised patients and those <5 years of age may show false negative results. In case of a contact investigation, please repeat 8-12 weeks after a known exposure. Normal [facility] Comment on above: Order Comment: Speci men Type: BLOOD SPECIMENOrdering Facility: [facility] Address: [address] [place] [address] Performed By: #### I NFTBP ####[facility] LABIA [id number] [address] OF [facility] TB NIL 0.03 IU/mL Normal <=8.00 [facility] Comment on above: Order Comment: Speci men Type: BLOOD SPECIMENOrdering Facility: [facility] Address: [address] [place] [address] Performed By: #### I NFTBP ####[facility] LABCLIA [id number] [address] [place] TB1 AG MINUS NIL 0.00 IU/mL Normal <0.35 [facility] Comment on above: Order Comment: Speci men Type: BLOOD SPECIMENOrdering Facility: [facility] Address: [address] [place] [address] Performed By: #### I NFTBP ####[facility] LABIA [id number] [address] OF [place] TB2 AG MINUS NIL 0.01 IU/mL Normal <0.35 [facility] Comment on above: Order Comment: Speci men Type: BLOOD SPECIMENOrdering Facility: [facility] Address: [address] [place] [address] Performed By: #### I NFTBP ####[facility] [id number] [address] OF [facility] CNOVon 08-01-2023 CNOV Office Visit (TXCTGL ) -------- TERESA CORBIN ([id number]) 1960 F Date Time Provider Department 08/01/23 2:30 PM KIDNEY TXP COORDINATORS TXCTGL During your visit today, we recorded the following information about you: Giovanny Hernandez RN 08/01/2023 11:54 AM Addendum As part of your transplant evaluation you [...] will be scheduled for you at a [facility] facility: CARDIAC: No additional testing required at this time. CANCER SCREENING: Mammogram - Scheduled 08/03/23. Please have results sent to fax number listed below. ADDITIONAL CONSULTS Nutrition - Order placed today, can be virtual visit if you activate Konotort. If Weatlashart is not activated, you will be scheduled for an in-person visit. Imaging Studies: No additional testing required at this time. Miscellaneous Items: CT Abdomen/Pelvis - Due 05/10/24 Stress test - Due 08/09/24 Echo - Due 08/09/24 EKG - Due 07/31/24 Chest X-ray - Due 07/31/24 PAP - Done 06/12/22, due 3-5 years per recommendation of hollock maker (May 2025-2028). Colonoscopy - Due 06/15/28 Outside test results should be faxed to [phone]. Please review the kidney transplant educational materials on line at [email or web address] Sign-in: Kidney To check on your status of your evaluation, please contact your coordinator, Edward Nieto RN [phone]. CHETAN DavisN, RN Kidney/Pancreas Pre-Platform Engineer [facility] Referring Provider: MAREK ROBERSON [[id number]] Allergies As of Date: 08/01/2023 (No Known Allergies) Date Reviewed: 08/01/2023 Reviewed by: Caroline Hwang MA - Fully Assessed Primary Visit Diagnosis:Pre-transplant evaluation for kidney transplant [Z01.818] Other Visit Diagnosis:Pre-transplant evaluation for CKD (chronic kidney disease) [Z01.818] Prescriptions as of 08/01/2023 - SITagliptin phosphate (JANUVIA) 100 mg tablet [...] TAB Take one(1) tablet twice daily. - candesartan/hydrochlorot hiazid(ATACAND HCT 32 MG-12.5 MG TAB) - ALLOPURINOL 100 MG TAB Take one(1) tablet PO daily with Food - ACTOS 30 MG TAB Take one(1) tablet daily. - GLUCOPHAGE 1,000 MG TAB Take 1 tab twice daily - GLUCOTROL XL 10 MG TAB Take 1 tab twice daily Facility-Administered Medications as of 08/01/2023 - perflutren lipid microspheres 1.3 mL in NaCl (PF) 0.9% 10 mL injection (DEFINITY) - sodium chloride 0.9 % (flush) 10 mL (BD POSIFLUSH) Problem List As Of Date 08/01/2023 Noted Resolved CALCULUS OF KIDNEY [N20.0] 04/10/2005 HYDRONEPHROSIS [N13.30] 04/10/2005 RENAL COLIC [N23] 04/10/2005 EXTRAVASATION OF URINE [R39.0] 04/28/2005 Other instructions from your clinician: As part of your transplant evaluation you [...] will be scheduled for you at a [facility] facility: CARDIAC: No additional testing required at [...] 07/31/24 Chest X-ray - Due 07/31/24 PAP (more content not included)... Normal [facility] Office Visit (TXCTGL ) -------- TERESA CORBIN ([id number]) 1960 F Date Time Provider Department 08/01/23 2:00 PM NEPHROLOGY [facility] TXCTGL During your visit today, we recorded the following information about you: Temperature Pulse Blood pressure Weight 97.7 degrees 62/minute 141/62 112.3 kg Height 1.626 m Momo Webb MD 08/01/2023 11:49 AM Addendum [facility] Transplant Evaluation CC: Consultation for Kidney transplant evaluation. Referred by: Tiarra Mayorga [address] [place] [address] I will communicate with the referring provider [...] MG TAB Take one(1) tablet twice daily. candesartan/hydrochlorot hiazid(ATACAND HCT 32 MG-12.5 MG TAB) (Patient not [...] Problems Sister No Known Problems Son Family (more content not included)... Normal [facility] CNOV Office Visit (TXCTGL ) -------- TERESA CORBIN ([id number]) 1960 F Date Time Provider Department 08/01/23 1:30 PM UROLOGY [facility] TXCTGL During your visit today, we recorded the following information about you: Temperature Pulse Blood pressure Weight 97.7 degrees 62/minute 141/62 112.3 kg Height 1.626 m Pritesh Padron MD 08/03/2023 2:04 PM Signed [facility] Transplant Evaluation CC: Consultation for Kidney transplant evaluation. Referred by: Tiarra Mayorga [address] [place] [address] I will communicate with the referring provider by letter and/or shared electronic medical record. HPI: Patient is a 62 year old female presenting today for ongoing pre-emptive kidney transplant evaluation, last seen in office on 05/10/22. Past medical history of CKD 5 (GFR 13 in 2021), presumed to be secondary to HTN/DM2 (never [...] No wounds or abrasions, taking acetaminophen PRN. BP 141/62 Pulse 62 Temp 36.5 ?C (97.7 ?F) (Temporal) Ht 162.6 cm (5' 4.02) Wt 112.3 kg (247 lb 9.2 oz) SpO2 100% BMI 42.48 kg/m? GFR 9 No MA or stroke Not on blood thinner Does patient work?: No Past medical history [...] MG TAB Take one(1) tablet twice daily. candesartan/hydrochlorot hiazid(ATACAND HCT 32 MG-12.5 MG TAB) (Patient not [...] mL (BD POSIFLUSH) 10 mL INTRAVENOUS DIRECTED ND (more content not included)... Normal [facility] CNOV Office Visit (TXCTGL ) -------- TERESA CORBIN ([id number]) 1960 F Date Time Provider Department 08/01/23 12:00 PM KIDNEY TXP COORDINATORS TXCTGL During your visit today, we recorded the following information about you: Referring Provider: MAREK ROBERSON [[id number]] Allergies As of Date: 08/01/2023 (No Known Allergies) Date Reviewed: 08/01/2023 Reviewed by: Caroline Hwang MA - Fully Assessed Primary Visit Diagnosis:Pre-transplant evaluation for kidney transplant [Z01.818] Other Visit Diagnosis:Pre-transplant evaluation for CKD (chronic kidney disease) [Z01.818] Prescriptions as of 08/01/2023 - SITagliptin phosphate (JANUVIA) 100 mg tablet [...] TAB Take one(1) tablet twice daily. - candesartan/hydrochlorot hiazid(ATACAND HCT 32 MG-12.5 MG TAB) - ALLOPURINOL 100 MG TAB Take one(1) tablet PO daily with Food - ACTOS 30 MG TAB Take one(1) tablet daily. - GLUCOPHAGE 1,000 MG TAB Take 1 tab twice daily - GLUCOTROL XL 10 MG TAB Take 1 tab twice daily Facility-Administered Medications as of 08/01/2023 - perflutren lipid microspheres 1.3 mL in NaCl (PF) 0.9% 10 mL injection (DEFINITY) - sodium chloride 0.9 % (flush) 10 mL (BD POSIFLUSH) Problem List As Of Date 08/01/2023 Noted Resolved CALCULUS OF KIDNEY [N20.0] 04/10/2005 HYDRONEPHROSIS [N13.30] 04/10/2005 RENAL COLIC [N23] 04/10/2005 EXTRAVASATION OF URINE [R39.0] 04/28/2005 Encounter Status:Closed by GIOVANNY HERNANDEZ on 08/01/23 [facility] CNOV Office Visit (TXCTGL ) -------- TERESA CORBIN ([id number]) 1960 F Date Time Provider Department 08/01/23 8:00 AM PRE TX GROUP EDUCATION TXCTGL During your visit today, we recorded the following information about you: Jesenia Treviño RN 08/01/2023 10:14 AM Signed PRE-TRANSPLANT PATIENT EDUCATION NOTE Type of Transplant: [...] about Kidney Allocation Policy -Directions to access [facility]'s data through [facility] website. -Informed Consent for Transplant Program Participation patient education packet -National Kidney Registry pamphlet -Covid-19 Vaccination for Transplant Candidates Method of Instruction: Group class instruction Written instruction - handouts Verbal instruction Computer Patient/Family Response: Patient asked appropriate questions, which were answered satisfactorily. Follow-Up Plan: Complete - No need for follow-up Referral/Recommendation: None Jesenia Treviño RN Pre-Platform Engineer Referring Provider: MAREK ROBERSON [[id number]] Allergies As of Date: 08/01/2023 (No Known Allergies) Date Reviewed: 08/09/2022 Reviewed by: Lima Pinto RN - Fully Assessed Reason for Visit: Patient Education [91] Primary Visit Diagnosis:Pre-transplant evaluation for kidney transplant [Z01.818] Prescriptions as of 08/01/2023 - SITagliptin phosphate (JANUVIA) 100 mg tablet [...] TAB Take one(1) tablet twice daily. - candesartan/hydrochlorot hiazid(ATACAND HCT 32 MG-12.5 MG TAB) - ALLOPURINOL 100 MG TAB Take one(1) tablet PO daily with Food - ACTOS 30 MG TAB Take one(1) tablet daily. - GLUCOPHAGE 1,000 MG TAB Take 1 tab twice daily - GLUCOTROL XL 10 MG TAB Take 1 tab twice daily Facility-Administered Medications as of 08/01/2023 - perflutren lipid microspheres 1.3 mL in NaCl (PF) 0.9% 10 mL injection (DEFINITY) - sodium chloride 0.9 % (flush) 10 mL (BD POSIFLUSH) Problem List As Of Date 08/01/2023 Noted Resolved CALCULUS OF KIDNEY [N20.0] 04/10/2005 HYDRONEPHROSIS [N13.30] 04/10/2005 RENAL COLIC [N23] 04/10/2005 EXTRAVASATION OF URINE [R39.0] 04/28/2005 Encounter Status:Closed by JESENIA TREVIÑO on 08/01/23 Normal [facility] ECG COMPLETEon 08-01-2023 ECG COMPLETE Ventricular Rate : 6 1 BPM Atrial Rate : 61 BPM P-R Interval : 242 ms QRS Duration : 94 ms Q-T Interval : 406 ms QTC Calculation(Bazett) : 408 ms Calculated P Chilo : 32 degrees Calculated R Chilo : -6 degrees Calculated T Chilo : 73 degrees SINUS RHYTHM WITH 1ST DEGREE AV BLOCK OTHERWISE NORMAL ECG Confirmed by DEYVI ISLAS MD ([id number]) on 08/18/2023 6:55:24 PM NAME : TERESA CORBIN PID : [id number] : 1960 Gender : Female Race : ORD : [id number] Procedure Date : Aug 01 2023 09:43:28 Edit Date : Aug 18 2023 18:55:29 Diagnosis: SINUS RHYTHM WITH 1ST DEGREE AV BLOCK OTHERWISE NORMAL ECG Confirmed by DEYVI ISLAS MD ([id number]) on 08/18/2023 6:55:24 PM Test Reason : Location : 314 : J14 Overread By : DEYVI ISLAS MD Edited By : DEYVI ISLAS MD Referred By : MAREK ROBERSON Acquired by : ROSA BERTRAND Normal [facility] HBV core Ab Ser Qlon 024 HBV core Ab Ql (S) Negative Normal Negative [facility] Comment on above: Order Comment: Speci men Type: BLOOD SPECIMENOrdering Facility: [facility] Address: [address] [place] [address] Result Comment: No e vidence of current or past infection with Hepatitis B virus. Should recent infection be suspected, repeat testing may be considered 3-4 weeks after this draw. Performed By: #### 1 6933-4, 98474-8, 5195-3, 97137-4 ####[facility] LABCLIA [id number] [place] [address] [place] HBV surface Ab Ql (S)on 07-19 HBV surface Ab Qn (S) <8.00 Normal [facility] Comment on above: Order Comment: Speci men Type: BLOOD SPECIMENOrdering Facility: [facility] Address: [address] [place] [address] Result Comment: <8 m IU/mL: No serological evidence of immunity to Hepatitis B Virus. >/= 8 to <12 mIU/mL: No serological evidence of immunity to Hepatitis B Virus. >/= 12 mIU/mL: Consistent with serological evidence of immunity to Hepatitis B Virus. Performed By: #### 1 6933-4, 02099-5, 5195-3, 71807-8 ####[facility] LABCLIA [id number] [place] [address] [place] HBV surface Ab Ser Qlon 07-19 HBV surface Ab Ql (S) Negative Normal [facility] Comment on above: Order Comment: Speci men Type: BLOOD SPECIMENOrdering Facility: [facility] Address: [address] [place] [address] Result Comment: No s erological evidence of immunity to Hepatitis B Virus. Performed By: #### 1 6933-4, 40023-7, 5195-3, 25389-1 ####[facility] LABCLIA [id number] [place] [address] [place] HBV surface Ag Ser Qlon 03 HBV surface Ag Ql (S) Negative Normal Negative [facility] Comment on above: Order Comment: Speci men Type: BLOOD SPECIMENOrdering Facility: [facility] Address: [address] [place] [address] Performed By: #### 1 6933-4, 21409-6, 5195-3, 30754-1 ####[facility] LABIA [id number] [address] [place] HCV Ab Ser Qlon 08-01-2023 HCV Ab Ql (S) Negative Normal Negative [facility] Comment on above: Order Comment: Speci men Type: BLOOD SPECIMENOrdering Facility: [facility] Address: [address] [place] [address] Result Comment: The result suggests no evidence of active infection with Hepatitis C virus. Should recent infection be suspected, repeat testing may be considered 4-6 weeks after this draw. Performed By: #### 2 885-2, KLFRS, 11142-5, [id number] ####[facility] LABCLIA [id number] [place] [address] [place] HCV RNA SerPl CARIDAD+probe-[facility] on 08-01-2023 HCV RNA CARIDAD+probe Qn Not detected Normal HCV RNA not detected by PCR. [facility] Comment on above: Order Comment: Speci men Type: BLOOD SPECIMENOrdering Facility: [facility] Address: [address] [place] [address] Performed By: #### 1 1011-4 ####[facility] LABCLIA [id number] [place] [address] [place] HIV 1+2 Ab IA Qlon 03-13-202 4 HIV 1 and 2 Ab IA.rapid Nom (S/P/Bld) Normal [facility] Comment on above: Order Comment: Speci men Type: BLOOD SPECIMENOrdering Facility: [facility] Address: [address] [place] [address] Result Comment: Test not indicated. Performed By: #### 1 6933-4, 74665-2, 5195-3, 59176-5 ####[facility] LABCLIA [id number] [place] [address] [place] HIV 1+2 Ab+HIV1 p24 Ag IA Ql Non-Reactive Normal Nonreactive [facility] Comment on above: Order Comment: Speci men Type: BLOOD SPECIMENOrdering Facility: [facility] Address: [address] [place] [address] Performed By: #### 1 6933-4, 62763-9, 5-3, 16211-6 ####[facility] LABIA [id number] [address] [place] HIV immunoassay testing algorithm interpretation (S/P/Bld) [Interp] Normal [facility] Comment on above: Order Comment: Speci men Type: BLOOD SPECIMENOrdering Facility: [facility] Address: [address] [place] [address] Result Comment: No e vidence of HIV-1 or HIV-2 infection. Should recent infection be suspected, repeat testing may be considered 2-3 weeks after this draw. [place] Rev. Code 3701.243(E): This information has been disclosed to you from confidential records protected from disclosure by state law. ???You shall make no further disclosure of this information without the specific, written, and informed release of the individual to whom it pertains or as otherwise permitted by state law. A general authorization for the release of medical or other information is not sufficient for the purpose of the release of HIV test results or diagnoses. Performed By: #### 1 6933-4, 88999-2, 5195-3, 14004-4 ####[facility] LABCLIA [id number] [place] [address] [place] KAPPA/JI,FREE,SERon 2023 Immunoglobulin light chains.kappa.free (S) [Mass/Vol] 112.3 mg/L High 3.3-19.4 [facility] Comment on above: Order Comment: Speci men Type: BLOOD SPECIMENOrdering Facility: [facility] Address: [address] [place] [address] Result Comment: Rare ly, increased serum free light chains levels may not be detected or accurately quantified due to prozone phenomenon or in high viscosity samples using this immunoturbidimetric assay. Correlation with other laboratory results and clinical findings is recommended. The [place] Free Light Chain was performed using the Binding Site Optilite immunoturbidimetric method. Result obtained with different assay methods or kits cannot be used interchangeably. Performed By: #### 2 885-2, [facility], 29816-5, [id number] ####[facility] LABCLIA [id number] [place] [address] [place] Immunoglobulin light chains.kappa/Immunoglob ulin light chains.lambda (S) [Mass ratio] 1.26 Normal 0.26-1.65 [facility] Comment on above: Order Comment: Speci men Type: BLOOD SPECIMENOrdering Facility: [facility] Address: [address] [place] [address] Performed By: #### 2 885-2, [facility], 87051-1, [id number] ####[facility] LABCLIA [id number] [place] [address] [place] Immunoglobulin light chains.lambda.free [Mass/Vol] 88.8 mg/L High 5.7-26.3 [facility] Comment on above: Order Comment: Speci men Type: BLOOD SPECIMENOrdering Facility: [facility] Address: [address] [place] [address] Result Comment: Rare ly, increased serum free light chains levels may not be detected or accurately quantified due to prozone phenomenon or in high viscosity samples using this immunoturbidimetric assay. Correlation with other laboratory results and clinical findings is recommended. The [place] Free Light Chain was performed using the Binding Site Optilite immunoturbidimetric method. Result obtained with different assay methods or kits cannot be used interchangeably. Performed By: #### 2 885-2, GUST[place]O, 29409-0, [id number] ####[facility] LABCLIA [id number] [place] [address] [place] KID K/P PANC REC HLA AB SCRN on 08-01-2023 ALLOGEN RESULTS TO FOLLOW See Allogen report to follow Normal [facility] Comment on above: Order Comment: Speci men Type: BLOOD SPECIMENOrdering Facility: [facility] Address: [address] [place] [address] Performed By: #### K PRHAS ####ALL[facility]EN [facility] [id number] [place] [address] [place] PROTEIN ELECTROPHORESIS SERU M (P)on 08-01-2023 Albumin [Mass/Vol] 3.88 g/dL Normal 3.43-5.41 [facility] Comment on above: Order Comment: Speci men Type: BLOOD SPECIMENOrdering Facility: [facility] Address: [address] [place] [address] Performed By: #### 2 885-2, GUSTAVO, 60454-6, [id number] ####[facility] LABIA [id number] [place] [address] [place] Alpha 1 globulin Elph [Mass/Vol] 0.33 g/dL Normal 0.18-0.43 [facility] Comment on above: Order Comment: Speci men Type: BLOOD SPECIMENOrdering Facility: [facility] Address: [address] [place] [address] Performed By: #### 2 885-2, GUSTAVO, 10270-5, [id number] ####[facility] LABCLIA [id number] [place] [address] [place] Alpha 2 globulin Elph [Mass/Vol] 1.04 g/dL High 0.42-0.98 [facility] Comment on above: Order Comment: Speci men Type: BLOOD SPECIMENOrdering Facility: [facility] Address: [address] [place] [address] Performed By: #### 2 885-2, KLFRS, 35380-9, [id number] ####[facility] LABCLIA [id number] [place] [address] [place] Beta globulin Elph [Mass/Vol] 0.82 g/dL Normal 0.61-1.17 [facility] Comment on above: Order Comment: Speci men Type: BLOOD SPECIMENOrdering Facility: [facility] Address: [address] [place] [address] Performed By: #### 2 885-2, KLFRS, 80021-9, [id number] ####[facility] LABCLIA [id number] [place] [address] [place] Gamma globulin Elph [Mass/Vol] 1.03 g/dL Normal 0.53-1.51 [facility] Comment on above: Order Comment: Speci men Type: BLOOD SPECIMENOrdering Facility: [facility] Address: [address] [place] [address] Performed By: #### 2 885-2, KLFRS, 28673-0, [id number] ####[facility] LABCLIA [id number] [place] [address] [place] M-PROTEIN LOCATION Normal [facility] Comment on above: Order Comment: Speci men Type: BLOOD SPECIMENOrdering Facility: [facility] Address: [address] [place] [address] Result Comment: Not Applicable. Performed By: #### 2 885-2, KLFRS, 61506-0, [id number] ####[facility] LABCLIA [id number] [place] [address] [place] Protein Fractions [Interp] No definitive M protein is identified on protein electrophoresis. Normal No definitive M protein is identified on protein electrophore sis. [facility] Comment on above: Order Comment: Speci men Type: BLOOD SPECIMENOrdering Facility: [facility] Address: [address] [place] [address] Performed By: #### 2 885-2, KLFRS, 83532-2, [id number] ####[facility] LABCLIA [id number] [place] [address] [place] Protein.monoclonal Elph [Mass/Vol] 0.00 g/dL Normal <=0.00 [facility] Comment on above: Order Comment: Speci men Type: BLOOD SPECIMENOrdering Facility: [facility] Address: [address] [place] [address] Performed By: #### 2 885-2, KLFRS, 40359-8, [id number] ####[facility] LABIA [id number] [place] [address] [place] SPE STAFF REVIEW Reviewed by Fabrice Boo MD, Ph.D ([id number]) Normal [facility] Comment on above: Order Comment: Speci men Type: BLOOD SPECIMENOrdering Facility: [facility] Address: [address] [place] [address] Performed By: #### 2 885-2, KLFRS, 73164-7, [id number] ####[facility] LABCLIA [id number] [place] [address] [place] Prot SerPl-mCncon 08-01-2023 Protein [Mass/Vol] 7.1 g/dL Normal 6.3-8.0 [facility] Comment on above: Order Comment: Speci men Type: BLOOD SPECIMENOrdering Facility: [facility] Address: [address] [place] [address] Performed By: #### 2 885-2, KLFRS, 28630-4, [id number] ####[facility] LABCLIA [id number] [place] [address] [place] Reagin and Treponema pallidu m IgG and IgM [Interp]on 08-01-2023 T. pallidum IgG+IgM IA Ql (S) Non-Reactive Normal Nonreactive [facility] Comment on above: Order Comment: Speci men Type: BLOOD SPECIMENOrdering Facility: [facility] Address: [address] [place] [address] Performed By: #### 7 3752-8 ####[facility] LABCLIA [id number] [place] [address] [place] Reagin+T pallidum IgG+IgM Se rPl-Impon 08-01-2023 Reagin and Treponema pallidum IgG and IgM [Interp] Cannot exclude recent Treponemal infection if specimen collected within 7-10 days after appearance of suspect lesions or 2-3 weeks after an exposure. Clinical correlation is required. Normal [facility] Comment on above: Order Comment: Speci men Type: BLOOD SPECIMENOrdering Facility: [facility] Address: [address] [place] [address] Performed By: #### 7 3752-8 ####[facility] LABCLIA [id number] [place] [address] [place] Renal function 2000 panelon 08-01-2023 Albumin [Mass/Vol] 3.9 g/dL 3.9 - 4.9 g/dL [facility] Anion gap [Moles/Vol] 11 mmol/L 9 - 18 mmol/L [facility] Calcium [Mass/Vol] 11.7 mg/dL High 8.5 - 10. 2 mg/dL [facility] Chloride [Moles/Vol] 109 mmol/L High 97 - 10 5 mmol/L [facility] CO2 [Moles/Vol] 16 mmol/L Low 22 - 30 mmol/L [facility] Creatinine [Mass/Vol] 5.03 mg/dL High 0.58 - 0.96 mg/dL [facility] Estimated Glomerular Filtration Rate 9 mL/min/1.73m Low >=60 mL/min/1.73m [facility] Glucose [Mass/Vol] 120 mg/dL High 74 - 99 mg/dL [facility] Phosphate [Mass/Vol] 6.2 mg/dL High 2.7 - 4 .8 mg/dL [facility] Potassium [Moles/Vol] 4.8 mmol/L 3.7 - 5.1 mmol/L [facility] Sodium [Moles/Vol] 136 mmol/L 136 - 144 mmol/L [facility] Urea nitrogen [Mass/Vol] 74 mg/dL High 7 - 21 mg/dL [facility] Albumin [Mass/Vol] 3.9 g/dL Normal 3.9-4.9 [facility] Comment on above: Order Comment: Speci men Type: BLOOD SPECIMENOrdering Facility: [facility] Address: [address] [place] [address] Performed By: #### 2 4362-6 ####[facility] LABIA [id number] [place] [address] [place] Anion gap [Moles/Vol] 11 mmol/L Normal 9-18 [facility] Comment on above: Order Comment: Speci men Type: BLOOD SPECIMENOrdering Facility: [facility] Address: [address] [place] [address] Performed By: #### 2 4362-6 ####[facility] LABIA [id number] [place] [address] [place] Calcium [Mass/Vol] 11.7 mg/dL High 8.5-10.2 [facility] Comment on above: Order Comment: Speci men Type: BLOOD SPECIMENOrdering Facility: [facility] Address: [address] [place] [address] Performed By: #### 2 4362-6 ####[facility] LABCLIA [id number] [place] [address] [place] Chloride [Moles/Vol] 109 mmol/L High 97-105 [facility] Comment on above: Order Comment: Speci men Type: BLOOD SPECIMENOrdering Facility: [facility] Address: [address] [place] [place] [id number] Performed By: #### 2 4362-6 ####[facility] LABCLIA [id number] [place] [address] [place] CO2 [Moles/Vol] 16 mmol/L Low 22-30 [facility] Comment on above: Order Comment: Speci men Type: BLOOD SPECIMENOrdering Facility: [facility] Address: [address] [place] [address] Performed By: #### 2 4362-6 ####[facility] LABIA [id number] [place] [address] [place] Creatinine [Mass/Vol] 5.03 mg/dL High 0.58-0.96 [facility] Comment on above: Order Comment: Speci men Type: BLOOD SPECIMENOrdering Facility: [facility] Address: [address] [place] [address] Performed By: #### 2 4362-6 ####[facility] LABIA [id number] [place] [address] [place] Creatinine and Glomerular filtration rate.predicted panel (S/P/Bld) 9 mL/min/1.73m??? Low >=60 [facility] Comment on above: Order Comment: Speci men Type: BLOOD SPECIMENOrdering Facility: [facility] Address: [address] [place] [address] Result Comment: Trena mated Glomerular Filtration Rate (eGFR) is calculated using the 2020 CKD-EPI creatinine equation. This equation utilizes serum creatinine, sex, and age as parameters. The creatinine assay has traceable calibration to isotope dilution-mass spectrometry. Refer to KDIGO guidelines for clinical interpretation. In patients with unstable renal function, e.g. those with acute kidney injury, the eGFR may not accurately reflect actual GFR. Performed By: #### 2 4362-6 ####[facility] LABIA [id number] [place] [address] [place] Glucose [Mass/Vol] 120 mg/dL High 74-99 [facility] Comment on above: Order Comment: Speci men Type: BLOOD SPECIMENOrdering Facility: [facility] Address: [address] [place] [address] Result Comment: The [place] Diabetes [employer] (ADA) provides guidance for cutoff values for fasting glucose and random glucose. The ADA defines fasting as no caloric intake for at least 8 hours. Fasting plasma glucose results between 100 to 125 mg/dL indicate increased risk for diabetes (prediabetes). Fasting plasma glucose results greater than or equal to 126 mg/dL meet the criteria for diagnosis of diabetes. In the absence of unequivocal hyperglycemia, results should be confirmed by repeat testing. In a patient with classic symptoms of hyperglycemia or hyperglycemic crisis, random plasma glucose results greater than or equal to 200 mg/dL meet the criteria for diagnosis of diabetes. Reference: Standards of Medical Care in Diabetes 2016, [place] [employer]. Diabetes Care. 2016.39(Suppl 1). Performed By: #### 2 4362-6 ####[facility] LABCLIA [id number] [place] [address] [place] Phosphate [Mass/Vol] 6.2 mg/dL High 2.7-4.8 [facility] Comment on above: Order Comment: Speci men Type: BLOOD SPECIMENOrdering Facility: [facility] Address: [address] [place] [address] Performed By: #### 2 4362-6 ####[facility] LABCLIA [id number] [place] [address] [place] Potassium [Moles/Vol] 4.8 mmol/L Normal 3.7-5.1 [facility] Comment on above: Order Comment: Speci men Type: BLOOD SPECIMENOrdering Facility: [facility] Address: [address] [place] [address] Performed By: #### 2 4362-6 ####[facility] LABCLIA [id number] [place] [address] [place] Sodium [Moles/Vol] 136 mmol/L Normal 136-144 [facility] Comment on above: Order Comment: Speci men Type: BLOOD SPECIMENOrdering Facility: [facility] Address: [address] [place] [address] Performed By: #### 2 4362-6 ####[facility] LABCLIA [id number] [place] [address] [place] Urea nitrogen [Mass/Vol] 74 mg/dL High 7-21 [facility] Comment on above: Order Comment: Speci men Type: BLOOD SPECIMENOrdering Facility: [facility] Address: [address] [place] [address] Performed By: #### 2 4362-6 ####[facility] LABIA [id number] [address] [place] VARICELLA ZOSTER IGGon 07-31 VARICELLA ZOSTER IGG, QUAL Positive Normal Positive [facility] Comment on above: Order Comment: Speci men Type: BLOOD SPECIMENOrdering Facility: [facility] Address: [address] [place] [address] Result Comment: The result suggests recent or past exposure to Varicella-Zoster virus or chickenpox vaccination or zoster vaccination. Positive result may also be seen due to presence of passively-transferred antibodies. Please correlate with patient's history. Performed By: #### V ZVG2 ####[facility] LABIA [id number] [place] [address] [place] XR CHEST 2V FRONTAL/LATon XR CHEST 2V FRONTAL/LAT * * *Final Repor t* * * DATE OF EXAM: Aug 01 2023 9:50AM JIX [id number] - XR CHEST 2V FRONTAL/LAT / PROCEDURE REASON: Pre-transplant evaluation for chronic kidney disease * * * * Physician Interpretation * * * * EXAMINATION: CHEST RADIOGRAPH (2 VIEW FRONTAL and LATERAL) CLINICAL HISTORY: Pre-transplant evaluation for chronic kidney disease MQ: [id number] EXAM DATE/TIME: 08/01/2023 9:50 AM COMPARISON: No relevant prior studies available. RESULTS: Lines, tubes, and devices: None. Lungs and pleura: Lungs are clear of focal consolidation there is mild elevation of the LEFT hemidiaphragm.. No pleural effusions or pneumothorax is identified. Cardiomediastinal silhouette: The cardiomediastinal silhouette is mildly enlarged. Other: Endplate degenerative changes are present in the thoracic spine. IMPRESSION: No acute radiographic findings in the chest. Development Administrator: JAVIER Transcribe Date/Time: Aug 01 2023 3:46P Dictated by : GUSTAVO HAMM MD This examination was interpreted and the report reviewed and electronically signed by: GUSTAVO HAMM MD on Aug 01 2023 3:48PM EST [id number] Normal [facility] XR Chest PA and Lateralon [facility] CNPNon 07-27-2023 CNPN Telephone (TXCTGL) -------- TERESA CORBIN ([id number]) 1960 F Date Time Provider Department 07/27/23 TARA PARK ([facility])(HIST)TXCTGL During your visit today, we recorded the following information about you: Tara Park 07/27/2023 10:16 AM Signed Spoke with patient to confirm scheduled kidney transplant evaluation for next week. Did they receive their schedule? Yes Remind the patient to sign up for MyChart if they have not already - Yes. I asked patient if she wanted a new code she stated yes, I sent code and let patient know its good for 24hr. Tara Park Allergies As of Date: 07/27/2023 (No Known Allergies) Date Reviewed: 08/09/2022 Reviewed by: Lima Pinto, SYDNEY - Fully Assessed Prescriptions as of 07/27/2023 - SITagliptin phosphate (JANUVIA) 100 mg tablet [...] TAB Take one(1) tablet twice daily. - candesartan/hydrochlorot hiazid(ATACAND HCT 32 MG-12.5 MG TAB) - ALLOPURINOL 100 MG TAB Take one(1) tablet PO daily with Food - ACTOS 30 MG TAB Take one(1) tablet daily. - GLUCOPHAGE 1,000 MG TAB Take 1 tab twice daily - GLUCOTROL XL 10 MG TAB Take 1 tab twice daily Facility-Administered Medications as of 07/27/2023 - perflutren lipid microspheres 1.3 mL in NaCl (PF) 0.9% 10 mL injection (DEFINITY) - sodium chloride 0.9 % (flush) 10 mL (BD POSIFLUSH) Problem List As Of Date 07/27/2023 Noted Resolved CALCULUS OF KIDNEY [N20.0] 04/10/2005 HYDRONEPHROSIS [N13.30] 04/10/2005 RENAL COLIC [N23] 04/10/2005 EXTRAVASATION OF URINE [R39.0] 04/28/2005 Encounter Status:Closed by TARA PARK on 07/27/23 [facility] Basophil percentageOrdered B y: Jasmyne Mayorga on 06-21-2023 Basophil percentage 4.5 mg/dL 2.5-4.9 [place] [facility] Chloride [Moles/Vol] 112 mmol/L 98-[address] Counts Include 234 [facility] Glucose [Mass/Vol] 69 mg/dL 74-106 [place] [facility] Hemoglobin (Bld) [Mass/Vol] 11.4 g/dL 12.0-15.0 [facility] Potassium [Moles/Vol] 4.3 mmol/L 3.5-5.1 [facility] Sodium [Moles/Vol] 136 mmol/L 136-145 [place] [facility] WBC (Bld) [#/Vol] 13.5 10*3/uL 4.4-11.0 [facility] Determination of erythrocyte mean corpuscular volume (MCV)Ordered By: Jasmyne Mayorga on 06-21-2023 MCV (RBC) [Entitic vol] 89.4 fL 81-99 [facility] Erythrocyte distribution wid th ratioOrdered By: Jasmyne Mayorga on 06-21-2023 Erythrocyte distribution width (RBC) [Ratio] 13.9 % 11.6-14.6 [facility] Erythrocyte distribution wid th standard deviationOrdered By: Jasmyne Mayorga on 06-21-2023 Erythrocyte distribution width (RBC) [Entitic vol] 45.4 fL 35.1-43.9 [facility] Hematocrit Auto (Bld) [Volum e fraction]Ordered By: Jasmyne Mayorga on 06-21-2023 Hematocrit (Bld) [Volume fraction] 36.1 % 37-47 [facility] Laboratory - Chemistry and C hemistry - challengeOrdered By: Jasmyne Mayorga on 06-21-2023 CO2 [Moles/Vol] 17.0 mmol/L 21.0-32.0 [facility] Urea nitrogen/Creatinine [Mass ratio] 13.4 mg/mg 10-20 [facility] Laboratory - Hematology and Cell countsOrdered By: Jasmyne Mayorga on 06-21-2023 MCH (RBC) [Entitic mass] 28.2 pg 27.0-32.0 [facility] MCHC (RBC) [Mass/Vol] 31.6 g/dL 32-[address] [facility] Platelets (Bld) [#/Vol] 292 10*3/uL 150-450 [facility] No Panel InformationOrdered By: Jasmyne Mayorga on 06-21-2023 Estimated GFR (MDRD) Amer 12 mL/min >60 [facility] Comment on above: GFR Calc Estimated GFR (MDRD) Non-Af Amer 10 mL/min >60 [facility] Comment on above: Non- GFR Calc Platelet mean volume Isael-Ec ker (Bld) [Entitic vol]Ordered By: Jasmyne Mayorga on 06-21-2023 Platelet mean volume (Bld) [Entitic vol] 10.5 fL 6.2-12.0 [facility] RBC Auto (Bld) [#/Vol]Ordere d By: Jasmyne Mayorga on 06-21-2023 RBC (Bld) [#/Vol] 4.04 10*6/uL 4.2-5.4 [facility] Serum or plasma calcium walter urement (mass/volume)Ordered By: Jasmyne Mayorga on 06-21-2023 Calcium [Mass/Vol] 11.1 mg/dL 8.5-10.1 [facility] Serum or plasma creatinine m easurement (mass/volume)Ordered By: Jasmyne Mayorga on 06-21-2023 Creatinine [Mass/Vol] 4.70 mg/dL 0.55-1.[address] [facility] Comment on above: The validity of the calculated GFR & GFRAA in patients over 70 years has not been determined. Clinical correlation is essential. Serum or plasma urea nitroge n measurement (mass/volume)Ordered By: Jasmyne Mayorga on 06-21-2023 Urea nitrogen [Mass/Vol] 63 mg/dL 7-18 [facility] Thin prep Papanicolaou smear with manual screeningOrdered By: Jasmyne Mayorga on 06-21-2023 Protein (U) [Mass/Vol] 311.1 mg/dL 0.0-11.8 [facility] Thin prep Papanicolaou smear with manual screening 3.1 g/dL 3.2-5.0 [facility] Urine creatinine measurement (mass/volume)Ordered By: Jasmyne Mayorga on 06-21-2023 Creatinine (U) [Mass/Vol] 52.30 mg/dL NO RANGE EST. [facility] Urine protein/creatinine mas s ratioOrdered By: Jasmyne Mayorga on 06-21-2023 Protein/Creatinine (U) [Mass ratio] 5948 mg/g CRE 0-200 [facility] COLONOSCOPYon 06-15-2023 Colonoscopy Table formatting fro m the original result was not included. [facility] Colonoscopy studyon 06-15-19 24 Table formatting fro m the original result was not included. Impression Normal. Findings All observed locations appeared normal.; Recommendation Follow up with PCP Repeat colonoscopy in 5 years Indication Chronic kidney disease (CKD), stage V ([facility] Staff Staff Role No Staff Documented Medications midazolam PF (Versed) injection 2.5 mg meperidine PF (Demerol) injection 25 mg glucagon (Glucagen) injection 1 mg (Totals for administrations occurring from 1524 to 1545 on 06/15/23) Preprocedure A history and physical has been performed, and patient medication allergies have been reviewed. The patient's tolerance of previous anesthesia has been reviewed. The risks and benefits of the procedure and the sedation options and risks were discussed with the patient and patient's partner. All questions were answered and informed consent obtained. Details of the Procedure The patient underwent moderate sedation, which was administered by the procedural nurse. The patient's blood pressure, ECG, ETCO2, heart rate, level of consciousness, oxygen and respirations were monitored throughout the procedure. A digital rectal exam was performed. A perianal exam was performed. The scope was introduced through the anus and advanced to the terminal ileum. Retroflexion was performed in the rectum. The quality of bowel preparation was evaluated using the Hudson Bowel Preparation Scale with scores of: right colon = 3, transverse colon = 3, left colon = 3. The total BBPS score was 9. Bowel prep was adequate. The patient experienced no blood loss. The procedure was not difficult. The patient tolerated the procedure well. There were no apparent adverse events. Events Procedure Events Event Event Time ENDO SCOPE IN TIME 06/15/2023 3:33 PM ENDO CECUM REACHED 06/15/2023 3:38 PM ENDO SCOPE OUT TIME 06/15/2023 3:44 PM Specimens No specimens collected Procedure Location [place] [address] [place] [address] [facility] [id number] Referring Provider Marcus Fonseca DO [facility] [address] [place] [address] Procedure Provider Marcus Fonseca DO [facility] Work Phone: [facility] Work Phone: Radiology Study observation (narrative) [facility] Work Phone: Laboratory - Hematology and Cell countson 05-28-2023 HbA1c (Bld) [Mass fraction] 6.6 % 4.2-6.3 [facility] Basophil percentageOrdered B y: Jasmyne Mayorga on 04-16-2023 Basophil percentage 6.5 mg/dL 2.5-4.9 [facility] Chloride [Moles/Vol] 111 mmol/L 98-107 [facility] Glucose [Mass/Vol] 105 mg/dL 74-106 [facility] Comment on above: Fasting Glucose resu lt from 100 to 125 mg/dL suggests IMPAIRED HOMEOSTASIS per A.D.A. criteria. Potassium [Moles/Vol] 4.8 mmol/L 3.5-5.[address] [facility] Sodium [Moles/Vol] 136 mmol/L 136-145 [facility] Laboratory - Chemistry and C hemistry - challengeOrdered By: Jasmyne Mayorga on 04-16-2023 CO2 [Moles/Vol] 18.0 mmol/L 21.0-32.0 [facility] Urea nitrogen/Creatinine [Mass ratio] 15.1 mg/mg 10-20 [facility] No Panel InformationOrdered By: Jasmyne Mayorga on 04-16-2023 Estimated GFR (MDRD) Amer 12 mL/min >60 [facility] Comment on above: GFR Calc Estimated GFR (MDRD) Non-Af Amer 10 mL/min >60 [facility] Comment on above: Non- GFR Calc Serum or plasma albumin walter urement (mass/volume)Ordered By: Jasmyne Mayorga on 04-16-2023 Albumin [Mass/Vol] 3.0 g/dL 3.2-5.0 [facility] Serum or plasma calcium walter urement (mass/volume)Ordered By: Jasmyne Mayorga on 04-16-2023 Calcium [Mass/Vol] 10.3 mg/dL 8.5-10.1 [facility] Serum or plasma creatinine m easurement (mass/volume)Ordered By: Jasmyne Mayorga on 04-16-2023 Creatinine [Mass/Vol] 4.90 mg/dL 0.55-1.[address] [facility] Comment on above: The validity of the calculated GFR & GFRAA in patients over 70 years has not been determined. Clinical correlation is essential. Serum or plasma urea nitroge n measurement (mass/volume)Ordered By: Jasmyne Mayorga on 04-16-2023 Urea nitrogen [Mass/Vol] 74 mg/dL 7-18 [facility] Urine creatinine measurement (mass/volume)Ordered By: Jasmyne Mayorga on 04-16-2023 Creatinine (U) [Mass/Vol] 47.20 mg/dL NO RANGE EST. [facility] Urine protein measurement (m ass/volume)Ordered By: Jasmyne Mayorga on 04-16-2023 Protein (U) [Mass/Vol] 303.1 mg/dL 0.0-11.8 [facility] Urine protein/creatinine mas s ratioOrdered By: foreign Mayorga on 04-16-2023 Protein/Creatinine (U) [Mass ratio] 6422 mg/g CRE 0-200 [facility] Basophil percentageOrdered B y: Zayda Tran on 11-27-2022 Bilirubin [Mass/Vol] 0.40 mg/dL 0.20-1.00 [facility] Comment on above: For patients on eltr ombopag therapy, use of Dimension [place] TBIL is not recommended. Chloride [Moles/Vol] 111 mmol/L 98-107 [facility] Glucose [Mass/Vol] 100 mg/dL 74-106 [facility] Comment on above: Fasting Glucose resu lt from 100 to 125 mg/dL suggests IMPAIRED HOMEOSTASIS per A.D.A. criteria. Potassium [Moles/Vol] 4.7 mmol/L 3.5-5.[address] [facility] Protein [Mass/Vol] 8.7 g/dL 6.4-8.2 [facility] Sodium [Moles/Vol] 138 mmol/L 136-145 [facility] Laboratory - Chemistry and C hemistry - challengeOrdered By: Zayda Tran on 11-27-2022 ALP [Catalytic activity/Vol] 59 U/L 45-117 [facility] ALT [Catalytic activity/Vol] 16 U/L 13-56 [facility] CO2 [Moles/Vol] 24.0 mmol/L 21.0-32.0 [facility] Globulin (S) [Mass/Vol] 5.4 g/dL 2.2-4.2 [facility] Urea nitrogen/Creatinine [Mass ratio] 14.6 mg/mg 03-09 [facility] Laboratory - Hematology and Cell countson 11-27-2022 HbA1c (Bld) [Mass fraction] 6.7 % 4.2-6.3 [facility] No Panel InformationOrdered By: Zayda Tran on 11-27-2022 Estimated GFR (MDRD) Amer 14 mL/min >60 [facility] Comment on above: GFR Calc Estimated GFR (MDRD) Non-Af Amer 12 mL/min >60 [facility] Comment on above: Non- GFR Calc Vitamin D 25-Hydroxy 33.7 ng/mL [facility] Comment on above: Vitamin D 25(OH) Sta tus Range Deficiency <20 ng/mL (50nmol/L) Insufficiency 20 - 30 ng/mL (50 - 75 nmol/L) Sufficiency 30 - 100 ng/mL (75 - 250 nmol/L) Toxicity >100 ng/mL (>250 nmol/L) Serum or plasma albumin walter urement (mass/volume)Ordered By: Zayda Tran on 11-27-2022 Albumin [Mass/Vol] 3.3 g/dL 3.2-5.0 [facility] Serum or plasma albumin/glob ulin mass ratioOrdered By: Zayda Tran on 11-27-2022 Albumin/Globulin [Mass ratio] 0.6 {ratio} 0.9-2.4 [facility] Serum or plasma calcium walter urement (mass/volume)Ordered By: Zayda Tran on 11-27-2022 Calcium [Mass/Vol] 10.7 mg/dL 8.5-10.1 [facility] Serum or plasma creatinine m easurement (mass/volume)Ordered By: Zayda Tran on 11-27-2022 Creatinine [Mass/Vol] 4.11 mg/dL 0.55-1.[address] [facility] Comment on above: The validity of the calculated GFR & GFRAA in patients over 70 years has not been determined. Clinical correlation is essential. Serum or plasma urea nitroge n measurement (mass/volume)Ordered By: Zayda Tran on 11-27-2022 Urea nitrogen [Mass/Vol] 60 mg/dL 7-18 [facility] Thin prep Papanicolaou smear with manual screeningOrdered By: Zayda Tran on 11-27-2022 Thin prep Papanicolaou smear with manual screening 14 U/L 15-37 [facility] Thin prep Papanicolaou smear with manual screening 3 5-15 [facility] Laboratory - Chemistry and C hemistry - challengeOrdered By: Jasmyne Mayorga on 11-22-2022 Albumin [Mass/Vol] 3.3 g/dL 2.9-4.4 [facility] No Panel InformationOrdered By: Jasmyne Mayorga on 11-22-2022 Addendum Document Comment . [facility] Comment on above: The SPE pattern demo nstrates elevation of regionscontaining acute phase proteins suggesting anacute/subacute inflammatory response. Some conditions inwhich this pattern has been observed include: bacterial,viral or parasitic infection; mechanical, physical orchemical trauma; and cardiac failure. The gamma globulinregion is unremarkable and evidence of monoclonal proteinis not apparent. Agfik-7-Ralxhgzkz 0.3 g/dL 0.0-0.4 [facility] Qdaut-5-Cneiylrvo 1.1 g/dL 0.4-1.0 [facility] Free Lambda Light Chains, Quant 126.3 mg/L 5.7-26.3 [facility] Gamma Globulins 1.6 g/dL 0.4-1.8 [facility] Miscellaneous Test See comment [facility] Comment on above: TEST RESULTS LIMITSP THrP (PTH-Related Peptide) <2.0 pmol/LThis test was developed and its performance characteristicsdetermined by [employer] [facility]. It has not been cleared or approvedby the Food and Drug Administration.Reference Range:All Ages: <2.0The PTHrP assay should not be used to exclude cancer orscreen tumor patients for humoral hypercalcemia ofmalignancy (HHM). The results should always be assessed inconjunction with the patient's medical history, clinicalexamination, and other findings. If test results areclinically discordant, please contact the laboratory TESTING PERFORMED AT [facility]. ORIGINAL REPORT ON FILE IN LAB CONTAINS ADDITIONAL TEST SITE INFORMATION. Parathyroid Hormone (Intact) 48.3 pg/mL 18.4-80.1 [facility] Serum Immunofixation Comment . [facility] Comment on above: No monoclonality det ected. Protein Fractions Elph [Inte rp]Ordered By: Jasmyne Mayorga on 11-22-2022 Protein Fractions [Interp] Comment . [facility] Comment on above: Protein electrophore sis scan will follow via computer,mail, or it programmer delivery. Serum albumin to globulin ra jagdish by protein electrophoresisOrdered By: Jasmyne Mayorga on 11-22-2022 Albumin/Globulin Elph [Mass ratio] 0.8 0.7-1.7 [facility] Serum globulin measurement ( mass/volume)Ordered By: Jasmyne Mayorga on 11-22-2022 Globulin (S) [Mass/Vol] 3.9 g/dL 2.2-3.9 [facility] Serum immunoglobulin kappa l ight chains/immunoglobulin lambda light chains mass ratioOrdered By: Jasmyne Mayorga on 11-22-2022 Immunoglobulin light chains.kappa/Immunoglob ulin light chains.lambda (S) [Mass ratio] 1.14 0.26-1.65 [facility] Comment on above: Performed at: - [address] [id number] Director: Yann Rosales PhD, Phone: [phone] Serum or plasma IgA measurem ent (mass/volume)Ordered By: Jasmyne Mayorga on 11-22-2022 IgA [Mass/Vol] 294 mg/dL 87-352 [facility] Serum or plasma IgG measurem ent (mass/volume)Ordered By: Jasmyne Mayorga on 11-22-2022 IgG [Mass/Vol] 1769 mg/dL 586-1602 [facility] Serum or plasma IgM measurem ent (mass/volume)Ordered By: Jasmyne Mayorga on 11-22-2022 IgM [Mass/Vol] 66 mg/dL 26-217 [facility] Serum or plasma beta globuli n measurement by electrophoresis (mass/volume)Ordered By: Jasmyne Mayorga on 11-22-2022 Beta globulin Elph [Mass/Vol] 1.0 g/dL 0.7-1.3 [facility] Serum or plasma immunoglobul in kappa light chains measurement (mass/volume)Ordered By: Jasmyne Mayorga on 11-22-2022 Immunoglobulin light chains.kappa [Mass/Vol] 143.7 mg/L 3.3-19.4 [facility] Thin prep Papanicolaou smear with manual screeningOrdered By: Jasmyne Mayorga on 11-22-2022 Thin prep Papanicolaou smear with manual screening See comment [facility] Comment on above: NOT OBSERVED Total protein bloodOrdered B y: Jasmyne Mayorga on 11-22-2022 Protein [Mass/Vol] 7.2 g/dL 6.0-8.5 [facility] NM CARDIAC PERF STRESS/PHARM on 08-09-2022 [facility] Basophil percentageOrdered B y: Dr. Mayorga on 07-21-2022 Basophil percentage 5.0 mg/dL 2.5-4.9 [facility] Chloride [Moles/Vol] 103 mmol/L 98-107 [facility] Glucose [Mass/Vol] 181 mg/dL 74-106 [facility] Comment on above: Fasting Glucose resu lt greater than or equal to 126 mg/dL suggests DIABETES MELLITUS per A.D.A. criteria. Potassium [Moles/Vol] 4.7 mmol/L 3.5-5.[address] [facility] Sodium [Moles/Vol] 137 mmol/L 136-145 [facility] WBC (Bld) [#/Vol] 9.2 10*3/uL 4.4-11.0 [facility] Blood erythrocytes count (nu mber/volume)Ordered By: Dr. Mayorga on 03-03-2023 RBC (Bld) [#/Vol] 4.31 10*6/uL 4.2-5.4 [facility] Blood hemoglobin measurement (mass/volume)Ordered By: Dr. Mayorga on 07-21-2022 Hemoglobin (Bld) [Mass/Vol] 12.0 g/dL 12.0-15.0 [facility] Blood platelet mean volumeOr dered By: Dr. Mayroga on 07-21-2022 Platelet mean volume (Bld) [Entitic vol] 10.7 fL 6.2-12.0 [facility] Determination of erythrocyte mean corpuscular volume (MCV)Ordered By: Dr. Mayorga on 07-21-2022 MCV (RBC) [Entitic vol] 85.4 fL 81-99 [facility] Hematocrit Auto (Bld) [Volum e fraction]Ordered By: Dr. Mayorga on 07-21-2022 Hematocrit (Bld) [Volume fraction] 36.8 % 37-47 [facility] Laboratory - Chemistry and C hemistry - challengeOrdered By: Dr. Mayorga on 07-21-2022 CO2 [Moles/Vol] 24.0 mmol/L 21.0-32.0 [facility] Urea nitrogen/Creatinine [Mass ratio] 12.6 mg/mg 10-20 [facility] Laboratory - Hematology and Cell countsOrdered By: Dr. Mayorga on 07-21-2022 Erythrocyte distribution width (RBC) [Entitic vol] 45.7 fL 35.1-43.9 [facility] Erythrocyte distribution width (RBC) [Ratio] 14.6 % 11.6-14.6 [facility] MCH (RBC) [Entitic mass] 27.8 pg 27.0-32.0 [facility] MCHC Auto (RBC) [Mass/Vol]Or dered By: Dr. Mayorga on 07-21-2022 MCHC (RBC) [Mass/Vol] 32.6 g/dL 32-[address] [facility] No Panel InformationOrdered By: Dr. Mayorga on 07-21-2022 Estimated GFR (MDRD) Amer 15 mL/min >60 [facility] Comment on above: GFR Calc Estimated GFR (MDRD) Non-Af Amer 12 mL/min >60 [facility] Comment on above: Non- GFR Calc Parathyroid Hormone (Intact) 26.5 pg/mL 18.4-80.1 [facility] Vitamin D 25-Hydroxy 26.5 ng/mL [facility] Comment on above: Vitamin D 25(OH) Sta tus Range Deficiency <20 ng/mL (50nmol/L) Insufficiency 20 - 30 ng/mL (50 - 75 nmol/L) Sufficiency 30 - 100 ng/mL (75 - 250 nmol/L) Toxicity >100 ng/mL (>250 nmol/L) Platelets bldOrdered By: Dr. Mayorga on 07-21-2022 Platelets (Bld) [#/Vol] 289 10*3/uL 150-450 [facility] Serum or plasma albumin walter urement (mass/volume)Ordered By: Dr. Mayorga on 07-21-2022 Albumin [Mass/Vol] 3.2 g/dL 3.2-5.0 [facility] Serum or plasma calcium walter urement (mass/volume)Ordered By: Dr. Mayorga on 07-21-2022 Calcium [Mass/Vol] 11.8 mg/dL 8.5-10.1 [facility] Serum or plasma creatinine m easurement (mass/volume)Ordered By: Dr. Mayorga on 07-21-2022 Creatinine [Mass/Vol] 4.05 mg/dL 0.55-1.[address] [facility] Comment on above: The validity of the calculated GFR & GFRAA in patients over 70 years has not been determined. Clinical correlation is essential. Serum or plasma urea nitroge n measurement (mass/volume)Ordered By: Dr. Mayorga on 07-21-2022 Urea nitrogen [Mass/Vol] 51 mg/dL 7-18 [facility] Cervical or vagninal specime n microscopic examination by cytology stain (reported asOrdered By: Lima Pollard on 06-12-2022 Cytology report Cyto stain Doc (Cvx/Vag) Comment . [facility] Comment on above: The Pap smear is a s creening test designed to aid in thedetection of premalignant and malignant conditions of theuterine cervix. It is not a diagnostic procedure andshould not be used as the sole means of detecting cervicalcancer. Both false-positive and false-negative reports dooccur. Detection in cervical specim en of any of human papilloma virus (HPV) 16, 18, 31, 33,Ordered By: Lima Pollard on 06-12-2022 HPV 16+18+31+33+35+39+45+51 +52+56+58+59+68 DNA Probe+sig amp Ql (Cvx) Negative [facility] Laboratory - CytologyOrdered By: Lima Pollard on 06-12-[address] Cyto stain Nom (Cvx/Vag) [ID] Comment . [facility] Comment on above: Mookie Humphrey otechnologist (ASCP) Laboratory - Miscellaneous t estsOrdered By: Lima Pollard on 06-12-2022 Service comment (Unsp spec) [Interp] Comment . [facility] Comment on above: This liquid based Th inPrep(R) pap test was screened withthe use of an image guided system. Service comment (Unsp spec) [Interp] . . [facility] No Panel InformationOrdered By: Lima Pollard on 06-12-2022 Pathology report final diagnosis Narrative Comment . [facility] Comment on above: NEGATIVE FOR INTRAEP ITHELIAL LESION OR MALIGNANCY. Basophil percentageOrdered B y: Zayda Tran on 05-31-2022 Bilirubin [Mass/Vol] 0.30 mg/dL 0.20-1.00 [facility] Comment on above: For patients on eltr ombopag therapy, use of Dimension [place] TBIL is not recommended. Chloride [Moles/Vol] 112 mmol/L 98-107 [facility] Cholesterol [Mass/Vol] 150 mg/dL <200 [facility] Comment on above: <200 mg/dL Desirable 200-240 mg/dL Borderline >240 mg/dL High Risk Glucose [Mass/Vol] 96 mg/dL 74-106 [facility] Potassium [Moles/Vol] 4.1 mmol/L 3.5-5.[address] [facility] Protein [Mass/Vol] 8.1 g/dL 6.4-8.2 [facility] Sodium [Moles/Vol] 138 mmol/L 136-145 [facility] Triglyceride [Mass/Vol] 220 mg/dL <199 [facility] Comment on above: The drugs N-Acetylcy steine and Metamizole may falsely depress this assay.Serum Triglycerides Reference Interval Normal <150 mg/dL Borderline high 150 - 199 mg/dL High 200 - 499 mg/dL Very High > or = 500 mg/dL Laboratory - Chemistry and C hemistry - challengeOrdered By: Zayda Tran on 05-31-2022 ALP [Catalytic activity/Vol] 69 U/L 45-117 [facility] ALT [Catalytic activity/Vol] 19 U/L 13-56 [facility] CO2 [Moles/Vol] 19.0 mmol/L 21.0-32.0 [facility] Globulin (S) [Mass/Vol] 4.8 g/dL 2.2-4.2 [facility] Urea nitrogen/Creatinine [Mass ratio] 15.4 mg/mg 10-20 [facility] Laboratory - Hematology and Cell countson 05-31-2022 HbA1c (Bld) [Mass fraction] 7.1 % [facility] No Panel InformationOrdered By: Zayda Tran on 05-31-2022 Estimated GFR (MDRD) Amer 17 mL/min >60 [facility] Comment on above: GFR Calc Estimated GFR (MDRD) Non-Af Amer 14 mL/min >60 [facility] Comment on above: Non- GFR Calc Parathyroid Hormone (Intact) 27.7 pg/mL 18.4-80.1 [facility] Vitamin D 25-Hydroxy 27.6 ng/mL [facility] Comment on above: Vitamin D 25(OH) Sta tus Range Deficiency <20 ng/mL (50nmol/L) Insufficiency 20 - 30 ng/mL (50 - 75 nmol/L) Sufficiency 30 - 100 ng/mL (75 - 250 nmol/L) Toxicity >100 ng/mL (>250 nmol/L) Serum or plasma albumin walter urement (mass/volume)Ordered By: Zayda Tran on 05-31-2022 Albumin [Mass/Vol] 3.3 g/dL 3.2-5.0 [facility] Serum or plasma albumin/glob ulin mass ratioOrdered By: Zayda Tran on 05-31-2022 Albumin/Globulin [Mass ratio] 0.7 {ratio} 0.9-2.4 [facility] Serum or plasma calcium walter urement (mass/volume)Ordered By: Zayda Tran on 05-31-2022 Calcium [Mass/Vol] 11.1 mg/dL 8.5-10.1 [facility] Serum or plasma cholesterol in HDL measurement (mass/volume)Ordered By: Zayda Tran on 05-31-2022 Cholesterol in HDL [Mass/Vol] 35 mg/dL >40 [facility] Comment on above: The drugs N-Acetylcy steine and Metamizole may falsely depress this assay. Reference Range HDL <40 mg/dL Low HDL Cholesterol HDL >or= 60 mg/dL High HDL Cholesterol Serum or plasma cholesterol in VLDL measurement (mass/volume)Ordered By: Zayda Tran on 05-31-2022 Cholesterol in VLDL [Mass/Vol] 44 mg/dL 5-40 [facility] Serum or plasma creatinine m easurement (mass/volume)Ordered By: Zayda Tran on 05-31-2022 Creatinine [Mass/Vol] 3.56 mg/dL 0.55-1.[address] [facility] Comment on above: The validity of the calculated GFR & GFRAA in patients over 70 years has not been determined. Clinical correlation is essential. Serum or plasma low density lipoprotein (LDL) cholesterol measurement (mass/volume)Ordered By: Zayda Tran on 05-31-2022 Cholesterol in LDL [Mass/Vol] 71 mg/dL 0-130 [facility] Serum or plasma urea nitroge n measurement (mass/volume)Ordered By: Zayda Tran on 05-31-2022 Urea nitrogen [Mass/Vol] 55 mg/dL 7-18 [facility] Thin prep Papanicolaou smear with manual screeningOrdered By: Zayda Tran on 05-31-2022 Thin prep Papanicolaou smear with manual screening 12 U/L 15-37 [facility] Thin prep Papanicolaou smear with manual screening 7 5-[address] [facility] [address] ABD/PEL WO IVCONon 2021 [facility] Basophil percentageOrdered B y: Dr. Mayorga on 04-17-2022 Chloride [Moles/Vol] 110 mmol/L 98-107 [facility] Glucose [Mass/Vol] 121 mg/dL 74-106 [facility] Comment on above: Fasting Glucose resu lt from 100 to 125 mg/dL suggests IMPAIRED HOMEOSTASIS per A.D.A. criteria. Potassium [Moles/Vol] 4.6 mmol/L 3.5-5.[address] [facility] Sodium [Moles/Vol] 137 mmol/L 136-145 [facility] Laboratory - Chemistry and C hemistry - challengeOrdered By: Dr. Mayorga on 04-17-2022 CO2 [Moles/Vol] 19.0 mmol/L 21.0-32.0 [facility] Urea nitrogen/Creatinine [Mass ratio] 16.1 mg/mg 10-20 [facility] No Panel InformationOrdered By: Dr. Mayorga on 04-17-2022 Estimated GFR (MDRD) Amer 15 mL/min >60 [facility] Comment on above: GFR Calc Estimated GFR (MDRD) Non-Af Amer 12 mL/min >60 [facility] Comment on above: Non- GFR Calc Serum or plasma calcium walter urement (mass/volume)Ordered By: Dr. Mayorga on 04-17-2022 Calcium [Mass/Vol] 12.0 mg/dL 8.5-10.1 [facility] Serum or plasma creatinine m easurement (mass/volume)Ordered By: Dr. Mayorga on 04-17-2022 Creatinine [Mass/Vol] 4.03 mg/dL 0.55-1.[address] [facility] Comment on above: The validity of the calculated GFR & GFRAA in patients over 70 years has not been determined. Clinical correlation is essential. Serum or plasma urea nitroge n measurement (mass/volume)Ordered By: Dr. Mayorga on 04-17-2022 Urea nitrogen [Mass/Vol] 65 mg/dL 7-18 [facility] Thin prep Papanicolaou smear with manual screeningOrdered By: Dr. Mayorga on 04-17-2022 Thin prep Papanicolaou smear with manual screening 8 5-15 [facility] Urine creatinine measurement (mass/volume)Ordered By: Dr. Mayorga on 04-17-2022 Creatinine (U) [Mass/Vol] 62.00 mg/dL NO RANGE EST. [facility] Urine protein measurement (m ass/volume)Ordered By: Dr. Mayorga on 04-17-2022 Protein (U) [Mass/Vol] 301.1 mg/dL 0.0-11.8 [facility] Urine protein/creatinine mas s ratioOrdered By: Dr. Mayorga on 04-17-2022 Protein/Creatinine (U) [Mass ratio] 4856 mg/g CRE 0-200 [facility] Basophil percentageon 2021 Chloride [Moles/Vol] 105 mmol/L 98-107 [facility] Work Phone: Glucose [Mass/Vol] 156 mg/dL 74-106 [facility] Work Phone: Comment on above: Fasting Glucose resu lt greater than or equal to 126 mg/dL suggests DIABETES MELLITUS per A.D.A. criteria. Potassium [Moles/Vol] 4.6 mmol/L 3.5-5.[address] [facility] Work Phone: Sodium [Moles/Vol] 135 mmol/L 136-145 [facility] Work Phone: Laboratory - Chemistry and C hemistry - challengeon 12-28-2021 CO2 [Moles/Vol] 22.0 mmol/L 21.0-32.0 [facility] Work Phone: Urea nitrogen/Creatinine [Mass ratio] 13.6 mg/mg 10-20 [facility] Work Phone: No Panel Informationon 12-28 Estimated GFR (MDRD) Amer 15 mL/min >60 [facility] Work Phone: Comment on above: GFR Calc Estimated GFR (MDRD) Non-Af Amer 12 mL/min >60 [facility] Work Phone: Comment on above: Non- GFR Calc Miscellaneous Test See comment [facility] Work Phone: Comment on above: TEST RESULT LIMITS A nti-PLA2R <1.8 RU/mL 0.0-19.9 Negative <14.0 Borderline 14.0 - 19.9 Positive >19.9 TESTING PERFORMED AT [facility]. ORIGINAL REPORT ON FILE IN LAB CONTAINS ADDITIONAL TEST SITE INFORMATION. Serum or plasma calcium walter urement (mass/volume)on 12-28-2021 Calcium [Mass/Vol] 10.9 mg/dL 8.5-10.1 [facility] Work Phone: Serum or plasma creatinine m easurement (mass/volume)on 12-28-2021 Creatinine [Mass/Vol] 4.03 mg/dL 0.55-1.[address] [facility] Work Phone: Comment on above: The validity of the calculated GFR & GFRAA in patients over 70 years has not been determined. Clinical correlation is essential. Serum or plasma urea nitroge n measurement (mass/volume)on 12-28-2021 Urea nitrogen [Mass/Vol] 55 mg/dL 12-05 [facility] Work Phone: Thin prep Papanicolaou smear with manual screeningon 12-28-2021 Thin prep Papanicolaou smear with manual screening 8 5-15 [facility] Work Phone: Urine creatinine measurement (mass/volume)on 12-28-2021 Creatinine (U) [Mass/Vol] 46.30 mg/dL NO RANGE EST. [facility] Work Phone: Urine protein measurement (m ass/volume)on 12-28-2021 Protein (U) [Mass/Vol] 274.7 mg/dL 0.0-11.8 [facility] Work Phone: Urine protein/creatinine mas s ratioon 12-28-2021 Protein/Creatinine (U) [Mass ratio] 5933 mg/g CRE 0-200 [facility] Work Phone: Laboratory - Hematology and Cell countson 12-05-2021 HbA1c (Bld) [Mass fraction] 7.3 % [facility] Work Phone: Atypical perinuclear antineu trophil cytoplasmic antibodies measurementon 09-19-2021 Neutrophil cytoplasmic Ab.perinuclear.atypical IF (S) [Titer] <1:20 titer Neg:<1:20 [facility] Work Phone: Comment on above: The atypical pANCA p attern has been observed in asignificant percentage of patients with ulcerative colitis,primary sclerosing cholangitis and autoimmune hepatitis. Basophil percentageon 2021 Basophil percentage 4.5 mg/dL 2.5-4.9 [facility] Work Phone: Chloride [Moles/Vol] 107 mmol/L 98-107 [facility] Work Phone: Glucose [Mass/Vol] 106 mg/dL 74-106 [facility] Work Phone: Comment on above: Fasting Glucose resu lt from 100 to 125 mg/dL suggests IMPAIRED HOMEOSTASIS per A.D.A. criteria. Potassium [Moles/Vol] 4.4 mmol/L 3.5-5.[address] [facility] Work Phone: Sodium [Moles/Vol] 136 mmol/L 136-145 [facility] Work Phone: WBC (Bld) [#/Vol] 11.1 10*3/uL 4.4-11.0 [facility] Work Phone: Blood erythrocytes count (nu mber/volume)on 09-19-2021 RBC (Bld) [#/Vol] 4.31 10*6/uL 4.2-5.4 [facility] Work Phone: Blood hemoglobin measurement (mass/volume)on 09-19-2021 Hemoglobin (Bld) [Mass/Vol] 11.7 g/dL 12.0-15.0 [facility] Work Phone: Blood platelet mean volumeon 09-19-2021 Platelet mean volume (Bld) [Entitic vol] 10.8 fL 6.2-12.0 [facility] Work Phone: Determination of erythrocyte mean corpuscular volume (MCV)on 09-19-2021 MCV (RBC) [Entitic vol] 84.0 fL 81-99 [facility] Work Phone: Hematocrit Auto (Bld) [Volum e fraction]on 09-19-2021 Hematocrit (Bld) [Volume fraction] 36.2 % 37-47 [facility] Work Phone: Laboratory - Chemistry and C hemistry - challengeon 09-19-2021 CO2 [Moles/Vol] 21.0 mmol/L 21.0-32.0 [facility] Work Phone: Urea nitrogen/Creatinine [Mass ratio] 15.1 mg/mg 10-20 [facility] Work Phone: Laboratory - Hematology and Cell countson 09-19-2021 Erythrocyte distribution width (RBC) [Entitic vol] 43.3 fL 35.1-43.9 [facility] Work Phone: Erythrocyte distribution width (RBC) [Ratio] 14.1 % 11.6-14.6 [facility] Work Phone: MCH (RBC) [Entitic mass] 27.1 pg 27.0-32.0 [facility] Work Phone: MCHC Auto (RBC) [Mass/Vol]on 09-19-2021 MCHC (RBC) [Mass/Vol] 32.3 g/dL 32-[address] [facility] Work Phone: No Panel Informationon 09-19 Addendum Document Comment . [facility] Work Phone: Comment on above: The SPE pattern demo nstrates elevation of regionscontaining acute phase proteins suggesting anacute/subacute inflammatory response. Some conditions inwhich this pattern has been observed include: bacterial,viral or parasitic infection; mechanical, physical orchemical trauma; and cardiac failure. The gamma globulinregion is unremarkable and evidence of monoclonal proteinis not apparent. Yuiyi-6-Iytpuaqje 0.3 g/dL 0.0-0.4 [facility] Work Phone: Uftne-9-Vmwrcceen 1.4 g/dL 0.4-1.0 [facility] Work Phone: Estimated GFR (MDRD) Amer 17 mL/min >60 [facility] Work Phone: Comment on above: GFR Calc Estimated GFR (MDRD) Non-Af Amer 14 mL/min >60 [facility] Work Phone: Comment on above: Non- GFR Calc Gamma Globulins 1.3 g/dL 0.4-1.8 [facility] Work Phone: Parathyroid Hormone (Intact) 26.9 pg/mL 18.4-80.1 [facility] Work Phone: Vitamin D 25-Hydroxy 20.7 ng/mL [facility] Work Phone: Comment on above: Vitamin D 25(OH) Sta tus Range Deficiency <20 ng/mL (50nmol/L) Insufficiency 20 - 30 ng/mL (50 - 75 nmol/L) Sufficiency 30 - 100 ng/mL (75 - 250 nmol/L) Toxicity >100 ng/mL (>250 nmol/L) Platelets bldon 09-19-2021 Platelets (Bld) [#/Vol] 334 10*3/uL 150-450 [facility] Work Phone: Protein Fractions Elph [Inte rp]on 09-19-2021 Protein Fractions [Interp] Comment . [facility] Work Phone: Comment on above: Protein electrophore sis scan will follow via computer,mail, or it programmer delivery. Serum DNA double strand anti body assay (units/volume)on 09-19-2021 DNA double strand Ab Qn (S) [IU]/mL 0-9 [facility] Work Phone: Comment on above: Negative <5 Equivoca l 5 - 9 Positive >9Performed at: - [facility] [address] [id number] Director: Yann Rosales PhD, Phone: [phone] Serum albumin to globulin ra jagdish by protein electrophoresison 09-19-2021 Albumin/Globulin Elph [Mass ratio] 0.8 0.7-1.7 [facility] Work Phone: Serum classic neutrophil cyt oplasmic antibody assay (units/volume)on 09-19-2021 Neutrophil cytoplasmic Ab.classic Qn (S) <1:20 titer Neg:<1:20 [facility] Work Phone: Serum globulin measurement ( mass/volume)on 09-19-2021 Globulin (S) [Mass/Vol] 4.0 g/dL 2.2-3.9 [facility] Work Phone: Serum or plasma albumin walter urement (mass/volume)on 09-19-2021 Albumin [Mass/Vol] 3.3 g/dL 2.9-4.4 [facility] Work Phone: Serum or plasma beta globuli n measurement by electrophoresis (mass/volume)on 09-19-2021 Beta globulin Elph [Mass/Vol] 1.1 g/dL 0.7-1.3 [facility] Work Phone: Serum or plasma calcium walter urement (mass/volume)on 09-19-2021 Calcium [Mass/Vol] 9.9 mg/dL 8.5-10.1 [facility] Work Phone: Serum or plasma complement C 3 measurement (mass/volume)on 09-19-2021 Complement C3 [Mass/Vol] 163 mg/dL 82-167 [facility] Work Phone: Comment on above: Performed at: [address] [id number] Director: Yann Rosales PhD, Phone: [phone] Serum or plasma complement C 4 measurement (mass/volume)on 09-19-2021 Complement C4 [Mass/Vol] 48 mg/dL 12-38 [facility] Work Phone: Serum or plasma creatinine m easurement (mass/volume)on 09-19-2021 Creatinine [Mass/Vol] 3.52 mg/dL 0.55-1.[address] [facility] Work Phone: Comment on above: The validity of the calculated GFR & GFRAA in patients over 70 years has not been determined. Clinical correlation is essential. Serum or plasma urea nitroge n measurement (mass/volume)on 09-19-2021 Urea nitrogen [Mass/Vol] 53 mg/dL - [facility] Work Phone: Serum perinuclear neutrophil cytoplasmic antibody titer by immunofluorescenceon 09-19-2021 Neutrophil cytoplasmic Ab.perinuclear IF (S) [Titer] <1:20 titer Neg:<1:20 [facility] Work Phone: Comment on above: The presence of posi tive fluorescence exhibiting P-ANCA orC-ANCA patterns alone is not specific for the diagnosis ofWegener's Granulomatosis (WG) or microscopic polyangiitis.Decisions about treatment should not be based solely onANCA IFA results. The [employer] Consensusrecommends follow up testing of positive sera with both ND-3 and MPO-ANCA enzyme immunoassays. As many as 5% serumsamples are positive only by EIA. Ref. AM J Clin [id number];111:507-513. Thin prep Papanicolaou smear with manual screeningon 09-19-2021 Thin prep Papanicolaou smear with manual screening See comment [facility] Work Phone: Comment on above: NOT OBSERVED Total protein bloodon 2021 Protein [Mass/Vol] 7.3 g/dL 6.0-8.5 [facility] Work Phone: Urine creatinine measurement (mass/volume)on 09-19-2021 Creatinine (U) [Mass/Vol] 30.90 mg/dL NO RANGE EST. [facility] Work Phone: Urine protein measurement (m ass/volume)on 09-19-2021 Protein (U) [Mass/Vol] 208.1 mg/dL 0.0-11.8 [facility] Work Phone: Urine protein/creatinine mas s ratioon 09-19-2021 Protein/Creatinine (U) [Mass ratio] 6735 mg/g CRE 0-200 [facility] Work Phone: Basophil percentageon 2021 Bilirubin [Mass/Vol] 0.20 mg/dL 0.20-1.00 [facility] Work Phone: Comment on above: For patients on eltr ombopag therapy, use of Dimension [place] TBIL is not recommended. Chloride [Moles/Vol] 111 mmol/L 98-107 [facility] Work Phone: Glucose [Mass/Vol] 120 mg/dL 74-106 [facility] Work Phone: Comment on above: Fasting Glucose resu lt from 100 to 125 mg/dL suggests IMPAIRED HOMEOSTASIS per A.D.A. criteria. Potassium [Moles/Vol] 4.4 mmol/L 3.5-5.[address] [facility] Work Phone: Protein [Mass/Vol] 7.1 g/dL 6.4-8.2 [facility] Work Phone: Sodium [Moles/Vol] 140 mmol/L 136-145 [facility] Work Phone: Laboratory - Chemistry and C hemistry - challengeon 09-05-2021 ALP [Catalytic activity/Vol] 78 U/L 45-117 [facility] Work Phone: ALT [Catalytic activity/Vol] 23 U/L 13-56 [facility] Work Phone: CO2 [Moles/Vol] 21.0 mmol/L 21.0-32.0 [facility] Work Phone: Globulin (S) [Mass/Vol] 3.9 g/dL 2.2-4.2 [facility] Work Phone: Urea nitrogen/Creatinine [Mass ratio] 12.8 mg/mg 10-20 [facility] Work Phone: No Panel Informationon 09-05 Estimated GFR (MDRD) Amer 16 mL/min >60 [facility] Work Phone: Comment on above: GFR Calc Estimated GFR (MDRD) Non-Af Amer 14 mL/min >60 [facility] Work Phone: Comment on above: Non- GFR Calc Vitamin D 25-Hydroxy 21.1 ng/mL [facility] Work Phone: Comment on above: Vitamin D 25(OH) Sta tus Range Deficiency <20 ng/mL (50nmol/L) Insufficiency 20 - 30 ng/mL (50 - 75 nmol/L) Sufficiency 30 - 100 ng/mL (75 - 250 nmol/L) Toxicity >100 ng/mL (>250 nmol/L) Serum or plasma albumin walter urement (mass/volume)on 09-05-2021 Albumin [Mass/Vol] 3.2 g/dL 3.2-5.0 [facility] Work Phone: Serum or plasma albumin/glob ulin mass ratioon 09-05-2021 Albumin/Globulin [Mass ratio] 0.8 {ratio} 0.9-2.4 [facility] Work Phone: Serum or plasma calcium walter urement (mass/volume)on 09-05-2021 Calcium [Mass/Vol] 9.6 mg/dL 8.5-10.1 [facility] Work Phone: Serum or plasma creatinine m easurement (mass/volume)on 09-05-2021 Creatinine [Mass/Vol] 3.66 mg/dL 0.55-1.[address] [facility] Work Phone: Comment on above: The validity of the calculated GFR & GFRAA in patients over 70 years has not been determined. Clinical correlation is essential. Serum or plasma urea nitroge n measurement (mass/volume)on 09-05-2021 Urea nitrogen [Mass/Vol] 47 mg/dL 7-18 [facility] Work Phone: Thin prep Papanicolaou smear with manual screeningon 09-05-2021 Thin prep Papanicolaou smear with manual screening 17 U/L 15-37 [facility] Work Phone: Thin prep Papanicolaou smear with manual screening 8 5-15 [facility] Work Phone: Laboratory - Hematology and Cell countson 07-06-2021 HbA1c (Bld) [Mass fraction] 7.5 % [facility] Work Phone: Vital Signs Date Time Vital Sign Value Performing Clinician Facility 03-02-2025 08:51-0400 Body height 165.[address] Lima Pollard MD Work Phone: [phone] [address] 03-02-2025 08:51-0400 Body mass index (BMI) [Ratio] 35.7 kg/m2 Dr. Lima Pollard MD Work Phone: [phone] [address] 03-02-2025 08:51-0400 Body weight 97.[address] Lima Pollard MD Work Phone: [phone] [place] [address] 03-02-2025 08:51-0400 Diastolic blood pressure 84 mm[Hg] Dr. Lima Pollard MD Work Phone: [phone] [place] [address] 03-02-2025 08:51-0400 Heart rate 76 /min Dr. Lima Pollard MD Work Phone: [phone])[phone] [place] [address] 03-02-2025 08:51-0400 SaO2% (BldA) [Mass fraction] 98 % Dr. Lima Pollard MD Work Phone: [phone])[phone] [place] [address] 03-02-2025 08:51-0400 Systolic blood pressure 170 mm[Hg] Dr. Lima Pollard MD Work Phone: [phone] [address] 09-01-2024 08:55-0400 Body height 165.[address] Lima Pollard MD Work Phone: [phone] [address] 09-01-2024 08:55-0400 Body mass index (BMI) [Ratio] 37.6 kg/m2 Dr. Lima Pollard MD Work Phone: [phone])[phone] [place] [address] 09-01-2024 08:55-0400 Body weight 102.[address] Lima Pollard MD Work Phone: [facility] 09-01-2024 08:55-0400 Diastolic blood pressure 94 mm[Hg] Dr. Lima Pollard MD Work Phone: [facility] 09-01-2024 08:55-0400 Heart rate 79 /min Dr. Lima Pollard MD Work Phone: [facility] 09-01-2024 08:55-0400 SaO2% (BldA) [Mass fraction] 98 % Dr. Lima Pollard MD Work Phone: [facility] 09-01-2024 08:55-0400 Systolic blood pressure 179 mm[Hg] Dr. Lima Pollard MD Work Phone: [facility] 05-01-2024 08:56-0500 Body height 165.[address] Lima Pollard MD Work Phone: [facility] 05-01-2024 08:56-0500 Body mass index (BMI) [Ratio] 39.9 kg/m2 Dr. Lima Pollard MD Work Phone: [facility] 05-01-2024 08:56-0500 Body weight 108.[address] Lima Pollard MD Work Phone: [facility] 05-01-2024 08:56-0500 Diastolic blood pressure 90 mm[Hg] Dr. Lima Pollard MD Work Phone: [facility] 05-01-2024 08:56-0500 Heart rate 63 /min Dr. Lima Pollard MD Work Phone: [facility] 05-01-2024 08:56-0500 SaO2% (BldA) [Mass fraction] 98 % Dr. Lima Pollard MD Work Phone: [facility] 05-01-2024 08:56-0500 Systolic blood pressure 161 mm[Hg] Dr. Lima Pollard MD Work Phone: [facility] 08-01-2023 10:34-0400 Body height 162.6 cm [facility] Work Phone: [facility] 08-01-2023 10:34-0400 Body temperature 97.7 [degF] [facility] Work Phone: [facility] 08-01-2023 10:34-0400 Body weight 112.3 kg [facility] Work Phone: [facility] 08-01-2023 10:34-0400 Diastolic blood pressure 62 mm[Hg] [facility] Work Phone: [facility] 08-01-2023 10:34-0400 Heart rate 62 /min [facility] Work Phone: [facility] 08-01-2023 10:34-0400 SaO2% (BldA) [Mass fraction] 100 % [facility] Work Phone: [facility] 08-01-2023 10:34-0400 Systolic blood pressure 141 mm[Hg] [facility] Work Phone: [facility] 08-01-2023 10:21-0400 Body height 162.6 cm [facility] Work Phone: [facility] 08-01-2023 10:21-0400 Body temperature 97.7 [degF] [facility] Work Phone: [facility] 08-01-2023 10:21-0400 Body weight 112.3 kg [facility] Work Phone: [facility] 08-01-2023 10:21-0400 Diastolic blood pressure 62 mm[Hg] [facility] Work Phone: [facility] 08-01-2023 10:21-0400 Heart rate 62 /min [facility] Work Phone: [facility] 08-01-2023 10:21-0400 SaO2% (BldA) [Mass fraction] 100 % [facility] Work Phone: [facility] 08-01-2023 10:21-0400 Systolic blood pressure 141 mm[Hg] [facility] Work Phone: [facility] 06-15-2023 16:20-0500 Diastolic blood pressure 80 mm[Hg] Marcus Fonseca DO Work Phone: [facility] 06-15-2023 16:20-0500 Heart rate 77 /min Marcus Fonseca DO Work Phone: [facility] 06-15-2023 16:20-0500 Respiratory rate 18 /min Marcus Fonseca DO Work Phone: [facility] 06-15-2023 16:20-0500 SaO2% (BldA) [Mass fraction] 96 % Marcus Fonseca DO Work Phone: [facility] 06-15-2023 16:20-0500 Systolic blood pressure 170 mm[Hg] Marcus Fonseca DO Work Phone: [facility] 06-15-2023 15:47-0500 Body temperature 97.9 [degF] Marcus Fonseca DO Work Phone: [facility] 06-15-2023 13:44-0500 Body height 162.6 cm Marcus Fonseca DO Work Phone: [facility] 06-15-2023 13:44-0500 Body mass index (BMI) [Ratio] 40.53 kg/m2 Marcus Fonseca DO Work Phone: [facility] 06-15-2023 13:44-0500 Body weight 107.1 kg Marcus Fonseca DO Work Phone: [facility] 05-28-2023 09:13-0500 Body height 165.[address] Lima Pollard Work Phone: [facility] 05-28-2023 09:13-0500 Body mass index (BMI) [Ratio] 40.2 kg/m2 Dr. Lima Pollard Work Phone: [facility] 05-28-2023 09:13-0500 Body temperature 97.8 [degF] Dr. Lima Pollard Work Phone: [facility] 05-28-2023 09:13-0500 Body weight 109.[address] Lima Pollard Work Phone: [facility] 05-28-2023 09:13-0500 Diastolic blood pressure 79 mm[Hg] Dr. Lima Pollard Work Phone: [facility] 05-28-2023 09:13-0500 Heart rate 59 /min Dr. Lima Pollard Work Phone: [facility] 05-28-2023 09:13-0500 SaO2% (BldA) [Mass fraction] 94 % Dr. Lima Pollard Work Phone: [facility] 05-28-2023 09:13-0500 Systolic blood pressure 161 mm[Hg] Dr. Lima Pollard Work Phone: [facility] 11-27-2022 09:04-0400 Body height 165.[address] Lima Pollard Work Phone: [facility] 11-27-2022 09:04-0400 Body mass index (BMI) [Ratio] 38 kg/m2 Dr. Lima Pollard Work Phone: [facility] 11-27-2022 09:04-0400 Body temperature 98.4 [degF] Dr. Lima Pollard Work Phone: [facility] 11-27-2022 09:04-0400 Body weight 103.[address] Lima Pollard Work Phone: [facility] 11-27-2022 09:04-0400 Diastolic blood pressure 88 mm[Hg] Dr. Lima Pollard Work Phone: [facility] 11-27-2022 09:04-0400 Heart rate 63 /min Dr. Lima Pollard Work Phone: [facility] 11-27-2022 09:04-0400 Respiratory rate 18 /min Dr. Lima Pollard Work Phone: [facility] 11-27-2022 09:04-0400 SaO2% (BldA) [Mass fraction] 97 % Dr. Lima Pollard Work Phone: [facility] 11-27-2022 09:04-0400 Systolic blood pressure 160 mm[Hg] Dr. Lima Pollard Work Phone: [facility] 05-31-2022 08:46-0500 Body height 165.[address] Lima Pollard Work Phone: [facility] 05-31-2022 08:46-0500 Body mass index (BMI) [Ratio] 38.2 kg/m2 Dr. Lima Pollard Work Phone: [facility] 05-31-2022 08:46-0500 Body temperature 96.9 [degF] Dr. Lima Pollard Work Phone: [phone] [place] [address] 05-31-2022 08:46-0500 Body weight 104.[address] Lima Pollard Work Phone: [facility] 05-31-2022 08:46-0500 Diastolic blood pressure 84 mm[Hg] Dr. Lima Pollard Work Phone: [facility] 05-31-2022 08:46-0500 Heart rate 64 /min Dr. Lima Pollard Work Phone: [facility] 05-31-2022 08:46-0500 Respiratory rate 18 /min Dr. Lima Pollard Work Phone: [facility] 05-31-2022 08:46-0500 SaO2% (BldA) [Mass fraction] 94 % Dr. Lima Pollard Work Phone: [facility] 05-31-2022 08:46-0500 Systolic blood pressure 145 mm[Hg] Dr. Lima Pollard Work Phone: [facility] 05-10-2022 12:54-0500 Body height 162.6 cm [facility] Work Phone: [facility] 05-10-2022 12:54-0500 Body temperature 98.6 [degF] [facility] Work Phone: [facility] 05-10-2022 12:54-0500 Body weight 105.92 kg [facility] Work Phone: [facility] 05-10-2022 12:54-0500 Diastolic blood pressure 62 mm[Hg] [facility] Work Phone: [facility] 05-10-2022 12:54-0500 Heart rate 74 /min [facility] Work Phone: [facility] 05-10-2022 12:54-0500 SaO2% (BldA) [Mass fraction] 99 % [facility] Work Phone: [facility] 05-10-2022 12:54-0500 Systolic blood pressure 142 mm[Hg] [facility] Work Phone: [facility] 05-10-2022 12:52-0500 Body height 162.6 cm [facility] Work Phone: [facility] 05-10-2022 12:52-0500 Body temperature 98.6 [degF] [facility] Work Phone: [facility] 05-10-2022 12:52-0500 Body weight 105.92 kg [facility] Work Phone: [facility] 05-10-2022 12:52-0500 Diastolic blood pressure 62 mm[Hg] [facility] Work Phone: [facility] 05-10-2022 12:52-0500 Heart rate 74 /min [facility] Work Phone: [facility] 05-10-2022 12:52-0500 SaO2% (BldA) [Mass fraction] 99 % [facility] Work Phone: [facility] 05-10-2022 12:52-0500 Systolic blood pressure 142 mm[Hg] [facility] Work Phone: [facility] 05-10-2022 10:21-0500 Body height 162.[address] Work Phone: [facility] 05-10-2022 10:21-0500 Body weight 104.[address] Work Phone: [facility] 12-05-2021 08:45-0400 Body height 165.[address] Lima Pollard Work Phone: [facility] Work Phone: 12-05-2021 08:45-0400 Body mass index (BMI) [Ratio] 38.6 kg/m2 Dr. Lima Pollard Work Phone: [facility] Work Phone: 12-05-2021 08:45-0400 Body temperature 96.2 [degF] Dr. Lima Pollard Work Phone: [facility] Work Phone: 12-05-2021 08:45-0400 Body weight 105.[address] Lima Pollard Work Phone: [facility] Work Phone: 12-05-2021 08:45-0400 Diastolic blood pressure 82 mm[Hg] Dr. Lima Pollard Work Phone: [facility] Work Phone: 12-05-2021 08:45-0400 Heart rate 68 /min Dr. Lima Pollard Work Phone: [facility] Work Phone: 12-05-2021 08:45-0400 Respiratory rate 18 /min Dr. Lima Pollard Work Phone: [facility] Work Phone: 12-05-2021 08:45-0400 SaO2% (BldA) [Mass fraction] 99 % Dr. Lima Pollard Work Phone: [facility] Work Phone: 12-05-2021 08:45-0400 Systolic blood pressure 144 mm[Hg] Dr. Lima Pollard Work Phone: [facility] Work Phone: 09-05-2021 08:45-0400 Body mass index (BMI) [Ratio] 39.4 kg/m2 Dr. Lima Pollard Work Phone: [facility] Work Phone: 09-05-2021 08:45-0400 Body temperature 97 [degF] Dr. Lima Pollard Work Phone: [facility] Work Phone: 09-05-2021 08:45-0400 Body weight 107.[address] Lima Pollard Work Phone: [facility] Work Phone: 09-05-2021 08:45-0400 Diastolic blood pressure 86 mm[Hg] Dr. Lima Pollard Work Phone: [facility] Work Phone: 09-05-2021 08:45-0400 Heart rate 63 /min Dr. Lima Pollard Work Phone: [facility] Work Phone: 09-05-2021 08:45-0400 Respiratory rate 18 /min Dr. Lima Pollard Work Phone: [facility] Work Phone: 09-05-2021 08:45-0400 SaO2% (BldA) [Mass fraction] 99 % Dr. Lima Pollard Work Phone: [facility] Work Phone: 09-05-2021 08:45-0400 Systolic blood pressure 138 mm[Hg] Dr. Lima Pollard Work Phone: [facility] Work Phone: 09-05-2021 08:45-0400 Body height 165.[address] Lima Pollard Work Phone: [facility] Work Phone: 09-05-2021 08:45-0400 Body mass index (BMI) [Ratio] 39.4 kg/m2 Dr. Lima Pollard Work Phone: [facility] Work Phone: 09-05-2021 08:45-0400 Body temperature 97 [degF] Dr. Lima Pollard Work Phone: [facility] Work Phone: 09-05-2021 08:45-0400 Body weight 107.[address] Lima Pollard Work Phone: [facility] Work Phone: 09-05-2021 08:45-0400 Diastolic blood pressure 86 mm[Hg] Dr. Lima Pollard Work Phone: [facility] Work Phone: 09-05-2021 08:45-0400 Heart rate 63 /min Dr. Lima Pollard Work Phone: [facility] Work Phone: 09-05-2021 08:45-0400 Respiratory rate 18 /min Dr. Lima Pollard Work Phone: [facility] Work Phone: 09-05-2021 08:45-0400 SaO2% (BldA) [Mass fraction] 99 % Dr. Lima Pollard Work Phone: [facility] Work Phone: 09-05-2021 08:45-0400 Systolic blood pressure 138 mm[Hg] Dr. Lima Pollard Work Phone: [facility] Work Phone: 07-06-2021 08:01-0500 Body mass index (BMI) [Ratio] 38.6 kg/m2 Dr. Lima Pollard Work Phone: [facility] Work Phone: 07-06-2021 08:01-0500 Body temperature 97.3 [degF] Dr. Lima Pollard Work Phone: [facility] Work Phone: 07-06-2021 08:01-0500 Body weight 105.[address] Lima Pollard Work Phone: [facility] Work Phone: 07-06-2021 08:01-0500 Diastolic blood pressure 92 mm[Hg] Dr. Lima Pollard Work Phone: [facility] Work Phone: 07-06-2021 08:01-0500 Heart rate 72 /min Dr. Lima Polladr Work Phone: [facility] Work Phone: 07-06-2021 08:01-0500 Respiratory rate 16 /min Dr. Lima Pollard Work Phone: [facility] Work Phone: 07-06-2021 08:01-0500 SaO2% (BldA) [Mass fraction] 99 % Dr. Lima Pollard Work Phone: [facility] Work Phone: 07-06-2021 08:01-0500 Systolic blood pressure 158 mm[Hg] Dr. Lima Pollard Work Phone: [facility] Work Phone: Encounters Encounter Date Encounter Type Care Provider Facility Start: 03-02-2025 End: 03-02-[address] Ulises Munson MD -[facility] Work Phone: Start: 03-02-2025 End: 03-02-2025 ambulatory Lima Pollard [place] [place] Start: 02-23-2025 End: 02-23-[address] Jasmyne Mayorga MD -[facility] [place] Work Phone: Start: 02-23-2025 End: 02-23-2025 ambulatory Jasmyne Mayorga Facility:[facility] Start: 11-12-2024 End: 11-12-[address] Lima Pollard MD Work Phone: -[facility] Start: 11-12-2024 End: 11-12-[address] Ulises Munson MD -[facility] [place] Work Phone: Start: 11-12-2024 End: 11-12-2024 ambulatory Lima Pollard Facility:[facility] Start: 09-18-2024 End: 09-18-2024 Telephone encounter Marsha Thakur MD Work Phone: [facility] Start: 09-01-2024 End: 09-01-[address] Ulises Munson MD -[facility] Work Phone: Start: 09-01-2024 End: 09-01-2024 ambulatory Lima S Atul Facility:[facility] Start: 08-29-2024 End: 08-29-2024 Telephone encounter Marsha Thakur MD Work Phone: [facility] Start: 08-19-2024 End: 08-19-[address] Lima Pollard MD Work Phone: [facility] Work Phone: Start: 08-19-2024 End: 08-19-[address] Lima Pollard MD -Labor[facility], [place] Work Phone: Start: 08-19-2024 End: 08-19-2024 ambulatory Jasmyne Mayorga Facility:[facility] Start: 05-19-2024 End: 05-19-[address] Jasmyne Mayorga MD -Labor[facility], [place] Work Phone: Start: 05-19-2024 End: 05-19-2024 ambulatory Jaforeign Mayorga Facility:[facility] Start: 05-01-2024 End: 05-01-[address] Ulises Munson MD -[facility] Work Phone: Start: 05-01-2024 End: 05-01-2024 ambulatory Lima S Jolliff Facility:[facility] Start: 04-03-2024 End: 04-03-2024 Telephone encounter Aryan Campa RN [facility] Comment on above: Kidney Eval Start: 09-05-2023 End: 09-05-[address] Lima Pollard Work Phone: [facility] Work Phone: Start: 09-05-2023 End: 09-05-[address] Lima Pollard Work Phone: [facility] Work Phone: Start: 08-10-2023 End: 08-10-[address] Lima Pollard Work Phone: [facility] Work Phone: Start: 08-10-2023 End: 08-10-[address] Lima Pollard Work Phone: [facility]Laboratory, [facility] Start: 08-03-2023 End: 08-03-[address] Lima Pollard Work Phone: [facility] Work Phone: Start: 08-03-2023 End: 08-03-[address] Lima Pollard Work Phone: [facility]-Outpatient Breast Imaging Work Phone: Start: 08-01-2023 End: 08-01-2023 Orders Only Marek Roberson MD Work Phone: [facility] Comment on above: Pre-transplant evalu ation for kidney transplant (Primary Dx); Pre-transplant evaluation for CKD (chronic kidney disease) Pre-transplant evalu ation for kidney transplant (Primary Dx) Arrived Pre-transplant evalu ation for chronic kidney disease [Z01.818] Encounter for pre-tr ansplant evaluation for chronic kidney disease (Primary Dx); Pre-transplant evaluation for kidney transplant; CKD (chronic kidney disease) stage 5, GFR less than 15 ml/min (HCC); Nephrolithiasis; Type II diabetes mellitus with complication (HCC) Obesity, Class III, BMI >= 40 (Primary Dx); CKD (chronic kidney disease) stage 5, GFR less than 15 ml/min (HCC); Hypertension, unspecified type; Type 2 diabetes mellitus with diabetic nephropathy, unspecified whether terminal supervisor insulin use (HCC); Obesity (BMI 30-39.9) Start: 08-01-2023 End: 08-01-2023 Patient encounter status Marek Roberson MD Work Phone: [facility] Start: 08-01-2023 Encounter for other preprocedural examination [facility] Start: 08-01-2023 Encounter for other preprocedural examination [facility] Start: 07-27-2023 Telephone encounter Tara oates)(Hist) [facility] Start: 06-21-2023 End: 06-21-[address] Lima Pollard Work Phone: [facility] Work Phone: Start: 06-21-2023 End: 06-21-[address] Lima Pollard Work Phone: [facility]Labor[facility] Work Phone: Start: 06-15-2023 End: 06-16-2023 [facility] Start: 06-15-2023 End: 06-15-2023 Subsequent hospital visit by physician Marcus Fonseca DO Work Phone: [facility] Comment on above: Chronic kidney disea se (CKD), stage V (CMS/HCC) (Primary Dx) Start: 05-28-2023 End: 05-28-[address] Lima Pollard Work Phone: [facility] Work Phone: Start: 04-16-2023 End: 04-16-[address] Lima Pollard Work Phone: [facility] Work Phone: Start: 04-02-2023 [facility] Comment on above: Patient Update Start: 01-24-2023 End: 01-24-[address] Lima Pollard Work Phone: [facility] Work Phone: Start: 01-24-2023 End: 01-24-[address] Lima Pollard Work Phone: [facility] Work Phone: Start: 11-27-2022 End: 11-27-[address] Lima Pollard Work Phone: [facility] Work Phone: Start: 11-27-2022 End: 11-27-[address] Lima Pollard Work Phone: [facility] Work Phone: Start: 11-27-2022 End: 11-27-[address] Lima Pollard Work Phone: [facility] Work Phone: Start: 11-22-2022 End: 11-22-[address] Lima Pollard Work Phone: [facility] Work Phone: Start: 11-22-2022 End: 11-22-[address] Lima Pollard Work Phone: [facility]Labor[facility] Work Phone: Start: 08-23-2022 Telephone encounter Xi NEWSOME Work Phone: [facility] Comment on above: Caregiver Support Start: 08-17-2022 Telephone encounter Xi NEWSOME Work Phone: [facility] Center Comment on above: Follow Up Start: 08-16-2022 Chart abstracting Deneen Castro [facility] Work Phone: [facility] Start: 08-09-2022 End: 08-09-2022 Patient encounter status Card Injection Molecular Imaging Start: 08-09-2022 End: 08-09-2022 Subsequent hospital visit by physician [facility] Comment on above: Pre-transplant evalu ation for end stage renal disease [Z01.818] Start: 07-21-2022 End: 07-21-[address] Lima Pollard Work Phone: [facility] Work Phone: Start: 07-21-2022 End: 07-21-[address] Lima Pollard Work Phone: [facility]Laboratory Start: 06-21-2022 End: 06-21-[address] Lima Pollard Work Phone: [facility]Outpatient Breast Imaging Start: 06-12-2022 End: 06-12-[address] Lima Pollard Work Phone: [facility] Work Phone: Start: 06-12-2022 End: 06-12-[address] Lima Pollard Work Phone: [facility]-Laboratory, Specimen Start: 06-12-2022 End: 06-12-[address] Lima Pollard Work Phone: [facility] Work Phone: Start: 06-12-2022 End: 06-12-[address] Lima Pollard [facility] Phone[facility] Start: 05-31-2022 End: 05-31-[address] Lima Pollard Work Phone: [facility] Work Phone: Start: 05-31-2022 End: 05-31-[address] Lima Pollard Work Phone: [facility] Start: 05-10-2022 End: 05-10-2022 Subsequent hospital visit by physician Ct 2 Main Qb (I-Stat) Radiology Comment on above: Pre-transplant evalu ation for kidney transplant [Z01.818] Start: 05-10-2022 End: 05-10-[address] Work Phone: Nutrition Therapy Comment on above: Patient Education; A ssessment Start: 05-10-2022 End: 05-10-2022 Patient encounter procedure Pre Tx Group Education Work Phone: Trans[facility] Center Comment on above: Pre-transplant evalu ation for kidney transplant (Primary Dx) Pre-transplant evalu ation for ESRD (end stage renal disease) (Primary Dx) CKD (chronic kidney disease) stage 4, GFR 15-29 ml/min (HCC) (Primary Dx); Type II diabetes mellitus with complication (HCC); Class 3 severe obesity in adult, unspecified BMI, unspecified obesity type, unspecified whether serious comorbidity present (HCC); Pre-transplant evaluation for CKD (chronic kidney disease) Pre-transplant evalu ation for end stage renal disease (Primary Dx) Start: 05-10-2022 End: 05-10-2022 Patient encounter status [facility] Work Phone: [facility] Start: 04-17-2022 End: 04-17-2022 ambulatory [facility] Work Phone: Start: 04-17-2022 End: 04-17-2022 Patient encounter procedure [facility] Start: 02-14-2022 Orders Only Rudi Augustin MD Work Phone: [facility] Comment on above: Pre-transplant evalu ation for kidney transplant (Primary Dx) Start: 02-14-2022 Patient encounter status Rudi Augustin MD Work Phone: Trans[facility] Start: 01-12-2022 Telephone encounter Lisseth Kruger ([facility]) [facility] Comment on above: Referral - Kidney Tx p Start: 12-28-2021 End: 12-28-[address] Lima Pollard Work Phone: [facility]Laboratory Start: 12-05-2021 End: 12-05-[address] Lima Pollard Work Phone: [facility]ocr[facility] Start: 09-19-2021 End: 09-19-[address] Lima Pollard Work Phone: [facility]-Ultrasound, [facility] Start: 09-05-2021 End: 09-05-[address] Lima Pollard Work Phone: [facility]-Laboratory, [facility] Start: 07-06-2021 End: 07-06-[address] Lima Pollard Work Phone: [facility] End[facility] Procedures Date Procedure Procedure Detail Performing Clinician Start: 02-23-[address] Lima Pollard MD Work Phone: Start: 02-23-2025 Serum inorganic phosphate measurement Dr. Lima Pollard MD Work Phone: Start: 02-23-2025 Vitamin D, 25-hydrox y measurement Dr. Lima Pollard MD Work Phone: Comment on above: Vitamin D StatusDefi ciency: <20 ng/mL (50nmol/L)Insufficiency: 20-30 ng/mL (50-75 nmol/L)Sufficiency: 30-100 ng/mL (75-250 nmol/L)Toxicity: >100 ng/mL (>250 nmol/L) Start: 11-12-[address] Lima Pollard MD Work Phone: Start: 11-12-2024 Serum inorganic phosphate measurement Dr. Lima Pollard MD Work Phone: Start: 11-12-2024 Vitamin D, 25-hydrox y measurement Dr. Lima Pollard MD Work Phone: Comment on above: Vitamin D StatusDefi ciency: <20 ng/mL (50nmol/L)Insufficiency: 20-30 ng/mL (50-75 nmol/L)Sufficiency: 30-100 ng/mL (75-250 nmol/L)Toxicity: >100 ng/mL (>250 nmol/L) Start: 08-19-[address] Lima Pollard MD Work Phone: Start: 08-19-2024 Serum inorganic phosphate measurement Dr. Lima Pollard MD Work Phone: Start: 08-19-2024 Vitamin D, 25-hydrox y measurement Dr. Lima Pollard MD Work Phone: Comment on above: Vitamin D StatusDefi ciency: <20 ng/mL (50nmol/L)Insufficiency: 20-30 ng/mL (50-75 nmol/L)Sufficiency: 30-100 ng/mL (75-250 nmol/L)Toxicity: >100 ng/mL (>250 nmol/L) Start: 08-03-2023 Screening mammography D flaquita Pollard Work Phone: Start: 08-01-2023 Radiologic exam ches t 2 views Marek Roberson MD Work Phone: Start: 06-15-2023 DISCHARGE PATIENT MARCUS FONSECA Start: 06-15-2023 PLACE IN OUTPATIENT/HOSPITAL AMBULATORY SURGERY MARCUS FONSECA Start: 06-15-2023 Colonoscopy flx dx w/collj spec when pfrmd Marcus Fonseca DO Work Phone: Start: 06-15-2023 Colonoscopy Marcus Ferguson e DO Work Phone: Start: 01-24-2023 Diagnostic radiograp hy of nasal bones Dr. Lima Pollard Work Phone: Start: 08-09-2022 Myocardial spect multiple studies Marek Roberson MD Work Phone: Start: 06-21-2022 Screening mammography Monse Pollard Work Phone: Start: 06-12-2022 Plain chest X-ray Dr. Kirt Pollard Work Phone: Start: 05-10-2022 Ct abdomen & pelvis w/o contrast material Pritesh Padron MD Work Phone: Start: 09-19-[address] Antony Pollard Work Phone: H/O: surgery History of extra ction of renal calculus Dr. Lima Pollard Work Phone: History of operative procedure on knee History of medial meniscus repair of right knee Dr. Lima Pollard Work Phone: Plan of Treatment Date Care Activity Detail Author Start: 06-13-2028 Screening for malign ant neoplasm of colon [facility] Start: 01-19-2025 Influenza vaccination Influenz a Vaccine (Season Ended) [facility] Start: 07-31-2024 Creatinine measurement Serum Creatin ine [facility] Start: 06-15-2024 Screening for malign ant neoplasm of colon [facility] Start: 01-20-2024 Covid-19 Vaccine ( season) Covid-19 Vaccine () [facility] [facility] Start: 01-20-2024 Influenza vaccination Influenza Vacc ine (#1) [facility] Start: 08-01-2023 End: 10-31-2023 ALGN RABBIT EPITHELIUM IGE [facility] Work Phone: Comment on above: Expected: 08/01/2023 , Expires: 10/31/2023 Start: 08-01-2023 End: 10-31-2023 PROTEIN ELECTROPHORESIS SERUM W/INTERP PROTEIN ELECTROPHORESIS SERUM W/INTERP Lab Routine Encounter for pre-transplant evaluation for chronic kidney disease Expected: 08/01/2023, Expires: 10/31/2023 [facility] Work Phone: Comment on above: Expected: 08/01/2023 , Expires: 10/31/2023 Start: 08-01-2023 End: 10-31-2023 Protein/Creatinine [Mass Ratio] in Urine PROTEIN CREATININE RATIO Lab Routine Encounter for pre-transplant evaluation for chronic kidney disease Expected: 08/01/2023, Expires: 10/31/2023 [facility] Work Phone: Comment on above: Expected: 08/01/2023 , Expires: 10/31/2023 Start: 05-21-2023 Depression Assessment Depression Ass essment [facility] Start: 05-10-2023 Complete blood count Hemoglobin/Jhonathan tocrit [facility] Start: 01-19-2023 Covid-19 Vaccine ( season) Covid-19 Vaccine ( season) [facility] Start: 01-19-2023 Influenza vaccination C [facility] Start: 11-22-2022 Procedure [facility] Start: 2022 Hepatitis B Vaccine (1 of 3 - Risk 3-dose series) Hepatitis B Vaccine (1 of 3 - Risk 3-dose series) [facility] Start: 2022 RSV Vaccine (1 - 1-d ose 60+ series) RSV Vaccine (1 - 1-dose 60+ series) [facility] Start: 2022 RSV Vaccine (1 - Ris k 60-74 years 1-dose series) RSV Vaccine (1 - Risk 60-74 years 1-dose series) [facility] Start: 06-21-2022 Screening mammography ANDREW JUNE M (CAD)W/DIDIER BILAT [facility] Start: 06-12-2022 Plain chest X-ray Chest PA and Later al [facility] Start: 05-21-2022 DEPRESSION ASSESSMENT DEPRESSION ASS ESSMENT [facility] Start: 01-19-2022 Influenza vaccination INFLUENZA (#1) [facility] Start: 07-13-2021 COVID-19 VACCINE (4 - Booster for Moderna series) COVID-19 VACCINE (4 - Booster for Moderna series) [facility] Start: 07-06-2021 Patient referral [facility] Work Phone: Start: 05-21-2021 DEPRESSION ASSESSMENT DEPRESSION ASS ESSMENT [facility] Start: 2012 Zoster Vaccines (1 of 2) Zoster Vacc ricardo (1 of 2) [facility] Start: 10-18-2007 COLOGUARD (FIT-DNA) COLOGUARD (FIT-D NA) [facility] Start: 10-18-2007 Colonoscopy COLONOSCOPY [facility] Start: 10-18-2007 COLORECTAL CANCER SCREENING COLORECTAL CANCER SCREENING [facility] Start: 10-18-[address] COLONOGRAPHY [facility] Start: 10-18-2007 FECAL OCCULT BLOOD FECAL OCCULT BLOO D [facility] Start: 10-18-2007 Screening for malign ant neoplasm of colon [facility] Start: 10-18-2007 [facility]: 2002 Mammography [facility] Start: 2002 Screening for malign ant neoplasm of breast [facility] Start: 1992 HPV TESTING HPV TESTING [facility] Start: 1992 Screening for malign ant neoplasm of cervix HPV Testing [facility] Start: 1984 DTaP/Tdap/Td Vaccine s (1 - Tdap) DTaP/Tdap/Td Vaccines (1 - Tdap) [facility] Start: 10-18-1983 PAP TESTING PAP TESTING [facility] Start: 10-18-1983 Screening for malign ant neoplasm of cervix [facility] Start: 1981 Hepatitis A Vaccine (1 of 2 - Risk 2-dose series) Hepatitis A Vaccine (1 of 2 - Risk 2-dose series) [facility] Start: 1981 Pneumococcal Vaccine : 50+ (1 of 2 - PCV) Pneumococcal Vaccine: 50+ (1 of 2 - PCV) [facility] Start: 1981 SHINGRIX VACCINE (1 of 2) JOHNSON GRIX VACCINE (1 of 2) [facility] Start: 1981 Urine microalbumin profile [facility] Start: 1980 ANNUAL PCP TEAM SHIRT FINISHER CHARLINE DISEASE VISIT ANNUAL PCP TEAM CHRONIC DISEASE VISIT [facility] Start: 1980 Anxiety Screening Anxiety Screening [facility] Start: 1980 Depression Screening Depression Scre ening [facility] Start: 1980 Hepatitis B surface antibody level LDL CHOLESTEROL [facility] Start: 1980 HEPATITIS C SCREENING HEPATITIS C SC [facility] Start: 1980 Hepatitis C screening Hepatitis C [facility] Start: 1980 HIV SCREENING HIV SCREENING [facility] Start: 1974 Adult depression screening assessment DEPRESSION SCREENING [facility] Start: 1972 3 comp foot exam completed DIABETIC FOOT EXAM [facility] Start: 1972 Diabetic foot examination Diabetic F oot Exam [facility] Start: 1972 Glaucoma screening Dilated Retinal E xam [facility] Start: 1972 Hepatitis B screening URINE AL BUMIN:CREATININE RATIO [facility] Start: 1972 Hepatitis C antibody , confirmatory test DILATED RETINAL EXAM [facility] Start: 1968 PNEUMOCOCCAL (1 - PCV) PNEUMOCOCCAL (1 - PCV) [facility] Start: 1968 Pneumococcal vaccination [facility] Start: 10-18-1967 Hemoglobin A1c measurement HbA1C [facility] Start: 10-18-1967 Hemoglobin A1c/Hemoglobin.total in Blood HBA1C [facility] Start: 10-18-1963 HEPATITIS A (1 of 2 - Risk 2-dose series) HEPATITIS A (1 of 2 - Risk 2-dose series) [facility] Start: 10-18-1963 MMR Vaccines (1 of 1 - Standard series) MMR Vaccines (1 of 1 - Standard series) [facility] Start: 04-19-1963 COVID-19 VACCINE (#1) COVID-19 VACCI NE (#1) [facility] Start: 1962 HIV screening HIV Screening [facility] Start: 1962 Lipid panel Lipid Panel [facility] Start: 1962 Screening for malign ant neoplasm of colon [facility] Start: 1962 Yearly Adult Physical Yearly Adult P hysical [facility] End: 05-11-2022 ALLOGEN SOT REC RPT [facility] Comment on above: ONCE for 1 Occurrenc es starting 05/11/2022 until 05/11/2022 Basic metabolic 2008 panel with ionized calcium - Serum or Plasma [facility] End: 06-15-2023 Glucose [Mass/volume] in Serum or Plasma Glucose Lab Routine Once (Lab) for 1 Occurrences starting 06/15/2023 until 06/15/2023 [facility] Work Phone: Comment on above: Once (Lab) for 1 Occ urrences starting 06/15/2023 until 06/15/2023 End: 06-15-2023 Moderate Sedation Moderate Sedation Procedures Routine Once for 1 Occurrences starting 06/15/2023 until 06/15/2023 [facility] Work Phone: Comment on above: Once for 1 Occurrenc es starting 06/15/2023 until 06/15/2023 Patient referral [facility] Work Phone: PROTEIN ELECTROPHORE SIS SERUM W/INTERP PROTEIN ELECTROPHORESIS SERUM W/INTERP Lab Routine Encounter for pre-transplant evaluation for chronic kidney disease 08/01/2023 10:10 AM EDT [facility] Work Phone: End: 06-15-2023 Pulse oximetry, continuous Pulse oximetry, continuous Respiratory Care Routine Continuous until discontinued starting 06/15/2023 [facility] Work Phone: Comment on above: Continuous until dis continued starting 06/15/2023 End: 06-15-2023 Pulse oximetry, spot Pulse oximetry, spot Respiratory Care Routine Once for 1 Occurrences starting 06/15/2023 until 06/15/2023 [facility] Work Phone: Comment on above: Once for 1 Occurrenc es starting 06/15/2023 until 06/15/2023 [facility] Immunizations Immunization Date Immunization Notes Care Provider Mallory stacy 02-18-2018 influenza, seasonal, injectable Jesenia Treviño RN [facility] 02-18-2018 influenza virus vacc ine, unspecified formulation Edward Nieto RN [facility] 02-12-2017 influenza, injectabl e, quadrivalent, contains preservative Jesenia Treviño RN [facility] 02-07-2016 influenza, seasonal, injectable Jesenia Treviño RN [facility] Payers Date Payer Category Payer Self-pay [id number] 2022 [facility] BLUE CARD PPO OOS [id number] 2022 Unknown .[id number] 2015 Unknown [id number] 1962 Unknown [id number] Unknown [id number] Unknown [id number] Unknown [id number] Unknown [id number] Unknown [id number] Unknown [id number] Unknown [id number] Social History Date Type Detail Facility Start: 09-05-2021 End: 05-28-2023 Tobacco smoking status [facility] Unknown if ever smoked [facility] Start: 1960 Sex Assigned At Female [facility] Start: 05-10-2022 End: 05-28-2023 Tobacco smoking status [facility] Never smoked tobacco [facility] Start: 02-26-2006 End: 08-01-2023 Alcohol intake Current drinker of alcohol (finding) [facility] Start: 1960 Sex Assigned At Not on file C [facility] Start: 05-10-2022 End: 06-15-2023 Tobacco use and exposure Smokeless tobacco non-user [facility] Start: 05-10-2022 Education 13 [facility] Start: 05-10-2022 End: 06-12-2022 History of Social function [facility] Start: 05-10-2022 End: 06-12-2022 Tobacco use panel [facility] National Score (1-100), lower number is lower risk 51 [facility] Start: 06-15-2023 Alcohol intake Lifetime non-d asim (finding) [facility] Work Phone: Start: 06-05-2023 End: 06-15-2023 Exposure to SARS-CoV-2 (event) Not sure [facility] Start: 08-01-2023 Gender identity Identifies as female gender (finding) [facility] Start: 08-23-2024 Sex Female (finding) [facility] Equipment Procedure Code Equipment Code Equipment Origin al Text Equipment Identifier Dates Pen Needle, Diab etic (Bd Ultra-Fine Susan Pen Needle) 32 gauge x 5/32 needle Start: 05-31-2022 Pen Needle, Diab etic (Bd Ultra-Fine Susan Pen Needle) 32 gauge x 5/32 needle Start: 05-31-2022 Pen Needle, Diab etic (Bd Ultra-Fine Susan Pen Needle) 32 gauge x 5/32 needle Start: 05-31-2022 Pen Needle, Diab etic (Bd Ultra-Fine Susan Pen Needle) 32 gauge x 5/32 needle Start: 05-31-2022 Insulin Syringe-Needle U-100 (Bd Insulin Syringe) 1 mL 27 gauge x 1/2 syringe Start: 10-02-2022 Pen Needle, Diab etic (Bd Ultra-Fine Susan Pen Needle) 32 gauge x 5/32 needle Start: 11-27-2022 Insulin Syringe-Needle U-100 (Bd Insulin Syringe) 1 mL 25 gauge x 5/8 syringe Start: 09-27-2022 End: 10-02-2022 Pen Needle, Diab etic (Bd Ultra-Fine Susan Pen Needle) 32 gauge x 5/32 needle Start: 05-31-2022 End: 11-27-2022 Insulin Syringe-Needle U-100 (Bd Insulin Syringe Ultra-Fine) 0.5 mL 31 gauge x 5/16 syringe Start: 11-27-2022 Pen Needle, Diab etic (Bd Ultra-Fine Susan Pen Needle) 32 gauge x 5/32 needle Start: 11-27-2022 Insulin Syringe-Needle U-100 (Bd Insulin Syringe) 1 mL 25 gauge x 5/8 syringe Start: 09-27-2022 End: 10-02-2022 Insulin Syringe-Needle U-100 (Bd Insulin Syringe) 1 mL 27 gauge x 1/2 syringe Start: 10-02-2022 End: 11-27-2022 Pen Needle, Diab etic (Bd Ultra-Fine Susan Pen Needle) 32 gauge x 5/32 needle Start: 05-31-2022 End: 11-27-2022 Insulin Syringe-Needle U-100 (Bd Insulin Syringe Ultra-Fine) 0.5 mL 31 gauge x 5/16 syringe Start: 11-27-2022 Pen Needle, Diab etic (Bd Ultra-Fine Susan Pen Needle) 32 gauge x 5/32 needle Start: 11-27-2022 Insulin Syringe-Needle U-100 (Bd Insulin Syringe) 1 mL 25 gauge x 5/8 syringe Start: 09-27-2022 End: 10-02-2022 Insulin Syringe-Needle U-100 (Bd Insulin Syringe) 1 mL 27 gauge x 1/2 syringe Start: 10-02-2022 End: 11-27-2022 Pen Needle, Diab etic (Bd Ultra-Fine Susan Pen Needle) 32 gauge x 5/32 needle Start: 05-31-2022 End: 11-27-2022 Insulin Syringe-Needle U-100 (Bd Insulin Syringe Ultra-Fine) 0.5 mL 31 gauge x 5/16 syringe Start: 11-27-2022 Pen Needle, Diab etic (Bd Ultra-Fine Susan Pen Needle) 32 gauge x 5/32 needle Start: 11-27-2022 Insulin Syringe-Needle U-100 (Bd Insulin Syringe) 1 mL 25 gauge x 5/8 syringe Start: 09-27-2022 End: 10-02-2022 Insulin Syringe-Needle U-100 (Bd Insulin Syringe) 1 mL 27 gauge x 1/2 syringe Start: 10-02-2022 End: 11-27-2022 Pen Needle, Diab etic (Bd Ultra-Fine Susan Pen Needle) 32 gauge x 5/32 needle Start: 05-31-2022 End: 11-27-2022 Insulin Syringe-Needle U-100 (Bd Insulin Syringe Ultra-Fine) 0.5 mL 31 gauge x 5/16 syringe Start: 11-27-2022 Pen Needle, Diab etic (Bd Ultra-Fine Susan Pen Needle) 32 gauge x 5/32 needle Start: 11-27-2022 Insulin Syringe-Needle U-100 (Bd Insulin Syringe) 1 mL 25 gauge x 5/8 syringe Start: 09-27-2022 End: 10-02-2022 Insulin Syringe-Needle U-100 (Bd Insulin Syringe) 1 mL 27 gauge x 1/2 syringe Start: 10-02-2022 End: 11-27-2022 Pen Needle, Diab etic (Bd Ultra-Fine Susan Pen Needle) 32 gauge x 5/32 needle Start: 05-31-2022 End: 11-27-2022 Insulin Syringe-Needle U-100 (Bd Insulin Syringe Ultra-Fine) 0.5 mL 31 gauge x 5/16 syringe Start: 11-27-2022 Pen Needle, Diab etic (Bd Ultra-Fine Susan Pen Needle) 32 gauge x 5/32 needle Start: 11-27-2022 Insulin Syringe-Needle U-100 (Bd Insulin Syringe) 1 mL 25 gauge x 5/8 syringe Start: 09-27-2022 End: 10-02-2022 Insulin Syringe-Needle U-100 (Bd Insulin Syringe) 1 mL 27 gauge x 1/2 syringe Start: 10-02-2022 End: 11-27-2022 Pen Needle, Diab etic (Bd Ultra-Fine Susan Pen Needle) 32 gauge x 5/32 needle Start: 05-31-2022 End: 11-27-2022 Insulin Syringe-Needle U-100 (Bd Insulin Syringe Ultra-Fine) 0.5 mL 31 gauge x 5/16 syringe Start: 11-27-2022 Pen Needle, Diab etic (Bd Ultra-Fine Susan Pen Needle) 32 gauge x 5/32 needle Start: 11-27-2022 Insulin Syringe-Needle U-100 (Bd Insulin Syringe) 1 mL 25 gauge x 5/8 syringe Start: 09-27-2022 End: 10-02-2022 Insulin Syringe-Needle U-100 (Bd Insulin Syringe) 1 mL 27 gauge x 1/2 syringe Start: 10-02-2022 End: 11-27-2022 Pen Needle, Diab etic (Bd Ultra-Fine Susan Pen Needle) 32 gauge x 5/32 needle Start: 05-31-2022 End: 11-27-2022 Insulin Syringe-Needle U-100 (Bd Insulin Syringe Ultra-Fine) 0.5 mL 31 gauge x 5/16 syringe Start: 03-13-2024 Insulin Syringe-Needle U-100 (Bd Insulin Syringe Ultra-Fine) 0.5 mL 31 gauge x 5/16 syringe Start: 11-27-2022 Pen Needle, Diab etic (Bd Ultra-Fine Susan Pen Needle) 32 gauge x 5/32 needle Start: 11-27-2022 Insulin Syringe-Needle U-100 (Bd Insulin Syringe) 1 mL 25 gauge x 5/8 syringe Start: 09-27-2022 End: 10-02-2022 Insulin Syringe-Needle U-100 (Bd Insulin Syringe) 1 mL 27 gauge x 1/2 syringe Start: 10-02-2022 End: 11-27-2022 Pen Needle, Diab etic (Bd Ultra-Fine Susan Pen Needle) 32 gauge x 5/32 needle Start: 05-31-2022 End: 11-27-2022 Insulin Syringe-Needle U-100 (Bd Insulin Syringe Ultra-Fine) 0.5 mL 31 gauge x 5/16 syringe Start: 03-13-2024 Insulin Syringe-Needle U-100 (Bd Insulin Syringe Ultra-Fine) 0.5 mL 31 gauge x 5/16 syringe Start: 11-27-2022 Pen Needle, Diab etic (Bd Ultra-Fine Susan Pen Needle) 32 gauge x 5/32 needle Start: 11-27-2022 Insulin Syringe-Needle U-100 (Bd Insulin Syringe) 1 mL 25 gauge x 5/8 syringe Start: 09-27-2022 End: 10-02-2022 Insulin Syringe-Needle U-100 (Bd Insulin Syringe) 1 mL 27 gauge x 1/2 syringe Start: 10-02-2022 End: 11-27-2022 Pen Needle, Diab etic (Bd Ultra-Fine Susan Pen Needle) 32 gauge x 5/32 needle Start: 05-31-2022 End: 11-27-2022 Insulin Syringe-Needle U-100 (Bd Insulin Syringe Ultra-Fine) 0.5 mL 31 gauge x 5/16 syringe Start: 03-13-2024 Insulin Syringe-Needle U-100 (Bd Insulin Syringe Ultra-Fine) 0.5 mL 31 gauge x 5/16 syringe Start: 11-27-2022 Pen Needle, Diab etic (Bd Ultra-Fine Susan Pen Needle) 32 gauge x 5/32 needle Start: 11-27-2022 Insulin Syringe-Needle U-100 (Bd Insulin Syringe) 1 mL 25 gauge x 5/8 syringe Start: 09-27-2022 End: 10-02-2022 Insulin Syringe-Needle U-100 (Bd Insulin Syringe) 1 mL 27 gauge x 1/2 syringe Start: 10-02-2022 End: 11-27-2022 Pen Needle, Diab etic (Bd Ultra-Fine Susan Pen Needle) 32 gauge x / needle Start: 05-31-2022 End: 11-27-2022 Clinical Notes 01-12-2022 to 03-02-2025 Telephone Encounter - Trudi Hernandez - 09/18/2024 1:57 PM EDTTelephone Encounter - Trudi Hernandez - 09/18/2024 1:57 PM EDT Note Date & Type Note Facility 03-02-2025 Progress note [facility] 09-18-2024 Telephone encount er Note LM for cb to schedule pd cath consult with Dr. Thakur. Trudi Hernandez September 18, 2024 1:58 PM [facility] 09-18-2024 Miscellaneous Notes Formattin g of this note might be different from the original. LM for cb to schedule pd cath consult with Dr. Thakur. Trudi Hernandez September 18, 2024 1:58 PM documented in this encounter [facility] 09-01-2024 Evaluation note Diagnosis Onset Date Resolution Diabetes mellitus chronic August 192024 8:51am Hypercalcemia chronic September 01, 2024 8:51am Obesity (BMI 30-39.9) chronic Apr 2024 8:51am Secondary hyperparathyroidism of renal origin chronic September 01, 2024 8:51am [facility] Work Phone: 1(976) 931-967904-11-2025 Telephone encounter Note* Telephone Encounter - Trudi Hernandez - 08/29/2024 1:20 PM EDT Lm to schedule pd consult with Dr. Thakur. Trudi Hernandez August 29, 2024 1:20 PM [facility]04-11-2025 Miscellaneous Notes* Telephone Encounter - Trudi Hernandez - 08/29/2024 1:20 PM EDT Lm to schedule pd consult with Dr. Thakur. Trudi Hernandez August 29, 2024 1:20 PM [facility] Evaluation note* Diagnosis Onset Date Resolution Status Admit Date CKD (chronic kidney disease) stage 5, GFR less than 15 ml/min chronic May 01, 024 8:56am Diabetes mellitus chronic Decembe r 2023 8:56am HTN (hypertension) chronic Decemb er 2023 8:56am Hypercalcemia chronic May 012023 8:56am Obesity (BMI 30-39.9) chronic Dec ember 2023 8:56am Vitamin D deficiency chronic Dece mber 2023 8:56am [facility] Work Phone: 1(442) 441-454711-14-2024 Telephone encounter Note* Telephone Encounter - Aryan Campa RN - 04/03/2024 2:16 PM EST Voicemail identified as Teresa's. LVM for patient that her kidney transplant evaluation that has been open since 2021 is now closed. Per CE she is still above our BMI requirements and last three appointments were canceled. She canceled nutrition, and transplant psych. Also still needed mammogram. Left patient main number [phone] if she has any further questions. BRITT Trimble RN April 03, 2024 2:18 PM [facility]11-14-2024 Miscellaneous Notes* Telephone Encounter - Aryan Campa RN - 04/03/2024 2:16 PM EST Voicemail identified as Teresa's. LVM for patient that her kidney transplant evaluation that has been open since 2021 is now closed. Per CE she is still above our BMI requirements and last three appointments were canceled. She canceled nutrition, and transplant psych. Also still needed mammogram. Left patient main number [phone] if she has any further questions. BRITT Trimble RN April 03, 2024 2:18 PM [facility] in [facility] encounter[facility]24 NoteHNO ID: [id number] Author: XI LÓPEZ LISW Service: ? Author Type: Technical Professional Type: Progress Notes Filed: 08/01/2023 13:56 Note Text: SW sent pt the social work education packet via email. Pt is aware that she must contact her insurance provider in order to check the copays of the anti-viral and anti-rejection medication. [facility] History of Present illness Narrative* Xi López LISW - 08/01/2023 1:56 PM EDT KRISTEN sent pt the social work education packet via email. Pt is aware that she must contact her insurance provider in order to check the copays of the anti-viral and anti-rejection medication. ANH [facility] Transplant Technical Professional documented in this encounterAsht[facility]03-13-2024 Instructions* Patient Instructions* Giovanny Hernandez RN - 08/01/2023 11:40 AM EDT [...] will be scheduled for you at a [facility] facility: CARDIAC: No additional testing required at this time. CANCER SCREENING: Mammogram - Scheduled 08/03/23. Please have results sent to fax number listed below. ADDITIONAL CONSULTS Nutrition - Order placed today, can be virtual visit if you activate [employer]. If [employer] is not activated, you will be scheduled for an in-person visit. Imaging Studies: No additional testing required at this time. Miscellaneous Items: CT Abdomen/Pelvis - Due 05/10/24 Stress test - Due 08/09/24 Echo - Due 08/09/24 EKG - Due 07/31/24 Chest X-ray - Due 07/31/24 PAP - Done 06/12/22, due 3-5 years per recommendation of hollock maker (May 2025-2028). Colonoscopy - Due 06/15/28 Outside test results should be faxed to [phone]. Please review the kidney transplant educational materials on line at [email or web address] Sign-in: Kidney To check on your status of your evaluation, please contact your coordinator, Edward Nieto RN [phone]. BRITT Davis, RN Kidney/Pancreas Pre-Platform Engineer [facility] documented in this encounterAshtabula [facility]03-13-2024 NoteHNO ID: [id number] Author: PRITESH PADRON MD Service: ? Author Type: Physician Type: Progress Notes Filed: 08/03/2023 14:04 Note Text: [facility] Transplant Evaluation CC: Consultation for Kidney transplant evaluation. Referred by: Tiarra Mayorga [address] [place] [address] I will communicate with the referring provider by letter and/or shared electronic medical record. HPI: Patient is a 62 year old female presenting today for ongoing pre-emptive kidney transplant evaluation, last seen in office on 05/10/22. Past medical history of CKD 5 (GFR 13 in 2021), presumed to be secondary to HTN/DM2 (never [...] No wounds or abrasions, taking acetaminophen PRN. BP 141/62 Pulse 62 Temp 36.5 ?C (97.7 ?F) (Temporal) Ht 162.6 cm (5' 4.02) Wt 112.3 kg (247 lb 9.2 oz) SpO2 100% BMI 42.48 kg/m? GFR 9 No MA or stroke Not on blood thinner Does patient work?: No Past medical history [...] MG TAB Take one(1) tablet twice daily. candesartan/hydrochlorothiazid(ATACAND HCT 32 MG-12.5 MG TAB) (Patient not [...] Mo Fa Social History Tobacco Use Smoking sta (more content not included)...[facility]03-13-[facility] History of Present illness Narrative* Pritesh Padron MD - 08/01/2023 11:13 AM EDT Images from the original note were not included. [facility] Transplant Evaluation CC: Consultation for Kidney transplant evaluation. Referred by: Tiarra Mayorga [address] [place] [address] I will communicate with the referring provider by letter and/or shared electronic medical record. HPI: Patient is a 62 year old female presenting today for ongoing pre-emptive kidney transplant evaluation, last seen in office on 05/10/22. Past medical history of CKD 5 (GFR 13 in 2021), presumed to be secondary to HTN/DM2 (never [...] No wounds or abrasions, taking acetaminophen PRN. BP 141/62 Pulse 62 Temp 36.5 C (97.7 F) (Temporal) Ht 162.6 cm (5' 4.02) Wt 112.3 kg (247 lb 9.2 oz) SpO2 100% BMI 42.48 kg/m GFR 9 No MA or stroke Not on blood thinner Does patient work?: No Past medical history significant for: HTN HLD DM2 Anxiety Obesity UTI: No Kidney stones: Yes - last 2004 Pregnancies: Yes If yes, how many?: 1 Miscarriages: No Chronic anti-coagulation: No Abdominal surgeries: No Cardiovascular Disease?: No Peripheral Arterial Disease (TIA non-embolic, CVA non-embolic, amputation, abnormal PVRs, decreasedpulses, etc): No Stroke: No Claudication: No Carotid [...] meniscectomy, Chondroplasty medial femoral condyle, Removal of synovialplica LITHOTRIPSY XTRCORP SHOCK WAVE 04/14/2005 Current Outpatient [...] MG TAB Take one(1) tablet twice daily. candesartan/hydrochlorothiazid(ATACAND HCT 32 MG-12.5 MG TAB) (Patient not [...] be removed from the list. CHETAN DavisN, RN Seen by Dr. Padron REVIEW OF SYSTEMS GENERAL: No weight loss, malaise or fevers HEENT: Negative for frequent or significant headaches, NECK: Negative for lumps, RESPIRATORY: Negative for cough, hemoptysis, CARDIOVASCULAR: Negative for chest pain, GI: No nausea, vomiting, or diarrhea : No history of dysuria, frequency or incontinence SKIN: Negative for lesions, rash, and itching HEMATOLOGY/LYMPHOLOGY: Negative for prolonged bleeding NEURO: No history of headaches, PHYSICAL EXAMINATION: General appearance: weight on the belly Well appearing, alert, in no acute distress, well-hydrated,well nourished. Skin: Skin color, texture, turgor normal, no suspicious rashes or lesions Head: Normocephalic, no masses, lesions, tenderness or abnormalities Eyes: Anicteric sclera. Pupils are equally round Neck: Supple, no adenopathy Lungs: Lungs clear to auscultation. No wheezing, rhonchi, rales. Heart: RRR without murmur, gallop, or rubs Abdomen:flabby , Abdomen soft, non-tender. Bowel sounds normal. No masses, organomegaly Extremities: No deformities, edema, Peripheral pulses: Normal Neuro: Gait normal. A: CKD V 2 to HTN/DM Morbid obesity Plan: Mrs. Corbin is an acceptable candidate for kidney transplantation pending completion of work up and meeting the rest of the team. Advantages and disadvantages of transplantation versus dialysiswere reviewed. Discussed the operative procedure and potential complications. I addressed issues ofpost- operative recovery and follow up. Few things I have discussed with her a. because of her age, living donor would be ideal for dinner. b. the importance of compliance c. the frequent travel in the early post op period for monitoring d. We also discussed the transplant procedure and the need for urinary catheter and ureteric stent.I overviewed the issues of delayed graft function, the possible need for dialysis, and the possibleneed for re-operation during the early postoperative period. I also informed them of the occasionalneed for blood transfusion and they expressed their understanding and willingness to accept one if the need arises. I mentioned other complications including thromboembolic events, cardiac events, and infection. E. Need to lose wieight, can cont to work up but will only make her active once pt loses weight Lastly I discussed the need for immunosuppressive therapy and the risk associated with this treatment. they would like to proceed 1. CT scan abdomen and pelvis non contrast - both eia okay 2. Serology - 3. Cardiac testing 4. Weight lose I spent a total of 60 minutes on the date of the service which included preparing to see the patient, [id number] patient care, completing clinical documentation, obtaining and/or reviewing separately obtained history, performing a medically appropriate examination, counseling and educating the pat ient/family/caregiver, ordering medications, tests, or procedures, communicating with other HCPs (not separately reported), independently interpreting results (not separately reported), communicatingresults to the patient/family/caregiver, and care coordination (not separately reported). Pritesh Padron MD documented in this encounterAshtabula [facility]03-13-2024 NoteHNO ID: [id number] Author: XI LÓPEZ LISW Service: ? Author Type: Technical Professional Type: Progress Notes Filed: 08/01/2023 13:55 Note Text: ONGOING PSYCHOSOCIAL EVALUATION FOR KIDNEY TRANSPLANT (Via Telephone Contact) Social Supports: Pt's will be primary support and pt's sister will be backup support. Financial Concerns: [place] Compliance: Pt is not dialysis dependent at [...] is not yet a suitable psychosocial candidate. Teresa Corbin was initially evaluated by this SW on 05/10/22. At the time of initial assessment, Teresa Corbin was not yet a suitable psychosocial candidate for kidney transplant. At the time of the assessment, pt's backup support needed to be verified. Pt's backup support was later verified and pt was deemed to be a suitable psychosocial candidate. DIALYSIS START DATE: N/A This ongoing social work psychosocial evaluation was completed with Teresa Corbin via telephone on August 01, 2023. Pt's King was also on the call. Race/Gender: Female White [] Descent [][place] or []North (non-Black) []White: Other [x]White: Not Specified/Unknown [place] Citizen: Yes IDENTIFYING INFORMATION/LIVING SITUATION Teresa Corbin continues to live at [address] [place] [address]. This home is about 1hr AND 18min (73 miles) away from . Pt has lived in this [facility] home for the past 35yrs.. Pt denies any architectural barriers in the home. Pt reports she is independent with all ADL's, she has a drivers license and a vehicle. Pt denies receiving any home health care or home health aide services at this time. Others in household are: Pt's . King-age 65; reports being in good health and he works multimedia artist as a material science well site drilling engineer. King reports he is independent with all ADL's, he has a drivers licenses and a vehicle. There are 2 licensed drivers in the home and 2 working vehicles. Caregiver responsibilities: None Pets in the home: None TRANSPLANT LODGING PLANS FOR PATIENTS WHO LIVE 2.5 OR MORE HOURS AWAY FROM [facility]: Do you have the financial means to stay in the area for four weeks or more post-transplant? N/A COMPLIANCE Missed doctor appointments: Pt currently has a CC No Show rate of 3% (1 of [...] to get rid of a hangover (eye inset cutter)? No LEGAL ENCOUNTERS Currently on probation or [...] some way? Denies Cur (more content not included)...[facility]03-13-2024 History of Present illness Narrative* Xi López LISW - 08/01/2023 11:11 AM EDT ONGOING PSYCHOSOCIAL EVALUATION FOR KIDNEY TRANSPLANT (Via Telephone Contact) Social Supports: Pt's will be primary support and pt's sister will be backup support. Financial Concerns: [place] Compliance: Pt is not dialysis dependent at [...] is not yet a suitable psychosocial candidate. Teresa Corbin was initially evaluated by this SW on 05/10/22. At the time of initial assessment, Teresa Corbin was not yet a suitable psychosocial candidate for kidney transplant. At the time of the assessment, pt's backup support needed to be verified. Pt's backup support was later verified and pt was deemed to be a suitable psychosocial candidate. DIALYSIS START DATE: N/A This ongoing social work psychosocial evaluation was completed with Teresa Corbin via telephone onAugust 01, 2023. Pt's King was also on the call. Race/Gender: Female White [] Descent [][place] or [][place] (non-Black) []White: Other [x]White: Not Specified/Unknown [place] Citizen: Yes IDENTIFYING INFORMATION/LIVING SITUATION Teresa Corbin continues to live at [address] [place] [address]. This home is about 1hr & 18min (73 miles) away from . Pt has lived in this [facility] home for the past 35yrs.. Pt denies any architectural barriers in the home. Pt reports she is independent with all ADL's, she has a drivers license and a vehicle. Pt denies receiving any home health care or home health aide services at this time. Others in household are: Pt's . King-age 65; reports being in good health and he works multimedia artist as a material science well site drilling engineer. King reports he is independent with all ADL's, he has a drivers licenses and a vehicle. There are 2 licensed drivers in the home and 2 working vehicles. Caregiver responsibilities: None Pets in the home: None TRANSPLANT LODGING PLANS FOR PATIENTS WHO LIVE 2.5 OR MORE HOURS AWAY FROM [facility]: Do you have the financial means to stay in the area for four weeks or more post- transplant? N/A COMPLIANCE Missed doctor appointments: Pt currently [...] another center: No. Pt stated she is stillin the evaluation phase at for kidney transplant [...] to get rid of a hangover (eye inset cutter)? No LEGAL ENCOUNTERS Currently on probation or [...] had anxiety, but I don't have that anymore.Pt wouldn't clarify when she was diagnosed with anxiety and how long the symptoms lasted. Pt deniesany other previous mental health diagnoses. (At the [...] for further evaluation or screening: Yes, pt needsbe scheduled for a virtual visit with psychiatry to assess her mental health. Pt has a past historyof anxiety. COPING Hobbies/Interests: Camping, fishing, watching her grandchildren and baking. EMPLOYMENT Current Employment Status: Pt's last employment was in 1999. Paid Status for Recovery: Pt doesn't have a source of income and she rely solely on her husbands income. HEALTH INSURANCE/FINANCIAL Medical Insurance: [place] Payer of Insurance Premium: Pt's via his [...] for transplant medications in the event that youhave an $800 to $3000 co-pay? Yes Fund Raising: None at this time. Pt was given a list of the medications for Kidney [place] recipients to learn how her insurance coverageapplies. KRISTEN informed pt that she must be prepared to cover the copays of her immunosuppression and anti viral medications. Pt was also provided with information about fund raising. CAREGIVER/SUPPORT PLAN Primary Caregiver: King (pt's ) - King re-verified his commitment. Contact Number: [phone] Health Status and Availability of Caregiver: King reports being in good health. / King stated he will take off at least 2 weeks to help with caregiver/transportation support. Valid Water Softener Servicer And Installer's License/Working Vehicle: Yes / Yes Caregiver Substance Use: Denies Caregiver Mental Health: Denies Secondary Caregiver: Maci Locke (pt's sister) - Maci's commitment was previously verified. Contact Number: [phone] Health Status and Availability: Maci reported being in good health. / Maci stated she does work, however, there will be no issues with her taking time off in order to assist with caregiver/transportation support. Maci stated she has enough personal time and sick time in order to help the pt.. Maci lives about 15min away from the pt.. Valid Water Softener Servicer And Installer's License/Working Vehicle: Yes / Yes Caregiver Substance [...] Yes Body Image/Scar: No IMPRESSIONS/RECOMMENDATIONS Transplant social director spoke with Teresaconstance Corbin via telephone. Pt's King was alsoon the call. At this time, pt is [...] check the copays of the anti-viral and anti- rejection medication. Pt is not dialysis dependent at this time. If pt was to start dialysis then her compliance will be monitored. If list the patient should be scheduled for yearly visits and/or phone contact with social work forthe following purposes: to review health insurance, changes of caregiver support, changes in financial status, and to discuss any other updates/changes. We reviewed the follow up care sequence, including lab work twice a week and twice a week post transplant clinic appointments. We discussed the precautions to take because of being immunosuppressed. We also discussed the need to have a caregiver multimedia artist for 2 weeks post transplant. Teresa Mccall advised that it is imperative to adhere to the medical regimen and recovery restrictions. Topher Corbin indicated understanding of this information. Teresa Corbin had the opportunity to discuss any issues and questions. Patient was given information about the kidney transplant process and fund raising options. The patient was given the phone number of the transplant social director to address future concerns. MERCEDEZ Bishop-S Transplant Technical Professional documented in this encounterAshtabula [facility]03-13-2024 History of Present illness Narrative* Ruthie St RT(R) - 08/01/2023 10:00 AM EDT Radiology Service Progress Note PATIENT NAME: Teresa Corbin DATE OF SERVICE: August 01, 2023 TIME: 9:50 AM PATIENT IDENTITY VERIFICATION COMPLETED USING TWO (2) IDENTIFIERS: Name and Date of confirmedby patient verbally. FALL SCREENING: Has the patient had 2 falls in the last year or 1 fall with injury or currently using an Ambulatory Assistive Device (Walker, Cane, Wheelchair, Crutches, etc.)? No PATIENT GENDER DATA: Female. status: : No status: NO. PATIENT RELEVANT IMPLANT DATA REVIEWED: Not Applicable PATIENT PRESENTS WITH AN IMPLANTABLE OR ATTACHED RAILROAD CRANE OPERATOR: No RADIOLOGY DEPARTMENT: General X-ray: Exam(s) Completed: Chest X-Ray PERIPHERAL IV DATA: Not applicable SIGNED BY: RT Emelyn(R) August 01, 2023 9:50 AM documented in this encounterAshtabula County Medical Center03-13-2024 NoteHNO ID: [id number] Author: RUTHIE ST RT(R) Service: Radiology Author Type: Technologist Type: Progress Notes Filed: 08/01/2023 09:51 Note Text: Radiology Service Progress Note PATIENT NAME: Teresa Corbin DATE OF SERVICE: August 01, 2023 TIME: [...] PATIENT PRESENTS WITH AN IMPLANTABLE OR ATTACHED RAILROAD CRANE OPERATOR: No RADIOLOGY DEPARTMENT: General X-ray: Exam(s) Completed: Chest X-Ray PERIPHERAL IV DATA: Not applicable SIGNED BY: RT Emelyn(R) August 01, 2023 9:50 [facility]03-13-2024 NoteHNO ID: [id number] Author: YONG HUNG MD Service: ? Author Type: Fellow Type: Progress Notes Filed: 08/02/2023 14:30 Note Text: [facility] Transplant Evaluation CC: Consultation for Kidney transplant evaluation. Referred by: Tiarra Mayorga [address] [facility] [address] [facility] [id number] I will communicate with the referring provider [...] MG TAB Take one(1) tablet twice daily. candesartan/hydrochlorothiazid(ATACAND HCT 32 MG-12.5 MG TAB) (Patient not [...] Pre-transplant testing: Cardiac: Echocardiogram: Completed on 08/09/22, resul (more content not included)... [facility]03-13-2024 History of Present illness Narrative* Momo Webb MD - 08/01/2023 8:31 AM EDT Images from the original note were not included. [facility] Transplant Evaluation CC: Consultation for Kidney transplant evaluation. Referred by: Tiarra Mayorga [address] [place] [address] I will communicate with the referring provider [...] (TIA non-embolic, CVA non-embolic, amputation, abnormal PVRs, decreasedpulses, etc): No Stroke: No Claudication: No Carotid [...] meniscectomy, Chondroplasty medial femoral condyle, Removal of synovialplica LITHOTRIPSY XTRCORP SHOCK WAVE 04/14/2005 Current Outpatient [...] MG TAB Take one(1) tablet twice daily. candesartan/hydrochlorothiazid(ATACAND HCT 32 MG-12.5 MG TAB) (Patient not [...] be removed from the list. CHETAN DavisN, RECYCLABLE MATERIALS COLLECTOR OF SYSTEMS Constitutional: No chills and fever. [...] (97.7 F) (Temporal) Ht 162.6 cm (5' 4.02) Wt 112.3 kg (247 lb 9.2 oz) [...] , expanded criteria, donor cardiac (DCD) and CDC- High risk donor types, with relative benefit of [...] EF 61% and Normal stress test No MA, stroke, cancer, DVT/PE or recurrent infections No [...] CT within the past year will have aCXR PA & Lat at evaluation. Skin All patients: Skin will be examined at evaluation Pharmacy Consult: Not needed at this time Opportunity to ask questions given. Patient expresses understanding of the information discussed. Communication with referring provider done by letter. Patient seen , discussed and examined with Transplant Nephrology Staff Momo Kirby MD Transplant Nephrology Fellow P#[id number] 08/01/23 11:22 AM Staff documentation of personal [...] Signed: Yong Hung MD documented in this encounterAshtabula County [facility] Center03-13-2024 History of Present illness Narrative* Jesenia Treviño RN - 08/01/2023 8:00 AM EDT PRE-TRANSPLANT PATIENT EDUCATION NOTE Type of Transplant: [...] and frequency of blood draws/labs post-op and post-opcourse of treatment. -Reviewed National and [facility] outcomes from the most recent [facility] center-specific report; a copy of theprogram summary was given to the patient. -Explained [...] about Kidney Allocation Policy -Directions to access [facility]. -Informed Consent for Transplant Program Participation patient education packet -National Kidney Registry pamphlet -Covid-19 Vaccination for Transplant Candidates Method of Instruction: Group class instruction Written instruction - handouts Verbal instruction Computer Patient/Family Response: Patient asked appropriate questions, which were answered satisfactorily. Follow-Up Plan: Complete - No need for follow-up Referral/Recommendation: None Jesenia Treviño RN Pre-Platform Engineer documented in this encounterAshtabula County Medical Center03-13-2024 NoteHNO ID: [id number] Author: JESENIA TREVIÑO RN Service: ? Author [...] about Kidney Allocation Policy -Directions to access [facility] through the [facility] website. -Informed Consent for Transplant Program Participation patient education packet -National Kidney Registry pamphlet -Covid-19 Vaccination for Transplant Candidates Method of Instruction: Group class instruction Written instruction - handouts Verbal instruction Computer Patient/Family Response: Patient asked appropriate questions, which were answered satisfactorily. Follow-Up Plan: Complete - No need for follow-up Referral/Recommendation: None Jesenia Treviño RN Pre-Transplant CoordinatorDayton [facility]03-08-2024 Miscellaneous Notes* Telephone Encounter - Tara Park - 07/27/2023 10:11 AM EST Spoke with patient to confirm scheduled kidney transplant evaluation for next week. Did they receive their schedule? Yes Remind the patient to sign up for MyChart if they have not already - Yes. I asked patient if she wanted a new code she stated yes, I sent code and let patient know its good for 24hr. Tara Park documented in this encounterAshtabula County Medical Center01-26-2024 Hospital Discharge instructions* Discharge Instructions* Shakira Sykes RN - 06/15/2023 4:04 PM [...] moderate abdominal distention, gas, or belching after yourprocedure, if any of these symptoms occur following discharge from the GI Lab or within one week ofhaving your procedure, call the [facility] to be advised whether a visit to your nearest Urgent Care or Emergency Department is indicated. Take this paper with you if you go. - If you develop an allergic reaction to the medications that were given during your procedure suchas difficulty breathing, rash, hives, severe nausea, vomiting [...] colonoscopy (date to be determined after pending pathologyresults are reviewed) for surveillance based on pathology results. -The findings and recommendations have been discussed with you. -The findings and recommendations were discussed with your family. - Please see Medication Reconciliation Form for new medication/medications prescribed. If you experience any problems or have any questions following discharge from the GI Lab, please call: Nurse Signature Date Patient/Responsible Democrat Signature Date documented in this [facility] Work Phone: 1(713) 641-470101-26-2024 History and physical note* Marcus Fonseca, DO - 06/15/2023 2:40 PM EST History Of Present Illness Teresa Corbin is a 62 y.o. female presenting [...] resp. rate 14, height 1.626 m (5' 4), weight 107 kg (236 lb 1.8 oz), SpO2 98 %. Assessment/Plan Problem List Items Addressed This Visit None Visit Diagnoses Chronic kidney disease (CKD), stage V (CMS/HCC) - Primary Relevant Orders Colonoscopy Screening; High Risk Patient HUNTER/Current Medications: (Not in a hospital admission) Current [...] lactated Ringer's infusion 20 mL/hr intravenous Continuous Marcus Fonseca DO 20 mL/hr at 06/15/23 1436 20 mL/hr at 06/15/23 1436 Marcus Fonseca DO [facility] Work Phone: 1(237) 924-468501-26-2024 History and physical note* Marcus Fonseca DO - 06/15/2023 2:40 PM EST History Of Present Illness Teresa Corbin is a 62 y.o. female presenting [...] resp. rate 14, height 1.626 m (5' 4), weight 107 kg (236 lb 1.8 oz), SpO2 98 %. Assessment/Plan Problem List Items Addressed This Visit None Visit Diagnoses Chronic kidney disease (CKD), stage V (CMS/HCC) - Primary Relevant Orders Colonoscopy Screening; High Risk Patient HUNTER/Current Medications: (Not in a hospital admission) Current [...] lactated Ringer's infusion 20 mL/hr intravenous Continuous Marcus Fonseca DO 20 mL/hr at 06/15/23 1436 20 mL/hr at 06/15/23 1436 Marcus Fonseca DO documented in this encounterOhioHealth [facility] Work Phone: 1(904) 702-369711-13-2023 Miscellaneous Notes* Telephone Encounter - Edward Nieto RN - 04/02/2023 11:24 AM EST Nurse called and spoke with Teresa for updates. Pt states that nobody called her for an appt. Nurse explained that perhaps you should call the appointment line at [facility] and provided pt withthe appointment line number and hospital number to [facility]. Teresa verbalized her understanding and says that she has not started dialysis as of yet. Edward Nieto RN documented in this encounterAshtabula County Medical Center04-05-2023 Miscellaneous Notes* Telephone Encounter - MERCEDEZ Bishop - 08/23/2022 2:21 PM EDT SW returned phone call from pt's sister Maci ([phone]) regarding backup support. KRISTEN reviewed the follow up care sequence, including lab work twice a week and weekly post transplant clinic appointments. KRISTEN also discussed the need to have a caregiver multimedia artist for 2 weeks post transplant. Dionneyverbalized understanding. Maci stated she does work, however, there will be no issues with her taking time off in order to assist with caregiver/transportation support. Maci stated she has enough personal time and sick timein order to help the pt.. Maci stated she will absolutely help the pt post transplant. Maci verified her commitment to help with backup support. At this time, pt is a suitable psychosocial candidate. ANH Bishop Transplant Technical Professional documented in this encounterAshtabula County Medical Center03-30-2023 Miscellaneous Notes* Telephone Encounter - MERCEDEZ Bishop - 08/17/2022 10:58 AM EDT KRISTEN called pt in preparation of selection committee. SW reminded pt that her backup support still needs to be verified. SW requested that she have her backup support contact SW. Pt verbalized understanding. SW will await phone call. ANH Bishop Transplant Technical Professional documented in this encounterAshtabula County Medical Center03-29-2023 History of Present illness Narrative* Deneen Castro RPh - 08/16/2022 5:05 PM EDT I have reviewed the patient s medication profile and there are no identified medication issues thatwould preclude transplant in this patient. Deneen Castro RPh documented in this encounterAshtabula County Medical Center03-22-2023 History of Present illness Narrative* RT Julia(R) - 08/09/2022 10:00 AM EDT RADIOLOGY SERVICE PROGRESS NOTE SERVICE DATE: 08/09/2022 [...] STATUS: Discontinued PROCEDURE TYPE: NM Stress: 16.8mCi [id number] was administered IV for Rest Imaging at 0944 by LEOPOLDO Roman). 33 mCi [id number] was administered IV for Stress Imaging at 1055 by heather. PATIENT DISCHARGED TO: Ambulatory patient, left NM department area. A Diagnostic radioactive procedure has taken place, with no further precautions necessary other than routine body substance precautions. More information regarding radiation safety can be found usingthis link: [email or web address] 20Diagnostic%20Nuclear%20Medicine%20Procedures.pdf SIGNATURE: BONIFACIO RomanR) PATIENT NAME: Teresa Corbin DATE: August 09, 2022 TIME: 9:45 AM PAGER/CONTACT #: [id number] * Lima Pinto RN - 08/09/2022 10:00 AM EDT RADIOLOGY SERVICE PROGRESS NOTE SERVICE DATE: 08/09/2022 SERVICE TIME: 10:57 AM PATIENT IDENTITY VERIFICATION COMPLETED USING TWO (2) STANDARD IDENTIFIERS: Name and Date of confirmed by patient verbally and Name and Date of confirmed by identification band PATIENT GENDER DATA: female ALLERGIES: Reviewed and unchanged MEDICATIONS REVIEWED BY: Renal Social Worker PROCEDURE TYPE: NM STRESS: 0.4 mg of Lexiscan was administered IV at 1055 by Lima Pinto RN. Reversal agent used: None. Expiration date: 19Dec2025 Lot#: [id number] SITE: Ambulatory: A Saline lock was inserted per protocol POST EXAM PIV STATUS: Discontinued PATIENT DISCHARGED TO: Ambulatory patient, left [place] department area. A Diagnostic radioactive procedure has taken place, with no further precautions necessary other than routine body substance precautions. More information regarding radiation safety can be found usingthis link: [email or web address] 20Diagnostic%20Nuclear%20Medicine%20Procedures.pdf SIGNATURE: Lima Pinto RN PATIENT NAME: Teresa Corbin DATE: August 09, 2022 TIME: 10:57 AM PAGER/CONTACT #: documented in this encounterAshtabula [facility] Center01-23-2023 NotePap Smear Specimen AdequacyJanuary 2022 11:59pmComment.Satisfactory for evaluation. Endocervical and/or squamous metaplasticcells (endocervical component)are present.Areas of partially obscuring inflammatory exudate are present.[facility] INTER[facility]ACED A#[id number]'S Hospital [facility]Com[facility] on above:Satisfactory for evaluation. Endocervical and/or squamous metaplasticcells (endocervical component)are present.Areas of partially obscuring inflammatory exudate are present.06-12-2022 NotePap Smear Specimen AdequacyJanuary 2022 11:59pm Comment.Satisfactory for evaluation. Endocervical and/or squamous metaplasticcells (endocervical component)are present.Areas of partially obscuring inflammatory exudate are present.[facility] INTERFACED A#[id number]'S Hospital [facility] ColumbusComtr[facility] on above:Satisfactory for evaluation. Endocervical and/or squamous metaplasticcells (endocervical component)are present.Areas of partially obscuring inflammatory exudate are present.06-12-2022 NotePap Smear Specimen AdequacyJanuary 2022 11:59pmComment.Satisfactory for evaluation. Endocervical and/or squamous metaplasticcells (endocervical component)are present.Areas of partially obscuring inflammatory exudate are present.[facility] INTERFACED A#[id number] North Hospital on above:Satisfactory for evaluation. Endocervical and/or squamous metaplasticcells (endocervical component)are present.Areas of partially obscuring inflammatory exudate are present.05-10-2022 History of Present illness Narrative* Ayush Adler APRN.VOLLEYBALL COMMENTATOR - 05/10/2022 1:29 PM EST [facility]ly [facility] [place] [facility] Transplant Evaluation CC: Consultation for Kidney transplant evaluation. Referred by: Tiarra Mayorga [address] [facility] [id number] I will communicate with the referring provider by letter and/or shared electronic medical record. HPI: 61yo female here for ktxp evaluation. CKD IV sec possibly DM/HTN. eGFR 12, CR 1.3 BUN 16. Long standing diabetes since 2011 insulin dependent for 2 years. Hx kidney stone extraction [id number], HLD, hematuria, cellulitis, obesity, anxiety, abscess and [...] Take one(1) tablet PO daily with Food candesartan/hydrochlorothiazid(ATACAND HCT 32 MG-12.5 MG TAB) (Patient not [...] (98.6 F) (Temporal) Ht 162.6 cm (5' 4) Wt 105.9 kg (233 lb 8 oz) [...] for 2 years. Hx kidney stone extraction [id number], HLD, hematuria, cellulitis, obesity, anxiety, abscess and migraines. No h/o DVT, PE, MA, or CVA Midodrine No No h/o malignancy No anticoagulation -The kidney transplant and kidney/pancreas transplant operations were discussed with the patient atlength, and all questions were answered to the patient's satisfaction. Risks, benefits, and alternatives discussed. Risks discussed include but are not limited to: bleeding, infection, , MA, DVT, PE, CVA, risk of damage to [...] candidate for renal transplantation pending acceptable findings onthe remainder of pre transplant evaluation Ayush Adler APRN.AMBROSE documented in this encounterAshtabula County Medical Center12-21-2022 History of Present illness Narrative* MERCEDEZ Bishop - 05/10/2022 1:17 PM EST PSYCHOSOCIAL EVALUATION FOR KIDNEY TRANSPLANT (Assessment Via Telephone) Social Supports: Pt's will be primary support. Pt's backup support needs to be verified. Financial Concerns: [place] Compliance: Pt is not dialysis dependent at this time. Pt reports compliance with taken all medication as prescribed. Mental Health: No mental health concerns at this time. Substance Use: No current concerns regarding ETOH abuse, street drug use or tobacco use. SIPAT: 13 At this time, pt is not yet a suitable psychosocial candidate. REFERRAL: Teresa Corbin was referred to Social Work for a psychosocial evaluation to establish if she would be a suitable candidate to receive a kidney transplant. Pt is not dialysis dependent at this time. DIALYSIS START DATE: N/A This social work psychosocial evaluation was completed with Teresa Corbin via telephone on May 10, 2022. Pt's King was also on the call. Pt was at at the time of this assessment. Race/Gender: White / Female U[place] Citizen: Yes IDENTIFYING INFORMATION/LIVING SITUATION Teresa Corbin resides at [address] [place] [address]. This home is about 1hr & 18min (73 miles) away from . Pt has lived in this [facility] home for the past 34yrs.. Pt denies any architectural barriers in the home. Pt reports she is independent with all ADL's, she has a drivers licenses and a vehicle. Pt denies receiving any home health care or home health aide services at this time. Others in household are: Pt's . King-age 64; reports being in good health and he works multimedia artist as a material science well site drilling engineer. King reports he is independent with all ADL's, he has a drivers licenses and a vehicle. There are 2 licensed drivers in the home and 2 working vehicles. Caregiver responsibilities: None Pets in the home: None TRANSPLANT LODGING PLANS FOR PATIENTS WHO LIVE 2.5 OR MORE HOURS AWAY FROM [facility]: Do you have the financial means to stay in the area for four weeks or more post- transplant? N/A COMPREHENSION OF MEDICAL SITUATION Teresa Corbin reports that her kidney disease is due to type 2 diabetes. Pt stated she has been a diabetic for at least 20yrs.. Teresa Corbin was able to recall information that was presented to her today during the kidney transplant educational class. Teresa Corbin has basic knowledge of the transplant [...] side-effects? Denies Do you have any moral, mormon, or ethical views against transplants or blood [...] to get rid of a hangover (eye inset cutter)? No LEGAL ENCOUNTERS Currently on probation or [...] and spending time with grandchildren. SOCIAL NARRATIVE Teresa Corbin was born in [place], [place] and raised in [place], [place]. She is 61 years of age. Teresa Corbin was raised by her biological mother [...] son; age 32 and he lives in [place], [place]. EDUCATION Highest Educational Level: High school diploma. Teresa Corbin denies academic problems in school. 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 Current Employment Status: Pt's last employment was in 1999. Paid Status for Recovery: Pt doesn't have a source of income at this time and she rely solely on her husbands income. HEALTH INSURANCE/FINANCIAL Medical Insurance: [place] Payer of Insurance Premium: Pt's via his [...] for transplant medications in the event that youhave an $800 to $3000 co-pay? Yes Fund Raising: None at this time. Pt was given a list of the medications for Kidney [place] recipients to learn how her insurance coverageapplies. SW informed pt that she must be prepared to cover the copays of her immunosuppression and anti viral medications. Pt was also provided with information about fund raising. CAREGIVER/SUPPORT PLAN Primary Caregiver: King (pt's ) - King verified his commitment. Contact Number: [phone] Health Status and Availability of Caregiver: King reports being in good health. / Deltaleesaer stated he will take off at least 2 weeks to help with caregiver/transportation support. Valid Water Softener Servicer And Installer's License/Working Vehicle: Yes / Yes Caregiver Substance Use: Denies Caregiver Mental Health: Denies Secondary Caregiver: Maci Locke (pt's sister) - Maci's commitment needs to be verified. Contact Number: [phone] Health Status and Availability: Maci is reported to be in good health and she is 57yrs old. / Pt stated Maci works multimedia artist, however, she could probably take time off to help care for the pt post transplant if and when needed. Maci lives about 15min away from the pt.. Valid Water Softener Servicer And Installer's License/Working Vehicle: Yes / Yes Caregiver Substance Use: Per pt, no. Caregiver Mental Health: Per pt, no. PSYCHOSOCIAL RISKS Adherence to Treatment Protocols: Yes Ability to Understand Transplant Center's System of Care: Yes Active Psychiatric Diagnosis: No Financial Resources or Support: Pt identified backup support and her commitment needs to be verified. Body Image/Scar: No IMPRESSIONS/RECOMMENDATIONS Transplant social director spoke with Teresa Corbin via telephone. Pt's King was alsoon the call. At this time, pt is not yet a suitable psychosocial candidate. -Pt identified backup support and her commitment needs to be verified. Pt needs to have her backup support contact SW in order for SW to verify her commitment. SW will await phone call. Once backup support is verified, pt will be a suitable psychosocial candidate. There are no currentpsychosocial concerns that could have a negative impact [...] work twice a week and weekly post transplantclinic appointments. We discussed the precautions to take because of being immunosuppressed. We also discussed the need to have a caregiver multimedia artist for 2 weeks post transplant. Teresa Corbin was advised that it is imperative to adhere to the medical regimen and recovery restrictions. Teresa Corbin indicated understanding of this information. Teresa Corbin had the opportunity to discuss any issues and questions. Patient was given information about the kidney transplant process and fund raising options. The patient was given the phone number of the transplant social director to address future concerns. MERCEDEZ Bishop-S Transplant Technical Professional documented in this encounterAshtabula County Medical Center12-21-2022 History of Present illness Narrative* Marek Roberson MD - 05/10/2022 12:01 PM EST [facility] Transplant Evaluation CC: Consultation for Kidney transplant evaluation. Referred by: Tiarra Mayorga [address] [place] [address] I will communicate with the referring provider by letter and/or shared electronic medical record. HPI: 61yo female here for ktxp evaluation. CKD IV sec possibly DM/HTN. eGFR 12, CR 1.3 BUN 16. Long standing diabetes since 2011 insulin dependent for 2 years. Hx kidney stone extraction [id number], HLD, hematuria, cellulitis, obesity, anxiety, abscess and [...] MG TAB Take one(1) tablet twice daily. candesartan/hydrochlorothiazid(ATACAND HCT 32 MG-12.5 MG TAB) (Patient not [...] date 05/18/2021 , 09/03/2020 , 08/06/2020 Edward Michaud-Branch, waitress: I have interviewed the patient and confirmed [...] (98.6 F) (Temporal) Ht 162.6 cm (5' 4) Wt 105.9 kg (233 lb 8 oz) [...] , expanded criteria, donor cardiac (DCD) and CDC- High risk donor types, with relative benefit of [...] candidate for a kidney transplant. Will need pre- transplant work up as below. Colonoscopy Mammogram PAP [...] CT within the past year will have aCXR PA & Lat at evaluation. Skin All [...] management of the patient's care. The text inbold revises or confirms relevant bradford components of [...] working. Lives with her . She denies MA, CVA/TIA, DVT/PE, malignancies. She is a good kidney transplant candidate but needs to lose weight and completeevaluation as follows: Colonoscopy Mammogram PAP Cardiac stress test Echocardiogram Weight loss (BMI <40) Rabbit allergen SIGNATURE: Marek Roberson MD PAGER: [phone] documented in this encounterAshtabula County Medical Center12-21-2022 History of Present illness Narrative* RT Micha(R) - 05/10/2022 11:30 AM EST Radiology Service Progress Note PATIENT NAME: Teresa Corbin DATE OF SERVICE: May 10, 2022 TIME: 11:01 AM PATIENT IDENTITY VERIFICATION COMPLETED USING TWO (2) IDENTIFIERS: Name and Date of confirmedby patient verbally and Name and Date of [...] 10, 2022 11:01 AM documented in this encounterAshtabula County Medical Center12-21-2022 History of Present illness Narrative* Geena Huggins RD - 05/10/2022 10:20 AM EST Nutrition Therapy Initial Assessment Nutrition Diagnosis: Behavioral-Environmental: [...] Low-Potassium Diet 2000mg/day Low-Phosphorus Diet 800-1000mg/day Use [email or web address] and [email or web address] Nutrition Pre-Transplant Assessment No contraindications Nutrition Monitoring & Evaluation: Monitor weight status and labs as available. Monitor diet recall for adherence to recommendations. Need for Follow up: PRN Patient presents for evaluation prior to consideration for kidney transplant. Patient is not on dialysis. Stage 4 CKD. Patient's symptoms are: None Diet History: Breakfast - pc of toast and tea Lunch - Hildreth (bologna and ketchup and mustard or other [...] Readings: Date: Ht: 05/10/2022 162.6 cm (5' 4) Current weight: Last 1 Encounter Wt Readings: Date: Wt: 05/10/2022 104.8 kg (231 lb) Body mass index is 39.65 kg/m . Resting Metabolic Rate: 1611 Malnutrition Screening Significant unintentional weight loss? No Eating less than 75% of usual intake for more than 2 weeks? No Potential Signs of Inflammation: unable to determine at this time Education Materials Provided: Healthy Lunch/Dinner Plate and Your Sodium- Controlled Diet READINESS TO LEARN Cognitive ability: Alert and oriented Motivation to learn: Interested Family support: Unable to assess - Family not present Instruction provided to: Patient Patient learns best by: Unable to Assess Factors affecting learning: Unable to assess Physical limitations affecting learning: None Referred/Supervised by: Charli/Derrick WAY Billing Type: Initial Assess/15 min 2 units SIGNATURE: Geena Huggins RD PATIENT NAME: Teresa Corbin DATE: May 10, 2022 TIME: 10:24 AM PAGER: N/A documented in this encounterAshtabula County Medical Center12-21-2022 History of Present illness Narrative* Seferino Morrissey RN - 05/10/2022 9:53 AM EST PRE-TRANSPLANT PATIENT EDUCATION NOTE Type of Transplant: [...] and frequency of blood draws/labs post-op and post-opcourse of treatment. -Reviewed National and [facility] outcomes from the most recent [facility] center-specific report; a copy of theprogram summary was given to the patient. -Explained [...] about Kidney Allocation Policy -Directions to access [facility]'s data through the [facility] website. -Informed Consent for Transplant Program Participation patient education packet -National Kidney Registry pamphlet -Covid-19 Vaccination for Transplant Candidates Method of Instruction: Group class instruction Written instruction - handouts Verbal instruction Computer Patient/Family Response: Patient and family member asked appropriate questions, which were answeredsatisfactorily. Follow-Up Plan: Complete - No need for follow-up Referral/Recommendation: None Peter Baltimore, RN Pre-Platform Engineer documented in this encounterAshtabula County Medical Center09-27-2022 History of Present illness Narrative* Jesenia Treviño RN - 02/14/2022 1:12 PM EDTSummary: Kidney Pretransplant Evaluation New Referral Referring Physician [...] appointment Jesenia Treviño RN Pre-Kidney & Pancreas Platform Engineer [facility] documented in this encounterAshtabula County Medical Center08-25-2022 Miscellaneous Notes* Telephone Encounter - Lisseth Vides - 01/12/2022 3:43 PM EDT First call, LVM documented in this encounterAshtabula County Medical CenterEvaluation note* Diagnosis Onset Date Resolution Status CKD (chronic kidney disease) stage 4, GFR 15-29 ml/min chronic Diabetes mellitus chronic HTN (hypertension) chronic Obesity (BMI 30-39.9) chroni c CKD (chronic kidney disease) stage 4, GFR 15-29 ml/min chronic Diabetes mellitus chronic HTN (hypertension) [facility] Work Phone: Evaluation note* Diagnosis Onset Date Resolution Status CKD (chronic kidney disease) stage 4, GFR 15-29 ml/min chronic Diabetes mellitus chronic HTN (hypertension) chronic Diabetes mellitus chronic HTN (hypertension) chronic Kidney disease chronic Obesity (BMI 30-39.9) [facility] Work Phone: Evaluation note* Diagnosis Hypertension, unspecified type- Primary documented in this encounter [facility] note* Diagnosis Pre-transplant evaluation for kidney transplant- Primary Other specified pre-operative examination documented in this encounter [facility] noteNo assessment information availableWKeenan Private Hospital Work Phone: Evaluation note* Diagnosis Pre-transplant evaluation for kidney transplant- Primary Other specified pre-operative examination documented in this encounter [facility] note* Diagnosis Pre-transplant evaluation for ESRD (end stage renal disease)- Primary Other specified pre-operative examination documented in this encounter [facility]* Diagnosis CKD (chronic kidney disease) stage 4, GFR 15-29 ml/min (HCC)- Primary Chronic kidney disease, Stage IV (severe) Type II diabetes mellitus with complication (HCC) Type II or unspecified type diabetes mellitus with unspecified complication, not stated as uncontrolled Class 3 severe obesity in adult, unspecified BMI, unspecified obesity type, unspecified whether serious comorbidity present ([facility]) Pre-transplant evaluation for CKD (chronic kidney disease) Other specified pre-operative examination documented in this encounter [facility] CenterC[facility]* Diagnosis Pre-transplant evaluation for end stage renal disease- Primary Other specified pre-operative examination documented in this encounter [facility]* Diagnosis Dietary counseling and surveillance- Primary Dietary surveillance and counseling Awaiting organ transplant Awaiting organ transplant status documented in this encounter [facility] note* Diagnosis Chronic renal failure, stage 4 (severe) (HCC) Pre-transplant evaluation for kidney transplant Other specified pre-operative examination documented in this encounter [facility] note* Diagnosis Onset Date Resolution Status Hypercalcemia acute CKD (chronic kidney disease) stage 5, GFR less than 15 ml/min chronic Diabetes mellitus chronic HTN (hypertension) chronic Obesity (BMI 30-39.9) [facility] Work Phone: Evaluation note* Diagnosis Pre-transplant evaluation for end stage renal disease Other specified pre-operative examination Pre-operative cardiovascular examination Encounter for screening for cardiovascular disorders Screening for other and unspecified cardiovascular conditions documented in this encounter [facility] note* Diagnosis Encounter for medication review- Primary Encounter for long-term (current) use of other medications [facility] Diagnosis Onset Date Resolution Status Neuropathy acute CKD (chronic kidney disease) stage 5, GFR less than 15 ml/min chronic Diabetes mellitus chronic HTN (hypertension) chronic Vitamin D insufficiency hospital plan administrator charline [facility] Work Phone: Evaluation note* Diagnosis Chronic kidney disease (CKD), stage V (CMS/HCC)- Primary Chronic kidney disease, Stage V documented in this encounter [facility] Work Phone: Evaluation note* Diagnosis Chronic kidney disease (CKD), stage V ([facility]/HCC)- Primary Chronic kidney disease, Stage V documented in this encounter [facility] Work Phone: Evaluation note* Diagnosis Onset Date Resolution Status CKD (chronic kidney disease) stage 5, GFR less than 15 ml/min chronic Diabetes mellitus chronic HTN (hypertension) chronic Hypercalcemia chronic Obesity (BMI 30-39.9) chroni c Vitamin D deficiency [facility] Work Phone: Evaluation note* Diagnosis Pre-transplant evaluation for kidney transplant- Primary Other specified pre-operative examination Pre-transplant evaluation for CKD (chronic kidney disease) Other specified pre-operative examination Pre-transplant evaluation for kidney transplant- Primary Other specified pre-operative examination Pre-transplant evaluation for CKD (chronic kidney disease) Other specified pre-operative examination [facility] Pre-transplant evaluation for kidney transplant- Primary Other specified pre-operative examination [facility]* Diagnosis Pre-transplant evaluation for [...] specified pre-operative examination [facility] Diagnosis Pre-transplant evaluation for kidney transplant- Primary Other specified pre-operative examination Pre-transplant evaluation for CKD (chronic kidney disease) Other specified pre-operative examination [facility] Diagnosis Pre-transplant evaluation for kidney transplant- Primary Other specified pre-operative examination documented in this encounter [facility] note* Diagnosis Pre-transplant evaluation for chronic kidney disease Other specified pre-operative examination [facility]* Diagnosis Encounter for pre-transplant evaluation for chronic kidney disease- Primary Pre-transplant evaluation for kidney transplant Other specified pre-operative examination CKD (chronic kidney disease) stage 5, GFR less than 15 ml/min ([facility]) Chronic kidney disease, Stage V Nephrolithiasis Calculus of kidney Type II diabetes mellitus with complication (HCC) Type II or unspecified type diabetes mellitus with unspecified complication, not stated as uncontrolled documented [facility] this [facility]* Diagnosis Obesity, Class III, BMI >= 40- Primary Morbid obesity CKD (chronic kidney disease) stage 5, GFR less than 15 ml/min (HCC) Chronic kidney disease, Stage V Hypertension, unspecified type Type 2 diabetes mellitus with diabetic nephropathy, unspecified whether terminal supervisor insulin use ([facility]) Obesity (BMI 30-39.9) Obesity, unspecified documented in this encounter [facility] note* Diagnosis Onset Date Resolution Status Admit Date CKD (chronic kidney disease) stage 5, GFR less than 15 ml/min chronic Octob er 2024 8:48am Diabetes mellitus chronic March 02, 2025 8:48am HTN (hypertension) chronic Octobe r 2024 8:48am Obesity (BMI 30-39.9) chronic Oct basil 2024 8:48am Secondary hyperparathyroidis m of renal origin chronic March 02 8:48am Vitamin D deficiency chronic Octo dandy 2024 8:48am [facility] Work Phone: [facility] Work Phone: [facility] Work Phone: Progress note Author Ulises Munson [facility] Services Note Date/Time March 02, 2025 9 :39am [facility] [address] [place] [address] OFFICE VISIT Date of Service: 03/02/25 MR#: [id number] Acct: [id number] Name: TERESA CORBIN Rep #: [id number] : 1960 Provider: Dr. Ulises Munson MD Age/Sex: 64/F [place] [facility] [place] Status: Signed Intake Vital Signs 09/01/24 08:55 03/02/25 08:51 Height 5 ft 5 in 5 ft 5 in Weight: 226 lb 6 oz 215 lb BMI 37.6 35.7 BP 179/94 H 170/84 H Blood Pressure Location Lt brachial Rt brachial Position Sitting Sitting Pulse 79 76 Pulse Source Monitor Monitor Pulse Oximetry (%) 98 98 Oxygen Delivery Method room air room air Intake Visit Reasons: 6 M FU Chief Complaint: f/u diabetes Is patient in pain?: No Allergies lisinopril (From Zestril) Adverse Reaction (Mild, Verified 03/02/25 08:54) cough ramipril (From Altace) Adverse Reaction (Mild, Verified 03/02/25 08:54) cough Medications ?Medication ?Instructions ?Recorded ?Confirmed ?Type allopurinol 100 mg tablet 100 mg PO DAILY 08/18/20 History aspirin 81 mg tablet,delayed 81 mg PO DAILY 08/18/20 History release simvastatin 20 mg tablet 20 mg PO DAILY 08/18/2002/18 History telmisartan 80 mg tablet 80 mg PO DAILY 08/18/2002/18 History insulin syringe-needle U-100 0.5 #100 ea 11/27/2202/18 Rx mL 31 gauge x 5/16 (BD Insulin Syringe Ultra-Fine) pen needle, diabetic 32 gauge x #100 ea 11/27/2203/02 Rx 5/32 (BD Ultra-Fine Susan Pen Needle) sevelamer HCl 800 mg tablet 800 mg PO DAILY 05/28/23 History furosemide 40 mg tablet 40 mg PO DAILY 11/28/2302/18 History metoprolol tartrate 75 mg tablet 75 mg PO BID 11/28/23 03/02/25 History insulin syringe-needle U-100 0.5 #100 ea 03/13/2402/18 Rx mL 31 gauge x 5/16 (BD Insulin Syringe Ultra-Fine) omeprazole 20 mg capsule,delayed 20 mg PO QDAY #90 cap s 09/01/24 03/02/25 Rx release Farxiga 10 mg tablet 10 mg PO DAILY #90 tabs 02/1803/02/25 Rx (dapagliflozin propanediol) Mounjaro 10 mg/0.5 mL subcutaneous 10 mg (0.5 mL) subc ut QWEEK #6 mL 03/02/25 03/02/25 Rx pen injector (tirzepatide) Novolin 70/30 U-100 Insulin 100 See Rx Instructions connell bcut .bidcm 03/02/25 03/02/25 Rx unit/mL subcutaneous suspension #40 mL (insulin NPH and regular human) amlodipine 10 mg tablet 10 mg PO DAILY #90 tabs 02/1803/02/25 Rx PFSH Medical History Hypercalcemia CKD (chronic kidney disease) stage 4, GFR 15-29 ml/min Kidney disease High cholesterol Headache Cellulitis and abscess of other specified site SIMIN (acute kidney injury) Anxiety Migraine Diabetes mellitus HTN (hypertension) Surgical History History of incision and drainage History of extraction of renal calculus History of medial meniscus repair of right knee History of wisdom tooth extraction Family History Father Diabetes Heart disease Kidney disease Mother Cancer pancreas Other Myocardial infarction Social History Smoking Status: Never smoker alcohol intake: current alcohol intake frequency: 0-2 drinks per day substance use type: does not use what type of physical activity do you participate in: walking HPI HPI Chief Complaint: f/u diabetes Details: TERESA CORBIN, is a 64 F who presents to the office today for follow up. A1C is 5.3% She is taking 70/30 premix insulin bid, Farxiga, and Mounjaro 7.5mg She is having lows at 2 am. Her other sugars are under 110. She is down 16 pounds. Vitamin D level is 14.6 She has stage 5 CKD. She has history of hypercalcemia. She isn't taking any supplement at this time. She is on statin ROS Const Constitutional: No fatigue or weight change ENT ENT: No dizziness/vertigo Cardio Cardiology: No chest pain at rest, chest pain with exertion, shortness of breathor palpitations Skin Skin: No wounds Endo Endocrine: No fatigue or weight change Exam Const General: cooperative, healthy appearing, comfortable, no acute distress, well developed and not cushingoid Nutritional Appearance: well nourished Orientation: alert, awake and oriented x3 HENMT Head: normal to inspection Ears: hearing grossly normal bilaterally Nose: external nose normal Mouth: oral mucosae normal Eyes General: appearance normal, both eyes and all related structures Alignment and Position: alignment normal Periorbital: periorbital findings normal Eyelids: eyelids normal Conjunctivae: conjunctivae normal Neck Neck: normal visual inspection Neck mass: No Thyroid: thyroid normal Lymphatic: no lymphadenopathy noted Chest Chest palpation & inspection: normal inspection of the chest Resp Effort & Inspection: normal respiratory effort, able to speak in complete sentences, symmetric chest movement, no audible wheezes and no cough Cardio Rate: regular rate Rhythm: regular rhythm Skin General: no rashes or lesions noted Neuro General: patient alert, patient awake and patient oriented x3 Cranial Nerves: CN's II-XI intact bilaterally Cognition: normal cognition Speech: speech normal Gait: normal gait Motor: muscle tone normal throughout Psych Appearance: grossly normal Mental Status: mental status grossly normal Mood: congruent mood Affect: normal affect Speech and Movement: speech and movement normal Attitude: cooperative Thought Process: normal Thought Content: normal Judgment: judgment good Results POC A1C POC A1C 5.3 % Last Edit by Dashawn Mcneal RN on 03/02/25 08:58 Assessment and Plan Assessment and Plan (1) Diabetes mellitus: Status: Chronic Qualifiers: Diabetes mellitus type: type 2 Diabetes mellitus senior living insulin use:with senior living use Diabetes mellitus complication status: with kidney complications Diabetes mellitus complication detail: with chronic kidney disease Chronic kidney disease stage: stage 5, not on chronic dialysis Qualified Code(s): E11.22 - Type 2 diabetes mellitus with diabetic chronic kidney disease; N18.5 - Chronic kidney disease, stage 5; Z79.4 - emt intermediate (current) use of insulin Plan: Excellent control, hypoglycemia. Reduce insulin. Increase Mounjaro dose. Stay hydrated. (2) HTN (hypertension): Status: Chronic Qualifiers: Hypertension type: unspecified Qualified Code(s): I10 - Essential (primary) hypertension Plan: Poor control. Will defer to Dr. Mayorga. (3) Vitamin D deficiency: Status: Chronic Plan: Start 2,000 IU D3 (4) CKD (chronic kidney disease) stage 5, GFR less than 15 ml/min: Status: Chronic Plan: Per nephrology (5) Secondary hyperparathyroidism of renal origin: Status: Chronic Plan: start vitamin D supplement. (6) Obesity (BMI 30-39.9): Status: Chronic Plan: Nutritional counseling provided, avoid flour, sugar, and artificial sweeteners. I have spent [32] minutes today reviewing labs, records and history. Time includes coordinating care, interpretation of tests, discussion with patient's other health care providers via telephone. This also includes time I spent with the patient for exam, treatment plan and education as well as documenting clinical information. I am providing longitudinal care Orders: Orders POC A1C Today E11.22 - Type 2 diabetes mellitus with diabetic chronic kidney disease, N18.5 - Chronic kidney disease, stage 5, Z79.4 - emt intermediate (current) use of insulin Medications: New Mounjaro (tirzepatide) 10 mg (0.5 mL) subcut QWEEK 6 mL 3RF NS Changed From Novolin 70/30 U-100 Insulin 100 unit/mL (70-30) (insulin NPH and regular human) 28 units at breakfast 26 units at supper subcutaneously BIDCM; 50 mL 2RF NS E11.22 - Type 2 diabetes mellitus with diabetic chronic kidney disease, N18.4 - Chronic kidney disease, stage 4 (severe), Z79.4 - emt intermediate (current) use of insulin To Novolin 70/30 U-100 Insulin 100 unit/mL (70-30) (insulin NPH and regular human) 25 units at breakfast 18 units at supper subcutaneously BIDCM; 40 mL 3RF NS E11.22 - Type 2 diabetes mellitus with diabetic chronic kidney disease, N18.4 - Chronic kidney disease, stage 4 (severe), Z79.4 - emt intermediate (current) use of insulin Refilled amlodipine 10 mg PO DAILY 90 tabs 3RF Farxiga (dapagliflozin propanediol) 10 mg PO DAILY 90 tabs 1RF NS Discontinued tirzepatide (Mounjaro) Discontinued Reason: Order Changed 7.5 mg (0.5 mL) subcut QWEEK 6 mL 1RF Coding Level of Care Code Off vis,est,level 4 Diagnoses Type 2 diabetes mellitus with stage 5 chronic kidney disease not on chronic dialysis, with long-term current use of insulin E11.22; N18.5; Z79.4 Diabetes mellitus type: type 2 Diabetes mellitus senior living insulin use: with terminal supervisor use Diabetes mellitus complication status: with kidney complications Diabetes mellitus complication detail: with chronic kidney disease Chronic kidney disease stage: stage 5, not on chronic dialysis Hypertension, unspecified type I10 Hypertension type: unspecified Vitamin D deficiency E55.9 CKD (chronic kidney disease) stage 5, GFR less than 15 ml/min N18.5 Secondary hyperparathyroidism of renal origin N25.81 Obesity (BMI 30-39.9) E66.9 03/02/25 0939 <Electronically signed by Ulises Munson MD> Date _ Ulises Munson MD Cosigner Signature: Date (if applicable) CC: Dr. Jasmyne Mayorga MD; Dr. Aric Dubois MD ~ [facility] Work Phone: Reason for referral (narrative)* Diagnostic Procedure Only (Urgent) - Closed Specialty Diagnoses / Procedures Referred By Contac t Referred To Contact MOLECULAR & FUNCTIONAL IMAGING Diagnoses Pre-transplant evaluation for end stage renal disease Pre-operative cardiovascular examination Encounter for screening for cardiovascular disorders Procedures NM CARDIAC PERF STRESS/PHARM MYOCARDIAL SPECT MULTIPLE STUDIES Marek Roberson MD [address] [place] [address] Molecular & Functional Imaging [address] [place] [address] Referral ID Status Reason Start Date Expiration Date V isits Requested Visits Authorized [id number] Closed Auto-Generated Referral Patient Cleared - INN Insurance Found 07/26/2022 07/27/2023 1 1 [facility])No reason for referral information availableWKeenan Private Hospital Work Phone: Chief Complaint and Reason for Visit Chief Complaint [employer]-DM-NPP MAILED 2 M FU Reason for Visit CKD (chronic kidney disease) stage 4, GFR 15-29 ml/min Diabetes mellitus HTN (hypertension) Obesity (BMI 30-39.9) CKD (chronic kidney disease) stage 4, GFR 15-29 ml/min Diabetes mellitus HTN (hypertension) Chief Complaint SUPER[employer]-DM-NPP MAILED 2 M FU CKD Reason for Visit CKD (chronic kidney disease) stage 4, GFR 15-29 ml/min Diabetes mellitus HTN (hypertension) Obesity (BMI 30-39.9) CKD (chronic kidney disease) stage 4, GFR 15-29 ml/min Diabetes mellitus HTN (hypertension) Chief Complaint 2 M FU CKD 3 M FU Reason for Visit CKD (chronic kidney disease) stage 4, GFR 15-29 ml/min Diabetes mellitus HTN (hypertension) Diabetes mellitus HTN (hypertension) Kidney disease Obesity (BMI 30-39.9) Chief Complaint 6 M FU EORDER Reason for Visit Hypercalcemia CKD (chronic kidney disease) stage 5, GFR less than 15 ml/min Diabetes mellitus HTN (hypertension) Obesity (BMI 30-39.9) Chief Complaint 6 M FU EORDER SCREENING Reason for Visit Hypercalcemia CKD (chronic kidney disease) stage 5, GFR less than 15 ml/min Diabetes mellitus HTN (hypertension) Obesity (BMI 30-39.9) Chief Complaint 6 M FU E-ORDER Chief Complaint 6 M FU E-ORDER Reason for Visit Neuropathy CKD (chronic kidney disease) stage 5, GFR less than 15 ml/min Diabetes mellitus HTN (hypertension) Vitamin D insufficiency Chief Complaint 6 M FU E-ORDER EORDER Reason for Visit Neuropathy CKD (chronic kidney disease) stage 5, GFR less than 15 ml/min Diabetes mellitus HTN (hypertension) Vitamin D insufficiency Chief Complaint 6 M FU Reason for Visit CKD (chronic kidney disease) stage 5, GFR less than 15 ml/min Diabetes mellitus HTN (hypertension) Hypercalcemia Obesity (BMI 30-39.9) Vitamin D deficiency Chief Complaint 6 M FU SCREENING Reason for Visit CKD (chronic kidney disease) stage 5, GFR less than 15 ml/min Diabetes mellitus HTN (hypertension) Hypercalcemia Obesity (BMI 30-39.9) Vitamin D deficiency Chief Complaint Admit Date 2 M FU May 01, 2024 8:56am EORDER AND ADDT. ODER August 19, 2024 10 :16am Reason for Visit Admit Date CKD (chronic kidney disease) stage 5, GFR less than 15 ml/min May 01, 2024 8:56am Diabetes mellitus May 01, 2024 8:56am HTN (hypertension) May 01, 2024 8:56am Hypercalcemia May 01, 2024 8:56am Obesity (BMI 30-39.9) May 01 8:56am Vitamin D deficiency May 01, 2024 8:56am Chief Complaint Admit Date EORDER AND ADDT. ODER August 19, 2024 10 :16am 4 M FU September 01, 2024 8:5 1am 2 DRS/ 2 ORDERS November 12, 2024 10:1 7am Reason for Visit Admit Date Diabetes mellitus September 01, 2024 8:5 1am Hypercalcemia September 01, 2024 8:5 1am Obesity (BMI 30-39.9) September 01, 2024 8 :51am Secondary hyperparathyroidism of renal o rigin September 01, 2024 8:51am Chief Complaint Admit Date 6 M FU March 02, 2025 8 :48am Reason for Visit Admit Date CKD (chronic kidney disease) stage 5, GFR less than 15 ml/min March 02, 2025 8:48am Diabetes mellitus March 02, 2025 8 :48am HTN (hypertension) March 02, 2025 8 :48am Obesity (BMI 30-39.9) March 02, 2025 8:48am Secondary hyperparathyroidism of renal o rigin March 02, 2025 8:48am Vitamin D deficiency March 02, 2025 8:48am Family History Relationship Condition Age at Onset Recorded Date/T paulo Not Specified Myocardial infarction Unknown father Diabetes mellitus Unknown Cardiac disease Unknown Kidney disorder Unknown mother Malignant neoplasm Unknown Reason for Referral Specialty Diagnoses / Procedures Referred By Kate t Referred To Contact TRANSPLANT Diagnoses Hypertension, unspecified type Procedures CONSULT TO TRANSPLANT CENTER OFFICE/OUTPATIENT NEW HIGH MDM 60-74 MINUTES CHEST X-RAY, FRONT&LAT ECG ROUTINE ECG W/LEAST 12 LDS TRCG ONLY W/O I&R CT ANGIOGRAPHY CHEST W/CONTRAST/NONCONTRAST CT ABDOMEN W & W/O CONTRAST Tiarra Mayorga MD [address] [place] [address] [facility] [address] [address] Referral ID Status Reason Start Date Expiration Date Visits Requested Visits Authorized [id number] Pending Review Financial Clearance Required - OON Payor 02/01/2022 02/01/2023 99 99 Specialty Diagnoses / Procedures Referred By Contac t Referred To Contact CT IMAGING Diagnoses Chronic renal failure, stage 4 (severe) (HCC) Pre-transplant evaluation for kidney transplant Procedures CT ABD/PEL WO IVCON CT ABD & PELVIS W/O CONTRAST Pritesh Padron MD [address] [address] [address] Imaging Referral ID Status Reason Start Date Expiration Date V isits Requested Visits Authorized [id number] Closed Auto-Generated Referral Patient Cleared - INN Insurance Found 04/28/2022 03/16/2023 1 1 Specialty Diagnoses / Procedures Referred By Contac t Referred To Contact Gastroenterology Diagnoses Chronic kidney disease (CKD), stage V (CMS/HCC) Procedures Colonoscopy Screening; High Risk Patient ND COLONOSCOPY FLX DX W/COLLJ SPEC WHEN PFRMD ND COLON CA SCRN NOT HI RSK IND ND COLORECTAL SCRN; HI RISK IND ND COLONOSCOPY W/BIOPSY SINGLE/MULTIPLE ND COLSC FLX W/RMVL OF TUMOR POLYP LESION SNARE TQ ND COLSC FLX W/REMOVAL LESION BY HOT BX FORCEPS Marcus Fonseca, DO [address] [facility] [place] [address] Referral ID Status Reason Start Date Expiration Date V isits Requested Visits Authorized [id number] Authorized 04/27/2023 04/26/2024 1 1 Specialty Diagnoses / Procedures Referred By Contac t Referred To Contact Diagnoses Pre-transplant evaluation for kidney transplant Procedures CONSULT TO PSYCHIATRY OFFICE/OUTPATIENT [facility] 60 MINUTES Yong Hung MD [address] [place] [address] Referral ID Status Reason Start Date Expiration Date Visits Requested Visits Authorized [id number] Pending Review PCP Requested Referral 08/08/2023 07/31/2024 1 1 Summary Purpose Advance Directives No Advanced Directives Records FoundNo Advanced Directives Records FoundNo Advanced Directives Records FoundNo Advanced Directives Records Found Additional Source Comments Goals (unrecognized section and content) Goals may be documented in a n alternate sectionGoals may be documented in an alternate sectionGoals may be documented in an alternate sectionGoals may be documented in an alternate sectionGoals may be documented in an alternate sectionGoals may be documented in an alternate sectionGoals may be documented in an alternate sectionGoals may be documented in an alternate sectionGoals may be documented in an alternate sectionGoals may be documented in an alternate sectionGoals may be documented in an alternate sectionGoals may be documented in an alternate sectionGoals may be documented in an alternate sectionGoals may be documented in an alternate sectionGoals may be documented in an alternate sectionGoals may be documented in an alternate sectionGoals may be documented in an alternate sectionGoals may be documented in an alternate section Source Comments (unrecognize d section and content) In the event this informatio n is protected by the Federal Confidentiality of Alcohol and Drug Abuse Patient Records regulations: The Federal rules restrict any use of the information to criminally investigate or prosecute any alcohol or drug abuse patient.[facility] CenterIn the event this information is protected by the Federal Confidentiality of Alcohol and Drug Abuse Patient Records regulations: The Federal rules restrict any use of the information to criminally investigate or prosecute any alcohol or drug abuse patient.[facility] CenterIn the event this information is protected by the Federal Confidentiality of Alcohol and Drug Abuse Patient Records regulations: The Federal rules restrict any use of the information to criminally investigate or prosecute any alcohol or drug abuse patient.[facility] CenterIn the event this information is protected by the Federal Confidentiality of Alcohol and Drug Abuse Patient Records regulations: The Federal rules restrict any use of the information to criminally investigate or prosecute any alcohol or drug abuse patient.[facility] CenterIn the event this information is protected by the Federal Confidentiality of Alcohol and Drug Abuse Patient Records regulations: The Federal rules restrict any use of the information to criminally investigate or prosecute any alcohol or drug abuse patient.[facility] CenterIn the event this information is protected by the Federal Confidentiality of Alcohol and Drug Abuse Patient Records regulations: The Federal rules restrict any use of the information to criminally investigate or prosecute any alcohol or drug abuse patient.[facility] CenterIn the event this information is protected by the Federal Confidentiality of Alcohol and Drug Abuse Patient Records regulations: The Federal rules restrict any use of the information to criminally investigate or prosecute any alcohol or drug abuse patient.[facility] CenterIn the event this information is protected by the Federal Confidentiality of Alcohol and Drug Abuse Patient Records regulations: The Federal rules restrict any use of the information to criminally investigate or prosecute any alcohol or drug abuse patient.[facility] CenterIn the event this information is protected by the Federal Confidentiality of Alcohol and Drug Abuse Patient Records regulations: The Federal rules restrict any use of the information to criminally investigate or prosecute any alcohol or drug abuse patient.[facility] CenterIn the event this information is protected by the Federal Confidentiality of Alcohol and Drug Abuse Patient Records regulations: The Federal rules restrict any use of the information to criminally investigate or prosecute any alcohol or drug abuse patient.[facility] CenterIn the event this information is protected by the Federal Confidentiality of Alcohol and Drug Abuse Patient Records regulations: The Federal rules restrict any use of the information to criminally investigate or prosecute any alcohol or drug abuse patient.[facility] CenterIn the event this information is protected by the Federal Confidentiality of Alcohol and Drug Abuse Patient Records regulations: The Federal rules restrict any use of the information to criminally investigate or prosecute any alcohol or drug abuse patient.[facility] CenterIn the event this information is protected by the Federal Confidentiality of Alcohol and Drug Abuse Patient Records regulations: The Federal rules restrict any use of the information to criminally investigate or prosecute any alcohol or drug abuse patient.[facility] CenterIn the event this information is protected by the Federal Confidentiality of Alcohol and Drug Abuse Patient Records regulations: The Federal rules restrict any use of the information to criminally investigate or prosecute any alcohol or drug abuse patient.[facility] CenterIn the event this information is protected by the Federal Confidentiality of Alcohol and Drug Abuse Patient Records regulations: The Federal rules restrict any use of the information to criminally investigate or prosecute any alcohol or drug abuse patient.[facility] CenterIn the event this information is protected by the Federal Confidentiality of Alcohol and Drug Abuse Patient Records regulations: The Federal rules restrict any use of the information to criminally investigate or prosecute any alcohol or drug abuse patient.[facility] CenterIn the event this information is protected by the Federal Confidentiality of Alcohol and Drug Abuse Patient Records regulations: The Federal rules restrict any use of the information to criminally investigate or prosecute any alcohol or drug abuse patient.[facility] CenterIn the event this information is protected by the Federal Confidentiality of Alcohol and Drug Abuse Patient Records regulations: The Federal rules restrict any use of the information to criminally investigate or prosecute any alcohol or drug abuse patient.[facility] CenterIn the event this information is protected by the Federal Confidentiality of Alcohol and Drug Abuse Patient Records regulations: The Federal rules restrict any use of the information to criminally investigate or prosecute any alcohol or drug abuse patient.[facility] CenterIn the event this information is protected by the Federal Confidentiality of Alcohol and Drug Abuse Patient Records regulations: The Federal rules restrict any use of the information to criminally investigate or prosecute any alcohol or drug abuse patient.[facility] CenterIn the event this information is protected by the Federal Confidentiality of Alcohol and Drug Abuse Patient Records regulations: The Federal rules restrict any use of the information to criminally investigate or prosecute any alcohol or drug abuse patient.[facility] CenterIn the event this information is protected by the Federal Confidentiality of Alcohol and Drug Abuse Patient Records regulations: The Federal rules restrict any use of the information to criminally investigate or prosecute any alcohol or drug abuse patient.[facility] CenterIn the event this information is protected by the Federal Confidentiality of Alcohol and Drug Abuse Patient Records regulations: The Federal rules restrict any use of the information to criminally investigate or prosecute any alcohol or drug abuse patient.[facility] CenterIn the event this information is protected by the Federal Confidentiality of Alcohol and Drug Abuse Patient Records regulations: The Federal rules restrict any use of the information to criminally investigate or prosecute any alcohol or drug abuse patient.[facility] Center[facility] the event this information is protected by the Federal Confidentiality of Alcohol and Drug Abuse Patient Records regulations: The Federal rules restrict any use of the information to criminally investigate or prosecute any alcohol or drug abuse patient.[facility] Center[facility] the event this information is protected by the Federal Confidentiality of Alcohol and Drug Abuse Patient Records regulations: The Federal rules restrict any use of the information to criminally investigate or prosecute any alcohol or drug abuse patient.[facility] the event this information is protected by the Federal Confidentiality of Alcohol and Drug Abuse Patient Records regulations: The Federal rules restrict any use of the information to criminally investigate or prosecute any alcohol or drug abuse patient.[facility] Center[facility] the event this information is protected by the Federal Confidentiality of Alcohol and Drug Abuse Patient Records regulations: The Federal rules restrict any use of the information to criminally investigate or prosecute any alcohol or drug abuse patient.[facility] CenterIn the event this information is protected by the Federal Confidentiality of Alcohol and Drug Abuse Patient Records regulations: The Federal rules restrict any use of the information to criminally investigate or prosecute any alcohol or drug abuse patient.[facility] Center[facility] the event this information is protected by the Federal Confidentiality of Alcohol and Drug Abuse Patient Records regulations: The Federal rules restrict any use of the information to criminally investigate or prosecute any alcohol or drug abuse patient.[facility] CenterIn the event this information is protected by the Federal Confidentiality of Alcohol and Drug Abuse Patient Records regulations: The Federal rules restrict any use of the information to criminally investigate or prosecute any alcohol or drug abuse patient.[facility] Reason for Visit (unrecogniz ed section and content) Reason Comments Referral - Kidney Txp Reason Comments Patient Education Reason Comments Transplant Evaluation Reason Comments Patient Education Assessment Specialty Diagnoses / Procedures Referred By Contac t Referred To Contact CT IMAGING Diagnoses Chronic renal failure, stage 4 (severe) (HCC) Pre-transplant evaluation for kidney transplant Procedures CT ABD/PEL WO IVCON CT ABD & PELVIS W/O CONTRAST Pritesh Padron MD [address] [place] [address] Ct Imaging Referral ID Status Reason Start Date Expiration Date V isits Requested Visits Authorized [id number] Closed Auto-Generated Referral Patient Cleared - INN Insurance Found 04/28/2022 03/16/2023 1 1 Reason Comments Radiology NM Specialty Diagnoses / Procedures Referred By Contac t Referred To Contact MOLECULAR & FUNCTIONAL IMAGING Diagnoses Pre-transplant evaluation for end stage renal disease Pre-operative cardiovascular examination Encounter for screening for cardiovascular disorders Procedures NM CARDIAC PERF STRESS/PHARM MYOCARDIAL SPECT MULTIPLE STUDIES Marek Roberson MD [address] [place] [address] Molecular & Functional Imaging [address] [place] [address] Referral ID Status Reason Start Date Expiration Date V isits Requested Visits Authorized [id number] Closed Auto-Generated Referral Patient Cleared - INN Insurance Found 07/26/2022 07/27/2023 1 1 Reason Comments Follow Up Reason Comments Caregiver Support Reason Comments Patient Update Specialty Diagnoses / Procedures Referred By Contac t Referred To Contact Diagnoses Chronic kidney disease, stage 5 (CMS/HCC) Procedures ND COLONOSCOPY FLX DX W/COLLJ SPEC WHEN PFRMD ND COLONOSCOPY W/BIOPSY SINGLE/MULTIPLE ND COLSC FLX W/RMVL OF TUMOR POLYP LESION SNARE TQ ND COLSC FLX W/REMOVAL LESION BY HOT BX FORCEPS [facility] [id number] [facility] [address] [facility] [address] [place] [address] [phone] Referral ID Status Reason Start Date Expiration Date Visits Re quested Visits Authorized [id number] 1 1 Reason Comments Radio Main J1 Reason Comments Kidney Eval Care Teams (unrecognized sec tion and content) Certified Home Health Aide Relationship Specialty Start Date End Date Pcp, No PCP - General 12/03/21 06/20/22 Certified Home Health Aide Relationship Specialty Start Date End Date Pcp, No PCP - General 12/03/21 06/20/22 Certified Home Health Aide Relationship Specialty Start Date End Date Pcp, No PCP - General 12/03/21 06/20/22 Certified Home Health Aide Relationship Specialty Start Date End Date Pcp, No PCP - General 12/03/21 06/20/22 Certified Home Health Aide Relationship Specialty Start Date End Date Pcp, No PCP - General 12/03/21 06/20/22 Certified Home Health Aide Relationship Specialty Start Date End Date Pcp, No PCP - General 12/03/21 06/20/22 Certified Home Health Aide Relationship Specialty Start Date End Date Pcp, No PCP - General 12/03/21 06/20/22 Certified Home Health Aide Relationship Specialty Start Date End Date Pcp, No PCP - General 12/03/21 06/20/22 Team Status: Active Member Role Status Dates Dr. Lima Pollard MD Family Provider Active Dr. Lima Pollard MD Primary Care Provider Active Team Status: Inactive Member Role Status Dates Dr. Lima Pollard MD Primary Care Provider, Referrin g Provider Active RODRIGO Fallon Attending Provider Active Team Status: Inactive Member Role Status Dates Dr. Lima Pollard MD Primary Care Provider Active Dr. Jasmyne Mayroga MD Attending Provider, Referri ng Provider Active Team Status: Inactive Member Role Status Dates Dr. Lima Pollard MD Primary Care Provider Active RODRIGO Fallon Attending Provider, Referring Pr ovider Active Team Status: Active Member Role Status Dates Dr. Lima Pollard MD Primary Care Prov ider, Attending Provider, Referring Provider Active Team Status: Inactive Member Role Status Dates Dr. Lima Pollard MD Primary Care Provider Active Lima Pollard MD Attending Provider Active Team Status: Inactive Member Role Status Dates Dr. Lima Pollard MD Primary Care Prov ider, Attending Provider, Referring Provider Active Team Status: Active Member Role Status Dates Dr. Lima Pollard MD Primary Care Provider Active RODRIGO Fallon Attending Provider, Referring Pr ovider Active Team Status: Inactive Member Role Status Dates Dr. Lima Pollard MD Primary Care Provider Active Dr. Aric Dubois MD Attending Provider, Referring Provider Active Certified Home Health Aide Relationship Specialty Start Date End Date Tiarra Mayorga MD [address] [place] [address] PCP - General Nephrology 04/27/23 Certified Home Health Aide Relationship Specialty Start Date End Date Tiarra Mayorga MD [address] [place] [address] PCP - General Nephrology 04/27/23 Team Status: Inactive Member Role Status Dates Dr. Lima Pollard MD Primary Care Provider, Attendin g Provider Active Team Status: Inactive Member Role Status Dates Dr. Lima Pollard MD Primary Care Provider Active RODIRGO Pfeiffer Attending Provider, Referring Provider Active Team Status: Inactive Member Role Status Dates Dr. Lima Pollard MD Primary Care Provider Active Start: May 01, 2024 End: May 01, 2024 Dr. Lima Pollard MD Referring Provider Active Start: May 01, 2024 End: May 01, 2024 Dr. Ulises Munson MD Attending Provider Active Sta rt: May 01, 2024 End: May 01, 2024 Team Status: Inactive Member Role Status Dates Dr. Lima Pollard MD Primary Care Provider Active Start: May 19, 2024 End: May 19, 2024 Dr. Jasmyne Mayorga MD Attending Provider Active Start: May 19, 2024 End: May 19, 2024 Dr. Jasmyne Mayorga MD Referring Provider Active Start: May 19, 2024 End: May 19, 2024 Team Status: Inactive Member Role Status Dates Dr. Lima Pollard MD Primary Care Provider Active Start: August 19, 2024 End: August 19, 2024 Dr. Lima Pollard MD Attending Provider Active Start: August 19, 2024 End: August 19, 2024 Dr. Lima Pollard MD Referring Provider Active Start: August 19, 2024 End: August 19, 2024 Dr. Jasmyne Mayorga MD Other Provider Active Start: August 19, 2024 End: August 19, 2024 Team Status: Active Member Role/Relationship Status Dates Dr. Lima Pollard MD Family Provider Active Dr. Lima Pollard MD Primary Care Provider Active Team Status: Inactive Member Role/Relationship Status Dates Dr. Lima Pollard MD Primary Care Provider Active Start: August 19, 2024 End: August 19, 2024 Dr. Lima Pollard MD Attending Provider Active Start: August 19, 2024 End: August 19, 2024 Dr. Lima Pollard MD Referring Provider Active Start: August 19, 2024 End: August 19, 2024 Dr. Jasmyne Mayorga MD Other Provider Active Start: August 19, 2024 End: August 19, 2024 Team Status: Inactive Member Role/Relationship Status Dates Dr. Lima oPllard MD Primary Care Provider Active Start: September 01, 2024 End: September 01, 2024 Dr. Lima Pollard MD Referring Provider Active Start: September 01, 2024 End: September 01, 2024 Dr. Ulises Munson MD Attending Provider Active Sta rt: September 01, 2024 End: September 01, 2024 Team Status: Inactive Member Role/Relationship Status Dates Dr. Lima Pollard MD Primary Care Provider Active Start: November 12, 2024 End: November 12, 2024 Dr. Ulises Munson MD Attending Provider Active Sta rt: November 12, 2024 End: November 12, 2024 Dr. Ulises Munson MD Referring Provider Active Sta rt: November 12, 2024 End: November 12, 2024 Dr. Jasmyne Mayorga MD Other Provider Active Start: November 12, 2024 End: November 12, 2024 Team Status: Active Member Role/Relationship Status Dates Dr. Lima Pollard MD Primary care physician Active Team Status: Inactive Member Role/Relationship Status Dates Dr. Lima Pollard MD Primary care physician Active Start: February 23, 2025 End: February 23, 2025 Dr. Jasmyne Mayorga MD Attending physician Active Start: February 23, 2025 End: February 23, 2025 Dr. Jasmyne Mayorga MD Referring Provider Active Start: February 23, 2025 End: February 23, 2025 Team Status: Inactive Member Role/Relationship Status Dates Dr. Lima Pollard MD Primary care physician Active Start: March 02, 2025 End: March 02, 2025 Dr. Lima Pollard MD Referring Provider Active Start: March 02, 2025 End: March 02, 2025 Dr. Ulises Munson MD Attending physician Active St art: March 02, 2025 End: March 02, 2025 INFORMATION SOURCE (unrecogn ized section and content) DATE CREATED AUTHOR 06/20/2023 [facility] DATE CREATED AUTHOR AUTHOR'S ORGANIZ ATION 04/06/2024 [facility] DATE CREATED AUTHOR AUTHOR'S ORGANIZ ATION 09/23/2024 [facility] DATE CREATED AUTHOR AUTHOR'S ORGANIZ ATION 03/15/2025 [facility] FOR RECORDS PERTAINING TO PATIENTS [...] BE BASED ON THE PRIMARY CLINICAL RECORDS. [facility]. provides no warranty or guarantee of the accuracy or completeness of information in this document.
[2025-04-10 12:14] LABS: Hematocrit 37.9 % (37-47); Hemoglobin 12.2 g/dL (12.0-15.0); Immature Granulocytes Count 0.050 X10^3/uL (0.0-0.0); Mean Corp Hgb Conc 32.2 g/dL (32-36); Mean Corpuscular Volume 89.4 fL (81-99); Mean Platelet Vol. 11.4 fl (6.2-12.0); NRBC Flagged by Analyzer 0 % (0-5); Platelet Count 308 K/mm3 (150-450); RBC Distribution Width CV 14.1 % (11.6-14.6); RBC Distribution Width SD 45.6 fl (35.1-43.9); Red Blood Count 4.24 M/mm3 (4.2-5.4); White Blood Count 12.7 K/mm3 (4.4-11.0)
[2025-04-10 12:49] LABS: AST(SGOT) 11 U/L (<=31); Alanine Aminotransfer ALT/SGPT 7 U/L (<=34); Albumin, Serum 3.9 g/dL (3.4-4.8); Alkaline Phosphatase 66 U/L (35-104); Anion Gap 16 (5-15); BUN 66 mg/dL (4-19); BUN/Creat Ratio 10.9 RATIO (10-20); Calcium,Total 11.0 mg/dL (7.6-11.0); Carbon Dioxide 14.8 mmol/L (21.0-32.0); Chloride 106 mmol/L (98-108); Cholesterol 116 mg/dL (<=200); Ferritin 139 ng/mL (22-378); Globulin 3.6 g/dL (2.2-4.2); Glucose 49 mg/dL (70-99); Low Density Lipoprotein Calc. 58 mg/dL; Potassium 4.4 mmol/L (3.3-5.1); Triglycerides 87 mg/dL; Very Low Density Lipoprotein 17 mg/dL (5-40); Vitamin B12 534 pg/mL (180-914); cholesterol:hdl ratio screen 2.84
[2025-04-10 13:11] LABS: Iron 61 ug/dL (50-170); Iron Binding Capacity,Unsat 163 ug/dL (228-428)
[2025-04-10 13:13] LABS: Iron Binding Capacity,Total 224 ug/dL (250-450)
[2025-04-10 13:28] LABS: FOLATES,SERUM (FOLIC ACID) 12.20 ng/mL (4.60-34.80)
== END | disposition home or self-care (01) ==
LOC: MFPLAB 09:31
PROVIDERS: PCP Family Medicine; Visit Provider Family Medicine
DX: E11.69 Type 2 diabetes mellitus with other specified complication (principal); D64.9 Anemia, unspecified
CPT/HCPCS: 36415; 80053; 80061; 82607; 82728; 82746; 83540; 83550; 85025